=== PATIENT | male | born 1955 | race Caucasian/White ===

== ENCOUNTER 2017-04-23 15:22 | Emergency (ER) | payer MEDICARE, MEDICAID ==
[~2017-04-23] VITALS: Ht 175.3 cm; Wt 84.0 kg
[~2017-04-23 15:22] MED LIST: ASPI-1265 PO; ATOR40TA PO; DAPA10TA PO; DIVA500T7 PO; FLO0.4C PO; GLU850T PO; LANTUS SQ; LIRA0.6P SQ; LISI10TA4 PO; OMEG1CAP13 PO; POTA8CAP9 PO; RISP4TAB2 PO
[2017-04-23 16:03] LABS: BASOPHILS # (AUTO) 0.1 X10'3 (0-0.2); BASOPHILS % (AUTO) 0.5 % (0-1); EOSINOPHILS # (AUTO) 0.2 X10'3 (0-0.9); EOSINOPHILS % (AUTO) 2.4 % (0-6); HEMATOCRIT 53.2 % (42.0-52.0); HEMOGLOBIN 17.4 g/dl (14.0-17.9); LYMPHOCYTES # (AUTO) 2.4 X10'3 (1.1-4.8); LYMPHOCYTES % (AUTO) 24.3 % (21-51); MEAN CORPUSCULAR HEMOGLOBIN 32.2 PG (27.0-31.0); MEAN CORPUSCULAR HGB CONC 32.7 % (33.0-36.5); MEAN CORPUSCULAR VOLUME 98.5 FL (78-98); MONOCYTES # (AUTO) 0.8 X10'3 (0-0.9); MONOCYTES % (AUTO) 8.3 % (2-12); NEUTROPHILS # (AUTO) 6.4 X10'3 (1.8-7.7); NEUTROPHILS % (AUTO) 64.5 % (42-75); PLATELET COUNT 262 X10'3 (140-440); RED CELL DISTRIBUTION WIDTH 13.5 % (11.5-14.5)
[2017-04-23 16:28] LABS: ALANINE AMINOTRANSFERASE 44 U/L (12-78); ALBUMIN 4.2 G/DL (3.4-5.0); ALKALINE PHOSPHATASE 84 IU/L (46-116); ANION GAP 12 (8-16); ASPARTATE AMINO TRANSFERASE 36 U/L (10-37); BLOOD UREA NITROGEN 10 MG/DL (7-18); BUN/CREATININE RATIO 11.1 (5.4-32.0); CALCIUM 9.5 MG/DL (8.5-10.1); CHLORIDE 98 MMOL/L (99-107); ETHANOL < 0.010 GM/DL (0.0-0.010); GLUCOSE 95 MG/DL (70-104); POTASSIUM 3.7 MMOL/L (3.5-5.1); SODIUM 135 MMOL/L (135-145); TOTAL CARBON DIOXIDE 25.5 MMOL/L (24-32); TOTAL PROTEIN 8.5 G/DL (6.4-8.2); eGFR 85 ML/MIN
[2017-04-23 16:56] LABS: CLARITY,URINE CLEAR (Clear); GLUCOSE, URINE >=1000 mg/dl (Neg); KETONES,URINE 15 mg/dl (Neg); LEUKOCYTE ESTERASE ,URINE NEGATIVE (Neg); NITRITES, URINE NEGATIVE (Neg); OCCULT BLOOD,URINE NEGATIVE (Neg); PH,URINE 5.5 (4.8-8.0); PROTEIN,URINE NEGATIVE (Neg)
[2017-04-23 17:05] LABS: COLOR,URINE DARK YELLOW (Yellow); UA COLLECTION TYPE VOIDED
[2017-04-23 17:06] LABS: URINE AMPHETAMINE SCREEN NEGATIVE (Neg); URINE BARBITUATE SCREEN NEGATIVE (Neg); URINE BENZODIAZEPINES SCREEN NEGATIVE (Neg); URINE CANNABINOID SCREEN POSITIVE (Neg); URINE COCAINE SCREEN NEGATIVE (Neg); URINE METHADONE SCREEN NEGATIVE (Neg); URINE OPIATE SCREEN NEGATIVE (Neg); URINE PHENCYCLIDINE SCREEN NEGATIVE (Neg)
[2017-04-23 17:15] LABS: BACTERIA,URINE NONE SEEN /HPF (Neg); MUCUS STRANDS MODERATE /LPF (Neg); RBC,URINE 0-2 /HPF (0-2); SQUAMOUS EPITHELIAL CELL,UR FEW /LPF (FEW)
[2017-04-23 17:16] LABS: WBC,URINE 0-4 /HPF (0-4)
[2017-04-23] MEDS ORDERED: ATOR40TA72 (17:37)
[2017-04-23] MEDS ORDERED: INSU100V9 (17:37)
[2017-04-23] MEDS ORDERED: METF850T2 (17:37)
[2017-04-23] MEDS ORDERED: TAMS0.4C32 (17:37)
[2017-04-23] MEDS ORDERED: LIRA0.6P2 (17:37)
[2017-04-23] MEDS: risperiDONE 2mg tablet PO SCH (20:51)
[2017-04-23] MEDS: divalproex sodium 500mg tablet.DR PO SCH (20:52)
[2017-04-23] MEDS: tamsulosin 0.4mg capsule PO SCH (20:52)
[2017-04-23] MEDS: metFORMIN 850mg tablet PO SCH (20:55)
[2017-04-23] MEDS ORDERED: Insulin Detemir pen SQ SCH (21:00)
[2017-04-24] MEDS ORDERED: LORazepam 1 MG tablet PO PRN (05:50)
[2017-04-24] MEDS: metFORMIN 850mg tablet PO SCH ×2 (07:56→20:56)
[2017-04-24] MEDS: atorvastatin 20mg tablet PO SCH (07:56)
[2017-04-24] MEDS: aspirin 81mg tab.chew PO SCH (07:56)
[2017-04-24] MEDS: lisinopril 10 MG tablet PO SCH (07:56)
[2017-04-24] MEDS: potassium chloride 8mEq ER tablet PO SCH (07:57)
[2017-04-24] MEDS: VICTOZA SQ SCH (10:12)
[2017-04-24] MEDS: FARXIGA 10 MG PO SCH (10:12)
[2017-04-24] MEDS: divalproex sodium 500mg tablet.DR PO SCH (20:58)
[2017-04-24] MEDS: tamsulosin 0.4mg capsule PO SCH (20:58)
[2017-04-24] MEDS: risperiDONE 2mg tablet PO SCH (20:58)
[2017-04-25 05:30] VITALS: BP 119/70
[2017-04-25] MEDS: aspirin 81mg tab.chew PO SCH (08:09)
[2017-04-25] MEDS: metFORMIN 850mg tablet PO SCH (08:09)
[2017-04-25] MEDS: VICTOZA SQ SCH (08:09)
[2017-04-25] MEDS: atorvastatin 20mg tablet PO SCH (08:10)
[2017-04-25] MEDS: potassium chloride 8mEq ER tablet PO SCH (08:10)
[2017-04-25] MEDS: lisinopril 10 MG tablet PO SCH (08:10)
[2017-04-25] MEDS: FARXIGA 10 MG PO SCH (09:36)
== END 2017-04-25 15:49 ==
LOC: ER 15:23
DX: F29 Unspecified psychosis not due to a substance or known physiological condition (principal); I25.10 Atherosclerotic heart disease of native coronary artery without angina pectoris; I11.0 Hypertensive heart disease with heart failure; I50.9 Heart failure, unspecified; E11.9 Type 2 diabetes mellitus without complications; I25.2 Old myocardial infarction; Z85.9 Personal history of malignant neoplasm, unspecified; Z86.73 Personal history of transient ischemic attack (TIA), and cerebral infarction without residual deficits; Z79.82 Long term (current) use of aspirin; Z79.84 Long term (current) use of oral hypoglycemic drugs; Z79.4 Long term (current) use of insulin; Z79.899 Other long term (current) drug therapy
CPT/HCPCS: 36415; 80053; 80164; 80305; 80320; 81001; 82948; 84443; 85025; 96372; 99285

== ENCOUNTER 2017-04-25 12:20 | Inpatient (IN) | payer MEDICARE, MEDICAID ==
[~2017-04-25] VITALS: Ht 175.3 cm; Wt 84.0 kg
[~2017-04-25 12:20] MED LIST changes: +ATOR40TA72; +INSU100V9; +LIRA0.6P2; +METF850T2; +TAMS0.4C32
[2017-04-25] MEDS ORDERED: magnesium hydroxide 30ml (MOM) UD suspension PO PRN (15:15)
[2017-04-25] MEDS ORDERED: mag hydrox/Alum hydrox/simeth 30ml oral suspension PO PRN (15:15)
[2017-04-25] MEDS ORDERED: acetaminophen 325mg tablet PO PRN ×2 (15:15)
[2017-04-25] MEDS ORDERED: LORazepam 1 MG tablet PO PRN (17:25)
[2017-04-25 17:29] VITALS: BP 114/70
[2017-04-25 19:00] VITALS: BP 124/69
[2017-04-25] MEDS: metFORMIN 850mg tablet PO SCH (20:00)
[2017-04-25] MEDS: risperiDONE 2mg tablet PO SCH (20:56)
[2017-04-25] MEDS: divalproex sodium 500mg tablet.DR PO SCH (20:56)
[2017-04-25] MEDS: omega-3 acid ethyl esters 1GM capsule PO SCH (20:56)
[2017-04-25] MEDS ORDERED: Insulin Detemir pen SQ SCH (21:00)
[2017-04-25] MEDS ORDERED: divalproex sodium 500mg tablet.DR PO SCH (21:00)
[2017-04-25] MEDS ORDERED: Insulin Detemir pen SQ ONE (21:50)
[2017-04-26 08:00] VITALS: BP 113/67
[2017-04-26] MEDS: potassium chloride 8mEq ER tablet PO SCH (08:00)
[2017-04-26] MEDS: metFORMIN 850mg tablet PO SCH ×2 (08:00→10:44)
[2017-04-26] MEDS: atorvastatin 20mg tablet PO SCH (08:00)
[2017-04-26] MEDS: Liraglutide (Victoza) 1.8 MG SQ SCH (08:00)
[2017-04-26] MEDS: DAPAGLIFLOZIN PROPANEDIOL 10 MG PO SCH (08:00)
[2017-04-26] MEDS: tamsulosin 0.4mg capsule PO SCH (09:10)
[2017-04-26] MEDS: aspirin 81mg tab.chew PO SCH (09:10)
[2017-04-26] MEDS: omega-3 acid ethyl esters 1GM capsule PO SCH ×2 (09:12→21:05)
[2017-04-26] MEDS: lisinopril 10 MG tablet PO SCH (09:13)
[2017-04-26 20:56] VITALS: BP 107/63
[2017-04-26] MEDS: divalproex sodium 500mg tablet.DR PO SCH (21:04)
[2017-04-26] MEDS: risperiDONE 2mg tablet PO SCH (21:05)
[2017-04-26] MEDS: Insulin Detemir pen SQ SCH (21:11)
[2017-04-27 08:00] VITALS: BP 97/65
[2017-04-27] MEDS: lisinopril 10 MG tablet PO SCH (08:00)
[2017-04-27 08:30] VITALS: BP 106/66
[2017-04-27] MEDS: DAPAGLIFLOZIN PROPANEDIOL 10 MG PO SCH (08:34)
[2017-04-27] MEDS: atorvastatin 20mg tablet PO SCH (08:34)
[2017-04-27] MEDS: potassium chloride 8mEq ER tablet PO SCH (08:34)
[2017-04-27] MEDS: aspirin 81mg tab.chew PO SCH (08:34)
[2017-04-27] MEDS: omega-3 acid ethyl esters 1GM capsule PO SCH ×2 (08:34→20:21)
[2017-04-27] MEDS: tamsulosin 0.4mg capsule PO SCH (08:34)
[2017-04-27] MEDS: metFORMIN 850mg tablet PO SCH ×2 (08:34→20:00)
[2017-04-27] MEDS: Liraglutide (Victoza) 1.8 MG SQ SCH (09:28)
[2017-04-27 19:26] VITALS: BP 121/72
[2017-04-27] MEDS: divalproex sodium 500mg tablet.DR PO SCH (20:21)
[2017-04-27] MEDS: risperiDONE 2mg tablet PO SCH (20:22)
[2017-04-27] MEDS: Insulin Detemir pen SQ SCH (20:24)
[2017-04-28 07:53] VITALS: BP 118/60
[2017-04-28] MEDS: Liraglutide (Victoza) 1.8 MG SQ SCH (09:13)
[2017-04-28 09:14] LABS: CHOLESTEROL 111 MG/DL (0-200); HDL CHOLESTEROL 56 MG/DL (35-60); LDL CHOLESTEROL 50 MG/DL (50-100); TRIGLYCERIDES 39 MG/DL (20-135)
[2017-04-28] MEDS: omega-3 acid ethyl esters 1GM capsule PO SCH ×2 (09:15→21:06)
[2017-04-28] MEDS: metFORMIN 850mg tablet PO SCH ×2 (09:15→21:07)
[2017-04-28] MEDS: atorvastatin 20mg tablet PO SCH (09:15)
[2017-04-28] MEDS: DAPAGLIFLOZIN PROPANEDIOL 10 MG PO SCH (09:15)
[2017-04-28] MEDS: potassium chloride 8mEq ER tablet PO SCH (09:15)
[2017-04-28] MEDS: lisinopril 10 MG tablet PO SCH (09:16)
[2017-04-28] MEDS: tamsulosin 0.4mg capsule PO SCH (09:16)
[2017-04-28] MEDS: aspirin 81mg tab.chew PO SCH (09:16)
[2017-04-28] MEDS ORDERED: RISP2TAB3 PO (10:51)
[2017-04-28] MEDS ORDERED: DIVA500T2 PO (10:51)
[2017-04-28] MEDS ORDERED: tuberculin, purif. prot. deriv. 5 units/0.1ml ID ONE ×2 (14:15)
[2017-04-28 19:42] VITALS: BP 128/68
[2017-04-28] MEDS: Insulin Detemir pen SQ SCH (21:04)
[2017-04-28] MEDS: divalproex sodium 500mg tablet.DR PO SCH (21:06)
[2017-04-28] MEDS: risperiDONE 2mg tablet PO SCH (21:07)
[2017-04-29 07:37] VITALS: BP 117/65
[2017-04-29] MEDS: Liraglutide (Victoza) 1.8 MG SQ SCH (08:00)
[2017-04-29] MEDS: tamsulosin 0.4mg capsule PO SCH (08:46)
[2017-04-29] MEDS: atorvastatin 20mg tablet PO SCH (08:46)
[2017-04-29] MEDS: aspirin 81mg tab.chew PO SCH (08:47)
[2017-04-29] MEDS: omega-3 acid ethyl esters 1GM capsule PO SCH ×2 (08:47→21:24)
[2017-04-29] MEDS: lisinopril 10 MG tablet PO SCH (08:47)
[2017-04-29] MEDS: potassium chloride 8mEq ER tablet PO SCH (08:53)
[2017-04-29] MEDS: DAPAGLIFLOZIN PROPANEDIOL 10 MG PO SCH (08:53)
[2017-04-29] MEDS: metFORMIN 850mg tablet PO SCH ×2 (08:53→21:26)
[2017-04-29 20:00] VITALS: BP 110/58
[2017-04-29] MEDS: divalproex sodium 500mg tablet.DR PO SCH (21:25)
[2017-04-29] MEDS: risperiDONE 2mg tablet PO SCH (21:26)
[2017-04-29] MEDS: Insulin Detemir pen SQ SCH (21:45)
[2017-04-30 07:43] VITALS: BP 100/58
[2017-04-30] MEDS: omega-3 acid ethyl esters 1GM capsule PO SCH (08:41)
[2017-04-30] MEDS: tamsulosin 0.4mg capsule PO SCH (08:41)
[2017-04-30] MEDS: aspirin 81mg tab.chew PO SCH (08:41)
[2017-04-30] MEDS: atorvastatin 20mg tablet PO SCH (08:41)
[2017-04-30] MEDS: metFORMIN 850mg tablet PO SCH (08:41)
[2017-04-30] MEDS: potassium chloride 8mEq ER tablet PO SCH (08:41)
[2017-04-30] MEDS: lisinopril 10 MG tablet PO SCH (08:42)
[2017-04-30] MEDS: DAPAGLIFLOZIN PROPANEDIOL 10 MG PO SCH (08:42)
[2017-04-30] MEDS: Liraglutide (Victoza) 1.8 MG SQ SCH (08:43)
[2017-04-30] MEDS ORDERED: DIVA500T2 PO (09:54)
[2017-04-30] MEDS ORDERED: RISP2TAB3 PO (09:54)
== END 2017-04-30 12:30 | disposition home or self-care (01) | DRG 885 ==
LOC: ADULT MH 12:20
PROVIDERS: ADMIT Psychiatry & Neurology Psychiatry; ATTEND Psychiatry & Neurology Psychiatry
DX: F20.0 Paranoid schizophrenia (principal); E11.9 Type 2 diabetes mellitus without complications; R03.0 Elevated blood-pressure reading, without diagnosis of hypertension; E78.00 Pure hypercholesterolemia, unspecified; E78.5 Hyperlipidemia, unspecified; F17.210 Nicotine dependence, cigarettes, uncomplicated; Z91.14 Patient's other noncompliance with medication regimen; Z79.899 Other long term (current) drug therapy; Z79.82 Long term (current) use of aspirin; Z79.84 Long term (current) use of oral hypoglycemic drugs
CPT/HCPCS: 36415; 80061; 80164; 82948; 83036; 87070; 99406; J1815

== ENCOUNTER 2017-08-24 06:04 | Emergency (ER) | payer MEDICARE, MEDICAID ==
[~2017-08-24] VITALS: Ht 175.3 cm; Wt 90.9 kg
[~2017-08-24 06:04] MED LIST changes: -ATOR40TA72; +BACI1PAC7 TP; +CEPH500C5 PO; -DAPA10TA PO; +DIVA500T2 PO; -DIVA500T7 PO; -INSU100V9; -LANTUS SQ; -LIRA0.6P2; -METF850T2; +RISP2TAB3 PO; -RISP4TAB2 PO; -TAMS0.4C32; +TRIA15CR61 TOP
[2017-08-24 06:12] VITALS: BP 135/76
[2017-08-24] MEDS ORDERED: Permethrin 1% 59ml topical rinse TP ONE (07:20)
[2017-08-24] MEDS ORDERED: Permethrin Cream 60gm TP ONE (07:20)
[2017-08-24] MEDS ORDERED: CEPH500C5 PO (08:21)
== END 2017-08-24 08:35 | disposition home or self-care (01) ==
LOC: ER 06:05
DX: S91.002A Unspecified open wound, left ankle, initial encounter (principal); B85.2 Pediculosis, unspecified; I25.10 Atherosclerotic heart disease of native coronary artery without angina pectoris; I25.2 Old myocardial infarction; E11.9 Type 2 diabetes mellitus without complications; Z85.828 Personal history of other malignant neoplasm of skin; Z86.73 Personal history of transient ischemic attack (TIA), and cerebral infarction without residual deficits; Z59.0 Homelessness; Z56.0 Unemployment, unspecified; Z79.82 Long term (current) use of aspirin; Z79.84 Long term (current) use of oral hypoglycemic drugs; Z79.899 Other long term (current) drug therapy; Z95.0 Presence of cardiac pacemaker; X58.XXXA Exposure to other specified factors, initial encounter; Y93.89 Activity, other specified; Y92.89 Other specified places as the place of occurrence of the external cause; Y99.8 Other external cause status
CPT/HCPCS: 99283

== ENCOUNTER 2017-09-25 21:09 | Emergency (ER) | payer MEDICARE, MEDICAID ==
[~2017-09-25] VITALS: Ht 177.8 cm; Wt 64.8 kg
[~2017-09-25 21:09] MED LIST changes: -BACI1PAC7 TP; -TRIA15CR61 TOP
[2017-09-25] MEDS ORDERED: bacitracin 15gm ointment TP ONE (21:35)
[2017-09-25] MEDS ORDERED: BACI1PAC7 TP (21:35)
[2017-09-25 21:58] VITALS: BP 120/66
== END 2017-09-25 22:00 | disposition home or self-care (01) ==
LOC: ER 21:11
DX: S09.90XD Unspecified injury of head, subsequent encounter (principal); S40.212D Abrasion of left shoulder, subsequent encounter; I25.10 Atherosclerotic heart disease of native coronary artery without angina pectoris; E11.9 Type 2 diabetes mellitus without complications; I25.2 Old myocardial infarction; Z86.73 Personal history of transient ischemic attack (TIA), and cerebral infarction without residual deficits; Z95.0 Presence of cardiac pacemaker; Z79.82 Long term (current) use of aspirin; Z79.84 Long term (current) use of oral hypoglycemic drugs; Z79.899 Other long term (current) drug therapy; Z59.0 Homelessness; Z56.0 Unemployment, unspecified; W22.8XXD Striking against or struck by other objects, subsequent encounter
CPT/HCPCS: 99283; J7030

== ENCOUNTER 2017-10-03 20:45 | Emergency (ER) | payer MEDICARE, MEDICAID ==
[~2017-10-03] VITALS: Ht 175.3 cm; Wt 77.7 kg
[~2017-10-03 20:45] MED LIST changes: +BACI1PAC7 TP
[2017-10-03 21:01] VITALS: BP 120/72
== END 2017-10-03 22:45 | disposition home or self-care (01) ==
LOC: ER 20:46
DX: E11.9 Type 2 diabetes mellitus without complications (principal); I25.10 Atherosclerotic heart disease of native coronary artery without angina pectoris; I25.2 Old myocardial infarction; Z86.73 Personal history of transient ischemic attack (TIA), and cerebral infarction without residual deficits; Z85.9 Personal history of malignant neoplasm, unspecified; Z98.61 Coronary angioplasty status; Z59.0 Homelessness; Z56.0 Unemployment, unspecified; Z79.82 Long term (current) use of aspirin; Z79.84 Long term (current) use of oral hypoglycemic drugs; Z79.4 Long term (current) use of insulin; Z79.899 Other long term (current) drug therapy
CPT/HCPCS: 82948; 99282; 99283

== ENCOUNTER 2017-10-26 20:10 | Emergency (ER) | payer MEDICARE, MEDICAID ==
[~2017-10-26] VITALS: Ht 175.3 cm; Wt 83.8 kg
[~2017-10-26 20:10] MED LIST changes: -BACI1PAC7 TP
[2017-10-26 20:32] VITALS: BP 129/66
== END 2017-10-26 21:09 | disposition home or self-care (01) ==
LOC: ER 20:11
DX: Z00.00 Encounter for general adult medical examination without abnormal findings (principal); E11.9 Type 2 diabetes mellitus without complications; I25.2 Old myocardial infarction; I25.10 Atherosclerotic heart disease of native coronary artery without angina pectoris; Z79.82 Long term (current) use of aspirin; Z79.2 Long term (current) use of antibiotics; Z79.84 Long term (current) use of oral hypoglycemic drugs; Z79.899 Other long term (current) drug therapy; Z59.0 Homelessness; Z56.0 Unemployment, unspecified; Z95.0 Presence of cardiac pacemaker
CPT/HCPCS: 82948; 99282

== ENCOUNTER 2017-10-29 12:31 | Emergency (ER) | payer MEDICARE, MEDICAID ==
[~2017-10-29] VITALS: Ht 180.3 cm; Wt 76.0 kg
[2017-10-29 12:42] VITALS: BP 118/74
== END 2017-10-29 13:09 | disposition home or self-care (01) ==
LOC: ER 12:32
DX: Z00.00 Encounter for general adult medical examination without abnormal findings (principal); E11.9 Type 2 diabetes mellitus without complications; I25.10 Atherosclerotic heart disease of native coronary artery without angina pectoris; I25.2 Old myocardial infarction; Z59.0 Homelessness; Z56.0 Unemployment, unspecified; Z79.84 Long term (current) use of oral hypoglycemic drugs; Z79.899 Other long term (current) drug therapy; Z79.82 Long term (current) use of aspirin; Z95.0 Presence of cardiac pacemaker
CPT/HCPCS: 82948; 99284

== ENCOUNTER 2017-11-03 16:50 | Emergency (ER) | payer MEDICARE, MEDICAID ==
[~2017-11-03] VITALS: Ht 175.3 cm; Wt 84.0 kg
[2017-11-03 19:07] VITALS: BP 129/75
== END 2017-11-03 20:17 | disposition left against medical advice (07) ==
LOC: ER 16:50
DX: M79.671 Pain in right foot (principal); M79.672 Pain in left foot; Z53.21 Procedure and treatment not carried out due to patient leaving prior to being seen by health care provider

== ENCOUNTER 2017-11-08 14:17 | Emergency (ER) | payer MEDICARE, MEDICAID ==
[~2017-11-08] VITALS: Ht 175.3 cm; Wt 84.0 kg
[2017-11-08 14:41] VITALS: BP 131/77
== END 2017-11-08 15:17 | disposition home or self-care (01) ==
LOC: ER 14:18
DX: M79.675 Pain in left toe(s) (principal); I25.10 Atherosclerotic heart disease of native coronary artery without angina pectoris; I25.2 Old myocardial infarction; E11.9 Type 2 diabetes mellitus without complications; Z86.73 Personal history of transient ischemic attack (TIA), and cerebral infarction without residual deficits; Z85.9 Personal history of malignant neoplasm, unspecified; Z95.0 Presence of cardiac pacemaker; Z56.0 Unemployment, unspecified; Z59.0 Homelessness; Z79.82 Long term (current) use of aspirin; Z79.84 Long term (current) use of oral hypoglycemic drugs; Z79.899 Other long term (current) drug therapy
CPT/HCPCS: 99284

== ENCOUNTER 2018-06-19 03:59 | Emergency (ER) | payer MEDICARE, MEDICAID ==
[~2018-06-19] VITALS: Ht 175.3 cm; Wt 86.3 kg
[2018-06-19] MEDS ORDERED: METF500T PO (04:47)
[2018-06-19 05:14] VITALS: BP 137/67
== END 2018-06-19 05:17 | disposition home or self-care (01) ==
LOC: ER 04:00
DX: E11.65 Type 2 diabetes mellitus with hyperglycemia (principal); I25.2 Old myocardial infarction; F20.9 Schizophrenia, unspecified; I25.10 Atherosclerotic heart disease of native coronary artery without angina pectoris; Z86.73 Personal history of transient ischemic attack (TIA), and cerebral infarction without residual deficits; Z96.89 Presence of other specified functional implants; Z59.0 Homelessness; Z56.0 Unemployment, unspecified; Z79.84 Long term (current) use of oral hypoglycemic drugs; Z79.82 Long term (current) use of aspirin; Z79.899 Other long term (current) drug therapy
CPT/HCPCS: 82948; 99283

== ENCOUNTER 2018-07-18 11:20 | Inpatient (IN) | payer MEDICARE, MEDICAID ==
[~2018-07-18] VITALS: Ht 175.3 cm; Wt 102.8 kg
[~2018-07-18 11:20] MED LIST changes: +METF500T PO
--- NOTE | 2018-07-18 12:55 | NUR ---
Admission note: Pt accepted to [facility] for psychosis. Pt made it on the floor at 1255. Pt accepted from [facility]. Pt has 5150 reading "Pt is not caring for his basic needs. Client made delusional statements re-killing us. Pt is not eating, plans to strip naked. Cant report the last time he ate food or slept. Pt is homeless." Pt oriented to the unit. Pts belongings inventoried. Pt admitted to room 326B. Medication reconciliation completed and faxed.
[2018-07-18] MEDS ORDERED: loperamide 2mg capsule PO PRN (13:30)
[2018-07-18] MEDS ORDERED: magnesium hydroxide 30ml (MOM) UD suspension PO PRN (13:30)
[2018-07-18] MEDS ORDERED: hydrOXYzine 25 MG tablet PO PRN (13:30)
[2018-07-18] MEDS ORDERED: mag hydrox/Alum hydrox/simeth 30ml oral suspension PO PRN (13:30)
[2018-07-18] MEDS ORDERED: acetaminophen 325mg tablet PO PRN ×2 (13:30)
[2018-07-18] MEDS ORDERED: tuberculin, purif. prot. deriv. 5 units/0.1ml ID ONE (13:30)
[2018-07-18 14:42] VITALS: BP 131/81
[2018-07-18] MEDS: nicotine 21mg patch - 24 hr TD SCH (16:27)
--- NOTE | 2018-07-18 16:53 | NUR ---
Nursing Progress Note Legal hold: 5150 Client on involuntary status for GD. Report received from Mehnaz Zuniga RN. Why are they here: [facility] was called due to patient being at probation and yelling and being a nuisance. Star team attempted to make contact with patient when he threatened her. There was a referral for LPS in 2018. Client was at [facility] and on 06/07/18 pt. became verbally aggressive to staff and was asked to leave. Client refused services with Star team and has been living homeless. Pt spent 19 years in [facility] after being arrested for four counts of arson. Pt. has history of [place] x 2, DM II, AICD left chest, hypertension, noncompliance with medications. Assessment What has happened this shift: Pt transported from [facility] to [facility]. Patient has a shuffling gait. 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 States that he can do any certified job. When discussing family history he states that he does not have a father or a mother, that they were incarcerated and were criminals. Pt. took shower after arrival, pt in shower talking loudly to self and door was opened to check on pt. Appears to be RIS. S/I, H/I: Denies. A/VH: Denies. I have my own thoughts and I hear what I want to hear. Sleep: States that he only sleeps when he needs it, he really doesn't sleep. ADL's: Independent, redirection. Group attendance: Just admitted. Were meds taken: Nicotine patch, flu shot, PPD. Any med S/E: None. Mental Status Exam Appearance: disheveled elderly gentleman that looks older than stated age. Has long espinoza, and is disheveled in appearance. Eye contact: Direct. Behavior: Talking to self, RIS. Speech: Slurred, hard to understand. Mood: Dysthymic. Affect: Blunted. Thought process: Illogical, fragmented, tangential, grandiose Thought Content: Being a bionic man (he operated on himself). He healed skin cancer. Cognition: Impaired. Insight: Impaired. Judgment: Impaired. Interventions PRN's used: None. Therapeutic interventions: 1:1 to assess patients severity of symptoms, monitored pt behavior, active listening and redirection, build rapport with patient, q15" safety checks. Restraints/seclusion/emergency medication: No. Justification of Continued Inpatient Treatment: Pt. presents as delusional, illogical and unable to provide for food, clothing, retirement, and noncompliance with treatment. Pt. would be rehospitalized if released at this time. Pt. needs medication stabilization, safe and secure environment, or patient would be rehospitalized if released today.
[2018-07-18 19:52] VITALS: BP 133/98
[2018-07-18] MEDS: risperiDONE 2mg tablet PO SCH (20:23)
[2018-07-18] MEDS: divalproex sodium 250mg tablet PO SCH (20:23)
[2018-07-18] MEDS: metFORMIN 850mg tablet PO SCH (20:24)
[2018-07-18] MEDS: tamsulosin 0.4mg capsule PO SCH (20:28)
[2018-07-18] MEDS ORDERED: divalproex sodium 250mg tablet PO SCH (21:00)
--- NOTE | 2018-07-19 03:18 | NUR ---
Nursing Progress Note Legal hold: 5150 Client on involuntary status for GD. Report received from GABRIEL Phelps. Why are they here: [facility] was called due to patient being at probation and yelling and being a nuisance. Star team attempted to make contact with patient when he threatened her. There was a referral for LPS in 2018. Client was at [facility] and on 06/07/18 pt. became verbally aggressive to staff and was asked to leave. Client refused services with [facility] team and has been living homeless. Pt spent 19 years in [facility] after being arrested for four counts of arson. Pt. has history of [place] x 2, DM II, AICD left chest, hypertension, noncompliance with medications. Assessment What has happened this shift: Pt in group room at start of shift. Educated on HS meds. Pt Knowledgeable about his medications. At one point pt said "that's enough" got up, got himself some coffee and went somewhere else to sit. Later in shift pt approached and offered advise on charting. 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 Although pt denies hallucinations, observed several time during the shift stopped in jeffrey appearing to have conversations with someone who is not there. S/I, H/I: Denies. A/VH: Denies. I have my own thoughts and I hear what I want to hear. Sleep: sleeping at this time. ADL's: Independent, redirection. Group attendance: Up to group room for snack. Were meds taken: Yes Any med S/E: None. Mental Status Exam Appearance: disheveled elderly gentleman that looks older than stated age. Has long espinoza, and is disheveled in appearance. Pt stated he took shower on day shift. Eye contact: Direct. Behavior: Talking to self, RIS. Speech: Clear Mood: Dysthymic. Affect: Blunted. 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 Cognition: Impaired. Insight: Impaired. Judgment: Impaired. Interventions PRN's used: None. Therapeutic interventions: 1:1 to assess patients severity of symptoms, monitored pt behavior, active listening and redirection, build rapport with patient, q15" safety checks. Restraints/seclusion/emergency medication: No. Justification of Continued Inpatient Treatment: Pt. presents as delusional, illogical and unable to provide for food, clothing, group home, and noncompliance with treatment. Pt. would be rehospitalized if released at this time. Pt. needs medication stabilization, safe and secure environment, or patient would be rehospitalized if released today.
[2018-07-19 07:35] VITALS: BP 107/65
[2018-07-19] MEDS: metFORMIN 850mg tablet PO SCH ×2 (07:51→20:23)
[2018-07-19] MEDS: nicotine 21mg patch - 24 hr TD SCH (08:00)
[2018-07-19] MEDS ORDERED: LORazepam 1 MG tablet PO STA (10:40)
[2018-07-19] MEDS: folic acid 1mg tablet PO SCH (15:32)
[2018-07-19] MEDS: risperiDONE 2mg tablet PO SCH (20:23)
[2018-07-19] MEDS: tamsulosin 0.4mg capsule PO SCH (20:24)
[2018-07-19] MEDS: thiamine 100mg tablet PO SCH (20:24)
[2018-07-19] MEDS: divalproex sodium 250mg tablet PO SCH (20:24)
[2018-07-19 20:25] VITALS: BP 119/58
--- NOTE | 2018-07-19 22:40 | NUR ---
Nursing Progress Note Legal hold: 5150 Client on involuntary status for GD. Report received from GABRIEL Lantigua. Why are they here: [facility] was called due to patient being at probation and yelling and being a nuisance. Star team attempted to make contact with patient when he threatened her. There was a referral for LPS in 2018. Client was at [facility] and on 06/07/18 pt. became verbally aggressive to staff and was asked to leave. Client refused services with Star team and has been living homeless. Pt spent 19 years in [facility] after being arrested for four counts of arson. Pt. has history of [place] x 2, DM II, AICD left chest, hypertension, noncompliance with medications. Assessment What has happened this shift: Patient walking in hallway at start of shift. Shuffling gate. Patient speaks very quietly and is difficult to understand at times. His grins alot when talking. Tells me he was at a [employer] and walked away because he was not getting enough coffee. 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 Cooperative with assessment and care. Med compliant. S/I, H/I: Denies. A/VH: Denies. Sleep: Sleeping at this time. ADL's: Independent, redirection. Group attendance: Came to group room for snack. Were meds taken: Yes. Any med S/E: None. Mental Status Exam Appearance: disheveled elderly gentleman that looks older than stated age. Has long espinoza, and is disheveled in appearance. Eye contact: Direct. Behavior: Talking to self. Speech: Quiet. Slurred, hard to understand. Mood: Dysthymic. Affect: Blunted. Thought process: Illogical, fragmented, tangential, grandiose Thought Content: Being a bionic man (he operated on himself). He healed skin cancer. Cognition: Impaired. Insight: Impaired. Judgment: Impaired. Interventions PRN's used: None. Therapeutic interventions: 1:1 to assess patients severity of symptoms, monitored pt behavior, active listening and redirection, build rapport with patient, q15" safety checks. Restraints/seclusion/emergency medication: No. Justification of Continued Inpatient Treatment: Pt. presents as delusional, illogical and unable to provide for food, clothing, assisted, and noncompliance with treatment. Pt. would be rehospitalized if released at this time. Pt. needs medication stabilization, safe and secure environment, or patient would be rehospitalized if released today.
[2018-07-20] MEDS: folic acid 1mg tablet PO SCH (07:55)
[2018-07-20] MEDS: metFORMIN 850mg tablet PO SCH ×2 (07:55→20:22)
[2018-07-20] MEDS: thiamine 100mg tablet PO SCH ×2 (07:55→20:27)
[2018-07-20] MEDS ORDERED: nicotine 21mg patch - 24 hr TD SCH (08:00)
[2018-07-20 08:21] LABS: CHOL/HDL RATIO 3.2 (0.00-4.99); CHOLESTEROL 196 MG/DL (0-200); HDL CHOLESTEROL 61 MG/DL (35-60); LDL CHOLESTEROL 115 MG/DL (50-100); TRIGLYCERIDES 104 MG/DL (20-135)
[2018-07-20 08:23] VITALS: BP 138/71
[2018-07-20] MEDS ORDERED: haloperidol 5mg tablet PO PRN (10:20)
--- NOTE | 2018-07-20 17:17 | NUR ---
Nursing Progress Note Legal hold: 5150 Client on involuntary status for GD. Report received from GABRIEL Donahue with use of SBAR Why are they here: [facility] was called due to patient being at probation and yelling and being a nuisance. Star team attempted to make contact with patient when he threatened her. There was a referral for LPS in 2018. Client was at [facility] and on 06/07/18 pt. became verbally aggressive to staff and was asked to leave. Client refused services with [facility] team and has been living homeless. Pt spent 19 years in [facility] after being arrested for four counts of arson. Pt. has history of [place] x 2, DM II, AICD left chest, hypertension, noncompliance with medications. Assessment What has happened this shift: Patient sleeping at shift change. Awake for meds and BGM. Patient laughs to himself and talks to himself. After breakfast, patient became verbally aggressive with peer. Limit setting placed on language and behavior. Patient at first was talking so much that he was not listening to what RN was stating. Patient was asked to listen and to stop talking, after several attempts, patient did listen to RN, and stated understanding of language limits on this unit. Blood glucose monitoring DC'd r/t blood glucose WNL. S/I, H/I: Denies. A/VH: Patient does not admit to hallucinations, but appears to be RIS Sleep: 8 hours. ADL's: Independent, redirection. Group attendance: Cannot focus to stay in group. Were meds taken: Compliant. pt. refused nicotine patch x 2 days and it has been DC'd. Any med S/E: None. Mental Status Exam Appearance: disheveled elderly gentleman that looks older than stated age. Has long espinoza. Eye contact: Direct. Behavior: Talking to self, laughing. Pt. escalates quickly, prn Ativan and Haldol order obtained. Patient responds well to redirection/limit setting. Speech: Slurred, quiet, difficult to understand. Mood: Dysthymic. Affect: Blunted. Thought process: Illogical, fragmented, tangential, grandiose Thought Content: Being a bionic man (he operated on himself). He healed skin cancer. 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 Cognition: Impaired. Insight: Impaired. Judgment: Impaired. Interventions PRN's used: None. Therapeutic interventions: 1:1 to assess patients severity of symptoms, monitored pt behavior, active listening and redirection, limit setting, build rapport with patient, q15" safety checks. Restraints/seclusion/emergency medication: No. Justification of Continued Inpatient Treatment: Pt. presents as delusional, illogical and unable to provide for food, clothing, retirement, pt. needs medication stabilization, safe and secure environment, or patient would be rehospitalized if released today.
[2018-07-20 20:00] VITALS: BP 154/75
[2018-07-20] MEDS: risperiDONE 2mg tablet PO SCH (20:22)
[2018-07-20] MEDS: divalproex sod 250mg ER (24-hour) tablet PO SCH (20:23)
[2018-07-20] MEDS: tamsulosin 0.4mg capsule PO SCH (20:27)
[2018-07-20 21:04] VITALS: BP 154/75
--- NOTE | 2018-07-21 03:21 | NUR ---
Nursing Progress Note Legal hold: 5150 Client on involuntary status for GD. Report received from GABRIEL Donahue with use of SBAR Why are they here: [facility] was called due to patient being at probation and yelling and being a nuisance. Star team attempted to make contact with patient when he threatened her. There was a referral for LPS in 2018. Client was at [facility] and on 06/07/18 pt. became verbally aggressive to staff and was asked to leave. Client refused services with [facility] team and has been living homeless. Pt spent 19 years in [facility] after being arrested for four counts of arson. Pt. has history of [place] x 2, DM II, AICD left chest, hypertension, noncompliance with medications. Assessment What has happened this shift: Pt walking on Unit at start of shift. Pt is oriented x3 not always to situation. He is pleasant and cooperative. Talks constantly flight of ideas. Mumbles under his breath which he explained as dictating his book. Pt took all meds cooperative with care. Pt is unkempt and malodorous. Stated he had a shower this am. Pt cooperated with having feet soaked slightly improved odor. S/I, H/I: Denies. A/VH: Patient does not admit to hallucinations, but appears to be RIS Sleep: sleeping at this time. ADL's: Independent, redirection. Group attendance: Comes to group room for snack. Were meds taken: Compliant. Mental Status Exam Appearance: disheveled elderly gentleman that looks older than stated age. Has long espinoza. Eye contact: Direct. Behavior: Talking to self, laughing. Patient responds well to redirection/limit setting. Speech: Slurred, quiet, difficult to understand. Mood: Dysthymic. Affect: Blunted. Thought process: Illogical, fragmented, tangential, grandiose Thought Content: Being a bionic man (he operated on himself). He healed skin cancer. 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 Cognition: Impaired. Insight: Impaired. Judgment: Impaired. Interventions PRN's used: None. Therapeutic interventions: 1:1 to assess patients severity of symptoms, monitored pt behavior, active listening and redirection, limit setting, build rapport with patient, q15" safety checks. Restraints/seclusion/emergency medication: No. Justification of Continued Inpatient Treatment: Pt. presents as delusional, illogical and unable to provide for food, clothing, [facility], pt. needs medication stabilization, safe and secure environment, or patient would be rehospitalized if released today.
[2018-07-21 08:00] VITALS: BP 127/73
[2018-07-21] MEDS: thiamine 100mg tablet PO SCH ×2 (08:06→20:35)
[2018-07-21] MEDS: folic acid 1mg tablet PO SCH (08:06)
[2018-07-21] MEDS: metFORMIN 850mg tablet PO SCH ×2 (08:06→20:35)
--- NOTE | 2018-07-21 16:49 | NUR ---
Nursing Progress Note Legal hold: 5150 Client on involuntary status for GD. Report received from GABRIEL Donahue with use of SBAR Why are they here: [facility] was called due to patient being at probation and yelling and being a nuisance. Star team attempted to make contact with patient when he threatened her. There was a referral for LPS in 2018. Client was at [facility] and on 06/07/18 pt. became verbally aggressive to staff and was asked to leave. Client refused services with [facility] team and has been living homeless. Pt spent 19 years in [facility] after being arrested for four counts of arson. Pt. has history of [place] x 2, DM II, AICD left chest, hypertension, noncompliance with medications. Assessment What has happened this shift: Patient sleeping in bed w/o distress at shift change. Awake for meds and breakfast. Patient continues to laugh and talk to himself at times. Responds well to limit setting when language and behavior become inapropriate. Pleasant mood for most of day. Attended meals and groups and interacted well with other pts. S/I, H/I: Denies. A/VH: Patient denies AH, but appears to be internally pre occupied Sleep: Not on this shift. ADL's: Independent, with encouragement and redirection. Group attendance: Cannot focus to stay in group. Were meds taken: Yes,Compliant. Any med S/E: None. Mental Status Exam Appearance: disheveled elderly gentleman that looks older than stated age. Eye contact: Direct. Behavior: Talking to self, laughing. Patient responds well to redirection/limit setting. Speech: Slurred, quiet, clear at times Mood: Dysthymic. Affect: Blunted. Thought process: Illogical, fragmented, tangential, grandiose Thought Content: Focused on proving he didnt do anything wrong Cognition: Impaired. Insight: Impaired. Judgment: Impaired. Interventions PRN's used: None. Therapeutic interventions: 1:1 to assess patients severity of symptoms, monitored pt behavior, active listening and redirection, limit setting, build rapport with patient, q15" safety checks. Restraints/seclusion/emergency medication: No. Justification of Continued Inpatient Treatment: Pt. presents as delusional, illogical and unable to provide for food, clothing, alf, pt. needs medication stabilization, safe and secure environment, or patient would be rehospitalized if released today.
[2018-07-21 20:00] VITALS: BP 131/70
[2018-07-21] MEDS: tamsulosin 0.4mg capsule PO SCH (20:34)
[2018-07-21] MEDS: risperiDONE 2mg tablet PO SCH (20:35)
[2018-07-21] MEDS: divalproex sod 250mg ER (24-hour) tablet PO SCH (20:36)
--- NOTE | 2018-07-22 01:12 | NUR ---
Nursing Progress Note Legal hold: 5250 Client on voluntary/involuntary status for being gravely disabled Report received from nurse with use of SBAR: Talha RN Why are they here:[]. Assessment What has happened this shift: The patient was up and about the unit. He was friendly during the evening assessment. 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 When asked if he was hearing voices he replied, "nothing that's not real" The longer he engaged in the assessment the more delusional content he began to share. 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 Pleasant when approaced Speech: spontaneous and coherent. Speech rapid and pressured at times Mood: elevated Affect: bright Thought process: disorganized Thought Content: Delusional Cognition: alert Insight: Poor Judgment: Poor Interventions PRN's used: no Therapeutic interventions: One to one with the patient to assess for severity of disordered thoughts. Restraints/seclusion/emergency medication: na Justification of Continued Inpatient Treatment: The patient remains very delusional and is unable to formulate a realistic plan for food, snf or clothing.
[2018-07-22 08:01] VITALS: BP 117/68
[2018-07-22] MEDS: thiamine 100mg tablet PO SCH ×2 (08:26→20:21)
[2018-07-22] MEDS: folic acid 1mg tablet PO SCH (08:26)
[2018-07-22] MEDS: metFORMIN 850mg tablet PO SCH ×2 (08:26→20:21)
--- NOTE | 2018-07-22 15:31 | NUR ---
NURSING PROGRESS NOTES Legal hold: 5150 Client on involuntary status for GD. Report received from GABRIEL Donahue with use of SBAR Why are they here: [facility] was called due to patient being at probation and yelling and being a nuisance. Star team attempted to make contact with patient when he threatened her. There was a referral for LPS in 2018. Client was at [facility] and on 06/07/18 pt. became verbally aggressive to staff and was asked to leave. Client refused services with [facility] team and has been living homeless. Pt spent 19 years in [facility] after being arrested for four counts of arson. Pt. has history of [place] x 2, DM II, AICD left chest, hypertension, noncompliance with medications. Assessment What has happened this shift: 1:1 assessment at bedside. During morning medication administration patient began repeating the word, nigger over and over with an patient sitting a few chairs away from him. Pt had to be asked numerous times to stop saying that word before stopping. Patient did not repeat this behavior after this incident. Patient seen throughout the day laughing and quietly mumbling while in his room alone. S/I, H/I: Denies. A/VH: Patient denies AH, but appears to be internally pre occupied Sleep: Not on this shift. ADL's: Independent, with encouragement and redirection. Group attendance: Cannot focus to stay in group. Were meds taken: Yes,Compliant. Any med S/E: None. Mental Status Exam Appearance: elderly gentleman looks older than stated age. Eye contact: Direct. Behavior: Patient responds well to redirection/limit setting. Speech: Slurred, quiet, clear at times Mood: Dysthymic. Affect: Blunted. Thought process: Illogical, fragmented, tangential, grandiose Thought Content: Focused on proving he didn't do anything wrong Cognition: Impaired. Insight: Impaired. Judgment: Impaired. Interventions PRN's used: None. Therapeutic interventions: 1:1 at bedside to assess for severity of symptoms, provided active listening with positive feedback, provided medication education w/administration and monitored for side effects. Encouraged group attendance and participation, q 15min safety checks Restraints/seclusion/emergency medication: No. Justification of Continued Inpatient Treatment: Pt. presents as delusional, illogical and unable to provide for food, clothing, fpc, pt. needs medication stabilization, safe and secure environment, or patient would be rehospitalized if released today.
[2018-07-22 20:00] VITALS: BP 128/77
[2018-07-22] MEDS: divalproex sod 250mg ER (24-hour) tablet PO SCH (20:22)
[2018-07-22] MEDS: tamsulosin 0.4mg capsule PO SCH (20:22)
[2018-07-22] MEDS: risperiDONE 2mg tablet PO SCH (20:22)
[2018-07-23] MEDS: LORazepam 1 MG tablet PO PRN ×2 (00:25→20:59)
--- NOTE | 2018-07-23 02:42 | NUR ---
Nursing Progress Note: Legal hold: 5250 Client on involuntary status for GD Report received from nurse with use of SBAR: GABRIEL Mandel Why are they here: Pt. was brought to [facility] by [employer] and Mobile Crisis Unit r/t psychosis and GD. He was transferred from [facility] to [facility] on a 5150. Pt. is currently homeless and has a history of chronic alcoholism. Pt. has paranoid and grandiose delusions and is unable to provide for his own food, clothing, or long-term. 5150 was converted to 5250 today 07/22/18. Assessment What has happened this shift: Pt. up in Recreation Room at beginning of the shift, watching TV and interacting appropriately with others. 1:1 completed later, pt. presents as pleasant, cooperative, and slightly paranoid/guarded. Pt. reports that he doesn't like groups because he feels like others are trying to, "Put blame on him or try to change him. I'm an old man, they need to leave me and my family alone!" When this ghost writer attempted to question pt. r/t what "blame," he was referring to, pt. began speaking in a paranoid and tangental manner that was nonsensical. However, pt. was able to be successfully redirected to another topic of conversation, and when questioned in regard to depression, pt. stated, "I'm a little depressed, but it's personal. I don't like to be made to have things on my conscious, but it seems to be the consequence." Pt. attended HS snack in the Group Room and then retreated to bed, however at approximately midnight he was sitting up in the chair by his bed talking to himself restlessly, PRN Ativan administered along with a snack, and pt. able to return to bed. S/I, H/I: Denies A/VH: Pt. observed to be talking to himself several times throughout the shift Sleep: Pt. retreated to bed early in the evening, however at approximately midnight he was sitting up in the chair by his bed talking to himself restlessly, PRN Ativan administered along with a snack. ADL's: Requires encouragement and re-direction by staff to successfully complete ADLs Group attendance: Reports he has been going to groups, but does not like them Were meds taken: Yes Any med S/E: None Mental Status Exam Appearance: Pt. presents as disheveled, however appropriately dressed in hospital attire. Eye contact: Fair Behavior: Cooperative, and slightly paranoid/guarded Speech: Soft, slow, monotonous, with latency in response. Mood: Pleasant Affect: Flat Thought process: Tangental, but able to be successfully redirected. Some thought blocking, and poverty of thought related to mental illness. Thought Content: Paranoid and grandiose delusions, and possible A/V/JOSEPH, pt. observed to be talking to himself several times throughout the shift Cognition: A&O X4 Insight: Poor Judgment: Poor Interventions PRN's used: Ativan X1 Therapeutic interventions: Introduced self to pt. and established rapport, provided active listening, maintained a safe and therapeutic environment, provided medication education and carbohydrate controlled diet r/t DM, assessed orientation and provided clear/simple instructions, and maintained Q 15 min safety checks. Restraints/seclusion/emergency medication: N/A Justification of Continued Inpatient Treatment: Pt. continues to exhibit s/s of psychosis and is homeless. The [facility] is looking into possible LPS Conservatorship, however if not, will consider re-linking with [facility] or outpatient support, per Dr. Marin.
[2018-07-23] MEDS: folic acid 1mg tablet PO SCH (08:05)
[2018-07-23] MEDS: thiamine 100mg tablet PO SCH ×2 (08:05→20:46)
[2018-07-23] MEDS: metFORMIN 850mg tablet PO SCH ×2 (08:05→20:46)
[2018-07-23 08:23] VITALS: BP 128/69
--- NOTE | 2018-07-23 12:28 | NUR ---
Nursing Progress Note: Legal hold: 5250 Client on involuntary status for GD Report received from charge nurse with use of SBAR: Mehnaz Zuniga RN Why are they here: Pt. was brought to [facility] by [employer] and Mobile Crisis Unit r/t psychosis and GD. He was transferred from [facility] to [facility] on a 5150. Pt. is currently homeless and has a history of chronic alcoholism. Pt. has paranoid and grandiose delusions and is unable to provide for his own food, clothing, or snf. 5150 was converted to 5250 today 07/22/18. Assessment What has happened this shift: Pt up for breakfast, requested aspirin from a PCT for bilateral foot pain, when assessed pt, he stated his pain was a 2/10 and Tylenol would be okay. Gave Tylenol 650 mg at 0806 with good effect. Pt denied depression, anxiety, SI/HI/AH/VH, when asked if he ever saw anything unusual, he replied, "I see reality." No delusional or grandiose statements observed so far this shift, pt is constricted, does not socialize with staff or peers, does not appear to be responding to internal stimuli, no unsafe behaviors noted. S/I, H/I: Pt denies A/VH: Pt denies Sleep: Pt slept 8.25 hours per noc shift report ADL's: Independent Group attendance: Attended morning group Were meds taken: Yes Any med S/E: None noted or reported Mental Status Exam Appearance: Disheveled, vinnie complexion, has a long espinoza, wears a red baseball cap Eye contact: Fair Behavior: Cooperative, isolative to self, constricted Speech: Soft, slow, poverty of speech Mood: Quiet Affect: Blunted Thought process: linear, poverty of thought Thought Content: Pt is not expressing his thoughts today Cognition: A&O X4 Insight: Poor Judgment: Poor Interventions PRN's used: None Therapeutic interventions: 1:1 assessment, medication administration/monitoring/education, encouragement to attend groups, Q 15 min safety checks. Restraints/seclusion/emergency medication: N/A Justification of Continued Inpatient Treatment: Pt has a long psych history, he is homeless, he needs further stabilization. The [facility] is looking into possible [facility] Conservatorship, however if not, will consider re-linking with [place] [facility] or outpatient support, per Dr. Marin.
--- NOTE | 2018-07-23 17:51 | NUR ---
Good appetite, 100% PO intake and meeting nutrition needs. Recommend: 1. continue carb controlled diet 2. Wt per rx Addendum: 07/23/18 at [address] Amended: Links added.
[2018-07-23 19:53] VITALS: BP 131/67
[2018-07-23] MEDS: tamsulosin 0.4mg capsule PO SCH (20:47)
[2018-07-23] MEDS: divalproex sod 250mg ER (24-hour) tablet PO SCH (20:47)
[2018-07-23] MEDS: risperiDONE 2mg tablet PO SCH (20:52)
--- NOTE | 2018-07-24 00:45 | NUR ---
Nursing Progress Note: Legal hold: 5250 Client on involuntary status for GD Report received from nurse with use of SBAR: GABRIEL Velasquez Why are they here: Pt. was brought to [facility] by [employer] and Mobile Crisis Unit r/t psychosis and GD. He was transferred from [facility] to [facility] on a 5150. Pt. is currently homeless and has a history of chronic alcoholism. Pt. has paranoid and grandiose delusions and is unable to provide for his own food, clothing, or half-way. 5150 was converted to 5250 today 07/22/18. Assessment What has happened this shift: Pt. sitting in his room at beginning of the shift, this principal technical writer greeted pt., and he reported concern about needing new shoes because the ones he had on were very worn. This principal technical writer allowed pt. to pick out a pair of donated shoes (removed laces and placed in pt's locker) for pt. to wear, he smiled and voiced content. Pt. up later watching TV in the Group Room, and interacting appropriately, although minimally with others. 1:1 completed, pt. continues to present as pleasant and cooperative. He denies depression, S/I, H/I, or any H/A, states, "I had a good day, I went to groups." This principal technical writer questioned pt. regarding coping skills learned in groups, and he reported "anger management and keeping my mood 5/10." This principal technical writer went on to question pt. regarding who he was talking to when he was sitting up in his room last night at approximately midnight seemingly talking to himself. He stated, "I don't know, the voices must have been from a voice simulator or a satellite." This principal technical writer asked pt. directly if he was hearing A/H? Pt. stated, "No, they were real voices!" However, pt. did report that he was able to sleep after being administered PRN Ativan last night, and he requested Ativan again at , administered with effectiveness. Will continue to monitor. S/I, H/I: Denies A/VH: Pt. reported A/H last night, which he believes were real, states, "the voices must have been from a voice simulator or a satellite." Sleep: Pt. retreated to bed after requesting PRN Ativan with HS medications ADL's: Requires encouragement and re-direction by staff to successfully complete ADLs Group attendance: Reports he has been going to groups and enjoyed them today Were meds taken: Yes Any med S/E: None Mental Status Exam Appearance: Pt. presents as disheveled with flakes of dandruff on clothing, however reports he showered today, and refuses new clothing when offered by staff. Pt. appropriately dressed in hospital attire. Eye contact: Fair to good Behavior: Cooperative Speech: Soft, slow, with some latency in response. However, more animated this shift Mood: Pleasant Affect: Animated Thought process: Tangental at times, but able to be successfully redirected. Some thought blocking, and poverty of thought related to mental illness. Thought Content: A/H and some paranoid/grandiose delusions at times Cognition: A&O X4 Insight: Poor Judgment: Poor to fair Interventions PRN's used: Ativan X1 Therapeutic interventions: Provided active listening, maintained a safe and therapeutic environment, provided medication education and carbohydrate controlled diet r/t DM, helped pt. to obtain new shoes, assessed orientation and provided clear/simple instructions, attempted to re-orient to reality, and maintained Q 15 min safety checks. Restraints/seclusion/emergency medication: N/A Justification of Continued Inpatient Treatment: Pt. continues to exhibit s/s of psychosis and is homeless. The [facility] is looking into possible LPS Conservatorship, however if not, will consider re-linking with [place] [facility] or outpatient support, per Dr. Marin.
[2018-07-24] MEDS: thiamine 100mg tablet PO SCH ×2 (07:24→20:20)
[2018-07-24] MEDS: folic acid 1mg tablet PO SCH (07:24)
[2018-07-24] MEDS: metFORMIN 850mg tablet PO SCH ×2 (07:24→20:20)
[2018-07-24 07:43] VITALS: BP 115/74
--- NOTE | 2018-07-24 17:00 | NUR ---
Nursing Progress Note: Legal hold: 5250 Client on involuntary status for GD Report received from nurse with use of SBAR: GABRIEL Garcia Why are they here: Pt. was brought to [facility] by [employer] and Mobile Crisis Unit r/t psychosis and GD. He was transferred from [facility] to [facility] on a 5150. Pt. is currently homeless and has a history of chronic alcoholism. Pt. 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 5150 was converted to 5250 today 07/22/18. Assessment What has happened this shift: Pt. has type 2 diabetes controlled with oral medication, finger sticks not being done at this time. Pt. awake at beginning of shift. Pt. has delusional, grandiose thoughts. Pt. states, "I spend all my money, than I make twice as much back, then I spend all that, and I make three times as much back, it's nothing to me". RN asked pt. about his support systems, pt. reports that he has not talked with his kids in a long time. Pt. recieved CXR that was negative for TB. S/I, H/I: Denies A/VH: Pt. reported A/H last night, which he believes were real, states, "the voices must have been from a voice simulator or a satellite." Sleep: Pt. napped x1 on this shift. ADL's: Requires encouragement and re-direction by staff to successfully complete ADLs Group attendance: Reports he has been going to groups and enjoyed them today Were meds taken: Yes Any med S/E: None Mental Status Exam Appearance: Pt. presents as disheveled with flakes of dandruff on clothing, however reports he showered today, and refuses new clothing when offered by staff. Pt. appropriately dressed in hospital attire. Eye contact: Fair to good Behavior: Cooperative Speech: Soft, slow, with some latency in response, but pt. will engage in conversation Mood: Pleasant, grandiose at times. Affect: Animated Thought process: Tangental at times, but able to be successfully redirected. Some thought blocking, and poverty of thought. Thought Content: A/H and some paranoid/grandiose delusions at times Cognition: A&O X4 Insight: Poor Judgment: Poor to fair Interventions PRN's used: Therapeutic interventions: Provided active listening, maintained a safe and therapeutic environment, provided medication education and carbohydrate controlled diet r/t DM, helped pt. to obtain new shoes, assessed orientation and provided clear/simple instructions, attempted to re-orient to reality, and maintained Q 15 min safety checks. Restraints/seclusion/emergency medication: N/A Justification of Continued Inpatient Treatment: Pt. continues to exhibit s/s of psychosis and is homeless. The [facility] is looking into possible [facility] Conservatorship, however if not, will consider re-linking with [facility] or outpatient support, per Dr. Marin.
[2018-07-24 20:00] VITALS: BP 141/79
[2018-07-24] MEDS: tamsulosin 0.4mg capsule PO SCH (20:20)
[2018-07-24] MEDS: divalproex sod 250mg ER (24-hour) tablet PO SCH (20:20)
[2018-07-24] MEDS: risperiDONE 2mg tablet PO SCH (20:21)
[2018-07-24] MEDS: LORazepam 1 MG tablet PO PRN (22:42)
--- NOTE | 2018-07-25 01:57 | NUR ---
Nursing Progress Note: Legal hold: 5250 Client on involuntary status for GD Report received from nurse with use of SBAR: Edwin RN Why are they here: Pt. was brought to [facility] by [employer] and Mobile Crisis Unit r/t psychosis and GD. He was transferred from [facility] to [facility] on a 5150. Pt. is currently homeless and has a history of chronic alcoholism. Pt. 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 5150 was converted to 5250 today 07/22/18. Assessment What has happened this shift: The patient was seen in his room for 1:1 at bedside. He is calm and cooperative with this keno writer / runner. The patient is hard to understand as he slurs his words. The patient reports that he's retired and on SSI. 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 He says it's, "The higher power working, people destroyed my God. God destroyed me, He don't like me." Then he says: "I hate the police, I have an APB out on the police." The patient was compliant with medications. Asked for Ativan to help him sleep, then went to bed. S/I, H/I: Denies A/VH: Audio Sleep: Pt. retreated to bed after requesting PRN Ativan with HS medications ADL's: Needs prompting. Group attendance: States he enjoys groups. Were meds taken: Yes Any med S/E: None Mental Status Exam Appearance: Pt. presents as disheveled, recently showered, wearing street clothes Eye contact: Good Behavior: Cooperative, pleasant Speech: Soft, slow, with some latency in response. However, more animated this shift Mood: Pleasant Affect: Animated Thought process: Linear then tangential. fragmented thoughts at times. Thought Content: Delusions of grandeur. Cognition: A&O X4 Insight: Poor Judgment: Poor to fair Interventions PRN's used: Ativan X1 Therapeutic interventions: Provided active listening, maintained a safe and therapeutic environment, provided medication education and carbohydrate controlled diet r/t DM, helped pt. to obtain new shoes, assessed orientation and provided clear/simple instructions, attempted to re-orient to reality, and maintained Q 15 min safety checks. Restraints/seclusion/emergency medication: N/A Justification of Continued Inpatient Treatment: Pt. continues to exhibit s/s of psychosis and is homeless. The [facility] is looking into possible [facility] Conservatorship, however if not, will consider re-linking with [facility] or outpatient support, per Dr. Marin.
[2018-07-25 08:01] VITALS: BP 130/79
[2018-07-25] MEDS: folic acid 1mg tablet PO SCH (08:05)
[2018-07-25] MEDS: metFORMIN 850mg tablet PO SCH ×2 (08:05→20:26)
[2018-07-25] MEDS: thiamine 100mg tablet PO SCH ×2 (08:05→20:27)
[2018-07-25 08:08] LABS: BASOPHILS # (AUTO) 0.1 X10'3 (0-0.2); BASOPHILS % (AUTO) 1.2 % (0-1); EOSINOPHILS # (AUTO) 0.1 X10'3 (0-0.9); EOSINOPHILS % (AUTO) 2.6 % (0-6); HEMATOCRIT 46.6 % (42.0-52.0); HEMOGLOBIN 15.8 g/dl (14.0-17.9); LYMPHOCYTES # (AUTO) 2.3 X10'3 (1.1-4.8); LYMPHOCYTES % (AUTO) 43.6 % (21-51); MEAN CORPUSCULAR HEMOGLOBIN 31.3 PG (27.0-31.0); MEAN CORPUSCULAR HGB CONC 33.8 g/dL (33.0-36.5); MEAN CORPUSCULAR VOLUME 92.6 FL (78-98); MEAN PLATELET VOLUME 8.4 FL (7.4-10.4); MONOCYTES # (AUTO) 0.4 X10'3 (0-0.9); MONOCYTES % (AUTO) 7.3 % (2-12); NEUTROPHILS # (AUTO) 2.4 X10'3 (1.8-7.7); NEUTROPHILS % (AUTO) 45.3 % (42-75); PLATELET COUNT 195 X10'3 (140-440); RED BLOOD COUNT 5.03 X10'6 (4.70-6.10); RED CELL DISTRIBUTION WIDTH 12.5 % (11.5-14.5); WHITE BLOOD COUNT 5.2 X10'3 (4.5-11.0)
[2018-07-25 08:27] LABS: ALANINE AMINOTRANSFERASE 19 U/L (12-78); ALBUMIN 3.3 G/DL (3.4-5.0); ALBUMIN/GLOBULIN RATIO 0.9 (1.1-1.5); ALKALINE PHOSPHATASE 76 IU/L (46-116); ANION GAP 8 (8-16); ASPARTATE AMINO TRANSFERASE 12 U/L (10-37); BILIRUBIN,TOTAL 0.3 MG/DL (0.1-1.0); BLOOD UREA NITROGEN 11 MG/DL (7-18); BUN/CREATININE RATIO 16.4 (5.4-32.0); CALCIUM 9.5 MG/DL (8.5-10.1); CHLORIDE 102 MMOL/L (99-107); CREATININE 0.67 MG/DL (0.60-1.10); GLUCOSE 123 MG/DL (70-104); POTASSIUM 4.7 MMOL/L (3.5-5.1); SODIUM 137 MMOL/L (135-145); eGFR > 90 ML/MIN
[2018-07-25 08:29] LABS: VALPROATE 111 UG/ML (50-100)
--- NOTE | 2018-07-25 16:32 | NUR ---
Nursing Progress Note: Legal hold: 5250 Client on involuntary status for GD Report received from nurse with use of SBAR: GABRIEL Almaguer Why are they here: Pt. was brought to [facility] by [employer] and Mobile Crisis Unit r/t psychosis and GD. He was transferred from [facility] to [facility] on a 5150. Pt. is currently homeless and has a history of chronic alcoholism. Pt. 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 5150 was converted to 5250 today 07/22/18. Assessment What has happened this shift: Patient asleep upon arrival to unit. Pt. awake for breakfast and meds. Pt. compliant with requests. States he is having a good day. No verbal escalations. States that he has [id number] saved up for his own apartment, but then starts talking about how he cannot afford anything. S/I, H/I: Denies A/VH: Denies. Sleep: 6.5 hrs NOC ADL's: Independent, needs prompting. Group attendance: Goes in and out of group room to get coffee. Were meds taken: Yes Any med S/E: None Mental Status Exam Appearance: Pt with bowen hair and long espinoza wearing hospital scrubs, disheveled. Eye contact: Good Behavior: Cooperative, pleasant Speech: Soft, slow, with some latency in response. Mood: Pleasant Affect: Euthymic. Thought process: Delusions of grandeur, illogical, fragmented. Thought Content: Wanting to get his own apartment. Discharge. Cognition: A&O X4 Insight: Poor Judgment: Poor to fair Interventions PRN's used: Ativan X1 Therapeutic interventions: Provided active listening, maintained a safe and therapeutic environment, provided medication education and carbohydrate controlled diet r/t DM, assessed orientation and provided clear/simple instructions, attempted to re-orient to reality, and maintained Q 15 min safety checks. Restraints/seclusion/emergency medication: N/A Justification of Continued Inpatient Treatment: Pt. continues to exhibit s/s of psychosis and is homeless. The [facility] is looking into possible [facility] Conservatorship, however if not, will consider re-linking with [place] [facility] or outpatient support, per Dr. Marin.
--- NOTE | 2018-07-25 17:19 | NUR ---
VPA level is high at 111.
[2018-07-25 19:36] VITALS: BP 134/70
[2018-07-25] MEDS: divalproex sod 250mg ER (24-hour) tablet PO SCH (20:26)
[2018-07-25] MEDS: risperiDONE 2mg tablet PO SCH (20:27)
[2018-07-25] MEDS: tamsulosin 0.4mg capsule PO SCH (20:27)
[2018-07-25] MEDS: LORazepam 1 MG tablet PO PRN (23:48)
--- NOTE | 2018-07-26 00:03 | NUR ---
Nursing Progress Note: Legal hold: 5250 Client on involuntary status for GD Report received from nurse with use of SBAR: Edwin RN Why are they here: Pt. was brought to [facility] by [facility] and Mobile Crisis Unit r/t psychosis and GD. He was transferred from [facility] to [facility] on a 5150. Pt. is currently homeless and has a history of chronic alcoholism. Pt. has paranoid and grandiose delusions and is unable to provide for his own food, clothing, or jail. 5150 was converted to 5250 today 07/22/18. Assessment What has happened this shift: The patient was seen in his room for 1:1 at bedside. He continues to slur his words and is almost unintelligible. He remains disorganized with his thoughts. "I been put here by the higher power, they can do whatever they want. I got kids and children, I signed myself over long time ago. 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 He calls the hallucinations, "the higher power." He sat up in the rec room until 2330, when he asked for Ativan for anxiety, and to help sleep. S/I, H/I: Denies A/VH: Audio Sleep: Pt. retreated to bed after requesting PRN Ativan with HS medications ADL's: Needs prompting. Group attendance: States he enjoys groups. Were meds taken: Yes Any med S/E: None Mental Status Exam Appearance: Pt. presents as disheveled, stinks like sweat and urine, wearing street clothes Eye contact: Good Behavior: Cooperative, pleasant Speech: Soft, slow, with some latency in response. Mood: Pleasant Affect: Animated Thought process: Linear then tangential. fragmented thoughts at times. Thought Content: Delusions of grandeur. Cognition: A&O X4 Insight: Poor Judgment: Poor to fair Interventions PRN's used: Ativan X1 Therapeutic interventions: Provided active listening, maintained a safe and therapeutic environment, provided medication education and carbohydrate controlled diet r/t DM, helped pt. to obtain new shoes, assessed orientation and provided clear/simple instructions, attempted to re-orient to reality, and maintained Q 15 min safety checks. Restraints/seclusion/emergency medication: N/A Justification of Continued Inpatient Treatment: Pt. continues to exhibit s/s of psychosis and is homeless. The [facility] is looking into possible [facility] Conservatorship, however if not, will consider re-linking with [facility] or outpatient support, per Dr. Marin.
[2018-07-26 07:53] VITALS: BP 110/60
[2018-07-26] MEDS: thiamine 100mg tablet PO SCH ×2 (08:07→20:17)
[2018-07-26] MEDS: metFORMIN 850mg tablet PO SCH ×2 (08:07→20:17)
[2018-07-26] MEDS: folic acid 1mg tablet PO SCH (08:07)
--- NOTE | 2018-07-26 17:07 | NUR ---
Nursing Progress Note: Legal hold: 5250 Client on involuntary status for GD Report received from nurse with use of SBAR: GABRIEL Almaguer Why are they here: Pt. was brought to [facility] by [employer] and Mobile Crisis Unit r/t psychosis and GD. He was transferred from [facility] to [facility] on a 5150. Pt. is currently homeless and has a history of chronic alcoholism. Pt. 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 5150 was converted to 5250 today 07/22/18. Assessment What has happened this shift: Patient awoke shortly after shift change. Pt. did shower and change clothing. Has been ambulating around unit drinking coffee all day. Roommate has been yelling at client this afternoon, then was served with temporary LPS papers. Pt. immediately started yelling and became hostile. Pt. sitting in group room alone. Pt. states that he is not from this system ([employer] system), he is from where there are no women or children, there are only men. Pt. became threatening with RN stating that "this is an act of war - anyone that does anything to me or my children will get their lives snuffed out and they will be no more." Offered patient prns, which he refused. Pt. stated that he was calm by the end of the conversation. S/I, H/I: Denies A/VH: Denies. Sleep: 6.75 hrs NOC ADL's: Independent, needs prompting. Group attendance: Goes in and out of group room to get coffee. Were meds taken: Yes Any med S/E: None Mental Status Exam Appearance: Pt with bowen hair and long espinoza wearing hospital scrubs with a red and blue [employer] hat., disheveled. Eye contact: Good Behavior: Mostly calm and cooperative except for one incident of intense anger. Speech: Soft, slow, with some latency in response. Mood: Full range, WNL to angry Affect: Labile. Thought process: Delusions of grandeur, illogical, fragmented. Thought Content: Being "locked up". Cognition: A&O X4 Insight: Poor Judgment: Poor to fair Interventions PRN's used: Refused. Therapeutic interventions: Provided active listening, maintained a safe and therapeutic environment, provided medication education and carbohydrate controlled diet r/t DM, assessed orientation and provided clear/simple instructions, attempted to re-orient to reality, de-escalation, and maintained Q 15 min safety checks. Restraints/seclusion/emergency medication: N/A Justification of Continued Inpatient Treatment: Pt. continues to exhibit s/s of psychosis and is homeless. Pt. is now on temporary LPS Conservatorship. Public guardian will be finding placement.
[2018-07-26] MEDS ORDERED: diphenhydrAMINE 25mg capsule PO PRN (18:35)
[2018-07-26 20:00] VITALS: BP 120/65
[2018-07-26] MEDS: risperiDONE 2mg tablet PO SCH (20:16)
[2018-07-26] MEDS: divalproex sod 250mg ER (24-hour) tablet PO SCH (20:16)
[2018-07-26] MEDS: tamsulosin 0.4mg capsule PO SCH (20:17)
--- NOTE | 2018-07-27 03:27 | NUR ---
Nursing Progress Note: Legal hold: T-con Client on involuntary status for GD Report received from nurse with use of SBAR: GABRIEL Smiley Why are they here: Pt. was brought to [facility] by [employer] and Mobile Crisis Unit r/t psychosis and GD. He was transferred from [facility] to [facility] on a 5150. Pt. is currently homeless and has a history of chronic alcoholism. Pt. has paranoid and grandiose delusions and is unable to provide for his own food, clothing, or correction. 5150 was converted to 5250 today 07/22/18. Assessment What has happened this shift: This patient was in the group room at shift change. he was sitting in a corner by himself. He was asked if he would go to his room for 1:1. He stated that he wouldn't. He had been served LPS papers earlier in the day, and was clearly still upset. He said something like, "you're the enemy." He would not repeat it, so not sure it was heard right. He did take his HS medicine with no problem. No PRN's tonight. S/I, H/I: Denies A/VH: Audio Sleep: Has been asleep since HS med pass. ADL's: Needs prompting. Group attendance: No groups tonight. Were meds taken: Yes Any med S/E: None Mental Status Exam Appearance: Pt. presents as disheveled, stinks like sweat and urine, wearing green scrubs. Eye contact: Good Behavior: Angry, uncooperative. Speech: Soft, slow, with some latency in response. Mood: Angry Affect: Constructed Thought process: Tangential. fragmented thoughts at times. Thought Content: Delusions of grandeur. Cognition: A&O X4 Insight: Poor Judgment: Poor to fair Interventions PRN's used: Therapeutic interventions: Provided active listening, maintained a safe and therapeutic environment, provided medication education and carbohydrate controlled diet r/t DM, helped pt. to obtain new shoes, assessed orientation and provided clear/simple instructions, attempted to re-orient to reality, and maintained Q 15 min safety checks. Restraints/seclusion/emergency medication: N/A Justification of Continued Inpatient Treatment: Pt. continues to exhibit s/s of psychosis and is homeless. The county is looking into possible LPS Conservatorship, however if not, will consider re-linking with [place] [facility] or outpatient support, per Dr. Marin.
[2018-07-27] MEDS: thiamine 100mg tablet PO SCH ×2 (07:55→20:11)
[2018-07-27] MEDS: folic acid 1mg tablet PO SCH (07:55)
[2018-07-27] MEDS: metFORMIN 850mg tablet PO SCH ×2 (07:55→20:11)
[2018-07-27 08:00] VITALS: BP 127/70
--- NOTE | 2018-07-27 13:26 | NUR ---
Nursing Progress Note: Legal hold: 5250, TCON pending Client on involuntary status for GD Report received from nurse with use of SBAR: GABRIEL Almaguer Why are they here: Pt. was brought to [facility] by [employer] and Mobile Crisis Unit r/t psychosis and GD. He was transferred from [facility] to [facility] on [facility]. Pt. is currently homeless and has a history of chronic alcoholism. Pt. 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 5150 was converted to 5250 on 07/22/18. Assessment What has happened this shift: This patient was in the group room at shift change. he was sitting in a corner by himself. He was asked if he would go to his room for 1:1. He stated that he wouldn't. He had been served LPS papers earlier in the day, and was clearly still upset. He said something like, "you're the enemy." He would not repeat it, so not sure it was heard right. He did take his HS medicine with no problem. No PRN's tonight. S/I, H/I: Denies A/VH: Audio Sleep: Has been asleep since HS med pass. ADL's: Needs prompting. Group attendance: No groups tonight. Were meds taken: Yes Any med S/E: None Mental Status Exam Appearance: Pt. presents as disheveled, stinks like sweat and urine, wearing green scrubs. Eye contact: Good Behavior: Angry, uncooperative. Speech: Soft, slow, with some latency in response. Mood: Angry Affect: Constructed Thought process: Tangential. fragmented thoughts at times. Thought Content: Delusions of grandeur. Cognition: A&O X4 Insight: Poor Judgment: Poor to fair Interventions PRN's used: Therapeutic interventions: Provided active listening, maintained a safe and therapeutic environment, provided medication education and carbohydrate controlled diet r/t DM, helped pt. to obtain new shoes, assessed orientation and provided clear/simple instructions, attempted to re-orient to reality, and maintained Q 15 min safety checks. Restraints/seclusion/emergency medication: N/A Justification of Continued Inpatient Treatment: Pt. continues to exhibit s/s of psychosis and is homeless. The [facility] is looking into possible LPS Conservatorship, however if not, will consider re-linking with [facility] or outpatient support, per Dr. Marin. Addendum: 07/27/18 at 1327 by Rhina Staples RN (Lee) ERROR, NOTE ACCIDENTLY SAVED BEFORE COMPLETED PLEASE SEE FOLLOWING NOTE
--- NOTE | 2018-07-27 13:28 | NUR ---
Nursing Progress Note: Legal hold: 5250, TCON pending Client on involuntary status for GD Report received from nurse with use of SBAR: GABRIEL Almaguer Why are they here: Pt. was brought to [facility] by [employer] and Mobile Crisis Unit r/t psychosis and GD. He was transferred from [facility] to [facility] on a 5150. Pt. is currently homeless and has a history of chronic alcoholism. Pt. has paranoid and grandiose delusions and is unable to provide for his own food, clothing, or mcc. 5150 was converted to 5250 on 07/22/18. Assessment What has happened this shift: Pt denied depression, anxiety, SI/HI/AH/VH, when asked about how he slept, replied, "so so" then when asked why he only slept "so so" stated "I slept okay." Asked pt where he was from and he replied "I'm from [place]." No delusional statements so far this shift. No unsafe behaviors noted. Dr Marin is aware of 07/25/18 valproic acid level of 111. S/I, H/I: Pt denies A/VH: Pt denies Sleep: Slept 7 hours per noc shift report ADL's: Independent, needs encouragement to perform personal hygiene Group attendance: Yes Were meds taken: Yes Any med S/E: None noted or reported Mental Status Exam Appearance: appropriate Eye contact: Good Behavior: constricted, guarded, cooperative Speech: Somewhat rapid and slurred Mood: appropriate Affect: Constricted Thought process: linear Thought Content: Pt has been quiet today, is not expressing his thoughts. Cognition: A&O X4 Insight: Poor Judgment: Poor to fair Interventions PRN's used: None Therapeutic interventions: 1:1 assessment, encouragement to express thoughts and feelings, encouragement to perform personal hygiene, medication administration/education/monitoring, Q 15 min safety checks. Restraints/seclusion/emergency medication: N/A Justification of Continued Inpatient Treatment: Pt continues with delusions, AH at times, pt is homeless, and gravely disabled, TCON is pending. Addendum: 07/27/18 at 1740 by Rhina Staples RN (Lee) PT IS ON A TCON, PAPERWORK IS IN THE CHART.
[2018-07-27] MEDS: tamsulosin 0.4mg capsule PO SCH (20:11)
[2018-07-27] MEDS: risperiDONE 2mg tablet PO SCH (20:11)
[2018-07-27] MEDS: divalproex sod 250mg ER (24-hour) tablet PO SCH (20:11)
[2018-07-27 20:48] VITALS: BP 134/73
--- NOTE | 2018-07-28 01:14 | NUR ---
Nursing Progress Note: Legal hold: T-con Client on involuntary status for GD Report received from nurse with use of SBAR: Ron RN Why are they here: Pt. was brought to [facility] by [employer] and Mobile Crisis Unit r/t psychosis and GD. He was transferred from [facility] to [facility] on a 5150. Pt. is currently homeless and has a history of chronic alcoholism. Pt. has paranoid and grandiose delusions and is unable to provide for his own food, clothing, or group home. Pt. has been placed on a T-con per the [place] guardians office and they are considering LPS conservatorship. Assessment What has happened this shift: Pt. up in Group Room at the beginning of the shift, laughing and interacting appropriately with another male patient, although conversation somewhat disorganized. He later attended snack and retreated to bed at approximately 2130. 1:1 completed at bedside, pt. continues to present as pleasant and cooperative. He denies depression, S/I, H/I, or any H/A, and no delusional statements made this shift. However, pt. observed by staff to be occasionally talking to himself. Pt. sleeping throughout the shift, up at approximately 0130 requesting a snack, and then returned to bed. S/I, H/I: Denies A/VH: Denies, however pt. observed by staff to be occasionally talking to himself Sleep: Pt. reports fatigue and appears to be sleeping well ADL's: Requires encouragement and re-direction by staff to successfully complete ADLs Group attendance: Reports he has been going to groups Were meds taken: Yes Any med S/E: None Mental Status Exam Appearance: Pt. continues to present as disheveled, however appropriately dressed in hospital attire. Eye contact: Fair to good Behavior: Cooperative Speech: Soft, slow, with some latency in response. Mood: Pleasant Affect: Animated Thought process: Disorganized at times, but able to be successfully redirected. Some thought blocking, and poverty of thought related to mental illness. Thought Content: Possibly A/H and some paranoid/grandiose delusions at times Cognition: A&O X4 Insight: Poor Judgment: Poor to fair Interventions PRN's used: None Therapeutic interventions: Provided active listening, maintained a safe and therapeutic environment, provided medication education and carbohydrate controlled diet r/t DM, assessed orientation and provided clear/simple instructions, attempted to re-orient to reality, and maintained Q 15 min safety checks. Restraints/seclusion/emergency medication: N/A Justification of Continued Inpatient Treatment: Pt. has a history of non-compliance, potential for agitation, and arson. The [place] public guardian has placed on a T-con and is considering LPS Conservatorship.
[2018-07-28] MEDS: metFORMIN 850mg tablet PO SCH ×2 (07:44→20:26)
[2018-07-28] MEDS: thiamine 100mg tablet PO SCH ×2 (07:44→20:26)
[2018-07-28] MEDS: folic acid 1mg tablet PO SCH (07:45)
[2018-07-28 07:48] VITALS: BP 114/71
--- NOTE | 2018-07-28 17:15 | NUR ---
Nursing Progress Note: Legal hold: T-con Client on involuntary status for GD Report received from nurse with use of SBAR: GABRIEL Rico Why are they here: Pt. was brought to [facility] by [employer] and Mobile Crisis Unit r/t psychosis and GD. He was transferred from [facility] to [facility] on a 5150. Pt. is currently homeless and has a history of chronic alcoholism. Pt. has paranoid and grandiose delusions and is unable to provide for his own food, clothing, or jail. Pt. has been placed on a T-con per the [place] guardians office and they are considering LPS conservatorship. Assessment What has happened this shift: Pt. up at shift, calm, and cooperative. Eats his meals and takes medication. Pt. has pleasent demenor and is hopeful not to go to board and care. Pt. states, he has $6000 in savings and hopes to stay in [place] on discharge plan is for possible LPS conservatorship. 1:1 completed in community room. Pt. made no delusional statements and denies SI/HI. Pt. up in Group Room at the beginning of the shift, laughing and interacting appropriately with another male patient, although conversation somewhat disorganized. He later attended [facility] and retreated to bed at approximately 2130. 1:1 completed at bedside, pt. continues to present as pleasant and cooperative. He denies depression and S/I. H/I, or any H/A, and no delusional statements made this shift. However, pt. observed by staff to be occasionally talking to himself. S/I, H/I: Denies A/VH: Denies but appears internaly preocuppied at times. Sleep: Pt. reports fatigue and appears to be sleeping well ADL's: Requires encouragement and re-direction by staff to successfully complete ADLs Group attendance: Reports he has been going to groups Were meds taken: Yes Any med S/E: None Mental Status Exam Appearance: Pt. continues to present as disheveled, however appropriately dressed in hospital attire. Eye contact: Fair to good Behavior: Cooperative Speech: Soft, slow, with some latency in response. Mood: Pleasant Affect: Animated Thought process: Disorganized at times, but redirectable. Some thought blocking, and poverty of thought related to mental illness. Thought Content: Possibly A/H and some paranoid/grandiose delusions at times Cognition: A&O X4 Insight: Poor Judgment: Poor to fair Interventions PRN's used: None Therapeutic interventions: Provided active listening, maintained a safe and therapeutic environment, provided medication education and carbohydrate controlled diet r/t DM, assessed orientation and provided clear/simple instructions, attempted to re-orient to reality, and maintained Q 15 min safety checks. Restraints/seclusion/emergency medication: N/A Justification of Continued Inpatient Treatment: Pt. has a history of non-compliance, potential for agitation, and arson. The [place] public guardian has placed on a T-con and is considering LPS Conservatorship.
[2018-07-28 20:00] VITALS: BP 117/78
[2018-07-28] MEDS: divalproex sod 250mg ER (24-hour) tablet PO SCH (20:26)
[2018-07-28] MEDS: tamsulosin 0.4mg capsule PO SCH (20:26)
[2018-07-28] MEDS: risperiDONE 2mg tablet PO SCH (20:26)
--- NOTE | 2018-07-29 00:19 | NUR ---
Nursing Progress Note: Legal hold: T-con Client on involuntary status for GD Report received from nurse with use of SBAR: Edwin RN Why are they here: Pt. was brought to [facility] by [employer] and Mobile Crisis Unit r/t psychosis and GD. He was transferred from [facility] to [facility] on a 5150. Pt. is currently homeless and has a history of chronic alcoholism. Pt. has paranoid and grandiose delusions and is unable to provide for his own food, clothing, or skilled nursing. Pt. has been placed on a T-con per the [place] guardians office and they are considering [facility] conservatorship. Assessment What has happened this shift: Pt. laying in be at the beginning of the shift, smiling and pleasantly states, "I had a good day! I'm trying to stay out of trouble and help around the town as much as I can. I'm not a convict." This development writer provided pt. with positive reinforcement, and he voiced content. Pt. later attended snack and sat watching TV in the Recreation Room. 1:1 completed, pt. continues to present as pleasant and cooperative. He denies depression, S/I, H/I, or any H/A, and no delusional statements made this shift. Pt. reports that he feels ready to leave, and has $6000 saved up with which he will use to pay for a Room and Board, and then eventually get his own apartment. This development writer questioned pt. as to whether he feels that he will be able to successfully care for himself, and he agrees that he feels he can, however pt. is unable to identify any coping skills when directly asked. S/I, H/I: Denies A/VH: Denies, however pt. observed by staff to be occasionally talking to himself Sleep: Pt. reports fatigue and appears to be sleeping well ADL's: Requires encouragement and re-direction by staff to successfully complete ADLs Group attendance: Reports he has been going to groups, however states, "I went, but I wasn't that into them." Were meds taken: Yes Any med S/E: None Mental Status Exam Appearance: Pt. continues to present as slightly disheveled, however appropriately dressed in hospital attire. Psychomotor activity WNL Eye contact: Good Behavior: Cooperative Speech: Soft, slow, with some latency in response. Mood: Pleasant Affect: Animated Thought process: Disorganized at times, but able to be successfully redirected. Some thought blocking, and poverty of thought related to mental illness. Thought Content: Possibly A/H and some paranoid/grandiose delusions at times Cognition: A&O X4 Insight: Poor Judgment: Fair Interventions PRN's used: None Therapeutic interventions: Provided active listening, maintained a safe and therapeutic environment, provided encouragement and positive reinforcement r/t ADL performance and future goal setting, provided medication education and carbohydrate controlled diet r/t DM, assessed orientation and provided clear/simple instructions, attempted to re-orient to reality, and maintained Q 15 min safety checks. Restraints/seclusion/emergency medication: N/A Justification of Continued Inpatient Treatment: Pt. has a history of non-compliance, potential for agitation, and arson. The [place] public guardian has placed on a T-con and is considering LPS Conservatorship. Pt. wishes to discharge to a Board and Care.
[2018-07-29 07:49] VITALS: BP 120/73
[2018-07-29] MEDS: metFORMIN 850mg tablet PO SCH ×2 (07:57→20:29)
[2018-07-29] MEDS: thiamine 100mg tablet PO SCH ×2 (07:57→20:28)
[2018-07-29] MEDS: folic acid 1mg tablet PO SCH (07:57)
--- NOTE | 2018-07-29 12:03 | NUR ---
Reassessment: Noted that patient's weight changed + 64.35 kg in a week likely false documentation. Documented PO intake 100% on CHO controlled diet meeting nutrient needs. [facility] 07/28. No nutrition diagnosis at this time. Will continue to follow. Recommend: 1. continue carb controlled diet 2. Wt per rx Addendum: 07/29/18 at [address] Amended: Links added.
--- NOTE | 2018-07-29 14:52 | NUR ---
1:1 DISCHARGE PLANNING SW provided H&P, Nursing Notes, Chest Xray results, MAR, psychosocial and activity assessment to T[facility] Office and Public Guardian for placement needs. JAYMIE left message for Nicolas requesting Board and Care placement for pt, rather than IMD. ANGEL Ray
--- NOTE | 2018-07-29 17:45 | NUR ---
Nursing Progress Note: Legal hold: T-con Client on involuntary status for GD Report received from nurse with use of SBAR: Trisha RN Why are they here: Pt. was brought to [facility] by [employer] and Mobile Crisis Unit r/t psychosis and GD. He was transferred from [facility] to [facility] on a 5150. Pt. is currently homeless and has a history of chronic alcoholism. Pt. has paranoid and grandiose delusions and is unable to provide for his own food, clothing, or group home. Pt. has been placed on a T-con per the [place] guardians office and they are considering LPS conservatorship. Assessment What has happened this shift: Pt. reports he is well, denies SI/HI, and perseverates about his $6000 dollars in savings that he will use to pay for room and board and eventually get his own apartment. Pt. is med compliant, goes to groups, and eats his meals. Pt. encouraged to slef care. Pt. showered today but did not trim his espinoza because he said it keeps him warm. 1:1 completed and pt. watching TV in rec room. Pt. became agitated and yelled after talking with his doctor and therapist. pt. was reminded that he needs to go before a faith healer regarding being conserved. Pt. stated, "I don't want to talk to you, you can leave me alone". S/I, H/I: Denies A/VH: Denies, however pt. observed by staff to be occasionally talking to himself Sleep: Pt. reports sleeping well. ADL's: Requires encouragement and re-direction by staff to successfully complete ADLs Group attendance: Pt. goes to groups. Were meds taken: Yes Any med S/E: None Mental Status Exam Appearance: Pt. continues to present as slightly disheveled, however appropriately dressed in hospital attire. Psychomotor activity slowed Eye contact: Good Behavior: Cooperative Speech: Soft, slow, with some latency in response. Mood: Pleasant Affect: Animated Thought process: Disorganized at times, but able to be successfully redirected. Some thought blocking, and poverty of thought related to mental illness. Thought Content: Possibly A/H and some paranoid/grandiose delusions at times Cognition: A&O X4 Insight: Poor Judgment: Fair Interventions PRN's used: None Therapeutic interventions: Provided active listening, maintained a safe and therapeutic environment, provided encouragement and positive reinforcement r/t ADL performance and future goal setting, provided medication education and carbohydrate controlled diet r/t DM, assessed orientation and provided clear/simple instructions, attempted to re-orient to reality, and maintained Q 15 min safety checks. Restraints/seclusion/emergency medication: N/A Justification of Continued Inpatient Treatment: Pt. has a history of non-compliance, potential for agitation, and arson. The [place] public guardian has placed on a T-con and is considering LPS Conservatorship. Pt. wishes to discharge to a Board and Care.
[2018-07-29 19:00] VITALS: BP 129/72
[2018-07-29] MEDS: tamsulosin 0.4mg capsule PO SCH (20:29)
[2018-07-29] MEDS: divalproex sod 250mg ER (24-hour) tablet PO SCH (20:29)
[2018-07-29] MEDS: risperiDONE 2mg tablet PO SCH (20:32)
--- NOTE | 2018-07-30 00:24 | NUR ---
Nursing Progress Note: Legal hold: T-con Client on involuntary status for GD Report received from nurse with use of SBAR: Tequila ROMERO Why are they here: Pt. was brought to [facility] by [employer] and Mobile Crisis Unit r/t psychosis and GD. He was transferred from [facility] to [facility] on a 5150. Pt. is currently homeless and has a history of chronic alcoholism. Pt. has paranoid and grandiose delusions and is unable to provide for his own food, clothing, or jail. Pt. has been placed on a T-con per the [facility] Guardian office and they are considering LPS conservatorship. Assessment What has happened this shift: Patient was sitting in his room in the dark at beginning of shift. Pt appeared to be agitated, sitting with his brows furrowed. When asked how he was pt stated I am no criminal, I dont want to be locked up and told what I can and cant do. Pt does not want to be conserved. Pt is not much of a conversationalist, but was pleasant and answered questions when spoken too. Pts speech is mumbled and hard to understand. Pt is A&O x3, but when asked where he lived pt stated out there. Pt denied SI, A/VH. Pt was medication compliant. Pt isolated to room most of shift, but did come out for snack and again at 0000 stating he was hungry. Pt received a burrito and a carton of milk, then went back to bed. S/I, H/I: None reported or observed A/VH: None reported or observed Sleep: See sleep assessment notation ADL's: Requires encouragement and re-direction by staff to successfully complete ADLs Group attendance: hourly shift, no group Were meds taken: Pt medication compliant Any med S/E: None reported or observed Mental Status Exam Appearance: Pt. continues to present as slightly disheveled, however appropriately dressed in green scrubs and his [employer] baseball cap Eye contact: Good Behavior: Cooperative, pleasant Speech: Soft, slow, with some latency in response. Mood: Pleasant Affect: Flat Thought process: Disorganized at times, but able to be successfully redirected. Some thought blocking, and poverty of thought related to mental illness. Thought Content: "I don't want to be locked up and told what I cant and can't do." Cognition: A&O X3 Insight: Poor Judgment: Fair Interventions PRN's used: None Therapeutic interventions: Provided active listening, maintained a safe and therapeutic environment, provided encouragement and positive reinforcement r/t ADL performance and future goal setting, provided medication education, assessed orientation and provided clear/simple instructions, attempted to reorient to reality when needed, maintained Q 15 min safety checks. Restraints/seclusion/emergency medication: N/A Justification of Continued Inpatient Treatment: Pt. has a history of non-compliance, potential for agitation, and arson. The [facility] Public Guardian has placed on a T-con and is considering LPS Conservatorship. Pt. wishes to discharge to a Board and Care.
[2018-07-30 08:00] VITALS: BP 132/71
[2018-07-30] MEDS: folic acid 1mg tablet PO SCH (08:04)
[2018-07-30] MEDS: thiamine 100mg tablet PO SCH ×2 (08:04→20:08)
[2018-07-30] MEDS: metFORMIN 850mg tablet PO SCH ×2 (08:04→20:08)
--- NOTE | 2018-07-30 17:16 | NUR ---
Nursing Progress Note: Legal hold: T-con Client on involuntary status for GD Report received from nurse with use of SBAR: Dorothy RIOS Why are they here: Pt. was brought to [facility] by [employer] and Mobile Crisis Unit r/t psychosis and GD. He was transferred from [facility] to [facility] on a 5150. Pt. is currently homeless and has a history of chronic alcoholism. Pt. has paranoid and grandiose delusions and is unable to provide for his own food, clothing, or chcf. Pt. has been placed on a T-con per the [place] guardians office and they are considering LPS conservatorship. Assessment What has happened this shift: Received patient up in the room waiting on breakfast. Patient continues to have disheveled appearance, but currently denies depression and suicidal ideation. Patient did complain about conservatorship pending stating I dont want to feel like Deb got strings attached later in the day patient had a brighter affect and displayed some disorganized and delusional thought processes: he said to the nurse I dont know how many kids I have but I dont want them out there by themselves. Patient attended all meals and groups. S/I, H/I: Denies A/VH: Denies, however pt. observed by staff to be occasionally talking to himself Sleep: Pt. reports sleeping well. ADL's: Requires encouragement and re-direction by staff to successfully complete ADLs Group attendance: Pt. goes to groups. Were meds taken: Yes Any med S/E: None Mental Status Exam Appearance: Pt. continues to present as slightly disheveled, however appropriately dressed in hospital attire. Psychomotor activity slowed Eye contact: Good Behavior: Cooperative Speech: Soft, slow, with some latency in response. Mood: Pleasant Affect: Animated Thought process: Disorganized at times, but able to be successfully redirected. Some thought blocking, and poverty of thought related to mental illness. Thought Content: Possibly A/H and some paranoid/grandiose delusions at times Cognition: A&O X4 Insight: Poor Judgment: Fair Interventions PRN's used: None Therapeutic interventions: Provided active listening, maintained a safe and therapeutic environment, provided encouragement and positive reinforcement r/t ADL performance and future goal setting, provided medication education and carbohydrate controlled diet r/t DM, assessed orientation and provided clear/simple instructions, attempted to re-orient to reality, and maintained Q 15 min safety checks. Restraints/seclusion/emergency medication: N/A Justification of Continued Inpatient Treatment: Pt. has a history of non-compliance, potential for agitation, and arson. The [place] public guardian has placed on a T-con and is considering LPS Conservatorship. Pt. wishes to discharge to a Board and Care.
[2018-07-30 20:00] VITALS: BP 122/71
[2018-07-30] MEDS: tamsulosin 0.4mg capsule PO SCH (20:08)
[2018-07-30] MEDS: risperiDONE 2mg tablet PO SCH (20:09)
[2018-07-30] MEDS: divalproex sod 250mg ER (24-hour) tablet PO SCH (20:09)
[2018-07-31] MEDS: LORazepam 1 MG tablet PO PRN ×2 (01:03→22:05)
--- NOTE | 2018-07-31 02:24 | NUR ---
Nursing Progress Note: Legal hold: T-con Client on involuntary status for GD Report received from nurse with use of SBAR: Tequila ROMERO Why are they here: Pt. was brought to [facility] by [employer] and Mobile Crisis Unit r/t psychosis and GD. He was transferred from [facility] to [facility] on a 5150. Pt. is currently homeless and has a history of chronic alcoholism. Pt. has paranoid and grandiose delusions and is unable to provide for his own food, clothing, or half-way. Pt. has been placed on a T-con per the [facility] Guardian office and they are considering LPS conservatorship. Assessment What has happened this shift: Pt was in group room watching T.V at shift change. Pt was pleasant and cooperative. Pt initiated conversation and was very talkative. Speech is hard to understand at times. Pt stated he wasn't upset about being conserved and that he had $6,000 saved up and wants to get a place. Pt states he is on Social Security and gets $1,100 / month. 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 Pt wants to take care of his many children. When asked how many children he had he wasn't sure, but stated their ages ranged from 15-40 years of age. 1:1 assessment was complete and pt was medication compliant. Pt was up for snack then retired to bed. Pt requested an Ativan around 0145. Pt has a Valproic acid level of 111 (4-14-19) doctor was notified. Pt on Metformin - GFR is WNL. Pt denies SI, HI A/VH. S/I, H/I: None reported or observed A/VH: None reported or observed Sleep: See sleep assessment notation ADL's: Requires encouragement and re-direction by staff to successfully complete ADLs Group attendance: vp transportation, no group Were meds taken: Pt medication compliant Any med S/E: None reported or observed Mental Status Exam Appearance: Appears older then stated age, disheveled, wearing dirty green scrubs and a [employer] hat, refused a shower this shift Eye contact: Good Behavior: Cooperative, pleasant, some grandiose statements Speech: Soft, slow, with some latency in response. Mood: Pleasant Affect: Animated Thought process: Disorganized at times, but able to be successfully redirected. Some thought blocking, and poverty of thought related to mental illness. Thought Content: "Using his 6K and getting his own place Cognition: A&O X3 Insight: Poor Judgment: Fair Interventions PRN's used: Ativan Therapeutic interventions: Provided active listening, maintained a safe and therapeutic environment, provided encouragement and positive reinforcement r/t ADL performance and future goal setting, provided medication education, assessed orientation and provided clear/simple instructions, attempted to reorient to reality when needed, maintained Q 15 min safety checks. Restraints/seclusion/emergency medication: N/A Justification of Continued Inpatient Treatment: Pt. has a history of non-compliance, potential for agitation, and arson. The [facility] Public Guardian has placed on a T-con and is considering LPS Conservatorship. Pt. wishes to discharge to a Board and Care.
[2018-07-31 08:00] VITALS: BP 125/76
[2018-07-31] MEDS: thiamine 100mg tablet PO SCH ×2 (08:07→20:32)
[2018-07-31] MEDS: metFORMIN 850mg tablet PO SCH ×2 (08:07→20:32)
[2018-07-31] MEDS: folic acid 1mg tablet PO SCH (08:07)
--- NOTE | 2018-07-31 17:16 | NUR ---
Nursing Progress Note: Legal hold: T-con Client on involuntary status for GD Report received from nurse with use of SBAR: Mehnaz Fritz RN Why are they here: Pt. was brought to [facility] by [employer] and Mobile Crisis Unit r/t psychosis and GD. He was transferred from [facility] to [facility] on a 5150. Pt. is currently homeless and has a history of chronic alcoholism. Pt. has paranoid and grandiose delusions and is unable to provide for his own food, clothing, or long-term. Pt. has been placed on a T-con per the [place] guardians office and they are considering [facility] conservatorship. Assessment What has happened this shift: Received patient awake in the dining room drinking coffee. Patient up for all meals and briefly attended one of the groups. Patient remained mostly to himself, not initiating interaction with others. Patient affect somewhat blunted, but did brighten as the shift went on. Patient stated he was in a fine mood and did not have any requests today. Patient denied internal stimuli, but appeared to be responding to unseen things at points throughout the shift. Patient also denied suicidal thoughts today. Patient hygiene remains poor and needs encouragement to take care of his personal hygiene needs. S/I, H/I: Denies A/VH: Denies, however pt. observed by staff to be occasionally talking to himself Sleep: did not nap today ADL's: Requires encouragement and re-direction by staff to successfully complete ADLs Group attendance: Pt. goes to groups. Were meds taken: Yes Any med S/E: None Mental Status Exam Appearance: Pt. continues to present as slightly disheveled, however appropriately dressed in hospital attire. Psychomotor activity slowed Eye contact: Good Behavior: Cooperative Speech: Soft, slow, with some latency in response. Mood: Pleasant Affect: Animated Thought process: Disorganized at times, but able to be successfully redirected. Some thought blocking, and poverty of thought related to mental illness. Thought Content: Possibly A/H and some paranoid/grandiose delusions at times Cognition: A&O X4 Insight: Poor Judgment: Fair Interventions PRN's used: None Therapeutic interventions: Provided active listening, maintained a safe and therapeutic environment, provided encouragement and positive reinforcement r/t ADL performance and future goal setting, provided medication education and carbohydrate controlled diet r/t DM, assessed orientation and provided clear/simple instructions, attempted to re-orient to reality, and maintained Q 15 min safety checks. Restraints/seclusion/emergency medication: N/A Justification of Continued Inpatient Treatment: Pt. has a history of non-compliance, potential for agitation, and arson. The [place] public guardian has placed on a T-con and is considering LPS Conservatorship. Pt. wishes to discharge to a Board and Care.
[2018-07-31 19:00] VITALS: BP 127/79
[2018-07-31] MEDS: tamsulosin 0.4mg capsule PO SCH (20:32)
[2018-07-31] MEDS: risperiDONE 2mg tablet PO SCH (20:32)
[2018-07-31] MEDS: divalproex sod 250mg ER (24-hour) tablet PO SCH (20:33)
--- NOTE | 2018-08-01 01:11 | NUR ---
Nursing Progress Note: Legal hold: T-con Client on involuntary status for GD Report received from nurse with use of SBAR: Tequila ROMERO Why are they here: Pt. was brought to [facility] by [employer] and Mobile Crisis Unit r/t psychosis and GD. He was transferred from [facility] to [facility] on a 5150. Pt. is currently homeless and has a history of chronic alcoholism. Pt. has paranoid and grandiose delusions and is unable to provide for his own food, clothing, or alf. [facility] and [facility] are considering LPS conservatorship. Assessment What has happened this shift: S/I, H/I: None reported or observed A/VH: None reported, however pt appeared to respond to internal stimuli. Pt observed laughing and talking to self. Sleep: See sleep assessment notation ADL's: Requires encouragement and re-direction by staff to successfully complete ADLs. Pt showered this shift. Group attendance: sanitation director, no group Were meds taken: Pt medication compliant Any med S/E: None reported or observed Mental Status Exam Appearance: Appears older then stated age, disheveled, appropriately dressed in green scrubs, pt showered this shift Eye contact: Good Behavior: Cooperative, pleasant Speech: Soft, slow, with some latency in response. Mood: Pleasant Affect: Animated Thought process: Disorganized at times, but able to be successfully redirected. Some thought blocking, and poverty of thought related to mental illness. Thought Content: Possible A/H and some paranoid/grandiose delusions at times Cognition: A&O X4 Insight: Poor Judgment: Fair Interventions PRN's used: Ativan Therapeutic interventions: Provided active listening, maintained a safe and therapeutic environment, provided encouragement and positive reinforcement r/t ADL performance and future goal setting, provided medication education, assessed orientation and provided clear/simple instructions, attempted to reorient to reality when needed, maintained Q 15 min safety checks. Restraints/seclusion/emergency medication: N/A Justification of Continued Inpatient Treatment: Pt. has a history of non-compliance, potential for agitation, and arson. The [facility] Public Guardian has placed on a T-con and is considering LPS Conservatorship. Pt. wishes to discharge to a Board and Care. Addendum: 08/01/18 at 0442 by Radha Cavazos RN [facility] -- Pt observed laughing when asked what pt was laughing at pt responded "yo-yo god", what is yo-yo god", "that is how long you are going to be there"
[2018-08-01] MEDS: metFORMIN 850mg tablet PO SCH ×2 (07:49→20:17)
[2018-08-01] MEDS: thiamine 100mg tablet PO SCH ×2 (07:49→20:17)
[2018-08-01] MEDS: folic acid 1mg tablet PO SCH (07:50)
[2018-08-01 08:00] VITALS: BP 113/62
--- NOTE | 2018-08-01 14:29 | NUR ---
Nursing Progress Note: Legal hold: LPS T-Con Client on involuntary status for GD Report received from nurse with use of SBAR: Mehnaz Fritz RN Why are they here: Pt. was brought to [facility] by [employer] and Mobile Crisis Unit r/t psychosis and GD. He was transferred from [facility] to [facility] on a 5150. Pt. is currently homeless and has a history of chronic alcoholism. Pt. 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 Pt. has been placed on a T-con per the [facility] Guardian office and they are considering LPS conservatorship. Assessment What has happened this shift: Patient has been in a good mood today. Pt. remembered RN's name from last week and greeted me. Pt. drinks coffee most of the day, and ambulates from room to room. Pt will talk for a few minutes, then will not answer any more questions, and is done with 1:1. Patient laughs to himself throughout the day. pt. has accommodated to unit milieu. S/I, H/I: Denies. A/VH: pt appeared to respond to internal stimuli. Pt observed laughing and talking to self. Sleep: 6.75 ADL's: Requires encouragement and re-direction by staff to successfully complete ADLs. Group attendance: Cannot remain focused enough to join group. Wanders in and out for coffee. Were meds taken: Pt medication compliant Any med S/E: None reported or observed Mental Status Exam Appearance: Appears older then stated age, disheveled, appropriately dressed in green scrubs. Eye contact: Good Behavior: Cooperative, pleasant Speech: Soft, slow, with some latency in response. Mood: Pleasant Affect: Animated Thought process: Disorganized at times, but able to be successfully redirected. Some thought blocking, and poverty of thought related to mental illness. Thought Content: Getting daily needs met. Does not respond well to serious conversations. Cognition: A&O X4 Insight: Poor Judgment: Fair Interventions PRN's used: None. Therapeutic interventions: Provided active listening, maintained a safe and therapeutic environment, provided encouragement and positive reinforcement r/t ADL performance, provided medication education, assessed orientation and provided clear/simple instructions, attempted to reorient to reality when needed, maintained Q 15 min safety checks. Restraints/seclusion/emergency medication: N/A Justification of Continued Inpatient Treatment: Pt. is on LPS T-Con for grave disability. nutritional services cook is coordinating efforts with Public Guardian for placement.
[2018-08-01] MEDS: tamsulosin 0.4mg capsule PO SCH (20:17)
[2018-08-01] MEDS: risperiDONE 2mg tablet PO SCH (20:18)
[2018-08-01] MEDS: divalproex sod 250mg ER (24-hour) tablet PO SCH (20:18)
--- NOTE | 2018-08-01 22:03 | NUR ---
Nursing Progress Note: Legal hold: LPS T-Con Client on involuntary status for GD Report received from nurse with use of SBAR: GABRIEL Ramos Why are they here: Pt. was brought to [facility] by [employer] and Mobile Crisis Unit r/t psychosis and GD. He was transferred from [facility] to [facility] on a 5150. Pt. is currently homeless and has a history of chronic alcoholism. Pt. has paranoid and grandiose delusions and is unable to provide for his own food, clothing, or custodial. Pt. has been placed on a T-con per the [facility] Guardian office and they are considering LPS conservatorship. Assessment What has happened this shift: pt was in his room sleeping at change of shift. 1:1 assessment completed at bedside. Pt has several bags of decaf tea at his bedside and I asked how long he has been saving these and offered some fresh tea. Pt declined and states he would like to keep the tea bags stating they are all from today. Pt seems to be in a pleasant mood, stated he did 'nothing today Deb just been hanging around." Pt is confused about the date stating it's "Thursday the ." Explained to pt that its Easter Thursday today. Pt smiled and said "Oh yeah? ok we had food at dinner." Pt then states "I have about $6000 for an apartment, I don't want to get locked up." Pt talks about being homeless in [facility] and asks about his worker "Norah." Pt denies s/i. S/I, H/I: Denies. A/VH: pt appeared to respond to internal stimuli, smiling and talking to himself Sleep: pt states he sleeps good ADL's: Requires encouragement and re-direction by staff to successfully complete ADLs. Group attendance: No evening groups Were meds taken: Pt medication compliant Any med S/E: None reported or observed Mental Status Exam Appearance: pt states he had a shower last night, he is unkempt, wearing a ball cap and scrubs Eye contact: Good Behavior: Cooperative, pleasant Speech: normal rate and rythm Mood: Pleasant Affect: Animated Thought process: Disorganized, tangential Thought Content: pt is talking about gettin an apartment states he thinks he should live alone and doesnt want a roommate and doesnt want to be conserved. Pt states "i'll go to a board and care, because I have money but don't lock me up." Cognition: A&O X3 Insight: Poor Judgment: poor Interventions PRN's used: None. Therapeutic interventions: Provided active listening, maintained a safe and therapeutic environment, provided encouragement and positive reinforcement r/t ADL performance, provided medication education, assessed orientation and provided clear/simple instructions, attempted to reorient to reality when needed, maintained Q 15 min safety checks. Restraints/seclusion/emergency medication: N/A Justification of Continued Inpatient Treatment: Pt. is on LPS T-Con for grave disability. enterprise services manager is coordinating efforts with Public Guardian for placement.
[2018-08-01] MEDS: LORazepam 1 MG tablet PO PRN (23:06)
[2018-08-02] MEDS: metFORMIN 850mg tablet PO SCH ×2 (07:39→20:54)
[2018-08-02] MEDS: folic acid 1mg tablet PO SCH (07:39)
[2018-08-02] MEDS: thiamine 100mg tablet PO SCH ×2 (07:39→20:56)
[2018-08-02 08:00] VITALS: BP 102/61
--- NOTE | 2018-08-02 14:16 | NUR ---
Nursing Progress Note: Legal hold: LPS T-Con Client on involuntary status for GD Report received from nurse with use of SBAR: GABRIEL Hampton Why are they here: Pt. was brought to [facility] by [employer] and Mobile Crisis Unit r/t psychosis and GD. He was transferred from [facility] to [facility] on a 5150. Pt. is currently homeless and has a history of chronic alcoholism. Pt. has paranoid and grandiose delusions and is unable to provide for his own food, clothing, or penitentiary. Pt. has been placed on a T-con per the [facility] Guardian office and they are considering LPS conservatorship. Assessment What has happened this shift: Pt up at change of shift sitting in rec room leading what looks like a drumming [place], where a student and his peers were making music by softly slapping the tops of their thighs and laughing. Patient in group room later waving his finger in the air like a gun, saying "you'll never get my gun unless you pry it from my cold, fingers, unless I fall asleep." We laughed about this for several minutes. Pt. appears to enjoy making people laugh. S/I, H/I: Denies. A/VH: pt appeared to respond to internal stimuli. Pt observed laughing and talking to self. Sleep: 8.25 hrs, napped after lunch. ADL's: Requires encouragement and re-direction by staff to successfully complete ADLs. Group attendance: Cannot remain focused enough to join group. Wanders in and out for coffee. Were meds taken: compliant. Any med S/E: None reported or observed Mental Status Exam Appearance: Appears older then stated age, disheveled, appropriately dressed in green scrubs. Eye contact: Good Behavior: Cooperative, pleasant, jokester. Speech: Soft, slow, with some latency in response. Mood: Pleasant. Affect: Animated Thought process: Disorganized at times, but able to be successfully redirected. Some thought blocking, and poverty of thought related to mental illness. Thought Content: Getting daily needs met. Does not respond well to serious conversations. Cognition: A&O X4 Insight: Poor Judgment: Fair Interventions PRN's used: None. Therapeutic interventions: Provided active listening, maintained a safe and therapeutic environment, provided encouragement and positive reinforcement r/t ADL performance, provided medication education, assessed orientation and provided clear/simple instructions, attempted to reorient to reality when needed, maintained Q 15 min safety checks. Restraints/seclusion/emergency medication: N/A Justification of Continued Inpatient Treatment: Pt. is on LPS T-Con for grave disability. office services manager is coordinating efforts with Public Guardian for placement.
[2018-08-02 19:00] VITALS: BP 115/76
[2018-08-02] MEDS: divalproex sod 250mg ER (24-hour) tablet PO SCH (20:54)
[2018-08-02] MEDS: tamsulosin 0.4mg capsule PO SCH (20:54)
[2018-08-02] MEDS: risperiDONE 2mg tablet PO SCH (20:55)
--- NOTE | 2018-08-03 02:35 | NUR ---
Nursing Progress Note: Legal hold: LPS T-Con Client on involuntary status for GD Report received from nurse with use of SBAR: GABRIEL Hampton Why are they here: Pt. was brought to [facility] by [employer] and Mobile Crisis Unit r/t psychosis and GD. He was transferred from [facility] to [facility] on a 5150. Pt. is currently homeless and has a history of chronic alcoholism. Pt. has paranoid and grandiose delusions and is unable to provide for his own food, clothing, or residential. Pt. has been placed on a LPS per the [facility] Guardian office and they are considering LPS conservatorship. Assessment What has happened this shift: Pt up to group room interacts pleasantly with staff and other pts. Often his comments are inappropriate. Pt often talks and laughs by himself responding to internal stimuli. Pt is pleasant and cooperative with care.Took all HS meds. S/I, H/I: Denies. A/VH: pt appeared to respond to internal stimuli. Pt observed laughing and talking to self. Sleep: Sleeping at this time. ADL's: Requires encouragement and re-direction by staff to successfully complete ADLs. Group attendance: Cannot remain focused enough to join group. Wanders in and out for coffee. Were meds taken: compliant. Any med S/E: None reported or observed Mental Status Exam Appearance: Appears older then stated age, disheveled, appropriately dressed in green scrubs. Eye contact: Good Behavior: Cooperative, pleasant, jokester. Speech: Soft, slow, with some latency in response. Mood: Pleasant. Affect: Animated Thought process: Disorganized at times, but able to be successfully redirected. Some thought blocking, and poverty of thought related to mental illness. Thought Content: Getting daily needs met. Does not respond well to serious conversations. Cognition: A&O X4 Insight: Poor Judgment: Fair Interventions PRN's used: None. Therapeutic interventions: Provided active listening, maintained a safe and therapeutic environment, provided encouragement and positive reinforcement r/t ADL performance, provided medication education, assessed orientation and provided clear/simple instructions, attempted to reorient to reality when needed, maintained Q 15 min safety checks. Restraints/seclusion/emergency medication: N/A Justification of Continued Inpatient Treatment: Pt. is on LPS T-Con for grave disability. academic services coordinator is coordinating efforts with Public Guardian for placement.
[2018-08-03] MEDS: metFORMIN 850mg tablet PO SCH ×2 (07:52→20:14)
[2018-08-03] MEDS: thiamine 100mg tablet PO SCH ×2 (07:52→20:13)
[2018-08-03] MEDS: folic acid 1mg tablet PO SCH (07:52)
[2018-08-03 08:00] VITALS: BP 122/65
--- NOTE | 2018-08-03 08:47 | NUR ---
1:1 DISCHARGE PLANNING SW faxed and emailed updated progress notes to [facility] and [facility] offices for pt LPS placement purposes. ANEGL Ray
--- NOTE | 2018-08-03 15:35 | NUR ---
Nursing Progress Note: Legal hold: LPS T-Con Client on involuntary status for GD Report received from nurse with use of SBAR: Mehnaz Fritz RN Why are they here: Pt. was brought to [facility] by [employer] and Mobile Crisis Unit r/t psychosis and GD. He was transferred from [facility] to [facility] on a 5150. Pt. is currently homeless and has a history of chronic alcoholism. Pt. 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 Pt. has been placed on a T-con per the [facility] Guardian office and they are considering LPS conservatorship. Assessment What has happened this shift: Patient up early drinking coffee. Pt. states that he needs to talk to his editor publications because he wants to live in an apartment and doesn't want to get involved in politics of being locked up. Reports that he has been sending his children all of his money, and wants to get a place for them for when he leaves this system. Pt. states "I inhabited this life form." S/I, H/I: Denies. A/VH: Pt. appears to respond to internal stimuli AEB laughing and talking to self. Sleep: 6.0 hrs, napped after breakfast. ADL's: Requires encouragement and re-direction by staff to successfully complete ADLs. Showered today. Group attendance: Cannot remain focused enough to join group. Wanders in and out for coffee. Were meds taken: compliant. Any med S/E: None reported or observed Mental Status Exam Appearance: Appears older then stated age, disheveled, appropriately dressed in green scrubs. Eye contact: Good Behavior: Cooperative, pleasant, jokester. Speech: Soft, slow, with some latency in response. Mood: Pleasant. Affect: Animated Thought process: Disorganized at times, but able to be successfully redirected. Some thought blocking, and poverty of thought related to mental illness. Thought Content: Getting daily needs met. Does not respond well to serious conversations. Cognition: A&O X4 Insight: Poor Judgment: Fair Interventions PRN's used: None. Therapeutic interventions: Provided active listening, maintained a safe and therapeutic environment, provided encouragement and positive reinforcement r/t ADL performance, provided medication education, assessed orientation and provided clear/simple instructions, attempted to reorient to reality when needed, maintained Q 15 min safety checks. Restraints/seclusion/emergency medication: N/A Justification of Continued Inpatient Treatment: Pt. is on LPS T-Con for grave disability. social services assistant is coordinating efforts with Public Guardian for placement.
[2018-08-03 19:55] VITALS: BP 115/66
[2018-08-03] MEDS: divalproex sod 250mg ER (24-hour) tablet PO SCH (20:14)
[2018-08-03] MEDS: risperiDONE 2mg tablet PO SCH (20:14)
[2018-08-03] MEDS: tamsulosin 0.4mg capsule PO SCH (20:14)
[2018-08-04] MEDS: LORazepam 1 MG tablet PO PRN ×2 (00:41→21:01)
--- NOTE | 2018-08-04 04:06 | NUR ---
Nursing Progress Note: Legal hold: LPS Conserved Client on involuntary status for GD Report received from nurse with use of SBAR: GABRIEL Mandel Why are they here: Pt. was brought to [facility] by [employer] and Mobile Crisis Unit r/t psychosis and GD. He was transferred from [facility] to [facility] on a 5150. Pt. is currently homeless and has a history of chronic alcoholism. Pt. has paranoid and grandiose delusions and is unable to provide for his own food, clothing, or fci. Pt. has been placed on a LPS per the [facility] Guardian office and they are considering LPS conservatorship. Assessment What has happened this shift: Pt talked this shift about his hopes to be discharged to a skilled nursing. He continues to be pleasant and cooperative. Often his comments are inappropriate. Pt often talks and laughs by himself responding to internal stimuli. Took all HS meds. S/I, H/I: Denies. A/VH: pt appeared to respond to internal stimuli. Pt observed laughing and talking to self. Sleep: Sleeping at this time. ADL's: Requires encouragement and re-direction by staff to successfully complete ADLs. Group attendance: Cannot remain focused enough to join group. Wanders in and out for coffee. Were meds taken: compliant. Any med S/E: None reported or observed Mental Status Exam Appearance: Appears older then stated age, disheveled, appropriately dressed in green scrubs. Eye contact: Good Behavior: Cooperative, pleasant, jokester. Speech: Soft, slow, with some latency in response. Mood: Pleasant. Affect: Animated Thought process: Disorganized at times, but able to be successfully redirected. Some thought blocking, and poverty of thought related to mental illness. Thought Content: Getting daily needs met. Does not respond well to serious conversations. Cognition: A&O X4 Insight: Poor Judgment: Fair Interventions PRN's used: None. Therapeutic interventions: Provided active listening, maintained a safe and therapeutic environment, provided encouragement and positive reinforcement r/t ADL performance, provided medication education, assessed orientation and provided clear/simple instructions, attempted to reorient to reality when needed, maintained Q 15 min safety checks. Restraints/seclusion/emergency medication: N/A Justification of Continued Inpatient Treatment: Pt. is LPS conserved for grave disability. career services officer is coordinating efforts with Public Guardian for placement.
[2018-08-04 07:34] VITALS: BP 115/75
[2018-08-04] MEDS: metFORMIN 850mg tablet PO SCH ×2 (08:38→21:00)
[2018-08-04] MEDS: thiamine 100mg tablet PO SCH ×2 (08:38→21:00)
[2018-08-04] MEDS: folic acid 1mg tablet PO SCH (08:38)
--- NOTE | 2018-08-04 16:24 | NUR ---
Nursing Progress Note: Legal hold: LPS T-Con Client on involuntary status for GD Report received from nurse with use of SBAR: GABRIEL Hampton Why are they here: Pt. was brought to [facility] by [employer] and Mobile Crisis Unit r/t psychosis and GD. He was transferred from [facility] to [facility] on a 5150. Pt. is currently homeless and has a history of chronic alcoholism. Pt. has paranoid and grandiose delusions and is unable to provide for his own food, clothing, or residential. Pt. has been placed on a T-con per the [facility] Guardian office and they are considering LPS conservatorship. Assessment Received Pt in bed awake w/o distress at change of shift. Awoke and sat in group room before breakfast and ate when it arrived. Took morning meds w/o issue. Less interactive today and guarded. Conversations were a mix of reality and bizzare statements. Does not want to be LPS conserved and appears to be irritatede and sad about the prospect. Discheveled and encouraged to shower and attend to his adl's more. Attended group and watched some TV during free time. Overall quieter today and isolated a bit. S/I, H/I: Denies. A/VH: Pt. appears to respond to internal stimuli AEB laughing and talking to self. Sleep: 4.75 hrs last night ADL's: Requires encouragement and re-direction by staff to successfully complete ADLs. Showered today. Group attendance: Difficulty staying focused in group. Wanders in and out for coffee. Were meds taken: Yes Any med S/E: None reported or observed Mental Status Exam Appearance: Appears older then stated age, disheveled, appropriately dressed in green scrubs. Eye contact: Good Behavior: Cooperative, pleasant,less talkative. Speech: Soft, slow, with some latency in response. Mood: Pleasant. Affect: isolative Thought process: Disorganized at times, but able to be successfully redirected. Some thought blocking, and poverty of thought related to mental illness. Thought Content: Getting daily needs met. Does not respond well to serious conversations. Cognition: A&O X4 Insight: Poor Judgment: Fair Interventions PRN's used: None. Therapeutic interventions: Provided active listening, maintained a safe and therapeutic environment, provided encouragement and positive reinforcement r/t ADL performance, provided medication education, assessed orientation and provided clear/simple instructions, attempted to reorient to reality when needed, maintained Q 15 min safety checks. Restraints/seclusion/emergency medication: N/A Justification of Continued Inpatient Treatment: Pt. is on LPS T-Con for grave disability. customer services coordinator is coordinating efforts with Public Guardian for placement.
[2018-08-04 20:00] VITALS: BP 127/78
[2018-08-04] MEDS: tamsulosin 0.4mg capsule PO SCH (21:01)
[2018-08-04] MEDS: divalproex sod 250mg ER (24-hour) tablet PO SCH (21:01)
[2018-08-04] MEDS: risperiDONE 2mg tablet PO SCH (21:01)
--- NOTE | 2018-08-04 23:57 | NUR ---
Nursing Progress Note: Legal hold: T-con Client on involuntary status for GD Report received from nurse with use of SBAR: Tequila RN Why are they here: Pt. was brought to [facility] by [employer] and Mobile Crisis Unit r/t psychosis and GD. He was transferred from [facility] to [facility] on a 5150. Pt. is currently homeless and has a history of chronic alcoholism. Pt. has paranoid and grandiose delusions and is unable to provide for his own food, clothing, or alf. Pt. has been placed on a T-con per the [place] guardians office and they are considering LPS conservatorship. Assessment What has happened this shift: Pt. up in Group Room at the beginning of the shift sitting alone in corner of the room, he continues to be withdrawn throughout the shift. 1:1 completed, pt. cooperative, fatigued, guarded, and slightly irritable, states, "I got served court papers today, but it's alright, I'm a fighter and I can take on anyone as long as they don't mess with my family." This jingle writer questioned pt. regarding his family, and he reported that he has a large family and they all live in [place], but he does not see them because he is "too busy." Pt. continues to deny depression, anxiety, S/I, H/I, or any H/A, and no delusional statements made this shift. He remains slightly irritable and paranoid throughout the shift, states, "I've spent 19 years fighting. If people are trying to do me wrong and take all my money, then I'm going to yvon them for mental stress!" This jingle writer provided education to pt. that the social workers and public guardians are working to help him, pt. remained skeptical and kept stating, "I just don't know." Pt. accepted HS snack and requested PRN Ativan at HS. S/I, H/I: Denies A/VH: Denies Sleep: Pt. reports fatigue and appears to be sleeping well ADL's: Requires encouragement and re-direction by staff to successfully complete ADLs Group attendance: Reports he has been going to groups Were meds taken: Yes Any med S/E: None Mental Status Exam Appearance: Pt. continues to present as slightly disheveled, however appropriately dressed in hospital attire, wearing a baseball cap. Psychomotor activity WNL Eye contact: Good Behavior: Cooperative, fatigued, slightly irritable Speech: Soft, slow, with some latency in response. Continues to be mildly dysarthric Mood: Withdrawn, slightly irritable Affect: Constricted Thought process: Disorganized at times, but able to be successfully redirected. Some irritability and paranoid thinking with poverty of thought related to mental illness. Thought Content: Preoccupation and paranoid thoughts in regards to discharge plans Cognition: A&O X3 (not to time or day) Insight: Poor Judgment: Fair Interventions PRN's used: Ativan X1 Therapeutic interventions: Provided active listening, maintained a safe and therapeutic environment, provided encouragement and positive reinforcement r/t ADL performance and future goal setting, provided medication education and carbohydrate controlled diet r/t DM, assessed orientation and provided clear/simple instructions, attempted to re-orient to reality, and maintained Q 15 min safety checks. Restraints/seclusion/emergency medication: N/A Justification of Continued Inpatient Treatment: Pt. has a history of non-compliance, potential for agitation, and arson. The [place] public guardian has placed on a T-con and is considering LPS Conservatorship. Pt. wishes to discharge to a Board and Care.
[2018-08-05 08:00] VITALS: BP 137/77
[2018-08-05] MEDS: thiamine 100mg tablet PO SCH ×2 (08:02→21:14)
[2018-08-05] MEDS: metFORMIN 850mg tablet PO SCH ×2 (08:02→21:13)
[2018-08-05] MEDS: folic acid 1mg tablet PO SCH (08:02)
--- NOTE | 2018-08-05 12:11 | NUR ---
Reassessment: Documented PO intake 100% on CHO controlled diet meeting nutrient needs. LBM 08/04. No weight change. No nutrition diagnosis at this time. Will continue to follow. Recommend: 1. continue carb controlled diet 2. Weekly weights Addendum: 08/05/18 at [address] Amended: Links added.
--- NOTE | 2018-08-05 16:08 | NUR ---
NURSING PROGRESS NOTE Legal hold: LPS T-Con Client on involuntary status for GD Report received from nurse Trisha RN with use of SBAR Why are they here: Pt. was brought to [facility] by [employer] and Mobile Crisis Unit r/t psychosis and GD. He was transferred from [facility] to [facility] on a 5150. Pt. is currently homeless and has a history of chronic alcoholism. Pt. 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 Pt. has been placed on a T-con per the [facility] Guardian office and they are considering LPS conservatorship. Assessment What happened this shift: Provided 1:1 assessment at patients bedside. Pt reports he is waiting for a lot of phone calls. Pt is compliant with all medications. He keeps to himself. Naps throughout the day. Does not engage in conversation regarding anything personal. S/I, H/I: Denies. A/VH: Pt. appears to respond to internal stimuli AEB mumbling and smiling when alone in the corner of a room. Sleep: Naps on and off throughout the shift ADL's: Requires prompting to perform Group attendance: Sits alone in a corner Were meds taken: Yes Any med S/E: None reported or observed Mental Status Exam Appearance: Appears older then stated age, disheveled, appropriately dressed Eye contact: Good Behavior: Cooperative Speech: Clear Mood: Pleasant. Affect: Flat Thought process: Some thought blocking, and poverty of thought related to mental illness. Thought Content: Focused on talking to a business lawyer regarding my estate. Cognition: A&O X4 Insight: Poor Judgment: Fair Interventions PRN's used: None Therapeutic interventions: Provided active listening, maintained a safe and therapeutic environment, provided encouragement and positive reinforcement r/t ADL performance, provided medication education, assessed orientation and provided clear/simple instructions, attempted to reorient to reality when needed, maintained Q 15 min safety checks. Restraints/seclusion/emergency medication: N/A Justification of Continued Inpatient Treatment: Pt. is on LPS T-Con for grave disability. director professional services is coordinating efforts with Public Guardian for placement.
[2018-08-05 20:59] VITALS: BP 124/56
[2018-08-05] MEDS: tamsulosin 0.4mg capsule PO SCH (21:13)
[2018-08-05] MEDS: divalproex sod 250mg ER (24-hour) tablet PO SCH (21:13)
[2018-08-05] MEDS: risperiDONE 2mg tablet PO SCH (21:14)
[2018-08-06] MEDS: LORazepam 1 MG tablet PO PRN (00:41)
--- NOTE | 2018-08-06 01:48 | NUR ---
Nursing Progress Note: Legal hold: T-con Client on involuntary status for GD Report received from nurse with use of SBAR: GABRIEL Phelps Why are they here: Pt. was brought to [facility] by [employer] and Mobile Crisis Unit r/t psychosis and GD. He was transferred from [facility] to [facility] on a 5150. Pt. is currently homeless and has a history of chronic alcoholism. Pt. has paranoid and grandiose delusions and is unable to provide for his own food, clothing, or half-way. Pt. has been placed on a T-con per the [place] guardians office and they are considering LPS conservatorship. Assessment What has happened this shift: Pt was sleeping, snoring in bed at shift change. No distress noted. Pt was later up in his chair where 1:1 assessment was performed. Pt is cooperative. 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 Pt also stated that he operated on himself and he no longer has diabetes. Pt denies SI, A/VH, but this business writer observed pt in group room smiling and laughing to self. At time when pt speaks he hesitates and pauses. Pt stated he went to group today and it was okay. Pt excepted HS snack and requested a PRN Ativan around 0030. S/I, H/I: None reported or observed A/VH: Pt denies, but pt is seen smiling and laughing to self. Appears he is responding to internal stimuli Sleep: See sleep assessment notation ADL's: Requires encouragement and re-direction by staff to successfully complete ADL's Group attendance: assistant shift supervisor, no group Were meds taken: Pt medication compliant Any med S/E: None reported or observed Mental Status Exam Appearance: Disheveled, however appropriately dressed in hospital attire, wearing a baseball cap. Eye contact: Good Behavior: Cooperative, fatigued Speech: Soft, slow, with some latency in response. Continues to be mildly dysarthric Mood: Pleasant Affect: Constricted Thought process: Disorganized at times, but able to be successfully redirected. Some irritability and paranoid thinking with poverty of thought related to mental illness. Thought Content: A missed call from an document review attorney I missed my call, but they will call back tomorrow Cognition: A&O X4 Insight: Poor Judgment: Fair Interventions PRN's used: Ativan x1 Therapeutic interventions: Provided active listening, maintained a safe and therapeutic environment, provided encouragement and positive reinforcement r/t ADL performance and future goal setting, provided medication education and carbohydrate controlled diet r/t DM, assessed orientation and provided clear/simple instructions, attempted to re-orient to reality, and maintained Q 15 min safety checks. Restraints/seclusion/emergency medication: N/A Justification of Continued Inpatient Treatment: Pt. has a history of non-compliance, potential for agitation, and arson. The [facility] Public Guardian has placed pt on a T-con and is considering LPS Conservatorship. Pt. wishes to discharge to a Board and Care.
[2018-08-06 08:00] VITALS: BP 123/66
[2018-08-06] MEDS: thiamine 100mg tablet PO SCH ×2 (08:13→20:41)
[2018-08-06] MEDS: folic acid 1mg tablet PO SCH (08:13)
[2018-08-06] MEDS: metFORMIN 850mg tablet PO SCH ×2 (08:13→20:41)
--- NOTE | 2018-08-06 16:18 | NUR ---
NURSING PROGRESS NOTE Legal hold: LPS T-Con Client on involuntary status for GD Report received from nurse Rowan RN with use of SBAR Why are they here: Pt. was brought to [facility] by [employer] and Mobile Crisis Unit r/t psychosis and GD. He was transferred from [facility] to [facility] on a 5150. Pt. is currently homeless and has a history of chronic alcoholism. Pt. 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 Pt. has been placed on a T-con per the [facility] Guardian office and they are considering LPS conservatorship. Assessment What happened this shift: Received patient awake in room. Patient in a good mood, smiling, laughing and cracking jokes with and about staff. Patient continues to have some delusional thoughts, but he chooses not to focus on them because they make him unhappy. Patient states that he chooses to smile instead. Patient agreeable to taking a shower today which he did and got back into clean clothes. Patient states depression is much better and denies suicidal thoughts today. Patient up for all meals in both groups. S/I, H/I: Denies. A/VH: Pt. appears to respond to internal stimuli AEB mumbling and smiling when alone in the corner of a room. Sleep: Naps on and off throughout the shift ADL's: Requires prompting to perform Group attendance: Sits alone in a corner Were meds taken: Yes Any med S/E: None reported or observed Mental Status Exam Appearance: Appears older then stated age, disheveled, appropriately dressed Eye contact: Good Behavior: Cooperative Speech: Clear Mood: Pleasant. Affect: Flat Thought process: Some thought blocking, and poverty of thought related to mental illness. Thought Content: Focused on talking to a marketing developer regarding my estate. Cognition: A&O X4 Insight: Poor Judgment: Fair Interventions PRN's used: None Therapeutic interventions: Provided active listening, maintained a safe and therapeutic environment, provided encouragement and positive reinforcement r/t ADL performance, provided medication education, assessed orientation and provided clear/simple instructions, attempted to reorient to reality when needed, maintained Q 15 min safety checks. Restraints/seclusion/emergency medication: N/A Justification of Continued Inpatient Treatment: Pt. is on LPS T-Con for grave disability. director of maternity services is coordinating efforts with Public Guardian for placement.
[2018-08-06 20:00] VITALS: BP 117/61
[2018-08-06] MEDS: divalproex sod 250mg ER (24-hour) tablet PO SCH (20:41)
[2018-08-06] MEDS: risperiDONE 2mg tablet PO SCH (20:41)
[2018-08-06] MEDS: tamsulosin 0.4mg capsule PO SCH (20:42)
[2018-08-07] MEDS: LORazepam 1 MG tablet PO PRN (01:08)
--- NOTE | 2018-08-07 03:02 | NUR ---
Nursing Progress Note: Legal hold: T-con Client on involuntary status for GD Report received from nurse with use of SBAR: GABRIEL Phelps Why are they here: Pt. was brought to [facility] by [employer] and Mobile Crisis Unit r/t psychosis and GD. He was transferred from [facility] to [facility] on a 5150. Pt. is currently homeless and has a history of chronic alcoholism. Pt. has paranoid and grandiose delusions and is unable to provide for his own food, clothing, or correction. Pt. has been placed on a T-con per the [place] guardians office and they are considering LPS conservatorship. Assessment What has happened this shift: Pt was laying on bed staring out window at shift change. When asked how he was dong pt stated pt started in on his conservatorship. He stated he had money to get a place. He also mentioned he had an estate and this month he will have 8K in the bank to help pay for his associate attorney fees and a place to live. Pt reports he doesnt mind being conserved, he just doesnt want to be told what to do. Pt didnt appear to be as distracted with internal stimuli this evening. He was observed x1 sitting and talking to himself while watching TV. Pt was not as talkative as he usually is. Pt excepted HS snack and requested a PRN Ativan around 0200. Pts has a h/o of facial psoriasis, which appears to be be acting up. S/I, H/I: None reported or observed A/VH: Pt denies, but observed sitting in group room talking to himself. Sleep: Pt slept most of the night, up x1 for Ativan ADL's: Requires encouragement and re-direction by staff to successfully complete ADL's Group attendance: production supervisor off shift, no group Were meds taken: Pt medication compliant Any med S/E: None reported or observed Mental Status Exam Appearance: Disheveled, however appropriately dressed in hospital attire, wearing a baseball cap. Eye contact: Good Behavior: Cooperative Speech: Moderate, dysarthric Mood: Pleasant Affect: Constricted, with some brightness Thought process: Disorganized at times, but able to be successfully redirected. Some irritability and paranoid thinking with poverty of thought related to mental illness. Thought Content: Pre occupied with his upcoming conservator court date. Pt states "he doesn't mind being conserved, he doesn't want to be told what to do." Cognition: A&O X4 Insight: Poor Judgment: Fair Interventions PRN's used: Ativan x1 Therapeutic interventions: Provided active listening, maintained a safe and therapeutic environment, provided encouragement and positive reinforcement r/t ADL performance and future goal setting, provided medication education and carbohydrate controlled diet r/t DM, assessed orientation and provided clear/simple instructions, attempted to re-orient to reality, and maintained Q 15 min safety checks. Restraints/seclusion/emergency medication: N/A Justification of Continued Inpatient Treatment: Pt. has a history of non-compliance, potential for agitation, and arson. The [facility] Public Guardian has placed pt on a T-con and is considering LPS Conservatorship. Pt. wishes to discharge to a Board and Care.
[2018-08-07 08:00] VITALS: BP 108/72
[2018-08-07] MEDS: thiamine 100mg tablet PO SCH ×2 (08:20→20:50)
[2018-08-07] MEDS: folic acid 1mg tablet PO SCH (08:20)
[2018-08-07] MEDS: metFORMIN 850mg tablet PO SCH ×2 (08:20→20:49)
--- NOTE | 2018-08-07 18:47 | NUR ---
NURSING PROGRESS NOTE Legal hold: LPS T-Con Client on involuntary status for GD Report received from nurse Rowan RN with use of SBAR Why are they here: Pt. was brought to [facility] by [employer] and Mobile Crisis Unit r/t psychosis and GD. He was transferred from [facility] to [facility] on a 5150. Pt. is currently homeless and has a history of chronic alcoholism. Pt. has paranoid and grandiose delusions and is unable to provide for his own food, clothing, or mcfp. Pt. has been placed on a T-con per the [facility] Guardian office and they are considering LPS conservatorship. Assessment What happened this shift: Received patient awake in the rec room. Patient has bright affect and denies depression and denies suicidal thoughts and denies auditory hallucinations. When pressed a bit, patients delusional thought processes become more visible. 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 Patient somewhat paranoid related to his conservatorship and talked about getting a telecommunications administrator to ensure that there is no criminal activity going on. Even with all this delusional thought processes, patient remains friendly and agreeable. S/I, H/I: Denies. A/VH: Pt. appears to respond to internal stimuli AEB mumbling and smiling when alone in the corner of a room. Sleep: Naps on and off throughout the shift ADL's: Requires prompting to perform Group attendance: Sits alone in a corner Were meds taken: Yes Any med S/E: None reported or observed Mental Status Exam Appearance: Appears older then stated age, disheveled, appropriately dressed Eye contact: Good Behavior: Cooperative Speech: Clear Mood: Pleasant. Affect: Flat Thought process: Some thought blocking, and poverty of thought related to mental illness. Thought Content: Focused on talking to a telecommunications administrator regarding my estate. Cognition: A&O X4 Insight: Poor Judgment: Fair Interventions PRN's used: None Therapeutic interventions: Provided active listening, maintained a safe and therapeutic environment, provided encouragement and positive reinforcement r/t ADL performance, provided medication education, assessed orientation and provided clear/simple instructions, attempted to reorient to reality when needed, maintained Q 15 min safety checks. Restraints/seclusion/emergency medication: N/A Justification of Continued Inpatient Treatment: Pt. is on LPS T-Con for grave disability. patient services coordinator is coordinating efforts with Public Guardian for placement.
[2018-08-07 20:00] VITALS: BP 113/72
[2018-08-07] MEDS: divalproex sod 250mg ER (24-hour) tablet PO SCH (20:49)
[2018-08-07] MEDS: risperiDONE 2mg tablet PO SCH (20:50)
[2018-08-07] MEDS: tamsulosin 0.4mg capsule PO SCH (20:50)
[2018-08-08] MEDS: LORazepam 1 MG tablet PO PRN ×2 (01:46→23:47)
--- NOTE | 2018-08-08 04:23 | NUR ---
NURSING PROGRESS NOTE Legal hold: LPS T-Con Client on involuntary status for GD Report received from nurse Rowan RN with use of SBAR Why are they here: Pt. was brought to [facility] by [employer] and Mobile Crisis Unit r/t psychosis and GD. He was transferred from [facility] to [facility] on a 5150. Pt. is currently homeless and has a history of chronic alcoholism. Pt. has paranoid and grandiose delusions and is unable to provide for his own food, clothing, or usp. Pt. has been placed on a T-con per the [facility] Guardian office and they are considering LPS conservatorship. Assessment What happened this shift: Received pt sitting in the dayroom by himself. Upon approach, pt has a bright affect and is pleasant. Pt denies depression and suicidal thoughts and denies auditory hallucinations. Though present on the unit, pt does not initiate interaction with staff or peers. Pt asleep in bed by 2100 and slept peacefully until 0145 when he awoke and came out to request ativan which he received and after 45 minutes, he returned to sleep. S/I, H/I: Denies. A/VH: Pt. appears to respond to internal stimuli AEB mumbling and smiling when alone in the corner of a room. Sleep: Asleep by 2100 ADL's: Requires prompting to perform Group attendance: Sits alone in a corner Were meds taken: Yes Any med S/E: None reported or observed Mental Status Exam Appearance: Appears older then stated age, disheveled, appropriately dressed Eye contact: Good Behavior: Cooperative Speech: Clear Mood: Pleasant. Affect: Flat Thought process: Some thought blocking, and poverty of thought related to mental illness. Thought Content: Focused on talking to a correction officer head regarding my estate. Cognition: A&O X4 Insight: Poor Judgment: Fair Interventions PRN's used: None Therapeutic interventions: Provided active listening, maintained a safe and therapeutic environment, provided encouragement and positive reinforcement r/t ADL performance, provided medication education, assessed orientation and provided clear/simple instructions, attempted to reorient to reality when needed, maintained Q 15 min safety checks. Restraints/seclusion/emergency medication: N/A Justification of Continued Inpatient Treatment: Pt. is on LPS T-Con for grave disability. environmental services project manager is coordinating efforts with Public Guardian for placement.
[2018-08-08 08:00] VITALS: BP 125/76
[2018-08-08] MEDS: thiamine 100mg tablet PO SCH ×2 (08:10→20:54)
[2018-08-08] MEDS: metFORMIN 850mg tablet PO SCH ×2 (08:10→20:54)
[2018-08-08] MEDS: folic acid 1mg tablet PO SCH (08:10)
--- NOTE | 2018-08-08 14:16 | NUR ---
NURSING PROGRESS NOTE Legal hold: LPS T-Con Client on involuntary status for GD Report received from nurse Rowan RN with use of SBAR Why are they here: Pt. was brought to [facility] by [employer] and Mobile Crisis Unit r/t psychosis and GD. He was transferred from [facility] to [facility] on a 5150. Pt. is currently homeless and has a history of chronic alcoholism. Pt. has paranoid and grandiose delusions and is unable to provide for his own food, clothing, or jail. Pt. has been placed on a T-con per the [facility] Guardian office and they are considering LPS conservatorship. Assessment What happened this shift: Pt in bed asleep at start of shift. Pt woke a few times before getting up for breakfast. After breakfast pt sat in the corner of the community room drinking coffee while laughing inappropriately and talking to self. Pt is calm and cooperative w/staff and following directions well throughout the shift. S/I, H/I: Denies. A/VH: Pt. appears to respond to internal stimuli AEB laughing aloud and talking to self when alone in the corner of a room. Sleep: Naps on and off throughout the shift ADL's: Requires prompting to perform Group attendance: Sits alone in a corner Were meds taken: Yes Any med S/E: None reported or observed Mental Status Exam Appearance: Appears older then stated age, disheveled, appropriately dressed Eye contact: Good Behavior: Cooperative Speech: Clear Mood: Pleasant. Affect: Flat Thought process: Some thought blocking, and poverty of thought related to mental illness. Thought Content: Focused on talking to a manager testing regarding my estate. Cognition: A&O X4 Insight: Poor Judgment: Fair Interventions PRN's used: None Therapeutic interventions: Provided active listening, maintained a safe and therapeutic environment, provided encouragement and positive reinforcement r/t ADL performance, provided medication education, assessed orientation and provided clear/simple instructions, attempted to reorient to reality when needed, maintained Q 15 min safety checks. Restraints/seclusion/emergency medication: N/A Justification of Continued Inpatient Treatment: Pt. is on LPS T-Con for grave disability. student services counselor is coordinating efforts with Public Guardian for placement.
[2018-08-08 19:55] VITALS: BP 120/72
[2018-08-08] MEDS: tamsulosin 0.4mg capsule PO SCH (20:54)
[2018-08-08] MEDS: risperiDONE 2mg tablet PO SCH (20:55)
[2018-08-08] MEDS: divalproex sod 250mg ER (24-hour) tablet PO SCH (20:55)
--- NOTE | 2018-08-08 23:26 | NUR ---
NURSING PROGRESS NOTE Legal hold: LPS T-Con Client on involuntary status for GD Report received from nurse Lenin RN with use of SBAR Why are they here: Pt. was brought to [facility] by [employer] and Mobile Crisis Unit r/t psychosis and GD. He was transferred from [facility] to [facility] on a 5150. Pt. is currently homeless and has a history of chronic alcoholism. Pt. 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 Pt. has been placed on a T-con per the [facility] Guardian office and they are considering LPS conservatorship. Assessment What happened this shift: Pt up walking around with a blanket between the TV room and the group room to sit. Pt was noticed to be muttering to himself with the occasional laugh. However, during the 1:1, pt claimed "I'm fine. I never hear voices." Pt was guarded and did not elaborate during conversation. Pt attended snack group and reminded the RN he wanted his medications at 2100 after which he would take a shower. Pt did not end up taking a shower. Pt turned in to sleep about 2300. S/I, H/I: Denies A/VH: Denies; Pt appears to be responding to internal stimuli Sleep: See Sleep Hour Charting ADL's: Independent, but requires prompting Group attendance: Y - HS Snack Were meds taken: Y Any med S/E: None reported or observed Mental Status Exam Appearance: Appears older then stated age, disheveled, appropriately dressed in green unit scrubs and personal cap Eye contact: Direct Behavior: Cooperative, sitting in the TV or group room Speech: Clear, Normal rate and rhythm Mood: Pleasant "I'm doing fine" Affect: Blunted Thought process: Some thought blocking, and poverty of thought related to mental illness Thought Content: Want to gather items to take a shower after med pass Cognition: A&O X3 (not to time) Insight: Poor Judgment: Impaired Interventions PRN's used: None Therapeutic interventions: Provided active listening, maintained a safe and therapeutic environment, provided encouragement and positive reinforcement r/t ADL performance, provided medication education, assessed orientation and provided clear/simple instructions, attempted to reorient to reality when needed, maintained Q 15 min safety checks. Restraints/seclusion/emergency medication: N/A Justification of Continued Inpatient Treatment: Pt. is on LPS T-Con for grave disability. application services manager is coordinating efforts with Public Guardian for placement.
[2018-08-09 08:00] VITALS: BP 104/65
[2018-08-09] MEDS: folic acid 1mg tablet PO SCH (08:23)
[2018-08-09] MEDS: thiamine 100mg tablet PO SCH ×2 (08:23→20:40)
[2018-08-09] MEDS: metFORMIN 850mg tablet PO SCH ×2 (08:23→20:40)
--- NOTE | 2018-08-09 16:44 | NUR ---
NURSING PROGRESS NOTE Legal hold: LPS T-Con Client on involuntary status for GD Report received from nurse Rowan RN with use of SBAR Why are they here: Pt. was brought to [facility] by [employer] and Mobile Crisis Unit r/t psychosis and GD. He was transferred from [facility] to [facility] on a 5150. Pt. is currently homeless and has a history of chronic alcoholism. Pt. 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 Pt. has been placed on a T-con per the [facility] Guardian office and they are considering LPS conservatorship. Assessment What happened this shift: Met pt at his bedside. 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 He spent most of the morning sitting in his room leaning over in his chair peering out his bedroom door and smiling at the staff. S/I, H/I: Denies. A/VH: Denies: yet appears to be RIS AEB mumbling, laughing when alone in a room. Sleep: Naps on and off throughout the shift ADL's: Requires prompting to perform Group attendance: No Were meds taken: Yes Any med S/E: None reported or observed Mental Status Exam Appearance: Appears older then stated age, disheveled, appropriately dressed Eye contact: Good Behavior: Cooperative Speech: Clear Mood: Pleasant. Affect: Flat Thought process: Some thought blocking, and poverty of thought related to mental illness. Thought Content: Focused on talking to a service station helper regarding my estate. Cognition: A&O X4 Insight: Poor Judgment: Fair Interventions PRN's used: None Therapeutic interventions: provided therapeutic communication and listening, encouraged ADL's and group attendance, maintained Q 15 min safety checks Restraints/seclusion/emergency medication: N/A Justification of Continued Inpatient Treatment: Pt. is on LPS T-Con for grave disability. director of environmental services is coordinating efforts with Public Guardian for placement.
[2018-08-09 20:00] VITALS: BP 109/58
[2018-08-09] MEDS: divalproex sod 250mg ER (24-hour) tablet PO SCH (20:40)
[2018-08-09] MEDS: risperiDONE 2mg tablet PO SCH (20:40)
[2018-08-09] MEDS: tamsulosin 0.4mg capsule PO SCH (20:40)
--- NOTE | 2018-08-10 00:44 | NUR ---
NURSING PROGRESS NOTE Legal hold: LPS T-Con Client on involuntary status for GD Report received from nurse Lenin RN with use of SBAR Why are they here: Pt. was brought to [facility] by [employer] and Mobile Crisis Unit r/t psychosis and GD. He was transferred from [facility] to [facility] on a 5150. Pt. is currently homeless and has a history of chronic alcoholism. Pt. has paranoid and grandiose delusions and is unable to provide for his own food, clothing, or chcf. Pt. has been placed on a T-con per the [facility] Guardian office and they are considering LPS conservatorship. Assessment What happened this shift: Pt in room at change of shift then moved to group room to enjoy coffee and wait for snack. Pt was noticed to be muttering to himself, seemingly responding to internal stimuli. However, during the 1:1, pt claimed "I'm good. No voices, but I can't remember if I went to groups." Pt was guarded and did not elaborate during conversation. Pt attended snack group and compliant with medications. Pt turned in to sleep around 2245. S/I, H/I: Denies A/VH: Denies; Pt is talking to himself - appears to be responding to internal stimuli Sleep: See Sleep Hour Charting ADL's: Independent, but requires prompting Group attendance: Y - HS Snack Were meds taken: Y Any med S/E: None reported or observed Mental Status Exam Appearance: Appears older then stated age, disheveled, appropriately dressed in green unit scrubs and personal cap Eye contact: Direct Behavior: Cooperative, sitting in the group room or resting in his bed Speech: Clear, Normal rate and rhythm Mood: Pleasant "I'm good" Affect: Blunted Thought process: Some thought blocking, and poverty of thought related to mental illness Thought Content: Pt just repeated he is fine and had a good day Cognition: A&O X3 (not to time) Insight: Poor Judgment: Impaired Interventions PRN's used: None Therapeutic interventions: Provided active listening, maintained a safe and therapeutic environment, provided encouragement and positive reinforcement r/t ADL performance, provided medication education, assessed orientation and provided clear/simple instructions, attempted to reorient to reality when needed, maintained Q 15 min safety checks. Restraints/seclusion/emergency medication: N/A Justification of Continued Inpatient Treatment: Pt. is on LPS T-Con for grave disability. vp celebrity services is coordinating efforts with Public Guardian for placement.
[2018-08-10 07:00] VITALS: BP 100/65
[2018-08-10] MEDS: thiamine 100mg tablet PO SCH ×2 (07:52→20:38)
[2018-08-10] MEDS: metFORMIN 850mg tablet PO SCH ×2 (07:52→20:41)
[2018-08-10] MEDS: folic acid 1mg tablet PO SCH (07:52)
--- NOTE | 2018-08-10 11:54 | NUR ---
1:1 DISCHARGE PLANNING SW sent updated progress and provider notes to [facility] TAD and Public Guardian offices. JAYMIE informed [facility] teams that pt is at baseline and ready for placement per provider. ANGEL Ray
--- NOTE | 2018-08-10 16:04 | NUR ---
NURSING PROGRESS NOTE Legal hold: LPS T-Con Client on involuntary status for GD Report received from nurse Rowan RN with use of SBAR Why are they here: Pt. was brought to [facility] by [employer] and Mobile Crisis Unit r/t psychosis and GD. He was transferred from [facility] to [facility] on a 5150. Pt. is currently homeless and has a history of chronic alcoholism. Pt. 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 Pt. has been placed on a T-con per the [facility] Guardian office and they are considering LPS conservatorship. Assessment What happened this shift: Patient awake at shift change sitting in rec room drinking coffee, goes from room to room drinking coffee. Pt. states that he has 8,000.00 saved up as of tomorrow for an apartment or board and care. Patient is observed talking to himself, laughing at inappropriate times. S/I, H/I: Denies. A/VH: Denies: yet appears to be RIS AEB mumbling, laughing when alone in a room. Sleep: Naps on and off throughout the shift ADL's: Patient took shower today. Independent with prompting. Group attendance: No Were meds taken: Yes Any med S/E: None reported or observed Mental Status Exam Appearance: Appears older then stated age, disheveled, wearing fresh green scrubs Eye contact: Good Behavior: Cooperative Speech: Clear Mood: Pleasant. Affect: Wide range from blunted to euphoric. Thought process: Some thought blocking, and poverty of thought related to mental illness. Thought Content: Focused on talking to a continuous pillowcase cutter regarding my estate. Cognition: A&O X4 Insight: Poor Judgment: Fair PRN's used: None Therapeutic interventions: provided therapeutic communication and listening, encouraged ADL's and group attendance, maintained Q 15 min safety checks Restraints/seclusion/emergency medication: N/A Justification of Continued Inpatient Treatment: Pt. is on LPS T-Con for grave disability. director emergency services is coordinating efforts with TAD office and Public Guardian for placement.
[2018-08-10 19:55] VITALS: BP 111/63
[2018-08-10] MEDS: divalproex sod 250mg ER (24-hour) tablet PO SCH (20:40)
[2018-08-10] MEDS: risperiDONE 2mg tablet PO SCH (20:40)
[2018-08-10] MEDS: tamsulosin 0.4mg capsule PO SCH (20:41)
[2018-08-10] MEDS: LORazepam 1 MG tablet PO PRN (23:18)
--- NOTE | 2018-08-11 00:52 | NUR ---
NURSING PROGRESS NOTE Legal hold: LPS T-Con Client on involuntary status for GD Report received from nurse Lenin RN with use of SBAR Why are they here: Pt. was brought to [facility] by [employer] and Mobile Crisis Unit r/t psychosis and GD. He was transferred from [facility] to [facility] on a 5150. Pt. is currently homeless and has a history of chronic alcoholism. Pt. has paranoid and grandiose delusions and is unable to provide for his own food, clothing, or fpc. [facility] and they are considering LPS conservatorship. Assessment What happened this shift: Pt in room at start of shift. Came to group room for snack. Asked pt about his plans for discharge said he does not have any. Denied depression "everything is going good" Denies auditory of visual hallucinations. Patient is observed talking to himself, laughing at inappropriate times. S/I, H/I: Denies. A/VH: Denies: yet appears to be RIS AEB mumbling, laughing when alone in a room. Sleep: sleeping at this time ADL's: Patient took shower today. Independent with prompting. Group attendance: Group room for snack. Were meds taken: Yes Any med S/E: None reported or observed Mental Status Exam Appearance: Appears older then stated age, disheveled, wearing fresh green scrubs Eye contact: Good Behavior: Cooperative Speech: Clear Mood: Pleasant. Affect: Wide range from blunted to euphoric. Thought process: Some thought blocking, and poverty of thought related to mental illness. Thought Content: varies Cognition: A&O X4 Insight: Poor Judgment: Fair PRN's used: Ativan x1 per request Therapeutic interventions: provided therapeutic communication and listening, encouraged ADL's and group attendance, maintained Q 15 min safety checks Restraints/seclusion/emergency medication: N/A Justification of Continued Inpatient Treatment: Pt. is on LPS T-Con for grave disability. financial services director is coordinating efforts with [facility] office and Public Guardian for placement.
[2018-08-11 07:52] VITALS: BP 117/76
[2018-08-11] MEDS: thiamine 100mg tablet PO SCH ×2 (08:07→21:05)
[2018-08-11] MEDS: folic acid 1mg tablet PO SCH (08:07)
[2018-08-11] MEDS: metFORMIN 850mg tablet PO SCH ×2 (08:07→21:04)
--- NOTE | 2018-08-11 16:15 | NUR ---
NURSING PROGRESS NOTE Legal hold: T-Con Client on involuntary status for GD Report received from nurse Rowan RN with use of SBAR Why are they here: Pt. was brought to [facility] by [employer] and Mobile Crisis Unit r/t psychosis and GD. He was transferred from [facility] to [facility] on a 5150. Pt. is currently homeless and has a history of chronic alcoholism. Pt. 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 Pt. has been placed on a T-con per the [facility] Guardian office and they are considering LPS conservatorship. Assessment What happened this shift: Patient was awake and up in group room with blanket around shoulders at start of shift. Ate meals with others, was medication compliant, calm and cooperative. Went to morning group and then napped in afternoon. Denies SI, AH/VH. Appears to at times mumble and laugh to self at inappropriate times. S/I, H/I: Denies. A/VH: Denies: Sleep: Napped ADL's: self with prompting Group attendance: x1 Were meds taken: Yes Any med S/E: None reported or observed Mental Status Exam Appearance: Appears older then stated age, disheveled, wearing fresh green scrubs Eye contact: Good Behavior: Cooperative Speech: Clear Mood: Pleasant. Affect: Blunted Thought process: Some thought blocking, and poverty of thought related to mental illness. Thought Content: varies Cognition: Alert Insight: Poor Judgment: Fair PRN's used: None Therapeutic interventions: provided therapeutic communication and listening, encouraged ADL's and group attendance, maintained Q 15 min safety checks Restraints/seclusion/emergency medication: N/A Justification of Continued Inpatient Treatment: Pt. is on LPS T-Con for grave disability. office services clerk is coordinating efforts with TAD office and Public Guardian for placement.
[2018-08-11 20:43] VITALS: BP 91/52
[2018-08-11] MEDS: risperiDONE 2mg tablet PO SCH (21:05)
[2018-08-11] MEDS: divalproex sod 250mg ER (24-hour) tablet PO SCH (21:05)
[2018-08-11] MEDS: tamsulosin 0.4mg capsule PO SCH (21:05)
--- NOTE | 2018-08-11 23:18 | NUR ---
Nursing Progress Note: Legal hold: T-con Client on involuntary status for GD Report received from nurse with use of SBAR: GABRIEL Larose Why are they here: Pt. was brought to [facility] by [employer] and Mobile Crisis Unit r/t psychosis and GD. He was transferred from [facility] to [facility] on a 5150. Pt. is currently homeless and has a history of chronic alcoholism. Pt. 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 Pt. has been placed on a T-con per the [place] guardians office and they are considering [facility] conservatorship. Assessment What has happened this shift: Pt. fatigued and in bed at the beginning of the shift, remained here throughout most of the shift, however did get up briefly for a snack and to watch TV in the Recreation Room. 1:1 completed, pt. cooperative, fatigued, and guarded but animates with conversation. Pt. continues to deny depression, anxiety, or any H/A. 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 in regard to this delusion and attempted to help re-orient him to reality; however the more he was questioned, the more detailed the delusion became and pt. very adamant that this was reality. Will endorse to AM shift, and continue to monitor. S/I, H/I: Denies A/VH: Denies Sleep: Pt. reports fatigue and appears to be sleeping well ADL's: Requires encouragement and re-direction by staff to successfully complete ADLs Group attendance: Reports he has been going to groups Were meds taken: Yes Any med S/E: None Mental Status Exam Appearance: Pt. continues to present as slightly disheveled, however appropriately dressed in hospital attire, wearing a baseball cap. Psychomotor activity WNL Eye contact: Good Behavior: Cooperative, fatigued, and guarded Speech: Soft, slow, with some latency in response. Mood: Pleasant Affect: Constricted Thought process: Disorganized at times, but able to be successfully redirected. Thought Content: presents with fixed delusions Cognition: A&O X3 (not to time or day) Insight: Poor Judgment: Fair Interventions PRN's used: None Therapeutic interventions: Provided active listening, maintained a safe and therapeutic environment, provided encouragement and positive reinforcement r/t ADL performance and future goal setting, provided medication education and carbohydrate controlled diet r/t DM, assessed orientation and provided clear/simple instructions, attempted to re-orient to reality, and maintained Q 15 min safety checks. Restraints/seclusion/emergency medication: N/A Justification of Continued Inpatient Treatment: Pt. has a history of non-compliance, potential for agitation, and arson. The [place] public guardian has placed on a T-con and is considering LPS Conservatorship. Pt. wishes to discharge to a Board and Care. Per Dr. Marin, he is near or at baseline and ready for discharge.
[2018-08-12] MEDS: metFORMIN 850mg tablet PO SCH ×2 (07:26→21:56)
[2018-08-12] MEDS: folic acid 1mg tablet PO SCH (07:27)
[2018-08-12] MEDS: thiamine 100mg tablet PO SCH ×2 (07:27→21:57)
[2018-08-12 08:00] VITALS: BP 105/64
--- NOTE | 2018-08-12 14:21 | NUR ---
Reassessment: Documented PO intake 100% on CHO controlled diet meeting nutrient needs. LBM 08/04. No significant weight change. No nutrition diagnosis at this time. Will continue to follow. Recommend: 1. continue carb controlled diet 2. Weekly weights Addendum: 08/12/18 at [address] Amended: Links added.
--- NOTE | 2018-08-12 15:00 | NUR ---
NURSING PROGRESS NOTE Legal hold: T-Con Client on involuntary status for GD Report received from nurse Rowan RN with use of SBAR Why are they here: Pt. was brought to [facility] by [employer] and Mobile Crisis Unit r/t psychosis and GD. He was transferred from [facility] to [facility] on a 5150. Pt. is currently homeless and has a history of chronic alcoholism. Pt. 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 Pt. has been placed on a T-con per the [facility] Guardian office and they are considering LPS conservatorship. Assessment What happened this shift: Patient was awake and up in group room with blanket around shoulders at start of shift. Ate meals with others, was medication compliant, calm and cooperative. Went to morning group and then napped in afternoon. Denies SI, AH/VH. Appears to at times mumble and laugh to self at inappropriate times. S/I, H/I: Denies. A/VH: Denies: Sleep: Napped ADL's: self with prompting Group attendance: x1 Were meds taken: Yes Any med S/E: None reported or observed Mental Status Exam Appearance: Appears older then stated age, disheveled, wearing fresh green scrubs Eye contact: Good Behavior: Cooperative Speech: Clear Mood: Pleasant. Affect: Blunted Thought process: Some thought blocking, and poverty of thought related to mental illness. Thought Content: varies Cognition: Alert Insight: Poor Judgment: Fair PRN's used: None Therapeutic interventions: provided therapeutic communication and listening, encouraged ADL's and group attendance, maintained Q 15 min safety checks Restraints/seclusion/emergency medication: N/A Justification of Continued Inpatient Treatment: Pt. is on LPS T-Con for grave disability. emergency medical services coordinator is coordinating efforts with TAD office and Public Guardian for placement.
[2018-08-12 19:00] VITALS: BP 104/53
[2018-08-12] MEDS: divalproex sod 250mg ER (24-hour) tablet PO SCH (21:57)
[2018-08-12] MEDS: tamsulosin 0.4mg capsule PO SCH (21:58)
[2018-08-12] MEDS: risperiDONE 2mg tablet PO SCH (21:58)
--- NOTE | 2018-08-13 00:59 | NUR ---
Nursing Progress Note: Legal hold: T-con Client on involuntary status for GD Report received from nurse with use of SBAR: Tequila RN Why are they here: Pt. was brought to [facility] by [employer] and Mobile Crisis Unit r/t psychosis and GD. He was transferred from [facility] to [facility] on a 5150. Pt. is currently homeless and has a history of chronic alcoholism. Pt. has paranoid and grandiose delusions and is unable to provide for his own food, clothing, or chcf. Pt. has been placed on a T-con per the [place] guardians office and they are considering LPS conservatorship. Court date scheduled for 08/17/18. Assessment What has happened this shift: Pt. napping in bed at the beginning of the shift, remained here throughout most of the shift, however did get up briefly for HS snack. 1:1 completed, pt. pleasant and cooperative. He continues to deny depression, anxiety, or any H/A; however continues to make grandiose delusional statements throughout the conversation. Pt. states, "I am a God, I made the universe, buildings, even hospitals like this one. 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 looked surprised and stated, "Well you see buildings being built don't you?" Pt. went on to talk about how there are other Gods, besides himself, that do other things; and how he is even able to work while he is here, just by pushing a button. This typewriter assembler attempted to reorient pt. to reality, however pt. fixed in delusional thinking, states, "I know it's impossible, but I do it." Pt. laughs inappropriately at times throughout the conversation, and thinking is disorganized. S/I, H/I: Denies A/VH: Denies, however laughs inappropriately at times throughout the conversation Sleep: Pt. reports fatigue and appears to be sleeping well ADL's: Requires encouragement and re-direction by staff to successfully complete ADLs Group attendance: Reports he has been going to groups, however unable to identify any coping mechanisms Were meds taken: Yes Any med S/E: None Mental Status Exam Appearance: Pt. continues to present as slightly disheveled, however appropriately dressed in hospital attire, wearing a baseball cap. Psychomotor activity WNL Eye contact: Good Behavior: Cooperative, fatigued, and guarded Speech: Soft, slow, with some latency in response at times. Becomes animated when talking about fixed delusions. Mood: Pleasant Affect: Constricted Thought process: Disorganized at times, but able to be successfully redirected. Thought Content: presents with grandiose fixed delusions Cognition: A&O X3 (not to time or day) Insight: Poor Judgment: Fair Interventions PRN's used: None Therapeutic interventions: Provided active listening, maintained a safe and therapeutic environment, provided encouragement and positive reinforcement r/t ADL performance and future goal setting, provided medication education and carbohydrate controlled diet r/t DM, assessed orientation and provided clear/simple instructions, attempted to re-orient to reality, and maintained Q 15 min safety checks. Restraints/seclusion/emergency medication: N/A Justification of Continued Inpatient Treatment: Pt. has a history of non-compliance, potential for agitation, and arson. The [place] public guardian has placed on a T-con and is considering LPS Conservatorship. Pt. wishes to discharge to a Board and Care. Per Dr. Marin, he is near or at baseline and ready for discharge.
[2018-08-13] MEDS: metFORMIN 850mg tablet PO SCH ×2 (07:40→21:19)
[2018-08-13] MEDS: folic acid 1mg tablet PO SCH (07:40)
[2018-08-13] MEDS: thiamine 100mg tablet PO SCH ×2 (07:40→21:19)
[2018-08-13 08:00] VITALS: BP 104/71
--- NOTE | 2018-08-13 11:08 | NUR ---
NURSING PROGRESS NOTE Legal hold: T-Con Client on involuntary status for GD Report received from nurse GABRIEL Sharif with use of SBAR Why are they here: Pt. was brought to [facility] by [employer] and Mobile Crisis Unit r/t psychosis and GD. He was transferred from [facility] to [facility] on a 5150. Pt. is currently homeless and has a history of chronic alcoholism. Pt. has paranoid and grandiose delusions and is unable to provide for his own food, clothing, or [place] [facility]. Pt. has been placed on a T-con per the [facility] Guardian office and they are considering LPS conservatorship. Assessment What happened this shift: Patient was asleep at change of shift. He awakened before breakfast and took all medications and then returned to room and napped. Ate meals with others, calm and cooperative. Denies SI, AH/VH. Appears to at times mumble and laugh to self at inappropriate times and makes grandiose statements, "I can make things happen just by pushing a button." Reports some increased anxiety regarding upcoming court hearing about conservatorship. S/I, H/I: Denies. A/VH: Denies: Sleep: Napped ADL's: self with prompting Group attendance: x1 Were meds taken: Yes Any med S/E: None reported or observed Mental Status Exam Appearance: Slightly disheveled Eye contact: Good Behavior: Cooperative Speech: Clear Mood: Pleasant. Affect: Blunted Thought process: Some thought blocking, and poverty of thought related to mental illness. Thought Content: varies Cognition: Alert Insight: Poor Judgment: Fair PRN's used: None Therapeutic interventions: provided therapeutic communication and listening, encouraged ADL's and group attendance, maintained Q 15 min safety checks Restraints/seclusion/emergency medication: N/A Justification of Continued Inpatient Treatment: Pt. is on LPS T-Con for grave disability. well services operator is coordinating efforts with [place] office and Public Guardian for placement.
[2018-08-13 19:00] VITALS: BP 113/63
[2018-08-13] MEDS: tamsulosin 0.4mg capsule PO SCH (21:19)
[2018-08-13] MEDS: divalproex sod 250mg ER (24-hour) tablet PO SCH (21:19)
[2018-08-13] MEDS: risperiDONE 2mg tablet PO SCH (21:20)
--- NOTE | 2018-08-14 01:27 | NUR ---
Nursing Progress Note: Legal hold: T-con Client on involuntary status for GD Report received from nurse with use of SBAR: GABRIEL Mandel Why are they here: Pt. was brought to [facility] by [employer] and Mobile Crisis Unit r/t psychosis and GD. He was transferred from [facility] to [facility] on a 5150. Pt. is currently homeless and has a history of chronic alcoholism. Pt. has paranoid and grandiose delusions and is unable to provide for his own food, clothing, or fci. Pt. has been placed on a T-con per the [place] guardians office and they are considering LPS conservatorship. Court date scheduled for 08/17/18. Assessment What has happened this shift: Pt. napping in bed at the beginning of the shift, remained here throughout the shift, and refuses HS snack. Attempted to complete 1:1 at bedside, pt. is pleasant and cooperative, however fatigued. He is compliant with medications and physical assessment, however presents as too fatigued to participate in mental assessment. No delusional statements or inappropriate laughter exhibited this shift, will continue to monitor. S/I, H/I: Denies A/VH: Denies Sleep: Pt. reports fatigue and appears to be sleeping well ADL's: Requires encouragement and re-direction by staff to successfully complete ADLs Group attendance: Reports he goes to groups Were meds taken: Yes Any med S/E: Increased fatigue, V/S WNL, will continue to monitor. Mental Status Exam Appearance: Pt. continues to present as slightly disheveled, however appropriately dressed in hospital attire Eye contact: Good Behavior: Cooperative, fatigued, and withdrawn. Psychomotor activity WNL Speech: Soft, slow, with some latency in response at times. Mood: Fatigued Affect: Constricted Thought process: Disorganized at times, but able to be successfully redirected. Thought Content: Continues to present with grandiose fixed delusions at times Cognition: A&O X3 (not to time or day) Insight: Poor Judgment: Fair Interventions PRN's used: None Therapeutic interventions: Provided active listening, maintained a safe and therapeutic environment, provided encouragement and positive reinforcement r/t ADL performance and future goal setting, provided medication education and carbohydrate controlled diet r/t DM, assessed orientation and provided clear/simple instructions, attempted to re-orient to reality, and maintained Q 15 min safety checks. Restraints/seclusion/emergency medication: N/A Justification of Continued Inpatient Treatment: Pt. has a history of non-compliance, potential for agitation, and arson. The [place] public guardian has placed on a T-con and is considering LPS Conservatorship. Per Dr. Marin, he is near or at baseline and ready for discharge.
[2018-08-14] MEDS: folic acid 1mg tablet PO SCH (07:48)
[2018-08-14] MEDS: thiamine 100mg tablet PO SCH ×2 (07:48→21:48)
[2018-08-14] MEDS: metFORMIN 850mg tablet PO SCH ×2 (07:48→21:47)
[2018-08-14 08:00] VITALS: BP 105/68
--- NOTE | 2018-08-14 17:16 | NUR ---
NURSING PROGRESS NOTE Legal hold: T-Con Client on involuntary status for GD Report received from nurse GABRIEL Sharif with use of SBAR Why are they here: Pt. was brought to [facility] by [employer] and Mobile Crisis Unit r/t psychosis and GD. He was transferred from [facility] to [facility] on a 5150. Pt. is currently homeless and has a history of chronic alcoholism. Pt. has paranoid and grandiose delusions and is unable to provide for his own food, clothing, or skilled nursing. Pt. has been placed on a T-con per the [facility] Guardian office and they are considering LPS conservatorship. Assessment What happened this shift: Received patient up in the room waiting for breakfast. Patient seemed pleasant enough upon approach and denied depression and suicidal thoughts. Patient also denied auditory hallucinations. Evidence of grandiose delusions remain as patient spoke again about converting cars to spaceships. Patient also remains paranoid when talking about his court hearing coming up for his conservatorship. He was talking about how he may bring criminal charges against the people pushing for conservatorship. Later in the day, patient became highly agitated when he asked for a certain snack that was denied due to his diagnosis of diabetes. He was offered half of a peanut butter jelly sandwich instead of the whole sandwich and he started cursing at staff stating get the fuck away from me motherfucker. He was red-faced and very angry. Patient was left alone in his room for the next two hours and when he emerged he was still upset about the situation but remain calm and not cuss at staff anymore. S/I, H/I: Denies. A/VH: Denies: Sleep: Napped ADL's: self with prompting Group attendance: x1 Were meds taken: Yes Any med S/E: None reported or observed Mental Status Exam Appearance: Slightly disheveled Eye contact: Good Behavior: Cooperative Speech: Clear Mood: Pleasant. Affect: Blunted Thought process: Some thought blocking, and poverty of thought related to mental illness. Thought Content: varies Cognition: Alert Insight: Poor Judgment: Fair PRN's used: None Therapeutic interventions: provided therapeutic communication and listening, encouraged ADL's and group attendance, maintained Q 15 min safety checks Restraints/seclusion/emergency medication: N/A Justification of Continued Inpatient Treatment: Pt. is on LPS T-Con for grave disability. business services officer is coordinating efforts with [place] office and Public Guardian for placement.
[2018-08-14 19:00] VITALS: BP 123/68
[2018-08-14] MEDS: risperiDONE 2mg tablet PO SCH (21:47)
[2018-08-14] MEDS: tamsulosin 0.4mg capsule PO SCH (21:47)
[2018-08-14] MEDS: divalproex sod 250mg ER (24-hour) tablet PO SCH (21:47)
--- NOTE | 2018-08-15 00:23 | NUR ---
NURSING PROGRESS NOTE Legal hold: T-Con Client on involuntary status for GD Report received from nurse GABRIEL Sharif with use of SBAR Why are they here: Pt. was brought to [facility] by [employer] and Mobile Crisis Unit r/t psychosis and GD. He was transferred from [facility] to [facility] on a 5150. Pt. is currently homeless and has a history of chronic alcoholism. Pt. has paranoid and grandiose delusions and is unable to provide for his own food, clothing, or custodial. Pt. has been placed on a T-con per the [facility] Guardian office and they are considering LPS conservatorship. Assessment What happened this shift: Pt sleeping at start of shift. Awakened at 2100 for meds and snack. Pleasant and cooperative. Went back to sleep sleeping at this time. S/I, H/I: Denies. A/VH: Denies: Sleep: Sleeping at this time ADL's: self with prompting Group attendance: x1 Were meds taken: Yes Any med S/E: None reported or observed Mental Status Exam Appearance: Slightly disheveled Eye contact: Good Behavior: Cooperative Speech: Clear Mood: Pleasant. Affect: Blunted Thought process: Some thought blocking, and poverty of thought related to mental illness. Thought Content: varies Cognition: Alert Insight: Poor Judgment: Fair PRN's used: None Therapeutic interventions: Medication administration, education and monitoring. provided therapeutic communication and listening, encouraged ADL's and group attendance, maintained Q 15 min safety checks Restraints/seclusion/emergency medication: N/A Justification of Continued Inpatient Treatment: Pt. is on LPS T-Con for grave disability. assistant guest services manager is coordinating efforts with [place] office and Public Guardian for placement.
[2018-08-15 08:00] VITALS: BP 102/62
[2018-08-15] MEDS: thiamine 100mg tablet PO SCH ×2 (08:18→20:20)
[2018-08-15] MEDS: folic acid 1mg tablet PO SCH (08:18)
[2018-08-15] MEDS: metFORMIN 850mg tablet PO SCH ×2 (08:18→20:20)
--- NOTE | 2018-08-15 16:16 | NUR ---
NURSING PROGRESS NOTE Legal hold: T-Con Client on involuntary status for GD Report received from nurse GABRIEL aHmpton with use of SBAR Why are they here: Pt. was brought to [facility] by [employer] and Mobile Crisis Unit r/t psychosis and GD. He was transferred from [facility] to [facility] on a 5150. Pt. is currently homeless and has a history of chronic alcoholism. Pt. has paranoid and grandiose delusions and is unable to provide for his own food, clothing, or jail. Pt. has been placed on a T-con per the [facility] Guardian office and they are considering LPS conservatorship. Assessment What happened this shift: Pt. awake at shift change lying in bed staring out the window. Pt. came to all meals without prompting. Patient appears fatigued, which patient responds that he is. Physically, states he has no complaints. Pt. states his mood is o.k., responded with how come your not happy. He stated "when everyone is and in hell I will be happy." Does not appear to angered in any way. More time spent in his room than usual. S/I, H/I: Denies. A/VH: Denies: Sleep: 8 hrs. NOC ADL's: Needs encouragement and prompting. Group attendance: none Were meds taken: Yes Any med S/E: None reported or observed Mental Status Exam Appearance: Pt. with long bowen hair and facial hair, dirty and unkempt. Eye contact: Good Behavior: Cooperative and calm. Resting throughout the day. Speech: Clear Mood: Depressed. Affect: Blunted Thought process: Some thought blocking, and poverty of thought related to mental illness. Thought Content: People dying and going to hell. Cognition: Alert Insight: Poor Judgment: Fair PRN's used: None Therapeutic interventions: provided therapeutic communication and listening, encouraged ADL's and group attendance, maintained Q 15 min safety checks Restraints/seclusion/emergency medication: N/A Justification of Continued Inpatient Treatment: Pt. is on LPS T-Con for grave disability. rehab services aide is coordinating efforts with [facility] office and Public Guardian for placement.
[2018-08-15 19:46] VITALS: BP 87/49
[2018-08-15] MEDS: tamsulosin 0.4mg capsule PO SCH (20:20)
[2018-08-15] MEDS: divalproex sod 250mg ER (24-hour) tablet PO SCH (20:20)
[2018-08-15] MEDS: risperiDONE 2mg tablet PO SCH (20:20)
--- NOTE | 2018-08-16 01:30 | NUR ---
NURSING PROGRESS NOTE Legal hold: T-Con Client on involuntary status for GD Report received from nurse GABRIEL Hampton with use of SBAR Why are they here: Pt. was brought to [facility] by [employer] and Mobile Crisis Unit r/t psychosis and GD. He was transferred from [facility] to [facility] on a 5150. Pt. is currently homeless and has a history of chronic alcoholism. Pt. has paranoid and grandiose delusions and is unable to provide for his own food, clothing, or residential. Pt. has been placed on a T-con per the [facility] Guardian office and they are considering LPS conservatorship. Assessment What happened this shift: Pt asleep at start of shift. Came to group room for snack when awakened by staff. Took all meds did not interact with other pts or staff. Imediatly after eating went back to bed and went to sleep. S/I, H/I: Denies. A/VH: Denies: Sleep: sleeping at this time. ADL's: Needs encouragement and prompting. Group attendance: none Were meds taken: Yes Any med S/E: None reported or observed Mental Status Exam Appearance: Pt. with long bowen hair and facial hair, dirty and unkempt. Eye contact: Good Behavior: Cooperative and calm. Resting throughout the day. Speech: Clear Mood: Depressed. Affect: Blunted Thought process: Some thought blocking, and poverty of thought related to mental illness. Thought Content: unable to assess Cognition: Alert Insight: Poor Judgment: Fair PRN's used: None Therapeutic interventions: provided therapeutic communication and listening, encouraged ADL's and group attendance, maintained Q 15 min safety checks Restraints/seclusion/emergency medication: N/A Justification of Continued Inpatient Treatment: Pt. is on LPS T-Con for grave disability. services manager is coordinating efforts with [place] office and Public Guardian for placement.
[2018-08-16 07:00] VITALS: BP 108/67
[2018-08-16] MEDS: folic acid 1mg tablet PO SCH (07:40)
[2018-08-16] MEDS: thiamine 100mg tablet PO SCH ×2 (07:41→21:09)
[2018-08-16] MEDS: metFORMIN 850mg tablet PO SCH ×2 (07:41→21:10)
[2018-08-16 08:00] VITALS: BP 108/67
--- NOTE | 2018-08-16 16:27 | NUR ---
NURSING PROGRESS NOTE Legal hold: T-Con Client on involuntary status for GD Report received from nurse Zayda RN with use of SBAR Why are they here: Pt. was brought to [facility] by [employer] and Mobile Crisis Unit r/t psychosis and GD. He was transferred from [facility] to [facility] on a 5150. Pt. is currently homeless and has a history of chronic alcoholism. Pt. has paranoid and grandiose delusions and is unable to provide for his own food, clothing, or half-way. Pt. [facility] and they are considering LPS conservatorship. Assessment What happened this shift: Patient awake at the change of shift sitting in rec room. Patient not in a talkative mood in the morning. In the afternoon he can tell me that he is ready for court tomorrow. He still says that he was confined to [facility] for 19 years, and he wouldn't mind a year or two, but no longer than that. States that all charges against him were dropped. Reports that he wants to get an apartment and a small car. S/I, H/I: Denies. A/VH: Denies: Sleep: 8.25 hrs. NOC ADL's: Freshly showered, but needs encouragement and prompting. Group attendance: none Were meds taken: Yes Any med S/E: None reported or observed Mental Status Exam Appearance: Pt. with long bowen hair and facial hair in green scrubs. Eye contact: Good Behavior: Cooperative and calm. Resting throughout the day. Speech: Clear Mood: Depressed. Affect: Blunted Thought process: Some thought blocking, and poverty of thought related to mental illness. Thought Content: Getting his story straight for court tomorrow to beat conservatorsDAXKO. Cognition: Alert Insight: Poor Judgment: Fair PRN's used: None Therapeutic interventions: provided therapeutic communication and listening, encouraged ADL's and group attendance, maintained Q 15 min safety checks Restraints/seclusion/emergency medication: N/A Justification of Continued Inpatient Treatment: Pt. is on LPS T-Con for grave disability. assurance services manager health care is coordinating efforts with [facility] office and Public Guardian for placement.
[2018-08-16 20:00] VITALS: BP 104/59
[2018-08-16] MEDS: divalproex sod 250mg ER (24-hour) tablet PO SCH (21:09)
[2018-08-16] MEDS: tamsulosin 0.4mg capsule PO SCH (21:09)
[2018-08-16] MEDS: risperiDONE 2mg tablet PO SCH (21:10)
--- NOTE | 2018-08-17 01:06 | NUR ---
NURSING PROGRESS NOTE Legal hold: T-Con Client on involuntary status for GD Report received from nurse Tequila RN with use of SBAR Why are they here: Pt. was brought to [facility] by [employer] and Mobile Crisis Unit r/t psychosis and GD. He was transferred from [facility] to [facility] on a 5150. Pt. is currently homeless and has a history of chronic alcoholism. Pt. has paranoid and grandiose delusions and is unable to provide for his own food, clothing, or fci. Pt. has been placed on a T-con per the [facility] Guardian office and they are considering LPS conservatorship. Assessment What happened this shift: Pt sitting in rec room at start of shift. Pt talked about hearing tomorrow "They might lock me up" Explained to pt that the hearing tomorrow is about conservatorship not about locking him up. Pt said he would like to be discharged to the [facility] then save money and get his own apartment. Pt cooperative with care took all medications. S/I, H/I: Denies. A/VH: Denies: Sleep: 8.25 hrs. NOC ADL's: Freshly showered, but needs encouragement and prompting. Group attendance: none Were meds taken: Yes Any med S/E: None reported or observed Mental Status Exam Appearance: Pt. with long bowen hair and facial hair in green scrubs. Eye contact: Good Behavior: Cooperative and calm. Resting throughout the day. Speech: Clear Mood: Depressed. Affect: Blunted Thought process: Some thought blocking, and poverty of thought related to mental illness. Thought Content: Getting his story straight for court tomorrow to beat [facility]. Cognition: Alert Insight: Poor Judgment: Fair PRN's used: None Therapeutic interventions: provided therapeutic communication and listening, encouraged ADL's and group attendance, medication education, administration and monitoring. maintained Q 15 min safety checks Restraints/seclusion/emergency medication: N/A Justification of Continued Inpatient Treatment: Pt. is on LPS T-Con for grave disability. instructional services librarian is coordinating efforts with [facility] office and Public Guardian for placement.
[2018-08-17 07:41] VITALS: BP 108/75
[2018-08-17] MEDS: thiamine 100mg tablet PO SCH ×2 (08:41→20:38)
[2018-08-17] MEDS: folic acid 1mg tablet PO SCH (08:41)
[2018-08-17] MEDS: metFORMIN 850mg tablet PO SCH ×2 (08:41→20:39)
--- NOTE | 2018-08-17 12:58 | NUR ---
Pt off the unit at 1245. Transferred to court by Public Guardian.
--- NOTE | 2018-08-17 15:22 | NUR ---
Pt back on the unit at 2102
--- NOTE | 2018-08-17 16:31 | NUR ---
NURSING PROGRESS NOTE Legal hold: LPS Conserved. Client on involuntary status for GD Report received from nurse Rowan RN with use of SBAR Why are they here: Pt. was brought to [facility] by [employer] and Mobile Crisis Unit r/t psychosis and GD. He was transferred from [facility] to [facility] on a 5150. Pt. is currently homeless and has a history of chronic alcoholism. Pt. has paranoid and grandiose delusions and is unable to provide for his own food, clothing, or fci. Pt. has been placed on a T-con per the [facility] Guardian office and they are considering LPS conservatorship. Assessment What happened this shift: Received pt. laying in bed awake looking out the window. Pt. went to court at approximately 12:45 and returned at 15:30. Pt states that he couldn't hear and understand what happened at the end and is requesting clarification. JAYMIE Page states she will come see the patient in collaboration with Dr. Marin. Pt. has been accepted at [facility]. He has been laying on his bed looking out the window since he returned. S/I, H/I: Denies. A/VH: Denies: Sleep: Good. ADL's: Independent with prompting. Group attendance: a.m. group. Were meds taken: Yes Any med S/E: None reported or observed Mental Status Exam Appearance: Pt. with long bowen hair and facial hair in green scrubs. Went to court in street clothes. Eye contact: Good Behavior: Cooperative and calm. Speech: Clear Mood: Depressed. Affect: Blunted Thought process: Some thought blocking, and poverty of thought related to mental illness. Thought Content: Court Cognition: Alert Insight: Poor Judgment: Fair PRN's used: None Therapeutic interventions: provided therapeutic communication and listening, encouraged ADL's and group attendance, maintained Q 15 min safety checks Restraints/seclusion/emergency medication: N/A Justification of Continued Inpatient Treatment: Pt. is on LPS conservatorship for grave disability. guest services officer. Patient has been accepted at [facility].
[2018-08-17 20:00] VITALS: BP 101/60
[2018-08-17] MEDS: risperiDONE 2mg tablet PO SCH (20:38)
[2018-08-17] MEDS: tamsulosin 0.4mg capsule PO SCH (20:38)
[2018-08-17] MEDS: divalproex sod 250mg ER (24-hour) tablet PO SCH (20:38)
--- NOTE | 2018-08-18 01:06 | NUR ---
NURSING PROGRESS NOTE Legal hold: LPS Conserved. Client on involuntary status for GD Report received from nurse Rowan RN with use of SBAR Why are they here: Pt. was brought to [facility] by [employer] and Mobile Crisis Unit r/t psychosis and GD. He was transferred from [facility] to [facility] on a 5150. Pt. is currently homeless and has a history of chronic alcoholism. Pt. has paranoid and grandiose delusions and is unable to provide for his own food, clothing, or residential. Pt. has been placed on a T-con per the [facility] Guardian office and they are considering LPS conservatorship. Assessment Pt in group room at start of shift. Asked how his day went he said bad "I went to court and they are going to lock me up" Explained to pt he went to court and he is now conserved so that they can find him a good place to live where he will be safe and well fed. 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 S/I, H/I: Denies. A/VH: Denies: Sleep: Good. ADL's: Independent with prompting. Group attendance: a.m. group. Were meds taken: Yes Any med S/E: None reported or observed Mental Status Exam Appearance: Pt. with long bowen hair and facial hair in green scrubs. Went to court in street clothes. Eye contact: Good Behavior: Cooperative and calm. Speech: Clear Mood: Depressed. Affect: Blunted Thought process: Delusions Some thought blocking, and poverty of thought related to mental illness. Thought Content: Court Cognition: Alert Insight: Poor Judgment: Fair PRN's used: None Therapeutic interventions: provided therapeutic communication and listening, encouraged ADL's and group attendance, maintained Q 15 min safety checks Restraints/seclusion/emergency medication: N/A Justification of Continued Inpatient Treatment: Pt. is on LPS conservatorship for grave disability. 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 Patient has been accepted at [facility].
--- NOTE | 2018-08-18 06:17 | NUR ---
1:1 DISCHARGE PLANNING LATE NOTE ENTRY FOR 08/16/2018 CONTACT SW received TC from Nicolas at [facility], reporting pt has been accepted for placement at [facility] in [place]. Pt attended LPS Conservatorship hearing this day and was deemed gravely disabled w/ reasonable cause to conserve. Pt reports he did not understand what happened in court. SW will meet w/ provider and discuss how to help pt understand what occurred during LPS hearing and where pt will be placed for continued tx. ANGEL Ray
[2018-08-18 07:30] VITALS: BP 109/66
[2018-08-18] MEDS: folic acid 1mg tablet PO SCH (07:46)
[2018-08-18] MEDS: metFORMIN 850mg tablet PO SCH ×2 (07:46→20:30)
[2018-08-18] MEDS: thiamine 100mg tablet PO SCH ×2 (07:46→20:30)
--- NOTE | 2018-08-18 15:04 | NUR ---
Reassessment: Documented PO intake continues on 75-100% on CHO controlled diet meeting nutrient needs. [facility] 08/18. No nutrition diagnosis at this time. Will continue to follow. Recommend: 1. continue carb controlled diet 2. Weekly weights Addendum: 08/18/18 at [address] Amended: Links added.
--- NOTE | 2018-08-18 17:30 | NUR ---
NURSING PROGRESS NOTE Legal hold: LPS Conserved. Client on involuntary status for GD Report received from nurse Rowan RN with use of SBAR Why are they here: Pt. was brought to [facility] by [employer] and Mobile Crisis Unit r/t psychosis and GD. He was transferred from [facility] to [facility] on a 5150. Pt. is currently homeless and has a history of chronic alcoholism. Pt. 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 Pt. has been placed on a T-con per the [facility] Guardian office and they are considering LPS conservatorship. Assessment Pt. reports he is well this AM and informed this RN that he is conserved, Pt. appears to be handeling it well. Pt. denies SI/HI, A/V H. Pt. eating breakfast and taking medications. Pt. seen in community room with other pt.'s. Pt. is social, Pt. napping at times. S/I, H/I: Denies. A/VH: Denies: Sleep: Good. ADL's: Independent with prompting. Group attendance: a.m. group. Were meds taken: Yes Any med S/E: None reported or observed Mental Status Exam Appearance: Pt. with long bowen hair and facial hair in green scrubs. Eye contact: Good Behavior: Cooperative and calm. Speech: Clear Mood: bright Affect: Blunted Thought process: Delusions Some thought blocking, and poverty of thought related to mental illness. Thought Content: discharge Cognition: Alert Insight: Poor Judgment: Fair PRN's used: None Therapeutic interventions: provided therapeutic communication and listening, encouraged ADL's and group attendance, maintained Q 15 min safety checks Restraints/seclusion/emergency medication: N/A Justification of Continued Inpatient Treatment: Pt. 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 Patient has been accepted at [facility].
[2018-08-18] MEDS: tamsulosin 0.4mg capsule PO SCH (20:28)
[2018-08-18] MEDS: risperiDONE 2mg tablet PO SCH (20:29)
[2018-08-18] MEDS: divalproex sod 250mg ER (24-hour) tablet PO SCH (20:30)
[2018-08-18 20:59] VITALS: BP 116/69
--- NOTE | 2018-08-19 01:23 | NUR ---
NURSING PROGRESS NOTE Legal hold: LPS Conserved Client on involuntary status for: GD Report received with SBAR from: GABRIEL Mandel Why are they here: Pt. was brought to [facility] by [employer] and Mobile Crisis Unit r/t psychosis and GD. He was transferred from [facility] to [facility] on a 5150. Pt. is currently homeless and has a history of chronic alcoholism. Pt. has paranoid and grandiose delusions and is unable to provide for his own food, clothing, or snf. Pt. has been placed on a T-con per the [facility] Guardian office and they are considering LPS conservatorship. Assessment Pt in room at beginning of shift. During 1:1, pt did not offer much even with probing. Stated "I feel happy, 2/10 happy." When RN inquired as to why so low on the scale, pt laughed and exclaimed, "Hey, it's better than 0/10!". Pt continues to deny AH but RN witnessed pt mumbling to himself in group room. Pt was curious as to whether the coffee machine was up and running again and informed the RN that she should get some scissors to help with opening up the pills later. Pt remains cooperative with staff and peers, but was more withdrawn than previous nights; he attended snack but was otherwise resting in his bed or sitting in a chair in his room. S/I, H/I: Denies A/VH: Denies Sleep: See Sleep Hour Charting ADL's: Independent with prompting Group attendance: Y- HS Snack Were meds taken: Y Any med S/E: None reported or observed Mental Status Exam Appearance: Pt. with long bowen hair and facial hair in personal tshirt, pants, and tennis shoes. Eye contact: Direct Behavior: Cooperative, attended snack, keeping to self in room Speech: Clear Mood: "Happy, 2/10" Affect: Blunted Thought process: Poverty of thought related to mental illness. Thought Content: Coffee machine Cognition: Alert&Ox3 (off for time) Insight: Poor Judgment: Fair PRN's used: None Therapeutic interventions: provided therapeutic communication and listening, encouraged ADL's and group attendance, maintained Q 15 min safety checks Restraints/seclusion/emergency medication: N/A Justification of Continued Inpatient Treatment: Pt. is on LPS conservatorship for grave disability. Patient has been accepted at [facility].
[2018-08-19] MEDS: metFORMIN 850mg tablet PO SCH ×2 (07:53→20:38)
[2018-08-19] MEDS: thiamine 100mg tablet PO SCH ×2 (07:53→20:37)
[2018-08-19] MEDS: folic acid 1mg tablet PO SCH (07:53)
[2018-08-19 08:27] VITALS: BP 109/54
--- NOTE | 2018-08-19 16:41 | NUR ---
NURSING PROGRESS NOTE Legal hold: LPS Conserved Client on involuntary status for: GD Report received with SBAR from: GABRIEL Donahue Why are they here: Pt. was brought to [facility] by [employer] and Mobile Crisis Unit r/t psychosis and GD. He was transferred from [facility] to [facility] on a 5150. Pt. is currently homeless and has a history of chronic alcoholism. Pt. 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 Pt. has been placed on a T-con per the [facility] Guardian office and they are considering LPS conservatorship. Assessment What happened this shift? Pt. in bed at beginning of shift. Pt. appears more tired today, napped x2. 1:1 done at bedside. Pt. reports he is not upset about being conserved. Pt. reports he is looking forward to getting a "break" and "getting away from society for a while". Pt. ate meals and took medications. Pt. reports feeling "happy". S/I, H/I: Denies A/VH: Denies Sleep: Pt. napped times two this shift. ADL's: Independent with encouragement Group attendance: Y Were meds taken: Y Any med S/E: None reported or observed Mental Status Exam Appearance: Pt. presents with long bowen hair and facial hair in personal tshirt, pants, and tennis shoes. Eye contact: Direct Behavior: Cooperative, seen in room napping often, sometimes in community room watching TV. Speech: Clear Mood: "Happy, 2/10" Affect: Blunted Thought process: Proverty of thought, thought blocking. Thought Content: discharge. Cognition: Alert&Oriented x3 (pt. did not know the day) Insight: Poor Judgment: Fair PRN's used: None Therapeutic interventions: provided therapeutic communication and listening, encouraged ADL's and group attendance, maintained Q 15 min safety checks Restraints/seclusion/emergency medication: N/A Justification of Continued Inpatient Treatment: Pt. is on LPS conservatorship for grave disability. Patient has been accepted at [facility].
[2018-08-19 19:00] VITALS: BP 99/50
[2018-08-19] MEDS: risperiDONE 2mg tablet PO SCH (20:37)
[2018-08-19] MEDS: divalproex sod 250mg ER (24-hour) tablet PO SCH (20:38)
[2018-08-19] MEDS: tamsulosin 0.4mg capsule PO SCH (20:38)
--- NOTE | 2018-08-20 03:38 | NUR ---
NURSING PROGRESS NOTE Legal hold: LPS Conserved Client on involuntary status for: GD Report received with SBAR from: GABRIEL Phelps Why are they here: Pt. was brought to [facility] by [employer] and Mobile Crisis Unit r/t psychosis and GD. He was transferred from [facility] to [facility] on a 5150. Pt. is currently homeless and has a history of chronic alcoholism. Pt. has paranoid and grandiose delusions and is unable to provide for his own food, clothing, or fci. Pt. has been placed on a T-con per the [facility] Guardian office and they are considering LPS conservatorship. Assessment Pt in room at beginning of shift. During 1:1, pt did not offer much even with probing. Stated "I'm fine." He also stated he feel good about his upcoming discharge. Pt remains cooperative with staff and peers, but was more withdrawn than previous nights; he attended snack but was otherwise resting in his bed or sitting in a chair in his room for the entirety of shift. S/I, H/I: Denies A/VH: Denies Sleep: See Sleep Hour Charting ADL's: Independent with prompting Group attendance: Y- HS Snack Were meds taken: Y Any med S/E: None reported or observed Mental Status Exam Appearance: Pt. with long bowen hair and facial hair in personal tshirt, pants, and tennis shoes. Eye contact: Direct Behavior: Cooperative, attended snack, keeping to self in room Speech: Clear Mood: "I'm okay" Affect: Blunted Thought process: Poverty of thought related to mental illness. Thought Content: Unable to determine Cognition: Alert&Ox3 (off for time) Insight: Poor Judgment: Fair PRN's used: None Therapeutic interventions: provided therapeutic communication and listening, encouraged ADL's and group attendance, maintained Q 15 min safety checks Restraints/seclusion/emergency medication: N/A Justification of Continued Inpatient Treatment: Pt. is on LPS conservatorship for grave disability. Patient has been accepted at [facility].
[2018-08-20] MEDS: metFORMIN 850mg tablet PO SCH ×2 (08:32→19:56)
[2018-08-20] MEDS: folic acid 1mg tablet PO SCH (08:32)
[2018-08-20] MEDS: thiamine 100mg tablet PO SCH ×2 (08:32→19:56)
[2018-08-20 08:45] VITALS: BP 100/52
--- NOTE | 2018-08-20 17:48 | NUR ---
NURSING PROGRESS NOTE Legal hold: LPS Conserved Client on involuntary status for: GD Report received with SBAR from: Mehnaz Fritz RN Why are they here: Pt. was brought to [facility] by [employer] and Mobile Crisis Unit r/t psychosis and GD. He was transferred from [facility] to [facility] on a 5150. Pt. is currently homeless and has a history of chronic alcoholism. Pt. 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 Pt. has been placed on a T-con per the [facility] Guardian office and they are considering LPS conservatorship. Assessment Patient observed sleeping at shift change. He awakens prior to breakfast and sits in the group room. He does not appear particularly cheerful but states that he is doing ok. He takes his medication without issue. After breakfast he returns to his room and rests. When he wakes his affect is brighter. He is conversational and discusses his plans. He would like to be able to obtain funds while he is away and would like to ensure his trust fund is held for him. He is encouraged to discuss this with his SW. He attends morning group and is observed sleeping during afternoon group. Later in the afternoon he is observed smiling and laughing when talking to others. He sits in the group room and watches a movie with others. S/I, H/I: None reported A/VH: None reported Sleep: 3.5hrs NOC ADL's: Independent with prompting Group attendance: Attended morning group, did not attend afternoon Were meds taken: yes Any med S/E: None reported or observed Mental Status Exam Appearance: Patient dressed appropriately in own clothing Eye contact: Direct Behavior: Cooperative, guarded at first but friendlier later Speech: soft tone,normal rate/rhythm Mood: good Affect: restricted with brightening Thought process: linear Thought Content: making plans for discharge to hospital Cognition: A/O 4 Insight: fair Judgment: Fair PRN's used: None Therapeutic interventions: 1:1 therapeutic assessment, maintained therapeutic milieu, provided active listening with positive feedback, provided medication education as needed, monitored for change in behavior and needed interventions. Q15 minute safety checks. Restraints/seclusion/emergency medication: N/A Justification of Continued Inpatient Treatment: Pt. is on LPS conservatorship for grave disability. Patient has been accepted at [facility].
[2018-08-20 19:00] VITALS: BP 106/71
[2018-08-20] MEDS: risperiDONE 2mg tablet PO SCH (21:16)
[2018-08-20] MEDS: tamsulosin 0.4mg capsule PO SCH (21:16)
[2018-08-20] MEDS: divalproex sod 250mg ER (24-hour) tablet PO SCH (21:16)
--- NOTE | 2018-08-21 01:12 | NUR ---
NURSING PROGRESS NOTE Legal hold: LPS Conserved Client on involuntary status for: GD Report received with SBAR from: GABRIEL Phelps Why are they here: Pt. was brought to [facility] by [employer] and Mobile Crisis Unit r/t psychosis and GD. He was transferred from [facility] to [facility] on a 5150. Pt. is currently homeless and has a history of chronic alcoholism. Pt. has paranoid and grandiose delusions and is unable to provide for his own food, clothing, or jail. Pt. has been placed on a T-con per the [facility] Guardian office and they are considering LPS conservatorship. Assessment pt sleepiing at start of shift--easily arousable--a/o x's 4--ambualed in hallway once, then back to bed--took meds at bedtime without problem--sleeping on rounds S/I, H/I: None reported A/VH: None reported Sleep: 3.5hrs NOC ADL's: Independent with prompting Group attendance: n/a Were meds taken: yes Any med S/E: None reported or observed Mental Status Exam Appearance: Patient dressed appropriately in own clothing Eye contact: Direct Behavior: Cooperative, guarded at first but friendlier later Speech: soft tone,normal rate/rhythm Mood: good Affect: restricted with brightening Thought process: linear Thought Content: making plans for discharge to hospital Cognition: A/O 4 Insight: fair Judgment: Fair PRN's used: None Therapeutic interventions: 1:1 therapeutic assessment, maintained therapeutic milieu, provided active listening with positive feedback, provided medication education as needed, monitored for change in behavior and needed interventions. Q15 minute safety checks. Restraints/seclusion/emergency medication: N/A Justification of Continued Inpatient Treatment: Pt. is on LPS conservatorship for grave disability. Patient has been accepted at [facility].
[2018-08-21] MEDS: folic acid 1mg tablet PO SCH (07:46)
[2018-08-21] MEDS: metFORMIN 850mg tablet PO SCH ×2 (07:46→21:20)
[2018-08-21] MEDS: thiamine 100mg tablet PO SCH ×2 (07:47→21:20)
[2018-08-21 08:00] VITALS: BP 104/56
--- NOTE | 2018-08-21 16:03 | NUR ---
NURSING PROGRESS NOTE Legal hold: LPS Conserved Client on involuntary status for: GD Report received with SBAR from: Mehnaz Fritz RN Why are they here: Pt. was brought to [facility] by [employer] and Mobile Crisis Unit r/t psychosis and GD. He was transferred from [facility] to [facility] on a 5150. Pt. is currently homeless and has a history of chronic alcoholism. Pt. 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 Pt. has been placed on a T-con per the [facility] Guardian office and they are considering LPS conservatorship. Assessment Patient observed sleeping at shift change. He wakes and goes into the group room for coffee. He reports that he slept well, no issues reported. He takes his morning medications and then eats his breakfast. After breakfast he returns to his room and rests. He does not attend group, says that he doesnt like to go to groups on Saturdays and likes to give himself a break. His demeanor is calm and friendly throughout the day. S/I, H/I: None reported A/VH: None reported Sleep: 7.5hrs NOC ADL's: Independent with prompting Group attendance: no Were meds taken: yes Any med S/E: None reported or observed Mental Status Exam Appearance: Patient dressed appropriately Eye contact: Direct Behavior: Cooperative, calm Speech: soft tone,normal rate/rhythm Mood: good Affect: restricted with brightening Thought process: linear Thought Content: making plans for discharge to hospital Cognition: A/O 4 Insight: fair Judgment: Fair PRN's used: None Therapeutic interventions: 1:1 therapeutic assessment, maintained therapeutic milieu, provided active listening with positive feedback, provided medication education as needed, monitored for change in behavior and needed interventions. Q15 minute safety checks. Restraints/seclusion/emergency medication: N/A Justification of Continued Inpatient Treatment: Pt. is on LPS conservatorship for grave disability. Patient has been accepted at [facility].
[2018-08-21 19:00] VITALS: BP 113/58
[2018-08-21] MEDS: divalproex sod 250mg ER (24-hour) tablet PO SCH (21:20)
[2018-08-21] MEDS: risperiDONE 2mg tablet PO SCH (21:20)
[2018-08-21] MEDS: tamsulosin 0.4mg capsule PO SCH (21:20)
--- NOTE | 2018-08-22 01:56 | NUR ---
Nursing Progress Note: Legal hold: LPS Conserved Client on involuntary status for: GD Report received with SBAR from: GABRIEL Phelps Why are they here: Pt. was brought to [facility] by [employer] and Mobile Crisis Unit r/t psychosis and GD. He was transferred from [facility] to [facility] on a 5150. Pt. is currently homeless and has a history of chronic alcoholism. Pt. 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 Pt. has been placed on a T-con per the [facility] Guardian office and they are considering LPS conservatorship. Assessment: What has happened this shift: The patient was seen in the group room at shift change, he was playing Checkers with another client. He reported that it was his Birthday, and he was given a hamburger with onion rings, and a piece of apple pie. The patient states, and appears to be happy. The patient spent much of the evening watching tv from a chair in the back corner of the group room. He does not engage with other clients unless they come to him. The patient states agreement of discharge plan, even though he probably doesn't understand it. He went to bed after HS med pass. S/I, H/I: Denies A/VH: Denies Sleep: Asleep since med pass. ADL's: Independent with prompting. Group attendance: refuses. Were meds taken: yes Any med S/E: None reported or observed Mental Status Exam Appearance: Patient with long whelan hair and espinoza, dressed in green hospital scrubs. Eye contact: Direct. Behavior: Cooperative. Speech: Soft tone,normal rate/rhythm Mood: "It's my birthday." Affect: Blunted. Thought process: Disorganized. Thought Content: focused on his discharge. Cognition: A/O 4 Insight: fair Judgment: Fair PRN's used: None Therapeutic interventions: 1:1 therapeutic assessment, maintained therapeutic milieu, provided active listening with positive feedback, provided medication education as needed, monitored for change in behavior and needed interventions. Q15 minute safety checks. Restraints/seclusion/emergency medication: N/A Justification of Continued Inpatient Treatment: Pt. is on LPS conservatorship for grave disability. Patient has been accepted at [facility].
[2018-08-22 07:00] VITALS: BP 95/61
[2018-08-22] MEDS: metFORMIN 850mg tablet PO SCH ×2 (08:23→20:29)
[2018-08-22] MEDS: folic acid 1mg tablet PO SCH (08:23)
[2018-08-22] MEDS: thiamine 100mg tablet PO SCH ×2 (08:23→20:29)
--- NOTE | 2018-08-22 16:10 | NUR ---
Nursing Progress Note: Legal hold: LPS Conserved Client on involuntary status for: GD Report received with SBAR from: Mehnaz Fritz RN Why are they here: Pt. was brought to [facility] by [employer] and Mobile Crisis Unit r/t psychosis and GD. He was transferred from [facility] to [facility] on a 5150. Pt. is currently homeless and has a history of chronic alcoholism. Pt. 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 Pt. has been placed on a T-con per the [facility] Guardian office and they are considering LPS conservatorship. Assessment: What has happened this shift: Received patient asleep in bed. Awakened a short time later and was staring out his window. Later patient was walking up and down halls, laughing to himself with full grin. Pt. has no complaints at this time. S/I, H/I: Denies A/VH: Denies. but is seen laughing to himself as if responding to internal stimuli. Sleep: 6 hrs NOC ADL's: Independent with prompting. Group attendance: Movie group. Were meds taken: yes Any med S/E: None reported or observed Mental Status Exam Appearance: Patient with long whelan hair and espinoza, dressed in green hospital scrubs. Eye contact: Direct. Behavior: Cooperative and calm Speech: Soft tone,normal rate/rhythm Mood: "I'm o.k." Affect: Blunted. Thought process: Disorganized. Thought Content: focused on his discharge. Cognition: A/O 4 Insight: fair Judgment: Fair PRN's used: None Therapeutic interventions: 1:1 therapeutic assessment, maintained therapeutic milieu, provided active listening with positive feedback, provided medication education as needed, monitored for change in behavior and needed interventions. Q15 minute safety checks. Restraints/seclusion/emergency medication: N/A Justification of Continued Inpatient Treatment: Pt. is on LPS conservatorship for grave disability. Patient has been accepted at [facility].
[2018-08-22 19:44] VITALS: BP 120/66
[2018-08-22] MEDS: divalproex sod 250mg ER (24-hour) tablet PO SCH (20:28)
[2018-08-22] MEDS: tamsulosin 0.4mg capsule PO SCH (20:29)
[2018-08-22] MEDS: risperiDONE 2mg tablet PO SCH (20:29)
--- NOTE | 2018-08-23 02:55 | NUR ---
Nursing Progress Note: Legal hold: LPS Conserved Client on involuntary status for: GD Report received with SBAR from: GABRIEL Phelps Why are they here: Pt. was brought to [facility] by [employer] and Mobile Crisis Unit r/t psychosis and GD. He was transferred from [facility] to [facility] on a 5150. Pt. is currently homeless and has a history of chronic alcoholism. Pt. 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 Pt. has been placed on a T-con per the [facility] Guardian office and they are considering LPS conservatorship. Assessment: What has happened this shift: The patient was seen in his room for 1:1. He spent the entire evening in his room laying on his bed or staring out the window. An attempt was made to engage the patient in conversation, but nothing meaningful or coherent was said. He took his HS meds then went to sleep. S/I, H/I: Denies A/VH: Denies Sleep: Asleep since med pass. ADL's: Independent with prompting. Group attendance: refuses. Were meds taken: yes Any med S/E: None reported or observed Mental Status Exam Appearance: Disheveled patient with long whelan hair and espinoza, dressed in green hospital scrubs, wearing shoes with the tongue sticking out. Eye contact: Direct. Behavior: Cooperative. Speech: Soft tone,normal rate/rhythm Mood: "OK, I guess." Affect: Blunted. Thought process: Disorganized. Thought Content: focused on his discharge. Cognition: A/O 4 Insight: fair Judgment: Fair PRN's used: None Therapeutic interventions: 1:1 therapeutic assessment, maintained therapeutic milieu, provided active listening with positive feedback, provided medication education as needed, monitored for change in behavior and needed interventions. Q15 minute safety checks. Restraints/seclusion/emergency medication: N/A Justification of Continued Inpatient Treatment: Pt. is on LPS conservatorship for grave disability. Patient has been accepted at [facility].
[2018-08-23 08:06] VITALS: BP 105/64
[2018-08-23] MEDS: metFORMIN 850mg tablet PO SCH ×2 (08:08→20:00)
[2018-08-23] MEDS: thiamine 100mg tablet PO SCH ×2 (08:08→20:00)
[2018-08-23] MEDS: folic acid 1mg tablet PO SCH (08:08)
--- NOTE | 2018-08-23 16:08 | NUR ---
Nursing Progress Note: Legal hold: LPS Conserved Client on involuntary status for: GD Report received with SBAR from: GABRIEL Santiago Why are they here: Pt. was brought to [facility] by [employer] and Mobile Crisis Unit r/t psychosis and GD. He was transferred from [facility] to [facility] on a 5150. Pt. is currently homeless and has a history of chronic alcoholism. Pt. has paranoid and grandiose delusions and is unable to provide for his own food, clothing, or fdc. Pt. has been placed on a T-con per the [facility] Guardian office and they are considering LPS conservatorship. Assessment: What has happened this shift: Received patient sleeping in the morning. Patient awakens and drinks coffee in group room sitting off to the corner of room by himself. Patient is medication compliant. Eats and sleeps good. Pt.s blood pressure is low at 105/64, full cup of water was poured with morning medications and educated on need to increase p.o. intake of water. pt. states understanding. S/I, H/I: Denies A/VH: Denies. Pt. does talk to himself, and laughs to himself. Sleep: 7.25 hrs NOC ADL's: Independent with prompting. Group attendance: No. Were meds taken: yes Any med S/E: None reported or observed Mental Status Exam Appearance: Patient with long whelan hair and espinoza, dressed in green hospital scrubs. Eye contact: Direct. Behavior: Calm and Cooperative Speech: Soft tone,normal rate/rhythm Mood: "I'm o.k." Affect: Blunted. Thought process: Disorganized at times. A&O x 3. Thought Content: focused on his discharge. Cognition: A/O 3 Insight: fair Judgment: Fair PRN's used: None Therapeutic interventions: 1:1 therapeutic assessment, maintained therapeutic milieu, provided active listening with positive feedback, provided medication education as needed, monitored for change in behavior and needed interventions. Q15 minute safety checks. Restraints/seclusion/emergency medication: N/A Justification of Continued Inpatient Treatment: Pt. is on LPS conservatorship for grave disability. Patient has been accepted at [facility].
[2018-08-23 20:26] VITALS: BP 132/70
[2018-08-23] MEDS: divalproex sod 250mg ER (24-hour) tablet PO SCH (21:00)
[2018-08-23] MEDS: risperiDONE 2mg tablet PO SCH (21:00)
[2018-08-23] MEDS: tamsulosin 0.4mg capsule PO SCH (21:00)
--- NOTE | 2018-08-23 23:57 | NUR ---
Nursing Progress Note: Legal hold: LPS Conserved Client on involuntary status for: GD Report received with SBAR from: GABRIEL Phelps Why are they here: Pt. was brought to [facility] by [employer] and Mobile Crisis Unit r/t psychosis and GD. He was transferred from [facility] to [facility] on a 5150. Pt. is currently homeless and has a history of chronic alcoholism. Pt. has paranoid and grandiose delusions and is unable to provide for his own food, clothing, or custodial. Pt. has been placed on a T-con per the [facility] Guardian office and is now on LPS conservatorship. Assessment: What has happened this shift: Pt in group room at start of shift. Pt is pleasant and cooperative smiles and laughs easily. Delusional at times. Watched TV with other pts until he went to bed and went to sleep. S/I, H/I: Denies A/VH: Denies. Pt. does talk to himself, and laughs to himself. Sleep: Sleeping at this time ADL's: Independent with prompting. Group attendance: In group room for snack and TV Were meds taken: yes Any med S/E: None reported or observed Mental Status Exam Appearance: Patient with long whelan hair and espinoza, dressed in green hospital scrubs. Eye contact: Direct. Behavior: Calm and Cooperative Speech: Soft tone,normal rate/rhythm Mood: "I'm o.k." Affect: Blunted. Thought process: Disorganized at times. A&O x 3. Thought Content: focused on his discharge. Cognition: A/O 3 Insight: fair Judgment: Fair PRN's used: None Therapeutic interventions: 1:1 therapeutic assessment, maintained therapeutic milieu, provided active listening with positive feedback, provided medication education as needed, monitored for change in behavior and needed interventions. Q15 minute safety checks. Restraints/seclusion/emergency medication: N/A Justification of Continued Inpatient Treatment: Pt. is on LPS conservatorship for grave disability. Patient has been accepted at [facility].
[2018-08-24] MEDS: folic acid 1mg tablet PO SCH (07:48)
[2018-08-24] MEDS: metFORMIN 850mg tablet PO SCH ×2 (07:48→21:30)
[2018-08-24] MEDS: thiamine 100mg tablet PO SCH ×2 (07:48→21:30)
--- NOTE | 2018-08-24 12:25 | NUR ---
Nursing Progress Note: Legal hold: LPS Conserved Client on involuntary status for: GD Report received with SBAR from: GABRIEL Donahue Why are they here: Pt. was brought to [facility] by [employer] and Mobile Crisis Unit r/t psychosis and GD. He was transferred from [facility] to [facility] on a 5150. Pt. is currently homeless and has a history of chronic alcoholism. Pt. 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 Pt. has been placed on a T-con per the [facility] Guardian office and they are considering LPS conservatorship. Assessment: What has happened this shift: Received patient sleeping in bed. For the last few days patient has been sleeping upon arrival, but normally is awake at shift change. Valproate level to be drawn in a.m. Essentially no changes in patient's condition. Diet was changed to regular by Dr. Silva. Eating and sleeping good at night. No complaints. S/I, H/I: Denies A/VH: Denies. Pt. does talk to himself, and laughs to himself. Sleep: 7.5 hrs NOC ADL's: Independent with prompting. Group attendance: Yes. Were meds taken: yes. Always compliant. Any med S/E: None reported or observed Mental Status Exam Appearance: Patient with long whelan hair and espinoza, dressed in green hospital scrubs. Eye contact: Direct. Behavior: Calm and Cooperative Speech: Soft tone,normal rate/rhythm Mood: "I'm o.k." Affect: Blunted. Thought process: Disorganized at times. A&O x 3. Thought Content: focused on his discharge. Cognition: A/O x 3 Insight: fair Judgment: Fair PRN's used: None Therapeutic interventions: 1:1 therapeutic assessment, maintained therapeutic milieu, provided active listening with positive feedback, provided medication education as needed, monitored for change in behavior and needed interventions. Q15 minute safety checks. Restraints/seclusion/emergency medication: N/A Justification of Continued Inpatient Treatment: Pt. is on LPS conservatorship for grave disability. Patient has been accepted at [facility], awaiting bed.
[2018-08-24 20:47] VITALS: BP 126/75
[2018-08-24] MEDS: divalproex sod 250mg ER (24-hour) tablet PO SCH (21:29)
[2018-08-24] MEDS: risperiDONE 2mg tablet PO SCH (21:30)
[2018-08-24] MEDS: tamsulosin 0.4mg capsule PO SCH (21:30)
--- NOTE | 2018-08-25 03:17 | NUR ---
Nursing Progress Note: Legal hold: LPS Conserved Client on involuntary status for: GD Report received with SBAR from: GABRIEL Donahue Why are they here: Pt. was brought to [facility] by [employer] and Mobile Crisis Unit r/t psychosis and GD. He was transferred from [facility] to [facility] on a 5150. Pt. is currently homeless and has a history of chronic alcoholism. Pt. has paranoid and grandiose delusions and is unable to provide for his own food, clothing, or mcfp. Pt. has been placed on a T-con per the [facility] Guardian office and they are considering LPS conservatorship. Assessment: What has happened this shift: Pt awake came to group room watched TV. Pt seems quieter than usual. But responded when spoken too. Day shift Report said pt seemed sedated. Valproate level to be drawn in a.m. Eating and sleeping good at night. No complaints. S/I, H/I: Denies A/VH: Denies. Pt. does talk to himself, and laughs to himself. Sleep: sleeping at this time ADL's: Independent with prompting. Group attendance: Yes. Were meds taken: yes. Always compliant. Any med S/E: None reported or observed Mental Status Exam Appearance: Patient with long whelan hair and espinoza, dressed in green hospital scrubs. Eye contact: Direct. Behavior: Calm and Cooperative Speech: Soft tone,normal rate/rhythm Mood: "I'm o.k." Affect: Blunted. Thought process: Disorganized at times. A&O x 3. Thought Content: focused on his discharge. Cognition: A/O x 3 Insight: fair Judgment: Fair PRN's used: None Therapeutic interventions: 1:1 therapeutic assessment, maintained therapeutic milieu, provided active listening with positive feedback, provided medication education as needed, monitored for change in behavior and needed interventions. Q15 minute safety checks. Restraints/seclusion/emergency medication: N/A Justification of Continued Inpatient Treatment: Pt. is on LPS conservatorship for grave disability. Patient has been accepted at [facility], awaiting bed.
[2018-08-25 07:49] VITALS: BP 98/68
[2018-08-25] MEDS: metFORMIN 850mg tablet PO SCH ×2 (07:56→20:16)
[2018-08-25] MEDS: thiamine 100mg tablet PO SCH ×2 (07:56→20:16)
[2018-08-25] MEDS: folic acid 1mg tablet PO SCH (07:56)
--- NOTE | 2018-08-25 10:44 | NUR ---
1:1 DISCHARGE PLANNING SW was contacted by Nicolas at [facility] at [phone], regarding pt placement. SW informed pt continues to be first on wait list and a bed should be available within the next few days. Notes for the past week provided to Nicolas for continued communication of placement at [facility]. Kaylee Howe, [facility]
--- NOTE | 2018-08-25 16:47 | NUR ---
Nursing Progress Note: Legal hold: LPS Conserved Client on involuntary status for: GD Report received with SBAR from: GABRIEL Donahue Why are they here: Pt. was brought to [facility] by [employer] and Mobile Crisis Unit r/t psychosis and GD. He was transferred from [facility] to [facility] on a 5150. Pt. is currently homeless and has a history of chronic alcoholism. Pt. has paranoid and grandiose delusions and is unable to provide for his own food, clothing, or correction. Pt. has been placed on a T-con per the [facility] Guardian office and they are considering LPS conservatorship. Assessment: What has happened this shift: Patient is observed resting comfortable at change of shift. He awakens just before breakfast and goes into the group room. He takes his medications without any issue. Labs are drawn, 08/25/18 VPA 106. Patient does not attend morning group and is observed sleeping. He does attend afternoon group but leaves early. He is friendly and smiles occasionally. His demeanor is pleasant throughout the day. S/I, H/I: Denies A/VH: Denies. Sleep: 7.75hrs NOC and rested during the day ADL's: Independent with prompting. Group attendance: Yes as above Were meds taken: yes Any med S/E: None reported or observed Mental Status Exam Appearance: dressed in green scrubs, wearing red hat, Hygiene WNLs. Eye contact: Direct. Behavior: Calm and Cooperative Speech: Soft tone,normal rate/rhythm Mood: good Affect: Blunted with brightening Thought process: linear Thought Content: focused on his discharge. Cognition: A/O x 3 Insight: fair Judgment: Fair PRN's used: None Therapeutic interventions: 1:1 therapeutic assessment, maintained therapeutic milieu, provided active listening with positive feedback, provided medication education as needed, monitored for change in behavior and needed interventions. Q15 minute safety checks. Restraints/seclusion/emergency medication: N/A Justification of Continued Inpatient Treatment: Pt. is on LPS conservatorship for grave disability. Patient has been accepted at [facility], awaiting bed.
[2018-08-25] MEDS: divalproex sod 250mg ER (24-hour) tablet PO SCH (20:16)
[2018-08-25] MEDS: risperiDONE 2mg tablet PO SCH (20:16)
[2018-08-25] MEDS: tamsulosin 0.4mg capsule PO SCH (20:16)
[2018-08-25 20:59] VITALS: BP 146/88
--- NOTE | 2018-08-25 23:35 | NUR ---
Nursing Progress Note: Legal hold: LPS Conserved Client on involuntary status for: GD Report received with SBAR from: NICK Palencia Why are they here: Pt. was brought to [facility] by [employer] and Mobile Crisis Unit r/t psychosis and GD. He was transferred from [facility] to [place] on a 5150. Pt. is currently homeless and has a history of chronic alcoholism. Pt. has paranoid and grandiose delusions and is unable to provide for his own food, clothing, or half-way. Pt. has been placed on a T-con per the [facility] Guardian office and they are considering LPS conservatorship. Assessment: What has happened this shift: Pt in room laying on bed at shift change, no apparent distress observed. Pt smiled and said he was doing okay. Pt was medication compliant. Pt denies A/V H, but is observed at times lying in bed talking to himself. Pt states he had a "good" day and attended group. Valproate level was drawn, indicates 106. Pt ws up for HS snack, was hungry when he woke up from a brief nap. After snack pt retired to room for the night. S/I, H/I: Pt denies A/VH: Pt denies. 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 Eye contact: Good Behavior: Calm, cooperative, pleasantly delusional Speech: Soft tone, normal rate/rhythm Mood: "Good" Affect: Flat Thought process: Disorganized at times. A&O x 3. Thought Content: "I am hungry" Cognition: A/O x 3 Insight: Poor Judgment: Poor PRN's used: None Therapeutic interventions: 1:1 therapeutic assessment, maintained therapeutic milieu, provided active listening with positive feedback, provided medication education as needed, monitored for change in behavior and needed interventions. Q15 minute safety checks. Restraints/seclusion/emergency medication: N/A Justification of Continued Inpatient Treatment: Pt. is on LPS conservatorship for grave disability. Patient has been accepted at [facility], awaiting bed.
[2018-08-26 08:00] VITALS: BP 100/56
[2018-08-26] MEDS: thiamine 100mg tablet PO SCH ×2 (08:35→20:25)
[2018-08-26] MEDS: folic acid 1mg tablet PO SCH (08:35)
[2018-08-26] MEDS: metFORMIN 850mg tablet PO SCH ×2 (08:35→20:24)
--- NOTE | 2018-08-26 12:30 | NUR ---
Reassessment: Documented PO intake continues on 75-100% on regular diet meeting nutrient needs. [facility] 08/25. No nutrition diagnosis at this time. Awaiting bed for placement. Will continue to follow. Recommend: 1. continue regular diet 2. Weekly weights Addendum: 08/26/18 at [address] Amended: Links added.
--- NOTE | 2018-08-26 17:10 | NUR ---
Nursing Progress Note: Legal hold: LPS Conserved Client on involuntary status for: GD Report received with SBAR from: GABRIEL Donahue Why are they here: Pt. was brought to [facility] by [employer] and Mobile Crisis Unit r/t psychosis and GD. He was transferred from [facility] to [facility] on a 5150. Pt. is currently homeless and has a history of chronic alcoholism. Pt. has paranoid and grandiose delusions and is unable to provide for his own food, clothing, or group home. Pt. has been placed on a T-con per the [facility] Guardian office and they are considering LPS conservatorship. Assessment: What has happened this shift: Patient states he has a complaint about breakfast ans says I want another one that is just as good. Patient takes his medications without issue. He says that he is feeling pretty good today and his affect is bright. Reports his BM was last night and he also had one in the morning. He denies any needs and then lays back down in his bed for an after breakfast nap. He does not attend morning group but does join others for lunch. He is observed smiling and pacing the halls during the day. He reports regular BMs and denies any needs. S/I, H/I: Denies A/VH: Denies. Sleep: 8hrs NOC and rested during the day ADL's: Independent with prompting. Group attendance: no Were meds taken: yes Any med S/E: None reported or observed Mental Status Exam Appearance: dressed in green scrubs, wearing red hat, Hygiene WNLs. Eye contact: Direct. Behavior: Calm and Cooperative Speech: Soft tone,normal rate/rhythm Mood: good Affect: Blunted with brightening Thought process: linear Thought Content: focused on his discharge. Cognition: A/O x 3 Insight: fair Judgment: Fair PRN's used: None Therapeutic interventions: 1:1 therapeutic assessment, maintained therapeutic milieu, provided active listening with positive feedback, provided medication education as needed, monitored for change in behavior and needed interventions. Q15 minute safety checks. Restraints/seclusion/emergency medication: N/A Justification of Continued Inpatient Treatment: Pt. is on LPS conservatorship for grave disability. Patient has been accepted at [facility], awaiting bed.
[2018-08-26 19:00] VITALS: BP 111/66
[2018-08-26] MEDS: risperiDONE 2mg tablet PO SCH (20:24)
[2018-08-26] MEDS: divalproex sod 250mg ER (24-hour) tablet PO SCH (20:24)
[2018-08-26] MEDS: tamsulosin 0.4mg capsule PO SCH (20:25)
--- NOTE | 2018-08-27 02:41 | NUR ---
Nursing Progress Note: Legal hold: LPS Conserved Client on involuntary status for: GD Report received with SBAR from: NICK Mandel Why are they here: Pt. was brought to [facility] by [employer] and Mobile Crisis Unit r/t psychosis and GD. He was transferred from [facility] to [facility] on a 5150. Pt. is currently homeless and has a history of chronic alcoholism. Pt. has paranoid and grandiose delusions and is unable to provide for his own food, clothing, or alf. Pt. has been placed on a T-con per the [facility] Guardian office and they are considering LPS conservatorship. Assessment: What has happened this shift: Pt sleeping comfortably, with no apparent distress observed. When asked if he was feeling okay, pt reports "I am just tired." Pt did not want to get up for HS snack. 1:1 assessment performed at bedside. Pt was sleepy, but cooperative. Pt was medication compliant. Pt denies SI, A/VH. 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 Eye contact: Good Behavior: Sleepy, cooperative Speech: Soft tone, normal rate/rhythm Mood: "Tired" Affect: Flat Thought process: Disorganized at times. A&O x 3. Thought Content: "I am just tired" Cognition: A/O x 3 Insight: Fair Judgment: Fair PRN's used: None Therapeutic interventions: 1:1 therapeutic assessment, maintained therapeutic milieu, provided active listening with positive feedback, provided medication education as needed, monitored for change in behavior and needed interventions. Q15 minute safety checks. Restraints/seclusion/emergency medication: N/A Justification of Continued Inpatient Treatment: Pt. is on LPS conservatorship for grave disability. Patient has been accepted at [facility], awaiting bed.
[2018-08-27 08:00] VITALS: BP 77/46
[2018-08-27] MEDS: folic acid 1mg tablet PO SCH (08:15)
[2018-08-27] MEDS: metFORMIN 850mg tablet PO SCH ×2 (08:15→20:42)
[2018-08-27] MEDS: thiamine 100mg tablet PO SCH ×2 (08:15→20:42)
--- NOTE | 2018-08-27 15:30 | NUR ---
Nursing Progress Note: Legal hold: LPS Conserved Client on involuntary status for: GD Report received with SBAR from: GABRIEL Donahue Why are they here: Pt. was brought to [facility] by [employer] and Mobile Crisis Unit r/t psychosis and GD. He was transferred from [facility] to [facility] on a 5150. Pt. is currently homeless and has a history of chronic alcoholism. Pt. has paranoid and grandiose delusions and is unable to provide for his own food, clothing, or fdc. Pt. has been placed on a T-con per the [facility] Guardian office and they are considering LPS conservatorship. Assessment: What has happened this shift: Patient is observed sleeping at shift change. He is easily awoken when breakfast arrives. His demeanor is calm and friendly. He takes his medications without issue and then joins others in group room for breakfast. He denies any issues and does not report any needs. Patient is observed smiling when walking halls. He takes naps and rests periodically during the day, he does not attend groups. S/I, H/I: Denies A/VH: Denies. Sleep: 8hrs NOC and rested during the day ADL's: Independent with prompting. Group attendance: no Were meds taken: yes Any med S/E: None reported or observed Mental Status Exam Appearance: dressed in green scrubs, wearing red hat, Hygiene WNLs. Eye contact: Direct. Behavior: Calm and Cooperative Speech: Soft tone,normal rate/rhythm Mood: good Affect: Blunted with brightening Thought process: linear Thought Content: focused on his discharge. Cognition: A/O x 3 Insight: fair Judgment: Fair PRN's used: None Therapeutic interventions: 1:1 therapeutic assessment, maintained therapeutic milieu, provided active listening with positive feedback, provided medication education as needed, monitored for change in behavior and needed interventions. Q15 minute safety checks. Restraints/seclusion/emergency medication: N/A Justification of Continued Inpatient Treatment: Pt. is on LPS conservatorship for grave disability. Patient has been accepted at [facility], awaiting bed. Addendum: 08/27/18 at 1820 by Kaylee Miles RN Report received from Mehnaz ROMERO
[2018-08-27 19:00] VITALS: BP 115/51
[2018-08-27] MEDS: divalproex sod 250mg ER (24-hour) tablet PO SCH (20:41)
[2018-08-27] MEDS: risperiDONE 2mg tablet PO SCH (20:42)
[2018-08-27] MEDS: tamsulosin 0.4mg capsule PO SCH (20:42)
[2018-08-28 07:42] VITALS: BP 95/56
[2018-08-28] MEDS: folic acid 1mg tablet PO SCH (08:12)
[2018-08-28] MEDS: metFORMIN 850mg tablet PO SCH ×2 (08:12→20:38)
[2018-08-28] MEDS: thiamine 100mg tablet PO SCH ×2 (08:12→20:39)
--- NOTE | 2018-08-28 17:03 | NUR ---
Nursing Progress Note: Legal hold: LPS Conserved Client on involuntary status for: GD Report received with SBAR from: GABRIEL De La Cruz Why are they here: Pt. was brought to [facility] by [employer] and Mobile Crisis Unit r/t psychosis and GD. He was transferred from [facility] to [facility] on a 5150. Pt. is currently homeless and has a history of chronic alcoholism. Pt. 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 Pt. has been placed on a T-con per the [facility] Guardian office and they are considering LPS conservatorship. Assessment: What has happened this shift: Patient awoke to come to breakfast. Patient continues to have poor hygiene and needs a lot of encouragement to take care of hygiene needs. Patient denies auditory hallucinations and denies suicidal thoughts. Patient refuses groups. Patient does not initiate interaction with others. When pressed, patients grandiose thoughts become evident. Patient continues to believe that he has converted thousands of cars into spaceships and believes he is a doctor and a lawyer criminal. Patient has had no agitation the shift and was up for all meals. Patient compliant with medications. S/I, H/I: Denies A/VH: Denies. Sleep: 10hrs NOC and rested during the day ADL's: Independent with prompting. Group attendance: no Were meds taken: yes Any med S/E: None reported or observed Mental Status Exam Appearance: dressed in green scrubs, wearing red hat, Hygiene WNLs. Eye contact: Direct. Behavior: Calm and Cooperative Speech: Soft tone,normal rate/rhythm Mood: good Affect: Blunted with brightening Thought process: linear Thought Content: focused on his discharge. Cognition: A/O x 3 Insight: fair Judgment: Fair PRN's used: None Therapeutic interventions: 1:1 therapeutic assessment, maintained therapeutic milieu, provided active listening with positive feedback, provided medication education as needed, monitored for change in behavior and needed interventions. Q15 minute safety checks. Restraints/seclusion/emergency medication: N/A Justification of Continued Inpatient Treatment: Pt. is on LPS conservatorship for grave disability. Patient has been accepted at [facility], awaiting bed.
[2018-08-28 19:00] VITALS: BP 104/57
[2018-08-28] MEDS: divalproex sod 250mg ER (24-hour) tablet PO SCH (20:38)
[2018-08-28] MEDS: risperiDONE 2mg tablet PO SCH (20:39)
[2018-08-28] MEDS: tamsulosin 0.4mg capsule PO SCH (20:39)
--- NOTE | 2018-08-29 01:13 | NUR ---
NURSING PROGRESS NOTE Legal hold: LPS Conserved Client on involuntary status for: GD Report received with SBAR from: GABRIEL Mandel Why are they here: Pt. was brought to [facility] by [employer] and Mobile Crisis Unit r/t psychosis and GD. He was transferred from [facility] to [facility] on a 5150. Pt. is currently homeless and has a history of chronic alcoholism. Pt. has paranoid and grandiose delusions and is unable to provide for his own food, clothing, or senior living. Pt. has been placed on a T-con per the [facility] Guardian office and they are considering LPS conservatorship. Assessment Pt in room at beginning of shift. During 1:1, pt did not offer much even with probing. Stated "I'm fine" and that he "had a good day. I went to groups. I would like a burrito." Pt remains cooperative with staff and peers, but is withdrawn; he attended snack but was otherwise resting in his bed. S/I, H/I: Denies A/VH: Denies Sleep: See Sleep Hour Charting ADL's: Independent with prompting Group attendance: Y- HS Snack Were meds taken: Y Any med S/E: None reported or observed Mental Status Exam Appearance: Pt. with long bowen hair and facial hair in unit green scrubs and personal tennis shoes. Showered 08/28 day Eye contact: Direct Behavior: Cooperative, attended snack, keeping to self in room Speech: Clear Mood: "I'm okay" Affect: Blunted with some brightening Thought process: Poverty of thought related to mental illness Thought Content: Unable to determine Cognition: A&Ox4 Insight: Poor Judgment: Fair PRN's used: None Therapeutic interventions: provided therapeutic communication and listening, encouraged ADL's and group attendance, maintained Q 15 min safety checks Restraints/seclusion/emergency medication: N/A Justification of Continued Inpatient Treatment: Pt. is on LPS conservatorship for grave disability. Patient has been accepted at [facility].
[2018-08-29 08:00] VITALS: BP 118/64
[2018-08-29] MEDS: metFORMIN 850mg tablet PO SCH ×2 (08:26→20:32)
[2018-08-29] MEDS: folic acid 1mg tablet PO SCH (08:26)
[2018-08-29] MEDS: thiamine 100mg tablet PO SCH ×2 (08:26→20:32)
--- NOTE | 2018-08-29 17:58 | NUR ---
Nursing Progress Note: Legal hold: LPS Conserved Client on involuntary status for: GD Report received with SBAR from: Mehnaz Fritz RN Why are they here: Pt. was brought to [facility] by [employer] and Mobile Crisis Unit r/t psychosis and GD. He was transferred from [facility] to [facility] on a 5150. Pt. is currently homeless and has a history of chronic alcoholism. Pt. has paranoid and grandiose delusions and is unable to provide for his own food, clothing, or long-term. Pt. has been placed on a T-con per the [facility] Guardian office and they are considering LPS conservatorship. Assessment: What has happened this shift: Patient is observed slepeing at change of shift. He awakens at breakfast time and then quickly returns to his room to rest. RN awakens patient to take his morning medications, he takes them without any issue but then promptly falls back to sleep. He does not attend group and only gets up for meals or to use the bathroom. S/I, H/I: Denies A/VH: Denies. Sleep: 8hrs NOC and rested throughout the day ADL's: Independent with prompting. Group attendance: no Were meds taken: yes Any med S/E: None reported or observed Mental Status Exam Appearance: dressed in green scrubs, disheveled Eye contact: Direct. Behavior: Cooperative, tired Speech: Soft tone,normal rate/rhythm Mood: patient sleeping most of day Affect: Blunted Thought process: unable to formally assess Thought Content: unable to formally assess Cognition: A/O x 3 Insight: fair Judgment: Fair PRN's used: None Therapeutic interventions: 1:1 therapeutic assessment, maintained therapeutic milieu, provided active listening with positive feedback, provided medication education as needed, monitored for change in behavior and needed interventions. Q15 minute safety checks. Restraints/seclusion/emergency medication: N/A Justification of Continued Inpatient Treatment: Pt. is on LPS conservatorship for grave disability. Patient has been accepted at [facility], awaiting bed.
[2018-08-29 19:24] VITALS: BP 123/64
[2018-08-29] MEDS: divalproex sod 250mg ER (24-hour) tablet PO SCH (20:32)
[2018-08-29] MEDS: tamsulosin 0.4mg capsule PO SCH (20:32)
[2018-08-29] MEDS: risperiDONE 2mg tablet PO SCH (20:32)
--- NOTE | 2018-08-30 00:45 | NUR ---
Nursing Progress Note: Legal hold: LPS Conserved Client on involuntary status for: GD Report received with SBAR from: GABRIEL Mandel Why are they here: Pt. was brought to [facility] by [employer] and Mobile Crisis Unit r/t psychosis and GD. He was transferred from [facility] to [facility] on a 5150. Pt. is currently homeless and has a history of chronic alcoholism. Pt. 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 Pt. has been placed on a T-con per the [facility] Guardian office and they are considering LPS conservatorship. Assessment: What has happened this shift: Pt resting in room at change of shift, where RN completed 1:1. During assessments, pt made delusional statements, "I was a MD who studied incurable diseases. I would make the medications up on the fly to give to people on the front lines." Pt was more conversational than previous nights; he stated "I feel good and I went [poop] today." Pt requested a burrito for snack time and inquired as to when he will be discharged: "Did you know I'm going to [place]? What day exactly?" RN updated pt on status of discharge. "Thank you". Pt went to group room for snack then returned to bedroom for the evening. S/I, H/I: Denies A/VH: Denies Sleep: See Sleep Chart Hours ADL's: Independent with prompting Group attendance: Y - HS Snack Were meds taken: Y Any med S/E: None reported or observed Mental Status Exam Appearance: Wearing unit green scrubs, personal cap and tennis shoes Eye contact: Direct Behavior: Cooperative Speech: Soft tone, Normal rate Mood:"I feel good" Affect: Blunted Thought process: Delusional Thought Content: D/C plans, Delusions Cognition: A/Ox3 Insight: Fair Judgment: Fair PRN's used: None Therapeutic interventions: 1:1 therapeutic assessment, maintained therapeutic milieu, provided active listening with positive feedback, provided medication education as needed, monitored for change in behavior and needed interventions. Q15 minute safety checks. Restraints/seclusion/emergency medication: N/A Justification of Continued Inpatient Treatment: Pt. is on LPS conservatorship for grave disability. Patient has been accepted at [facility], awaiting bed.
[2018-08-30 08:00] VITALS: BP 111/67
[2018-08-30] MEDS: thiamine 100mg tablet PO SCH ×2 (08:20→20:30)
[2018-08-30] MEDS: folic acid 1mg tablet PO SCH (08:20)
[2018-08-30] MEDS: metFORMIN 850mg tablet PO SCH ×2 (08:20→20:30)
[2018-08-30] MEDS ORDERED: FLO0.4C PO (12:09)
[2018-08-30] MEDS ORDERED: RISP4TAB2 PO (12:09)
[2018-08-30] MEDS ORDERED: DIVA500T9 PO (12:09)
[2018-08-30] MEDS ORDERED: GLU850T PO (12:09)
--- NOTE | 2018-08-30 17:13 | NUR ---
Nursing Progress Note: Legal hold: LPS Conserved Client on involuntary status for: GD Report received with SBAR from: GABRIEL Toledo Why are they here: Pt. was brought to [facility] by [employer] and Mobile Crisis Unit r/t psychosis and GD. He was transferred from [facility] to [facility] on a 5150. Pt. is currently homeless and has a history of chronic alcoholism. Pt. 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 Pt. has been placed on a T-con per the [facility] Guardian office and they are considering LPS conservatorship. Assessment: What has happened this shift: Patient is observed slepeing at change of shift. Rn wakes him for breakfast and he takes his morning medications without issue. Patient denies any issues or needs. He does not attend groups and spends most of the day sleeping. In the afternoon he is up walking the halls with a smile on his face. He is friendly and polite. S/I, H/I: Denies A/VH: Denies. Sleep: 8hrs NOC and rested throughout the day ADL's: Independent with prompting. Group attendance: no Were meds taken: yes Any med S/E: None reported or observed Mental Status Exam Appearance: dressed in green scrubs, disheveled Eye contact: Direct. Behavior: Cooperative, friendly, tired Speech: Soft tone,normal rate/rhythm Mood: content Affect: Blunted with brightening Thought process: linear Thought Content: no delusional thought content expressed Cognition: A/O x 3 Insight: fair Judgment: Fair PRN's used: None Therapeutic interventions: 1:1 therapeutic assessment, maintained therapeutic milieu, provided active listening with positive feedback, provided medication education as needed, monitored for change in behavior and needed interventions. Q15 minute safety checks. Restraints/seclusion/emergency medication: N/A Justification of Continued Inpatient Treatment: Pt. is on LPS conservatorship for grave disability. Patient has been accepted at [facility], awaiting bed.
[2018-08-30 20:00] VITALS: BP 106/60
--- NOTE | 2018-08-30 20:06 | NUR ---
Input error: Pt weighs 102.8 kg (226.2 lbs) Addendum: 08/30/18 at 2007 by Paris Monteiro RN Amended: Links added.
[2018-08-30] MEDS: tamsulosin 0.4mg capsule PO SCH (20:30)
[2018-08-30] MEDS: risperiDONE 2mg tablet PO SCH (20:31)
[2018-08-30] MEDS: divalproex sod 250mg ER (24-hour) tablet PO SCH (20:32)
--- NOTE | 2018-08-31 02:13 | NUR ---
Nursing Progress Note: Legal hold: LPS Conserved Client on involuntary status for: GD Report received with SBAR from: GABRIEL Mandel Why are they here: Pt. was brought to [facility] by [employer] and Mobile Crisis Unit r/t psychosis and GD. He was transferred from [facility] to [facility] on a 5150. Pt. is currently homeless and has a history of chronic alcoholism. Pt. has paranoid and grandiose delusions and is unable to provide for his own food, clothing, or long-term. Pt. has been placed on a T-con per the [facility] Guardian office and they are considering LPS conservatorship. Assessment: What has happened this shift: Pt in group room at change of shift. RN obtained weight (Pt: "I know I gained a few pounds here!" with nadia), accucheck, and then completed 1:1 at bedside. Pt stated "I feel fine. What's your name again?" RN answered pt's question then inquired as to pt's feelings regarding discharging Thursday. "I feel ready. I need a change. I hope they let me smoke there." Pt smiled and requested a burrito for snack time. Pt went to group room for snack then returned to bedroom for the evening. S/I, H/I: Denies A/VH: Denies Sleep: See Sleep Chart Hours ADL's: Independent with prompting Group attendance: Y - HS Snack Were meds taken: Y Any med S/E: None reported or observed Mental Status Exam Appearance: Wearing unit green scrubs, personal cap and tennis shoes Eye contact: Direct Behavior: Cooperative Speech: Soft tone, Normal rate Mood:"I feel fine" Affect: Blunted with brightening Thought process: Linear Thought Content: What [facility] is like, ready to d/c Cognition: A/Ox4 Insight: Fair Judgment: Fair PRN's used: None Therapeutic interventions: 1:1 therapeutic assessment, maintained therapeutic milieu, provided active listening with positive feedback, provided medication education as needed, monitored for change in behavior and needed interventions. Q15 minute safety checks. Restraints/seclusion/emergency medication: N/A Justification of Continued Inpatient Treatment: Pt. is on LPS conservatorship for grave disability. Patient has been accepted at [facility], plan is to discharge on Thursday morning.
[2018-08-31 07:34] VITALS: BP 106/54
[2018-08-31] MEDS: metFORMIN 850mg tablet PO SCH ×2 (08:25→21:13)
[2018-08-31] MEDS: thiamine 100mg tablet PO SCH ×2 (08:25→21:13)
[2018-08-31] MEDS: folic acid 1mg tablet PO SCH (08:25)
--- NOTE | 2018-08-31 16:59 | NUR ---
Nursing Progress Note: Legal hold: LPS Conserved Client on involuntary status for: GD Report received with SBAR from: GABRIEL Donahue Why are they here: Pt. was brought to [facility] by [employer] and Mobile Crisis Unit r/t psychosis and GD. He was transferred from [facility] to [facility] on a 5150. Pt. is currently homeless and has a history of chronic alcoholism. Pt. has paranoid and grandiose delusions and is unable to provide for his own food, clothing, or custodial. Pt. has been placed on a T-con per the [facility] Guardian office and they are considering LPS conservatorship. Assessment: What has happened this shift: Patient is observed sleeping at change of shift. Rn wakes him for breakfast, patient states "I fell back asleep" and "I need to take my medications." Medications administered without any issue. Patient is aware that he will be leaving the unit tomorrow. He states that he is ready to go. He does not attend morning group bu tis observed walking the hallways during the day. He attends afternoon group and after returns to his room. He tells this RN that he will miss his friends here and is thankful for the kindness of staff. He hopes to make new friends and is a little nervous about not knowing anybody. S/I, H/I: Denies A/VH: Denies. Sleep: 7.75hrs NOC and rested throughout the day ADL's: Independent with prompting. Group attendance: yes Were meds taken: yes Any med S/E: None reported or observed Mental Status Exam Appearance: dressed in orange shirt and wearing a baseball cap. Eye contact: Direct. Behavior: Cooperative, friendly Speech: Soft tone,normal rate/rhythm Mood: content Affect: Blunted with brightening Thought process: linear Thought Content: no delusional thought content expressed Cognition: A/O x 3 Insight: fair Judgment: Fair PRN's used: None Therapeutic interventions: 1:1 therapeutic assessment, maintained therapeutic milieu, provided active listening with positive feedback, provided medication education as needed, monitored for change in behavior and needed interventions. Q15 minute safety checks. Restraints/seclusion/emergency medication: N/A Justification of Continued Inpatient Treatment: Pt. is on LPS conservatorship for grave disability. Patient has been accepted at [facility] and will transfer tomorrow 08/31/18.
[2018-08-31 20:34] VITALS: BP 109/91
[2018-08-31] MEDS: divalproex sod 250mg ER (24-hour) tablet PO SCH (21:13)
[2018-08-31] MEDS: tamsulosin 0.4mg capsule PO SCH (21:13)
[2018-08-31] MEDS: risperiDONE 2mg tablet PO SCH (21:13)
--- NOTE | 2018-09-01 01:47 | NUR ---
Nursing Progress Note: Legal hold: LPS Conserved Client on involuntary status for: GD Report received with SBAR from: GABRIEL Mandel Why are they here: Pt. was brought to [facility] by [employer] and Mobile Crisis Unit r/t psychosis and GD. He was transferred from [facility] to [facility] on a 5150. Pt. is currently homeless and has a history of chronic alcoholism. Pt. has paranoid and grandiose delusions and is unable to provide for his own food, clothing, or long term. Pt. has been placed on a T-con per the [facility] Guardian office and they are considering [facility] conservatorship. Assessment: What has happened this shift: Pt in group room at change of shift. During 1:1 assessment at bedside, pt stated "I'm leaving tomorrow" with a smile. He continued, "I feel good." RN reviewed discharge paperwork and had the pt sign. RN explained the discharge process that was to take place at 0530 in the morning. "Okay, sounds good." Pt went to sleep after medication pass but awoke at 0000 to check the time. He awoke once more at 0130, heading to the TV and endorsing delusions. "I have spaceships. I'm going to a mostly male community, so long as I can drink and smoke I'll be fine." Pt went on to express his annoyance with the state and the law. "I don't bother nobody." Pt is talkative and his spirits seem high, when RN asks if he is waking up this evening because he is excited to leave, Pt laughs and says "I know, I know. I'll go to sleep here soon." Pt returned to bedroom at 0150 to attempt to sleep. Pt to be discharged at 0600 with belongings, two sack lunches, discharge paperwork and medications. RN to give AM medications at 0530. S/I, H/I: Denies A/VH: Denies Sleep: See Sleep Chart Hours; Pt generally sleeps through the night but has woken a few times this evening (pt seems excited to be discharging) ADL's: Independent with prompting Group attendance: Y - HS Snack Were meds taken: Y Any med S/E: None reported or observed Mental Status Exam Appearance: Wearing personal cap, tennis shoes, and clothes Eye contact: Direct Behavior: Cooperative Speech: Soft tone, Normal rate, Talkative Mood:"Good" Affect: Congruent to mood; lots of smiling and laughing this shift Thought process: Linear Thought Content: Discharging, Delusions Cognition: A/Ox4 Insight: Fair Judgment: Fair PRN's used: None Therapeutic interventions: 1:1 therapeutic assessment, maintained therapeutic milieu, provided active listening with positive feedback, provided medication education as needed, monitored for change in behavior and needed interventions. Q15 minute safety checks. Restraints/seclusion/emergency medication: N/A Justification of Continued Inpatient Treatment: Pt. is on LPS conservatorship for grave disability. Patient has been accepted at [facility], has reached his baseline, and is discharging Thursday.
[2018-09-01] MEDS: folic acid 1mg tablet PO SCH (05:51)
[2018-09-01] MEDS: metFORMIN 850mg tablet PO SCH (05:51)
[2018-09-01] MEDS: thiamine 100mg tablet PO SCH (05:51)
--- NOTE | 2018-09-01 05:59 | NUR ---
GABRIEL d/c'd pt with all belongings, food, medications, and paperwork, and gave AM medications. Pt requested jordyn for the road and stated "Thank you for taking care of me!" Addendum: 09/01/18 at 06 by Paris Monteiro RN RN ready to D/C at 0605 with above statement. Awaiting transport.
== END 2018-09-01 06:25 | disposition home or self-care (01) | DRG 885 ==
LOC: ADULT MH 11:20
PROVIDERS: ADMIT Psychiatry & Neurology Psychiatry; ATTEND Psychiatry & Neurology Psychiatry
DX: F20.9 Schizophrenia, unspecified (principal); Z59.0 Homelessness; N40.0 Benign prostatic hyperplasia without lower urinary tract symptoms; E11.9 Type 2 diabetes mellitus without complications; F10.10 Alcohol abuse, uncomplicated; Y90.9 Presence of alcohol in blood, level not specified; F17.200 Nicotine dependence, unspecified, uncomplicated; F41.9 Anxiety disorder, unspecified; Z79.84 Long term (current) use of oral hypoglycemic drugs
CPT/HCPCS: 36415; 71045; 80053; 80061; 80164; 82948; 83036; 85025; 87070; Q0163; Q2037

== ENCOUNTER 2020-12-25 22:15 | Inpatient (IN) | payer MEDICARE, MEDICAID ==
[~2020-12-25] VITALS: Ht 175.3 cm; Wt 89.0 kg
[~2020-12-25 22:15] MED LIST changes: -ASPI-1265 PO; -ATOR40TA PO; +BENZ1TAB7 PO; +BUSP10TA11 PO; -CEPH500C5 PO; -DIVA500T2 PO; +FOLI0.4T6 PO; -GLU850T PO; +KETOCONAZOLE 2% TOP; -LIRA0.6P SQ; -LISI10TA4 PO; +LORA-269 PO; +MULT-1085 PO; -OMEG1CAP13 PO; -POTA8CAP9 PO; -RISP2TAB3 PO; +THIA100T70 PO; +hydrocortisone TOP; +vitamin D3 PO
[2020-12-27] MEDS ORDERED: RISP3TAB63 PO (17:03)
[2020-12-27] MEDS ORDERED: DIVA250T15 PO (17:03)
[2021-01-01] MEDS ORDERED: mag hydrox/Alum hydrox/simeth 30ml oral suspension PO PRN (13:20)
[2021-01-01] MEDS ORDERED: acetaminophen 325mg tablet PO PRN ×2 (13:20)
[2021-01-01] MEDS ORDERED: NICOTINE POLACRILEX 2 MG LOZENGE BC PRN (13:20)
[2021-01-01] MEDS ORDERED: magnesium hydroxide 30ml (MOM) UD suspension PO PRN (13:20)
[2021-01-01] MEDS ORDERED: loperamide 2mg capsule PO PRN (13:20)
[2021-01-01 14:10] VITALS: BP 120/63
--- NOTE | 2021-01-01 15:35 | NUR ---
Admission note: Pt admitted to [place] [facility] today at 1325 from [facility] on LPS conservatorship. Pt is here for replacement. Pt had some sort of agitation at [facility]. He knocked a can of soda off a table. Pt not attending group therapy sessions. He threw a tray in the dining room. Pt has history of Schizoaffective, benign lipomatous, DM II, Pacemaker, benign prostatic hyperplasia. Pt cooperative with admission process.
[2021-01-01] MEDS: metFORMIN 500mg tablet PO SCH (17:26)
[2021-01-01] MEDS: benztropine 1mg tablet PO SCH ×2 (17:27→20:11)
[2021-01-01 20:00] VITALS: BP 139/79
[2021-01-01] MEDS: risperiDONE 0.5mg tablet PO SCH (20:10)
[2021-01-01] MEDS: busPIRone 5mg tablet PO SCH (20:10)
[2021-01-01] MEDS: divalproex 250mg tablet, delayed-release PO SCH (20:11)
[2021-01-01] MEDS: tamsulosin 0.4mg capsule PO SCH (20:11)
[2021-01-01] MEDS: ketoconazole 2% cream 15gm TP SCH (20:11)
[2021-01-01] MEDS: hydrocortisone 1% cream 28gm TP SCH (20:11)
--- NOTE | 2021-01-01 23:18 | NUR ---
Nursing Progress Note: Client on voluntary/involuntary status for GD. Report received from nurse, Lenin, with use of SBAR. Why they are here: [facility] on LPS conservatorship. Pt is here for replacement. Pt had some sort of agitation at [facility]. He knocked a can of soda off a table. Pt not attending group therapy sessions. He threw a tray in the dining room. Pt has history of Schizoaffective, benign lipomatous, DM II, Pacemaker, benign prostatic hyperplasia. Pt cooperative with admission process. Diagnosis/presenting symptoms: Gravely Disabled Assessment What has happened this shift: Pt was sitting on the side of his bed at shift change. Pt is friendly for the 1:1 assessment and denies having any complaints. Pt reports that he had a rash on his head but it is cleared up now. Pt spent time in the chair in his room looking out the window and a little time in the group room but did not interact with other patients. All hs meds taken without issue. S/I, H/I: denies A/VH: denies Sleep: see sleep assessment ADL's: will need prompting Group attendance: n/a Were meds taken: yes Any med S/E: none observed Mental Status Exam Appearance: disheveled Eye contact: good Behavior: calm, cooperative, polite Speech: slow to respond Mood: content Affect: flat Thought process: fuentes Thought Content: getting needs met Cognition: poor concentration Insight: poor Judgment: fair Interventions PRN's used: none Therapeutic interventions: Attempted 1:1 assessment, maintained a safe and supportive environment, therapeutic communication, active listening, medication administration/education/monitoring, behavior monitoring and intervention as needed; distraction, redirection, limit setting, reality orientation, provided encouragement and positive reinforcement, maintained Q15 minute safety checks. Restraints/seclusion/emergency medication: N/A Justification of Continued Inpatient Treatment: Pt. requires interruption of current crisis, medication adjustments, and a safe and supportive environment. Patient is conserved with [facility] awaiting placement.
[2021-01-02] MEDS: metFORMIN 500mg tablet PO SCH ×2 (07:30→16:09)
[2021-01-02] MEDS: cholecalciferol (vitamin D3) 1,000 unit (25mcg) tablet PO SCH (07:30)
[2021-01-02] MEDS: risperiDONE 0.5mg tablet PO SCH (07:31)
[2021-01-02] MEDS: thiamine 100mg tablet PO SCH (07:31)
[2021-01-02] MEDS: folic acid 0.4mg tablet PO SCH (07:31)
[2021-01-02] MEDS: multivitamins, therapeutics tablet PO SCH (07:32)
[2021-01-02] MEDS: benztropine 1mg tablet PO SCH ×4 (07:32→20:28)
[2021-01-02] MEDS: busPIRone 5mg tablet PO SCH ×2 (07:32→20:29)
[2021-01-02] MEDS: divalproex 250mg tablet, delayed-release PO SCH ×3 (07:32→20:29)
[2021-01-02 08:00] VITALS: BP 120/60
[2021-01-02 09:15] LABS: BASOPHILS # (AUTO) 0.1 X10'3 (0-0.2); BASOPHILS % (AUTO) 1.2 % (0-1); EOSINOPHILS # (AUTO) 0.2 X10'3 (0-0.9); EOSINOPHILS % (AUTO) 2.9 % (0-6); HEMATOCRIT 41.4 % (42.0-52.0); HEMOGLOBIN 13.9 g/dl (14.0-17.9); LYMPHOCYTES # (AUTO) 1.6 X10'3 (1.1-4.8); LYMPHOCYTES % (AUTO) 26.6 % (21-51); MEAN CORPUSCULAR HEMOGLOBIN 32.2 PG (27.0-31.0); MEAN CORPUSCULAR HGB CONC 33.5 g/dL (33.0-36.5); MEAN CORPUSCULAR VOLUME 96.1 FL (78-98); MEAN PLATELET VOLUME 8.4 FL (7.4-10.4); MONOCYTES # (AUTO) 0.6 X10'3 (0-0.9); MONOCYTES % (AUTO) 9.2 % (2-12); NEUTROPHILS # (AUTO) 3.6 X10'3 (1.8-7.7); NEUTROPHILS % (AUTO) 60.1 % (42-75); PLATELET COUNT 222 X10'3 (140-440); RED BLOOD COUNT 4.31 X10'6 (4.70-6.10); RED CELL DISTRIBUTION WIDTH 12.7 % (11.5-14.5)
[2021-01-02 09:36] LABS: HEMOGLOBIN A1C 5.7 % (4.5-6.2)
[2021-01-02 10:25] LABS: ALANINE AMINOTRANSFERASE 24 U/L (12-78); ALBUMIN 3.1 G/DL (3.4-5.0); ALBUMIN/GLOBULIN RATIO 0.9 (1.1-1.5); ALKALINE PHOSPHATASE 48 IU/L (46-116); ANION GAP 10 (8-16); ASPARTATE AMINO TRANSFERASE 15 U/L (10-37); BILIRUBIN,TOTAL 0.4 MG/DL (0.1-1.0); BLOOD UREA NITROGEN 8 MG/DL (7-18); CALCIUM 8.5 MG/DL (8.5-10.1); CHLORIDE 103 MMOL/L (99-107); CREATININE 0.89 MG/DL (0.60-1.10); GLUCOSE 199 MG/DL (70-104); SODIUM 138 MMOL/L (135-145); TOTAL PROTEIN 6.4 G/DL (6.4-8.2); eGFR 85 ML/MIN
[2021-01-02 10:27] LABS: CHOLESTEROL 252 MG/DL (0-200); HDL CHOLESTEROL 50 MG/DL (35-60); LDL CHOLESTEROL 175 MG/DL (50-100); TRIGLYCERIDES 64 MG/DL (20-135); VALPROATE 53 UG/ML (50-100)
--- NOTE | 2021-01-02 16:39 | NUR ---
Nursing Progress Note: Tarik Carmen Client on voluntary/involuntary status for GD. Report received from nurse, Lenin, with use of SBAR. Why they are here: Pt admitted to [place] for [facility] health from [facility] on LPS conservatorship. Pt is here for replacement. Pt had some sort of agitation at [facility]. He knocked a can of soda off a table. Pt not attending group therapy sessions. He threw a tray in the dining room. Pt has history of Schizoaffective, benign lipomatous, DM II, Pacemaker, benign prostatic hyperplasia. Pt cooperative with admission process. Diagnosis/presenting symptoms: Gravely Disabled Assessment What has happened this shift: Pt received sitting in TV room quietly. Pt. took his morning meds. Pt. ate breakfast with peers with minimal interaction. 1:1 assessment completed and denies SI, HI, A/VH. He was receptive to being prompted to get cleaned up after breakfast. Pt. ambulates with a shuffled gait ad renny. Pt. stayed in the TV room most of the afternoon until lunch arrived he then ate in the dining room. Pt. observed napping in late afternoon. Pt. has been cooperative with no aggression/agitation found this shift. Currently lying in his bed reading a book. S/I, H/I: denies A/VH: denies Sleep: 9 Hrs per NOC shift, intermittent naps this shift ADL's: Needs prompting Group attendance: Not attended Were meds taken: yes Any med S/E: none observed Mental Status Exam Appearance: disheveled Eye contact: good Behavior: Cooperative Speech: Soft spoken and slow Mood: Content Affect: Flat Thought process: Linear Thought Content: Future placement Cognition: poor concentration Insight: Fair Judgment: fair Interventions PRN's used: none Therapeutic interventions: Attempted 1:1 assessment, maintained a safe and supportive environment, therapeutic communication, active listening, medication administration/education/monitoring, behavior monitoring and intervention as needed; distraction, redirection, limit setting, reality orientation, provided encouragement and positive reinforcement, maintained Q15 minute safety checks. Restraints/seclusion/emergency medication: N/A Justification of Continued Inpatient Treatment: Pt. requires interruption of current crisis, medication adjustments, and a safe and supportive environment. Patient is conserved with [facility] awaiting placement.
[2021-01-02 19:49] VITALS: BP 101/53
[2021-01-02] MEDS: hydrocortisone 1% cream 28gm TP SCH (20:29)
[2021-01-02] MEDS: risperiDONE 2mg tablet PO SCH (20:29)
[2021-01-02] MEDS: ketoconazole 2% cream 15gm TP SCH (20:29)
[2021-01-02] MEDS: tamsulosin 0.4mg capsule PO SCH (21:05)
--- NOTE | 2021-01-02 21:48 | NUR ---
Nursing Progress Note: KermitTarik gil Client on voluntary/involuntary status for GD. Report received from nurse, Lenin, with use of SBAR. Why they are here: [facility] on LPS conservatorship. Pt is here for replacement. Pt had some sort of agitation at [facility]. He knocked a can of soda off a table. Pt not attending group therapy sessions. He threw a tray in the dining room. Pt has history of Schizoaffective, benign lipomatous, DM II, Pacemaker, benign prostatic hyperplasia. Pt cooperative with admission process. Diagnosis/presenting symptoms: Gravely Disabled Assessment What has happened this shift: Pt was in bed reading a book at change of shift and napping. He didnt come out for evening snacks. Pt reports he had a good day but is concerned about getting diabetes from his medication. "I just want to be sure the doctor isnt giving me diabetes again." Explained to patient that he still takes medication for diabetes and he states "I know but I dont want any more." Pt took HS meds and went to bed. S/I, H/I: denies A/VH: denies Sleep: see sleep hours ADL's: Needs prompting Group attendance: Not attended Were meds taken: yes Any med S/E: none observed Mental Status Exam Appearance: disheveled Eye contact: good Behavior: Cooperative Speech: Soft spoken and slow Mood: Content Affect: Flat Thought process: linear, delusions Thought Content: doesnt want medication that gives him diabetes Cognition: impaired Insight: Fair Judgment: fair Interventions PRN's used: none Therapeutic interventions: Attempted 1:1 assessment, maintained a safe and supportive environment, therapeutic communication, active listening, medication administration/education/monitoring, behavior monitoring and intervention as needed; distraction, redirection, limit setting, reality orientation, provided encouragement and positive reinforcement, maintained Q15 minute safety checks. Restraints/seclusion/emergency medication: N/A Justification of Continued Inpatient Treatment: Pt. requires interruption of current crisis, medication adjustments, and a safe and supportive environment. Patient is conserved with [facility] awaiting placement.
[2021-01-03] MEDS: thiamine 100mg tablet PO SCH (07:28)
[2021-01-03] MEDS: multivitamins, therapeutics tablet PO SCH (07:28)
[2021-01-03] MEDS: folic acid 0.4mg tablet PO SCH (07:28)
[2021-01-03] MEDS: divalproex 250mg tablet, delayed-release PO SCH ×2 (07:28→20:43)
[2021-01-03] MEDS: cholecalciferol (vitamin D3) 1,000 unit (25mcg) tablet PO SCH (07:28)
[2021-01-03] MEDS: risperiDONE 2mg tablet PO SCH ×2 (07:29→20:43)
[2021-01-03] MEDS: busPIRone 5mg tablet PO SCH ×2 (07:29→20:43)
[2021-01-03] MEDS: metFORMIN 500mg tablet PO SCH ×2 (07:29→16:18)
[2021-01-03] MEDS: benztropine 1mg tablet PO SCH ×4 (07:29→20:43)
[2021-01-03 07:50] VITALS: BP 107/70
--- NOTE | 2021-01-03 17:27 | NUR ---
Nursing Progress Note: KermitTarik lockett Client on voluntary/involuntary status for GD. Report received from nurse, Lenin, with use of SBAR. Why they are here: Pt admitted to [place] for [facility]al health from [facility] on LPS conservatorship. Pt is here for replacement. Pt had some sort of agitation at [facility]. He knocked a can of soda off a table. Pt not attending group therapy sessions. He threw a tray in the dining room. Pt has history of Schizoaffective, benign lipomatous, DM II, Pacemaker, benign prostatic hyperplasia. Pt cooperative with admission process. Diagnosis/presenting symptoms: Gravely Disabled Assessment What has happened this shift: Pt received sleeping in his bed, he awoke to receive his medication. 1:1 assessment completed at the bedside. Pt denies S/I, H/I, denies all A/VH as well. Pt continues with a shuffled gait and ambulates ad renny. Pt. observed interacting minimally with peers during breakfast sitting alone in a chair. Pt presents with flat affect throughout our conversation. He has been observed shuffling down the jeffrey doesnt appear to be responding to IS. Pt. ate lunch in the dining room and later sat in the TV room. Pt. currently napping in his room before dinner. S/I, H/I: denies A/VH: denies Sleep: 9.25 Hrs per NOC shift, intermittent naps this shift ADL's: Needs prompting Group attendance: Not attended Were meds taken: yes Any med S/E: none observed Mental Status Exam Appearance: Older man with long disheveled hair wearing green scrubs Eye contact: good Behavior: Cooperative Speech: Soft spoken and slow Mood: Content Affect: Flat Thought process: Linear Thought Content: Future placement Cognition: poor concentration Insight: Fair Judgment: fair Interventions PRN's used: none Therapeutic interventions: Attempted 1:1 assessment, maintained a safe and supportive environment, therapeutic communication, active listening, medication administration/education/monitoring, behavior monitoring and intervention as needed; distraction, redirection, limit setting, reality orientation, provided encouragement and positive reinforcement, maintained Q15 minute safety checks. Restraints/seclusion/emergency medication: N/A Justification of Continued Inpatient Treatment: Pt. requires interruption of current crisis, medication adjustments, and a safe and supportive environment. Patient is conserved with [facility] awaiting placement.
[2021-01-03 20:00] VITALS: BP 120/68
[2021-01-03] MEDS: tamsulosin 0.4mg capsule PO SCH (20:43)
[2021-01-03] MEDS: ketoconazole 2% cream 15gm TP SCH (21:00)
[2021-01-03] MEDS: hydrocortisone 1% cream 28gm TP SCH (21:00)
--- NOTE | 2021-01-04 00:44 | NUR ---
Nursing Progress Note: Tarik Carmen Client on a [facility] Conservatorship Report received from nurse, Lenin, with use of SBAR. Why they are here: Pt admitted to [facility] health from [facility] on LPS conservatorship. Pt is here for replacement. Pt had some sort of agitation at [facility]. He knocked a can of soda off a table. Pt not attending group therapy sessions. He threw a tray in the dining room. Pt has history of Schizoaffective, benign lipomatous, DM II, Pacemaker, benign prostatic hyperplasia. Pt cooperative with admission process. Diagnosis/presenting symptoms: Gravely Disabled Assessment What has happened this shift: Tarik was waling the jeffrey ways at beginning of shift, patient asked charge nurse if he could use a wheel chair,"just in case I need to", charge nurse advised that he would need to talk with the doctor in the am to see if that could be an order. Patient allowed 1:1 assessment no new complaints, patient took hs meds and went to bed. S/I, H/I: denies A/VH: denies Sleep: see sleep hours ADL's: Needs prompting Group attendance: Not attended Were meds taken: yes Any med S/E: none observed Mental Status Exam Appearance: disheveled Eye contact: good Behavior: Cooperative Speech: Soft spoken and slow Mood: Content Affect: Flat Thought process: linear, delusions Thought Content: doesnt want medication that gives him diabetes Cognition: impaired Insight: Fair Judgment: fair Interventions PRN's used: none Therapeutic interventions: Attempted 1:1 assessment, maintained a safe and supportive environment, therapeutic communication, active listening, medication administration/education/monitoring, behavior monitoring and intervention as needed; distraction, redirection, limit setting, reality orientation, provided encouragement and positive reinforcement, maintained Q15 minute safety checks. Restraints/seclusion/emergency medication: N/A Justification of Continued Inpatient Treatment: Pt. requires interruption of current crisis, medication adjustments, and a safe and supportive environment. Patient is conserved with [facility] awaiting placement.
[2021-01-04] MEDS: risperiDONE 2mg tablet PO SCH ×2 (07:21→21:19)
[2021-01-04] MEDS: cholecalciferol (vitamin D3) 1,000 unit (25mcg) tablet PO SCH (07:21)
[2021-01-04] MEDS: divalproex 250mg tablet, delayed-release PO SCH ×2 (07:22→21:20)
[2021-01-04] MEDS: multivitamins, therapeutics tablet PO SCH (07:22)
[2021-01-04] MEDS: busPIRone 5mg tablet PO SCH ×2 (07:22→21:20)
[2021-01-04] MEDS: metFORMIN 500mg tablet PO SCH ×2 (07:22→17:24)
[2021-01-04] MEDS: folic acid 0.4mg tablet PO SCH (07:22)
[2021-01-04] MEDS: benztropine 1mg tablet PO SCH ×2 (07:22→12:45)
[2021-01-04] MEDS: thiamine 100mg tablet PO SCH (07:22)
[2021-01-04 07:40] VITALS: BP 110/60
[2021-01-04] MEDS ORDERED: trihexyphenidyl 2mg tablet PO ONE (17:00)
--- NOTE | 2021-01-04 17:44 | NUR ---
Nursing Progress Note: KermitTarik gil Client on voluntary/involuntary status for GD. Report received from nurse, Lenin, with use of SBAR. Why they are here: Pt admitted to [place] [facility] from [facility] on LPS conservatorship. Pt is here for replacement. Pt had some sort of agitation at [facility]. He knocked a can of soda off a table. Pt not attending group therapy sessions. He threw a tray in the dining room. Pt has history of Schizoaffective, benign lipomatous, DM II, Pacemaker, benign prostatic hyperplasia. Pt cooperative with admission process. Assessment What has happened this shift: Pt received sleeping in his bed, he awoke to go for breakfast in the dining room. Later received his medication and 1:1 assessment completed at the bedside. Pt denies S/I, H/I, denies all A/VH as well. Pt. articulates a plan to go to a board and care with help of his conservator. He presents with flat affect during any interaction. Pt observed with a shortened shuffle in gait today; his provider was updated. Education re safety reviewed with pt. and encouraged use of hand rails in jeffrey. He spent most of his morning isolating in his room. Pt. ate lunch in the dining room and later sat in the TV room. Pt. currently napping in his room before dinner. S/I, H/I: denies A/VH: denies Sleep: 9.25 Hrs per NOC shift, intermittent naps this shift ADL's: Needs prompting Group attendance: Not attended Were meds taken: yes Any med S/E: none observed Mental Status Exam Appearance: Older man with long disheveled hair wearing green scrubs Eye contact: good Behavior: Cooperative Speech: Soft spoken and slow Mood: Content Affect: Flat Thought process: Linear Thought Content: Future placement Cognition: poor concentration Insight: Fair Judgment: fair Interventions PRN's used: none Therapeutic interventions: Attempted 1:1 assessment, maintained a safe and supportive environment, therapeutic communication, active listening, medication administration/education/monitoring, behavior monitoring and intervention as needed; distraction, redirection, limit setting, reality orientation, provided encouragement and positive reinforcement, maintained Q15 minute safety checks. Restraints/seclusion/emergency medication: N/A Justification of Continued Inpatient Treatment: Pt. requires interruption of current crisis, medication adjustments, and a safe and supportive environment. Patient is conserved with [facility] awaiting placement.
[2021-01-04 19:00] VITALS: BP 122/67
[2021-01-04] MEDS: trihexyphenidyl HCL 5 MG tablet PO SCH (21:19)
[2021-01-04] MEDS: hydrocortisone 1% cream 28gm TP SCH (21:20)
[2021-01-04] MEDS: tamsulosin 0.4mg capsule PO SCH (21:20)
[2021-01-04] MEDS: ketoconazole 2% cream 15gm TP SCH (21:20)
--- NOTE | 2021-01-05 00:13 | NUR ---
Nursing Progress Note: Client on a [facility] Conservatorship Report received from nurse, Tequila RIOS, with use of SBAR. Why they are here: Pt admitted to [facility] for [facility]al health from [facility] on [facility] conservatorship. Pt is here for replacement. Pt had some sort of agitation at [facility]. He knocked a can of soda off a table. Pt not attending group therapy sessions. He threw a tray in the dining room. Pt has history of Schizoaffective, benign lipomatous, DM II, Pacemaker, benign prostatic hyperplasia. Pt cooperative with admission process. Diagnosis/presenting symptoms: Gravely Disabled Assessment What has happened this shift: Patient spent first half of shift in his room. Patient eventually cam out of room and started coloring with other patients in the activates room. Patient became very social with other patients. Patient took all medications, Patient stayed up until 2014 before going to bed. S/I, H/I: denies A/VH: denies Sleep: see sleep hours ADL's: Needs prompting Group attendance: Not attended Were meds taken: yes Any med S/E: none observed Mental Status Exam Appearance: clean with scruffy espinoza in hospital green scrubs Eye contact: good Behavior: Cooperative Speech: Soft spoken and slow Mood: Content Affect: Flat Thought process: linear, delusions Thought Content: clearing up his skin Cognition: impaired Insight: Fair Judgment: fair Interventions PRN's used: none Therapeutic interventions: Attempted 1:1 assessment, maintained a safe and supportive environment, therapeutic communication, active listening, medication administration/education/monitoring, behavior monitoring and intervention as needed; distraction, redirection, limit setting, reality orientation, provided encouragement and positive reinforcement, maintained Q15 minute safety checks. Restraints/seclusion/emergency medication: N/A Justification of Continued Inpatient Treatment: Pt. requires interruption of current crisis, medication adjustments, and a safe and supportive environment. Patient is conserved with [facility] awaiting placement.
[2021-01-05 07:41] VITALS: BP 133/74
--- NOTE | 2021-01-05 07:47 | NUR ---
Initial: Pt admit DX schizoaffective d/o, bipolar type w/ hx T2DM A1C 5.7 on metformin at home per EMR. Pt on regular diet PO 100% meals meeting needs w/ Glu last check 01/02 199mg/dl, Chol 252, and LDL 175 per EMR. Pt receiving metformin currently; JAYNA d/w RN regarding carb controlled/heart healthy diet if MD agreeable. LBM 01/04. No further nutrition intervention at this time. Will continue to monitor. Rec: 1. carb controlled/heart healthy diet this admit given elevated Glu, DM hx, and elevated lipid panel on admit 2. routine bowel care 3. daily accuchecks; Glu 199mg/dl 01/02 w/ hx T2DM on metformin 4. weekly wts Addendum: 01/05/21 at [address] Amended: Links added.
[2021-01-05] MEDS: busPIRone 5mg tablet PO SCH ×2 (07:51→20:39)
[2021-01-05] MEDS: risperiDONE 2mg tablet PO SCH ×2 (07:51→20:38)
[2021-01-05] MEDS: metFORMIN 500mg tablet PO SCH ×2 (07:51→17:53)
[2021-01-05] MEDS: cholecalciferol (vitamin D3) 1,000 unit (25mcg) tablet PO SCH (07:51)
[2021-01-05] MEDS: hydrocortisone 1% cream 28gm TP SCH ×2 (07:52→20:46)
[2021-01-05] MEDS: thiamine 100mg tablet PO SCH (07:52)
[2021-01-05] MEDS: folic acid 0.4mg tablet PO SCH (07:52)
[2021-01-05] MEDS: multivitamins, therapeutics tablet PO SCH (07:52)
[2021-01-05] MEDS: ketoconazole 2% cream 15gm TP SCH ×2 (07:52→20:46)
[2021-01-05] MEDS: divalproex 250mg tablet, delayed-release PO SCH ×2 (07:52→20:37)
[2021-01-05] MEDS: trihexyphenidyl HCL 5 MG tablet PO SCH ×3 (08:09→17:52)
--- NOTE | 2021-01-05 17:27 | NUR ---
Nursing Progress Note Client on involuntary status for GD. Report received from nurseLenin RN with use of SBAR. Why they are here: Pt admitted to [place] for Behavioral health from [facility] on LPS conservatorship. Pt is here for replacement. Pt had some sort of agitation at [facility]. He knocked a can of soda off a table. Pt not attending group therapy sessions. He threw a tray in the dining room. Pt has history of Schizoaffective, benign lipomatous, DM II, Pacemaker, benign prostatic hyperplasia. Pt cooperative with admission process. Assessment What has happened this shift: Pt spent time sleeping in the morning. He was observed watching TV with others in the afternoon in the main dayroom. He is compliant with treatment. S/I, H/I: denies A/VH: denies Sleep: slept in the morning ADL's: Needs prompting Group attendance: No Were meds taken: yes Any med S/E: none observed Mental Status Exam Appearance: Older man with long hair wearing green scrubs Eye contact: good Behavior: Cooperative Speech: Soft spoken and slow Mood: "I'm tired." Affect: Flat Thought process: Linear Thought Content: Future placement Cognition: poor concentration Insight: Fair Judgment: fair Interventions PRN's used: none Therapeutic interventions: Provided 1:1 assessment, therapeutic communication, active listening, medication administration/education/monitoring, behavior monitoring and intervention as needed; provided encouragement and positive reinforcement, maintained Q15 minute safety checks. Restraints/seclusion/emergency medication: N/A Justification of Continued Inpatient Treatment: Pt. requires interruption of current crisis, medication adjustments, and a safe and supportive environment. Patient is conserved with [facility] awaiting placement.
[2021-01-05 19:08] VITALS: BP 118/66
[2021-01-05 19:56] VITALS: BP 118/66
[2021-01-05] MEDS: tamsulosin 0.4mg capsule PO SCH (20:38)
[2021-01-05] MEDS: atorvastatin 20mg tablet PO SCH (20:38)
--- NOTE | 2021-01-06 01:43 | NUR ---
Nursing Progress Note: Client on a LPS Conservatorship Report received from nurse, Talha RIOS, with use of SBAR. Why they are here: Pt admitted to [place] for Behavioral health from [facility] on [facility] conservatorship. Pt is here for replacement. Pt had some sort of agitation at [facility]. He knocked a can of soda off a table. Pt not attending group therapy sessions. He threw a tray in the dining room. Pt has history of Schizoaffective, benign lipomatous, DM II, Pacemaker, benign prostatic hyperplasia. Pt cooperative with admission process. Diagnosis/presenting symptoms: Gravely Disabled Assessment What has happened this shift: Patient spent the shift going back and forth between his room and the activities room. Patient was walking better at beginning of shift but by end nurse had to provide support for patient to make it back to his room. Patient took all medications without issue. Patient slept all night without difficulty. S/I, H/I: denies A/VH: denies Sleep: see sleep assessment ADL's: Needs prompting Group attendance: Not attended Were meds taken: yes Any med S/E: none observed Mental Status Exam Appearance: clean with scruffy espinoza in hospital green scrubs Eye contact: good Behavior: Cooperative Speech: Soft spoken and slow Mood: Content Affect: Flat Thought process: linear, delusions Thought Content: clearing up his skin Cognition: impaired Insight: Fair Judgment: fair Interventions PRN's used: none Therapeutic interventions: Attempted 1:1 assessment, maintained a safe and supportive environment, therapeutic communication, active listening, medication administration/education/monitoring, behavior monitoring and intervention as needed; distraction, redirection, limit setting, reality orientation, provided encouragement and positive reinforcement, maintained Q15 minute safety checks. Restraints/seclusion/emergency medication: N/A Justification of Continued Inpatient Treatment: Pt. requires interruption of current crisis, medication adjustments, and a safe and supportive environment. Patient is conserved with [facility] awaiting placement.
[2021-01-06] MEDS: divalproex 250mg tablet, delayed-release PO SCH ×2 (07:31→20:15)
[2021-01-06] MEDS: metFORMIN 500mg tablet PO SCH ×2 (07:31→17:17)
[2021-01-06] MEDS: aspirin 81mg, enteric-coated 1 TAB TABLET.DR PO SCH (07:31)
[2021-01-06] MEDS: busPIRone 5mg tablet PO SCH ×2 (07:32→20:15)
[2021-01-06] MEDS: folic acid 0.4mg tablet PO SCH (07:33)
[2021-01-06] MEDS: multivitamins, therapeutics tablet PO SCH ×2 (07:33→07:37)
[2021-01-06] MEDS: cholecalciferol (vitamin D3) 1,000 unit (25mcg) tablet PO SCH (07:34)
[2021-01-06] MEDS: risperiDONE 2mg tablet PO SCH ×2 (07:34→20:15)
[2021-01-06] MEDS: ketoconazole 2% cream 15gm TP SCH (07:34)
[2021-01-06] MEDS: trihexyphenidyl HCL 5 MG tablet PO SCH (07:34)
[2021-01-06] MEDS: hydrocortisone 1% cream 28gm TP SCH (07:35)
[2021-01-06 07:41] VITALS: BP 108/60
[2021-01-06] MEDS: thiamine 100mg tablet PO SCH (08:00)
--- NOTE | 2021-01-06 16:31 | NUR ---
Nursing Progress Note Client on involuntary status for GD. Report received from nurse, Talha RN with use of SBAR. Why they are here: Pt admitted to [place] for Behavioral health from [facility] on LPS conservatorship. Pt is here for replacement. Pt had some sort of agitation at [facility]. He knocked a can of soda off a table. Pt not attending group therapy sessions. He threw a tray in the dining room. Pt has history of Schizoaffective, benign lipomatous, DM II, Pacemaker, benign prostatic hyperplasia. Pt cooperative with admission process. Assessment What has happened this shift: Received pt sleeping. Pt up for meals, snacks and medications. Pt requested assistance with getting his toe nails clipped. Pt's gait remains the same. He stayed up awhile to watch the football game. S/I, H/I: denies A/VH: denies Sleep: Napped on and off ADL's: Needs prompting Group attendance: No Were meds taken: yes Any med S/E: None noted or reported. Mental Status Exam Appearance: Older man with long hair wearing green scrubs Eye contact: good Behavior: Cooperative Speech: Soft spoken and slow Mood: "I'm fine." Affect: Flat Thought process: Linear Thought Content: Future placement Cognition: poor concentration Insight: Fair Judgment: fair Interventions PRN's used: none Therapeutic interventions: Provided 1:1 assessment, therapeutic communication, active listening, medication administration/education/monitoring, encouraged shower and clean clothing, behavior monitoring and intervention as needed; provided encouragement and positive reinforcement, maintained Q15 minute safety checks. Restraints/seclusion/emergency medication: N/A Justification of Continued Inpatient Treatment: Pt. requires interruption of current crisis, medication adjustments, and a safe and supportive environment. Patient is conserved with [facility] awaiting placement.
[2021-01-06 19:39] VITALS: BP 110/62
[2021-01-06] MEDS: tamsulosin 0.4mg capsule PO SCH (20:15)
[2021-01-06] MEDS: atorvastatin 20mg tablet PO SCH (20:15)
--- NOTE | 2021-01-06 22:11 | NUR ---
Nursing Progress Note Legal hold: [facility] Client on involuntary status for GD. Report received from nurse, GABRIEL Mandel with use of SBAR. Why they are here: Pt admitted to [place] for Behavioral health from [facility] on [facility] conservatorship. Pt is here for replacement. Pt had some sort of agitation at [facility]. He knocked a can of soda off a table. Pt not attending group therapy sessions. He threw a tray in the dining room. Pt has history of Schizoaffective, benign lipomatous, DM II, Pacemaker, benign prostatic hyperplasia. Pt cooperative with admission process. Assessment What has happened this shift: Patient observed walking in the [place]rey at the beginning of shift. Pleasant and cooperative with care; compliant with medication. Patient denies SI, HI, A/VH; does not appear to be responding to IS and no delusional thought content expressed. Patient ate HS snack and observed watching out of his bedroom prior to bed; observed sleeping and does not appear to be having difficulty. S/I, H/I: Denies A/VH: Denies Sleep: Refer to sleep assessment ADL's: Requires prompting Group attendance: NA Were meds taken: Yes Any med S/E: None observed or reported Mental Status Exam Appearance: Neat and appropriately dressed in green unit attire Eye contact: Good Behavior: Pleasant and cooperative Speech: Soft spoken and slow Mood: "Fine" Affect: Flat Thought process: Linear Thought Content: Meeting needs Cognition: poor concentration Insight: Fair Judgment: Fair Interventions PRN's used: None Therapeutic interventions: Provided 1:1 assessment, therapeutic communication, active listening, medication administration/education/monitoring, encouraged shower and clean clothing, behavior monitoring and intervention as needed; provided encouragement and positive reinforcement, maintained Q15 minute safety checks. Restraints/seclusion/emergency medication: N/A Justification of Continued Inpatient Treatment: Pt. requires interruption of current crisis, medication adjustments, and a safe and supportive environment. Patient is conserved with [facility] awaiting placement.
[2021-01-07 07:51] VITALS: BP 117/70
[2021-01-07] MEDS: thiamine 100mg tablet PO SCH (08:13)
[2021-01-07] MEDS: trihexyphenidyl HCL 5 MG tablet PO SCH ×2 (08:13→21:08)
[2021-01-07] MEDS: aspirin 81mg, enteric-coated 1 TAB TABLET.DR PO SCH (08:13)
[2021-01-07] MEDS: divalproex 250mg tablet, delayed-release PO SCH ×2 (08:13→21:10)
[2021-01-07] MEDS: folic acid 0.4mg tablet PO SCH (08:13)
[2021-01-07] MEDS: busPIRone 5mg tablet PO SCH ×2 (08:13→21:08)
[2021-01-07] MEDS: risperiDONE 2mg tablet PO SCH ×2 (08:14→21:09)
[2021-01-07] MEDS: cholecalciferol (vitamin D3) 1,000 unit (25mcg) tablet PO SCH (08:14)
[2021-01-07] MEDS: multivitamins, therapeutics tablet PO SCH (08:14)
[2021-01-07] MEDS: metFORMIN 500mg tablet PO SCH ×2 (08:14→17:32)
--- NOTE | 2021-01-07 18:09 | NUR ---
Nursing Progress Note Client on involuntary status for GD. Report received from nurse, GABRIEL Hernadez with use of SBAR. Why they are here: Pt admitted to [place] for Behavioral health from [facility] on LPS conservatorship. Pt is here for replacement. Pt had some sort of agitation at [facility]. He knocked a can of soda off a table. Pt not attending group therapy sessions. He threw a tray in the dining room. Pt has history of Schizoaffective, benign lipomatous, DM II, Pacemaker, benign prostatic hyperplasia. Pt cooperative with admission process. Assessment What has happened this shift: RN received pt. asleep in bed. Pt. awoke for breakfast and took all medications. Pt. went back to sleep after breakfast. 1:1 done at bedside, pt. is agitated and displays disorganized speech and rapidly talking about paranoid delusions of the government coming and taking our lives and freedom. S/I, H/I: denies A/VH: denies Sleep: Pt. slept 9 hrs on NOC shift and napped intermittently throughout the day. ADL's: Needs prompting Group attendance: No Were meds taken: yes Any med S/E: Denies Mental Status Exam Appearance: Disheveled but clean, with long hair and unshaven face. Pt. wearing casual attire. Eye contact: WNL Behavior: Cooperative Speech: Hyper verbal pressured speech. Mood: Anxious Affect: Flat Thought process: Disorganized, paranoid delusions. Thought Content: Government conspiracies. Cognition: A&Ox4 Insight: Fair Judgment: fair Interventions PRN's used: none Therapeutic interventions: Provided 1:1 assessment, therapeutic communication, active listening, medication administration/education/monitoring, encouraged shower and clean clothing, behavior monitoring and intervention as needed; provided encouragement and positive reinforcement, maintained Q15 minute safety checks. Restraints/seclusion/emergency medication: N/A Justification of Continued Inpatient Treatment: Pt. requires interruption of current crisis, medication adjustments, and a safe and supportive environment. Patient is conserved with [facility] awaiting placement.
[2021-01-07 19:55] VITALS: BP 110/70
[2021-01-07] MEDS: tamsulosin 0.4mg capsule PO SCH (21:09)
[2021-01-07] MEDS: atorvastatin 20mg tablet PO SCH (21:10)
[2021-01-07] MEDS: hydrocortisone 1% cream 28gm TP SCH (21:11)
[2021-01-07] MEDS: ketoconazole 2% cream 15gm TP SCH (21:11)
--- NOTE | 2021-01-07 22:38 | NUR ---
Nursing Progress Note Legal hold: [facility] Client on involuntary status for GD. Report received from nurse, GABRIEL Mandel with use of SBAR. Why they are here: Pt admitted to [place] for Behavioral health from [facility] on [facility] conservatorship. Pt is here for replacement. Pt had some sort of agitation at [facility]. He knocked a can of soda off a table. Pt not attending group therapy sessions. He threw a tray in the dining room. Pt has history of Schizoaffective, benign lipomatous, DM II, Pacemaker, benign prostatic hyperplasia. Pt cooperative with admission process. Assessment What has happened this shift: Patient observed ambulating the jeffrey at the beginning of shift. Pleasant and cooperative with care; compliant with medication. Patient denies SI, HI, A/VH; does not appear to be responding to IS and no delusional thought content expressed. Patient observed watching out his window prior to bed; observed sleeping and does not appear to be having difficulty. S/I, H/I: Denies A/VH: Denies Sleep: Refer to sleep assessment ADL's: Requires prompting Group attendance: NA Were meds taken: Yes Any med S/E: None observed or reported Mental Status Exam Appearance: Neat and appropriately dressed in green unit attire Eye contact: Good Behavior: Pleasant and cooperative Speech: Soft spoken and slow Mood: "OK" Affect: Flat Thought process: Linear Thought Content: Meeting needs Cognition: poor concentration Insight: Fair Judgment: Fair Interventions PRN's used: None Therapeutic interventions: Provided 1:1 assessment, therapeutic communication, active listening, medication administration/education/monitoring, encouraged shower and clean clothing, behavior monitoring and intervention as needed; provided encouragement and positive reinforcement, maintained Q15 minute safety checks. Restraints/seclusion/emergency medication: N/A Justification of Continued Inpatient Treatment: Pt. requires interruption of current crisis, medication adjustments, and a safe and supportive environment. Patient is conserved with [facility] awaiting placement.
[2021-01-08] MEDS: multivitamins, therapeutics tablet PO SCH (07:47)
[2021-01-08] MEDS: metFORMIN 500mg tablet PO SCH ×2 (07:47→17:59)
[2021-01-08] MEDS: cholecalciferol (vitamin D3) 1,000 unit (25mcg) tablet PO SCH (07:48)
[2021-01-08] MEDS: busPIRone 5mg tablet PO SCH ×2 (07:48→19:47)
[2021-01-08] MEDS: divalproex 250mg tablet, delayed-release PO SCH ×2 (07:48→19:48)
[2021-01-08] MEDS: trihexyphenidyl HCL 5 MG tablet PO SCH ×2 (07:49→19:47)
[2021-01-08] MEDS: aspirin 81mg, enteric-coated 1 TAB TABLET.DR PO SCH (07:49)
[2021-01-08] MEDS: folic acid 0.4mg tablet PO SCH (07:49)
[2021-01-08] MEDS: risperiDONE 2mg tablet PO SCH ×2 (07:49→19:48)
[2021-01-08] MEDS: thiamine 100mg tablet PO SCH (07:49)
[2021-01-08 07:59] VITALS: BP 162/90
--- NOTE | 2021-01-08 13:56 | NUR ---
Nursing Progress Note Client on involuntary status for GD. Report received from nurse, GABRIEL Donahue with use of SBAR. Why they are here: Pt admitted to [place] for Behavioral health from [facility] on LPS conservatorship. Pt is here for replacement. Pt had some sort of agitation at [facility]. He knocked a can of soda off a table. Pt not attending group therapy sessions. He threw a tray in the dining room. Pt has history of Schizoaffective, benign lipomatous, DM II, Pacemaker, benign prostatic hyperplasia. Pt cooperative with admission process. Assessment What has happened this shift: Pt was in bed this morning, lying awake, in no apparent distress. Pt denies having any issues or concerns and is cooperative for 1:1. Pt was seen ambulating in the halls with a slow shuffling gait. Pt accepted meds without issue. S/I, H/I: denies A/VH: denies Sleep: napped intermittently throughout the day. ADL's: Needs prompting Group attendance: No Were meds taken: yes Any med S/E: Denies Mental Status Exam Appearance: Disheveled but clean, with long hair and unshaven face. Pt. wearing casual attire. Eye contact: WNL Behavior: Cooperative Speech: Hyper verbal pressured speech. Mood: Anxious Affect: Flat Thought process: Disorganized, paranoid delusions. Thought Content: Government conspiracies. Cognition: A&Ox4 Insight: Fair Judgment: fair Interventions PRN's used: none Therapeutic interventions: Provided 1:1 assessment, therapeutic communication, active listening, medication administration/education/monitoring, encouraged shower and clean clothing, behavior monitoring and intervention as needed; provided encouragement and positive reinforcement, maintained Q15 minute safety checks. Restraints/seclusion/emergency medication: N/A Justification of Continued Inpatient Treatment: Pt. requires interruption of current crisis, medication adjustments, and a safe and supportive environment. Patient is conserved with [facility] awaiting placement.
--- NOTE | 2021-01-08 15:10 | NUR ---
Pt. attended group today. We talked about hearing voices again continues to read an article about coping strategies. We discussed what coping strategies they had success with in the past and what was one new coping strategy they would like to try. Pt. attended group but sat in the back and didn't say much. His demeanor was calm and compliant but he decline to verbally engage in the group but he listened to this Vice President [employer] and his peers and stayed for the entirety of the group. Kori Mandujano, EMERGENCY DEPARTMENT CLINICIAN
[2021-01-08 20:52] VITALS: BP 126/71
[2021-01-08] MEDS: hydrocortisone 1% cream 28gm TP SCH (21:00)
[2021-01-08] MEDS: atorvastatin 20mg tablet PO SCH (21:00)
[2021-01-08] MEDS: ketoconazole 2% cream 15gm TP SCH (21:00)
[2021-01-08] MEDS: tamsulosin 0.4mg capsule PO SCH (21:00)
--- NOTE | 2021-01-09 00:07 | NUR ---
Nursing Progress Note Client on involuntary status for GD. Report received from nurse, GABRIEL Donahue with use of SBAR. Why they are here: Pt admitted to [place] for Behavioral health from [facility] on LPS conservatorship. Pt is here for replacement. Pt had some sort of agitation at [facility]. He knocked a can of soda off a table. Pt not attending group therapy sessions. He threw a tray in the dining room. Pt has history of Schizoaffective, benign lipomatous, DM II, Pacemaker, benign prostatic hyperplasia. Pt cooperative with admission process. Assessment What has happened this shift: Pt spent time in the group room and in his room this evening. Pt has no behavior issues and does not have any complaints. Pt denies si/hi and is not observed responding to IS. Pt went to bed early and accepted all hs meds without issue. S/I, H/I: denies A/VH: denies Sleep: see sleep assessment ADL's: Needs prompting Group attendance: No Were meds taken: yes Any med S/E: Denies Mental Status Exam Appearance: Disheveled but clean, with long hair and unshaven face. Pt. wearing casual attire. Eye contact: WNL Behavior: Cooperative Speech: Hyper verbal pressured speech. Mood: Anxious Affect: Flat Thought process: Disorganized, paranoid delusions. Thought Content: Government conspiracies. Cognition: A&Ox4 Insight: Fair Judgment: fair Interventions PRN's used: none Therapeutic interventions: Provided 1:1 assessment, therapeutic communication, active listening, medication administration/education/monitoring, encouraged shower and clean clothing, behavior monitoring and intervention as needed; provided encouragement and positive reinforcement, maintained Q15 minute safety checks. Restraints/seclusion/emergency medication: N/A Justification of Continued Inpatient Treatment: Pt. requires interruption of current crisis, medication adjustments, and a safe and supportive environment. Patient is conserved with [facility] awaiting placement.
[2021-01-09] MEDS: multivitamins, therapeutics tablet PO SCH (08:26)
[2021-01-09] MEDS: trihexyphenidyl HCL 5 MG tablet PO SCH ×2 (08:26→20:12)
[2021-01-09] MEDS: cholecalciferol (vitamin D3) 1,000 unit (25mcg) tablet PO SCH (08:26)
[2021-01-09] MEDS: aspirin 81mg, enteric-coated 1 TAB TABLET.DR PO SCH (08:26)
[2021-01-09] MEDS: folic acid 0.4mg tablet PO SCH (08:26)
[2021-01-09] MEDS: thiamine 100mg tablet PO SCH (08:26)
[2021-01-09] MEDS: divalproex 250mg tablet, delayed-release PO SCH ×2 (08:27→20:13)
[2021-01-09] MEDS: metFORMIN 500mg tablet PO SCH ×2 (08:27→17:19)
[2021-01-09] MEDS: busPIRone 5mg tablet PO SCH ×2 (08:27→20:12)
[2021-01-09] MEDS: risperiDONE 2mg tablet PO SCH ×2 (08:27→20:13)
[2021-01-09 08:34] VITALS: BP 104/60
--- NOTE | 2021-01-09 14:08 | NUR ---
CM Presenting Issues: Per MDT consultation, pt's at baseline, MDT recommends placement services for pt. Interventions: Clinician informed [facility] office of pt's status and sent initial placement packet to them to facilitate pt's access to placement services. Plan: Clinician to monitor placement services. Nancie Gamez LCSW Addendum: 01/09/21 at 1431 by Nancie Gamez SS Amended: Links added.
--- NOTE | 2021-01-09 16:30 | NUR ---
Nursing Progress Note Client on involuntary status for GD. Report received from nurse, GABRIEL Donahue with use of SBAR. Why they are here: Pt admitted to [place] for Behavioral health from [facility] on LPS conservatorship. Pt is here for replacement. Pt had some sort of agitation at [facility]. He knocked a can of soda off a table. Pt not attending group therapy sessions. He threw a tray in the dining room. Pt has history of Schizoaffective, benign lipomatous, DM II, Pacemaker, benign prostatic hyperplasia. Pt cooperative with admission process. Assessment What has happened this shift: Patient resting quietly in bed at start of shift. Eats meals in community room. Interacts very little with staff and peers. [place] appears somewhat weak AEB patient shuffling and taking very small steps. Cooperative with medications and 1:1 assessment. Does not like to engage in conversation. Refuses help with ambulation even when he appears stuck. Appears somewhat paranoid, guarded. S/I, H/I: Denies A/VH: Denies Sleep: 8.5 hours per NOC. Naps frequently throughout the day. ADL's: Needs prompting Group attendance: Attends part of group but only stays for a few minutes Were meds taken: yes Any med S/E: None noted or reported. Mental Status Exam Appearance: Disheveled but clean, with long hair and unshaven face. Pt. wearing green unit scrubs. Eye contact: Good Behavior: Cooperative, guarded, isolative Speech: quiet, scant Mood: Good. Appears anxious Affect: appears anxious. 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 Cognition: A&Ox4 Insight: poor Judgment: poor Interventions PRN's used: none Therapeutic interventions: Provided 1:1 assessment, therapeutic communication, active listening, medication administration/education/monitoring, encouraged shower and clean clothing, behavior monitoring and intervention as needed; provided encouragement and positive reinforcement, maintained Q15 minute safety checks. Restraints/seclusion/emergency medication: N/A Justification of Continued Inpatient Treatment: Pt. requires interruption of current crisis, medication adjustments, and a safe and supportive environment. Patient is conserved with [facility] awaiting placement.
[2021-01-09 19:34] VITALS: BP 101/50
[2021-01-09] MEDS: atorvastatin 20mg tablet PO SCH (20:12)
[2021-01-09] MEDS: tamsulosin 0.4mg capsule PO SCH (20:12)
[2021-01-09] MEDS: hydrocortisone 1% cream 28gm TP SCH (20:15)
[2021-01-09] MEDS: ketoconazole 2% cream 15gm TP SCH (20:15)
--- NOTE | 2021-01-10 02:49 | NUR ---
Nursing Progress Note: [place] Client on involuntary status for GD. Report received from nurse, Lenin RIOS with use of SBAR. Why they are here: Pt admitted to [place] for Behavioral health from [facility] on LPS conservatorship. Pt is here for replacement. Pt had some sort of agitation at [facility]. He knocked a can of soda off a table. Pt not attending group therapy sessions. He threw a tray in the dining room. Pt has history of Schizoaffective, benign lipomatous, DM II, Pacemaker, benign prostatic hyperplasia. Pt cooperative with admission process. Assessment What has happened this shift: Patient was up in rec room watching TV with peers. Pt calm and cooperative with care. Denies MH symptoms and states he had a so-so day. [place] appears somewhat weak AEB patient shuffling and taking very small steps. Cooperative with medications and 1:1 assessment. Does not like to engage in conversation. Appears somewhat paranoid, guarded. S/I, H/I: Denies A/VH: Denies Sleep: ADL's: Needs prompting Group attendance: Were meds taken: yes Any med S/E: None noted or reported. Mental Status Exam Appearance: Disheveled but clean, with long hair and unshaven face. Pt. wearing green unit scrubs. Eye contact: Good Behavior: Cooperative, guarded, isolative Speech: quiet, scant Mood: Good. Appears anxious Affect: appears anxious. Thought process: Linear Thought Content: Seems somewhat paranoid Cognition: A&Ox4 Insight: poor Judgment: poor Interventions PRN's used: none Therapeutic interventions: Provided 1:1 assessment, therapeutic communication, active listening, medication administration/education/monitoring, encouraged shower and clean clothing, behavior monitoring and intervention as needed; provided encouragement and positive reinforcement, maintained Q15 minute safety checks. Restraints/seclusion/emergency medication: N/A Justification of Continued Inpatient Treatment: Pt. requires interruption of current crisis, medication adjustments, and a safe and supportive environment. Patient is conserved with [facility] awaiting placement.
[2021-01-10] MEDS: cholecalciferol (vitamin D3) 1,000 unit (25mcg) tablet PO SCH (07:22)
[2021-01-10] MEDS: multivitamins, therapeutics tablet PO SCH (07:22)
[2021-01-10] MEDS: thiamine 100mg tablet PO SCH (07:22)
[2021-01-10] MEDS: folic acid 0.4mg tablet PO SCH (07:22)
[2021-01-10] MEDS: risperiDONE 2mg tablet PO SCH ×2 (07:22→20:17)
[2021-01-10] MEDS: busPIRone 5mg tablet PO SCH ×2 (07:23→20:17)
[2021-01-10] MEDS: aspirin 81mg, enteric-coated 1 TAB TABLET.DR PO SCH (07:23)
[2021-01-10] MEDS: divalproex 250mg tablet, delayed-release PO SCH ×2 (07:23→20:17)
[2021-01-10] MEDS: trihexyphenidyl HCL 5 MG tablet PO SCH ×2 (07:23→20:17)
[2021-01-10] MEDS: metFORMIN 500mg tablet PO SCH ×2 (07:23→17:15)
[2021-01-10 08:00] VITALS: BP 99/63
--- NOTE | 2021-01-10 18:16 | NUR ---
Nursing Progress Note Client on involuntary status for GD. Report received from nurse, GABRIEL Donhaue with use of SBAR. Why they are here: Pt admitted to [place] for Behavioral health from [facility] on LPS conservatorship. Pt is here for replacement. Pt had some sort of agitation at [facility]. He knocked a can of soda off a table. Pt not attending group therapy sessions. He threw a tray in the dining room. Pt has history of Schizoaffective, benign lipomatous, DM II, Pacemaker, benign prostatic hyperplasia. Pt cooperative with admission process. Assessment What has happened this shift: Patient resting quietly in bed at start of shift. Eats meals in community room. Interacts very little with staff and peers. [place] is weak and shuffled. Cooperative with medications and 1:1. Appears somewhat paranoid and anxious. Speech is disorganized. S/I, H/I: Denies A/VH: Denies Sleep: see sleep assessment, naps on and off throughout the day ADL's: Needs prompting Group attendance: yes Were meds taken: yes Any med S/E: None noted or reported. Mental Status Exam Appearance: Disheveled long messy hair and unshaven face. Pt. wearing green unit scrubs. Eye contact: Good Behavior: Cooperative, guarded, isolative Speech: quiet, scant Mood: Good. Appears anxious Affect: appears anxious. Thought process: Disorganized Thought Content: Seems somewhat paranoid. Difficult to assess due to disorganized speech Cognition: A&Ox4 Insight: poor Judgment: poor Interventions PRN's used: none Therapeutic interventions: Provided 1:1 assessment, therapeutic communication, active listening, medication administration/education/monitoring, encouraged shower and clean clothing, behavior monitoring and intervention as needed; provided encouragement and positive reinforcement, maintained Q15 minute safety checks. Restraints/seclusion/emergency medication: N/A Justification of Continued Inpatient Treatment: Pt. requires interruption of current crisis, medication adjustments, and a safe and supportive environment. Patient is conserved with [facility] awaiting placement.
[2021-01-10 20:00] VITALS: BP 95/51
[2021-01-10] MEDS: atorvastatin 20mg tablet PO SCH (20:17)
[2021-01-10] MEDS: tamsulosin 0.4mg capsule PO SCH (20:17)
[2021-01-10] MEDS: hydrocortisone 1% cream 28gm TP SCH (20:18)
[2021-01-10] MEDS: ketoconazole 2% cream 15gm TP SCH (20:18)
--- NOTE | 2021-01-11 01:33 | NUR ---
Nursing Progress Note Tarik Client on involuntary status for GD. Report received from nurse, GABRIEL Phelps with use of SBAR. Why they are here: Pt admitted to [place] for Behavioral health from [facility] on LPS conservatorship. Pt is here for replacement. Pt had some sort of agitation at [facility]. He knocked a can of soda off a table. Pt not attending group therapy sessions. He threw a tray in the dining room. Pt has history of Schizoaffective, benign lipomatous, DM II, Pacemaker, benign prostatic hyperplasia. Pt cooperative with admission process. Assessment What has happened this shift: Patient in rec room watching TV with peers at change of shift. Pt calm and cooperative with assessment. Denies MH symptoms and states he had a so-so day. Pt up for snacks and took all HS medications. Pt stated this was the longest day of his life and was ready for bed. S/I, H/I: Denies A/VH: Denies Sleep: ADL's: Needs prompting Group attendance: yes Were meds taken: yes Any med S/E: None noted or reported. Mental Status Exam Appearance: Disheveled long messy hair and unshaven face. Pt. wearing green unit scrubs. Eye contact: Good Behavior: Cooperative, guarded, isolative Speech: quiet, scant Mood: Good. Appears anxious Affect: appears anxious. Thought process: Disorganized Thought Content: Seems somewhat paranoid. Difficult to assess due to disorganized speech Cognition: A&Ox4 Insight: poor Judgment: poor Interventions PRN's used: none Therapeutic interventions: Provided 1:1 assessment, therapeutic communication, active listening, medication administration/education/monitoring, encouraged shower and clean clothing, behavior monitoring and intervention as needed; provided encouragement and positive reinforcement, maintained Q15 minute safety checks. Restraints/seclusion/emergency medication: N/A Justification of Continued Inpatient Treatment: Pt. requires interruption of current crisis, medication adjustments, and a safe and supportive environment. Patient is conserved with [facility] awaiting placement.
[2021-01-11] MEDS: aspirin 81mg, enteric-coated 1 TAB TABLET.DR PO SCH (07:44)
[2021-01-11] MEDS: thiamine 100mg tablet PO SCH (07:44)
[2021-01-11] MEDS: multivitamins, therapeutics tablet PO SCH (07:44)
[2021-01-11] MEDS: divalproex 250mg tablet, delayed-release PO SCH ×2 (07:44→20:11)
[2021-01-11] MEDS: metFORMIN 500mg tablet PO SCH ×2 (07:45→17:40)
[2021-01-11] MEDS: risperiDONE 2mg tablet PO SCH ×2 (07:45→20:11)
[2021-01-11] MEDS: folic acid 0.4mg tablet PO SCH (07:45)
[2021-01-11] MEDS: busPIRone 5mg tablet PO SCH ×2 (07:45→20:11)
[2021-01-11] MEDS: cholecalciferol (vitamin D3) 1,000 unit (25mcg) tablet PO SCH (07:45)
[2021-01-11 08:00] VITALS: BP 102/62
[2021-01-11] MEDS: trihexyphenidyl HCL 5 MG tablet PO SCH ×2 (08:44→20:11)
--- NOTE | 2021-01-11 14:53 | NUR ---
Nursing Progress Note Client on involuntary status for GD. Report received from nurse, Mehnaz Fritz RN with use of SBAR. Why they are here: Pt admitted to [place] for Behavioral health from [facility] on LPS conservatorship. Pt is here for replacement. Pt had some sort of agitation at [facility]. He knocked a can of soda off a table. Pt not attending group therapy sessions. He threw a tray in the dining room. Pt has history of Schizoaffective, benign lipomatous, DM II, Pacemaker, benign prostatic hyperplasia. Pt cooperative with admission process. Assessment What has happened this shift: Patient was asleep at change of shift and RN awoke patient to give him his medication. Patient was pleasant and cooperative. Patient denies suicidal ideation. Patient denies hearing voices "today". Patient says he is not depressed and is doing fine. Patient does not appear to have good insight into his situation. Patient was seen walking the halls holding onto the rail. Patient eventually sat on the floor because he was tired. Lico Frey PA sat on the floor with the patient and evaluated him. Patient mostly isolates. S/I, H/I: Denies A/VH: Denies Sleep: Took several naps today ADL's: Needs prompting Group attendance: No Were meds taken: yes Any med S/E: None noted or reported. Mental Status Exam Appearance: Disheveled hair. Looks unkempt. Pt. wearing green unit scrubs. Eye contact: Good Behavior: Cooperative, Isolates Speech: Soft spoken, Poverty of Speech Mood: Pleasant Affect: Flat Thought process: Somewhat Disorganized Thought Content: Difficult to ascertain Cognition: A&Ox4 Insight: poor Judgment: poor Interventions PRN's used: none Therapeutic interventions: Provided 1:1 assessment, therapeutic communication, active listening, medication administration/education/monitoring, encouraged shower and clean clothing, behavior monitoring and intervention as needed; provided encouragement and positive reinforcement, maintained Q15 minute safety checks. Restraints/seclusion/emergency medication: N/A Justification of Continued Inpatient Treatment: Pt. requires interruption of current crisis, medication adjustments, and a safe and supportive environment. Patient is conserved with [facility] awaiting placement.
[2021-01-11 20:00] VITALS: BP 96/51
[2021-01-11] MEDS: hydrocortisone 1% cream 28gm TP SCH (20:11)
[2021-01-11] MEDS: ketoconazole 2% cream 15gm TP SCH (20:11)
[2021-01-11] MEDS: atorvastatin 20mg tablet PO SCH (20:11)
[2021-01-11] MEDS: tamsulosin 0.4mg capsule PO SCH (20:11)
--- NOTE | 2021-01-12 03:18 | NUR ---
Nursing Progress Note: Tarik Client on involuntary status for GD. Report received from nurse, Kimberley RIOS with use of SBAR. Why they are here: Pt admitted to [place] for Behavioral health from [facility] on LPS conservatorship. Pt is here for replacement. Pt had some sort of agitation at [facility]. He knocked a can of soda off a table. Pt not attending group therapy sessions. He threw a tray in the dining room. Pt has history of Schizoaffective, benign lipomatous, DM II, Pacemaker, benign prostatic hyperplasia. Pt cooperative with admission process. Assessment What has happened this shift: Patient was resting on his bed at change of shift. Pt calm and cooperative with care. Stated he had a good day and was doing alright. Pt denied all MH symptoms and took all HS medication without issues. Pt up for snacks and then retired to bed shortly after. S/I, H/I: Denies A/VH: Denies Sleep: ADL's: Needs prompting Group attendance: No Were meds taken: yes Any med S/E: None noted or reported. Mental Status Exam Appearance: Disheveled hair. Looks unkempt. Pt. wearing green unit scrubs. Eye contact: Good Behavior: Cooperative, Isolates Speech: Soft spoken, Poverty of Speech Mood: Pleasant Affect: Flat Thought process: Somewhat Disorganized Thought Content: Difficult to ascertain Cognition: A&Ox4 Insight: poor Judgment: poor Interventions PRN's used: none Therapeutic interventions: Provided 1:1 assessment, therapeutic communication, active listening, medication administration/education/monitoring, encouraged shower and clean clothing, behavior monitoring and intervention as needed; provided encouragement and positive reinforcement, maintained Q15 minute safety checks. Restraints/seclusion/emergency medication: N/A Justification of Continued Inpatient Treatment: Pt. requires interruption of current crisis, medication adjustments, and a safe and supportive environment. Patient is conserved with [facility] awaiting placement.
[2021-01-12 08:00] VITALS: BP 95/53
[2021-01-12] MEDS: multivitamins, therapeutics tablet PO SCH (08:05)
[2021-01-12] MEDS: trihexyphenidyl HCL 5 MG tablet PO SCH ×2 (08:05→20:15)
[2021-01-12] MEDS: thiamine 100mg tablet PO SCH (08:05)
[2021-01-12] MEDS: folic acid 0.4mg tablet PO SCH (08:05)
[2021-01-12] MEDS: aspirin 81mg, enteric-coated 1 TAB TABLET.DR PO SCH (08:05)
[2021-01-12] MEDS: divalproex 250mg tablet, delayed-release PO SCH ×2 (08:06→20:15)
[2021-01-12] MEDS: metFORMIN 500mg tablet PO SCH ×2 (08:06→17:13)
[2021-01-12] MEDS: busPIRone 5mg tablet PO SCH ×2 (08:06→20:15)
[2021-01-12] MEDS: risperiDONE 2mg tablet PO SCH ×2 (08:06→20:15)
[2021-01-12] MEDS: cholecalciferol (vitamin D3) 1,000 unit (25mcg) tablet PO SCH (08:06)
--- NOTE | 2021-01-12 16:47 | NUR ---
Nursing Progress Note Tarik Client on involuntary status for GD. Report received from nurse, Mehnaz Fritz RN with use of SBAR. Why they are here: Pt admitted to [place] for Behavioral health from [facility] on LPS conservatorship. Pt is here for replacement. Pt had some sort of agitation at [facility]. He knocked a can of soda off a table. Pt not attending group therapy sessions. He threw a tray in the dining room. Pt has history of Schizoaffective, benign lipomatous, DM II, Pacemaker, benign prostatic hyperplasia. Pt cooperative with admission process. Assessment What has happened this shift: Received Pt in bed sleeping without distress at the beginning of the shift. Pt woke and was cooperative with vitals and returned to sleep. He got up for breakfast and took AM meds w/o issue. Pt isolated to bed and napped most of morning. After lunch he was talking to himself in an angry tone and sounded like he was talking to another person. Pt overall cooperative and moderately cautious/guarded today. [facility], and was taken with others. S/I, H/I: Denies A/VH: Denies Sleep: Napped in AM ADL's: Needs prompting Group attendance: No Were meds taken: Yes Any med S/E: None noted or reported. Mental Status Exam Appearance: Disheveled hair. Looks unkempt. Pt. wearing green unit scrubs. In own clothes in afternoon+ Eye contact: Good Behavior: Cooperative, Isolates Speech: Soft spoken, Poverty of Speech Mood: Pleasant Affect: Flat Thought process: Somewhat Disorganized Thought Content: Getting needs met Cognition: A&Ox4 Insight: poor Judgment: poor Interventions PRN's used: none Therapeutic interventions: Provided 1:1 assessment, therapeutic communication, active listening, medication administration/education/monitoring, encouraged shower and clean clothing, behavior monitoring and intervention as needed; provided encouragement and positive reinforcement, maintained Q15 minute safety checks. Restraints/seclusion/emergency medication: N/A Justification of Continued Inpatient Treatment: Pt. requires interruption of current crisis, medication adjustments, and a safe and supportive environment. Patient is conserved with [facility] awaiting placement.
[2021-01-12 20:00] VITALS: BP 89/48
[2021-01-12] MEDS: tamsulosin 0.4mg capsule PO SCH (20:15)
[2021-01-12] MEDS: atorvastatin 20mg tablet PO SCH (20:17)
[2021-01-12] MEDS: hydrocortisone 1% cream 28gm TP SCH (20:20)
[2021-01-12] MEDS: ketoconazole 2% cream 15gm TP SCH (20:21)
--- NOTE | 2021-01-13 00:18 | NUR ---
Nursing Progress Note Tarik Client on involuntary status for GD. Report received from nurse, Talha RN with use of SBAR. Why they are here: Pt admitted to [place] for Behavioral health from [facility] on LPS conservatorship. Pt is here for replacement. Pt had some sort of agitation at [facility]. He knocked a can of soda off a table. Pt not attending group therapy sessions. He threw a tray in the dining room. Pt has history of Schizoaffective, benign lipomatous, DM II, Pacemaker, benign prostatic hyperplasia. Pt cooperative with admission process. Assessment What has happened this shift: Received Pt lying in bed resting at change of shift. Pt friendly and cooperative with care. Denies MH symptoms and states he is so-so with slight depression. He stated that he was homeless in for a while before ending up here in [place] where being homeless is really tough. He expressed wanting to be in a locked facility because he would be safer there. He states he isnt violent nor does he act out. Pt declined snacks, took all medications and retired to bed. S/I, H/I: Denies A/VH: Denies Sleep: ADL's: Needs prompting Group attendance: No Were meds taken: Yes Any med S/E: None noted or reported. Mental Status Exam Appearance: Disheveled hair. Looks unkempt. Pt. wearing green unit scrubs. Eye contact: Good Behavior: Cooperative, Isolates Speech: Soft spoken, Poverty of Speech Mood: Pleasant Affect: Flat Thought process: Somewhat Disorganized Thought Content: Getting needs met Cognition: A&Ox4 Insight: poor Judgment: poor Interventions PRN's used: none Therapeutic interventions: Provided 1:1 assessment, therapeutic communication, active listening, medication administration/education/monitoring, encouraged shower and clean clothing, behavior monitoring and intervention as needed; provided encouragement and positive reinforcement, maintained Q15 minute safety checks. Restraints/seclusion/emergency medication: N/A Justification of Continued Inpatient Treatment: Pt. requires interruption of current crisis, medication adjustments, and a safe and supportive environment. Patient is conserved with [facility] awaiting placement.
[2021-01-13] MEDS: divalproex 250mg tablet, delayed-release PO SCH ×2 (07:31→20:53)
[2021-01-13] MEDS: trihexyphenidyl HCL 5 MG tablet PO SCH ×2 (07:31→20:53)
[2021-01-13] MEDS: metFORMIN 500mg tablet PO SCH ×2 (07:32→17:18)
[2021-01-13] MEDS: folic acid 0.4mg tablet PO SCH (07:32)
[2021-01-13] MEDS: risperiDONE 2mg tablet PO SCH ×2 (07:32→20:53)
[2021-01-13] MEDS: multivitamins, therapeutics tablet PO SCH (07:32)
[2021-01-13] MEDS: aspirin 81mg, enteric-coated 1 TAB TABLET.DR PO SCH (07:32)
[2021-01-13] MEDS: busPIRone 5mg tablet PO SCH ×2 (07:32→20:52)
[2021-01-13] MEDS: thiamine 100mg tablet PO SCH (07:32)
[2021-01-13] MEDS: cholecalciferol (vitamin D3) 1,000 unit (25mcg) tablet PO SCH (07:33)
[2021-01-13 08:00] VITALS: BP 102/66
--- NOTE | 2021-01-13 11:37 | NUR ---
Patient in recreational room watching TV.
--- NOTE | 2021-01-13 12:45 | NUR ---
Reassessment: Pt continues w/ adequate PO intake, mostly 100% of meals on CCHO/Heart Healthy diet meeting needs. Pt compliant w/ meds. LBM 01/10. No new nutrition intervention implemented at this time, will continue to monitor. Rec: 1. Continue carb controlled/heart healthy diet as tolerated 2. routine bowel care 3. daily accuchecks; Glu 199mg/dl 01/02 w/ hx T2DM on metformin 4. weekly wts Addendum: 01/13/21 at [address] Amended: Links added.
--- NOTE | 2021-01-13 14:07 | NUR ---
Nursing Progress Note: Tarik Client on involuntary status for GD. Report received from nurse, GABRIEL De La Cruz with use of SBAR. Why they are here: Pt admitted to [place] for Behavioral health from [facility] on LPS conservatorship. Pt is here for placement. Pt had some sort of agitation at [facility]. He knocked a can of soda off a table. Pt not attending group therapy sessions. He threw a tray in the dining room. Pt has history of Schizoaffective, benign lipomatous, DM II, Pacemaker, benign prostatic hyperplasia. Pt cooperative with admission process. Assessment What has happened this shift: Assumed care of patient. Patient sleeping in bed. Easily awaken to voice. Patient pleasant and cooperative and stated he had a good night and slept well. Patient up and out of bed today in recreation room watching tv with other patient's. Patient participated snacks and consuming meals in dining room with others. Patient sat by window in room looking outside. No s/s of apparent acute distress. All meds taken. S/I, H/I: Denies A/VH: Denies Sleep: ADL's: Needs prompting Group attendance: No. No group on weekends. Were meds taken: yes Any med S/E: None noted or reported. Mental Status Exam Appearance: Disheveled hair. Looks unkempt. Pt. wearing green unit scrubs. Eye contact: Good Behavior: Cooperative, up and ambulating. Sitting in rec room to watch football. Speech: Soft spoken, Poverty of Speech Mood: Pleasant Affect: Flat Thought process: Somewhat Disorganized Thought Content: Difficult to ascertain Cognition: A&Ox4 Insight: poor Judgment: poor Interventions PRN's used: none Therapeutic interventions: Provided 1:1 assessment, therapeutic communication, active listening, medication administration/education/monitoring, encouraged shower and clean clothing, behavior monitoring and intervention as needed; provided encouragement and positive reinforcement, maintained Q15 minute safety checks. Restraints/seclusion/emergency medication: N/A Justification of Continued Inpatient Treatment: Pt. requires interruption of current crisis, medication adjustments, and a safe and supportive environment. Patient is conserved with [facility] awaiting placement.
[2021-01-13 20:04] VITALS: BP 104/54
[2021-01-13] MEDS: ketoconazole 2% cream 15gm TP SCH (20:52)
[2021-01-13] MEDS: hydrocortisone 1% cream 28gm TP SCH (20:52)
[2021-01-13] MEDS: atorvastatin 20mg tablet PO SCH (20:53)
[2021-01-13] MEDS: tamsulosin 0.4mg capsule PO SCH (20:53)
--- NOTE | 2021-01-14 01:14 | NUR ---
Nursing Progress Note: Client on involuntary status for GD. Report received from nurse, GABRIEL Chu with use of SBAR. Why they are here: Pt admitted to [place] for Behavioral health from [facility] on LPS conservatorship. Pt is here for placement. Pt had some sort of agitation at [facility]. He knocked a can of soda off a table. Pt not attending group therapy sessions. He threw a tray in the dining room. Pt has history of Schizoaffective, benign lipomatous, DM II, Pacemaker, benign prostatic hyperplasia. Pt cooperative with admission process. Assessment What has happened this shift: Pt ambulated in je[place], slow shuffling gait, flat affect. Pt speech is slow and soft but understandable. No s/s of apparent acute distress. Pt pleasant and cooperative. All meds taken. S/I, H/I: Denies A/VH: Denies Sleep: Asleep at this time ADL's: Needs prompting Group attendance: NA Were meds taken: yes Any med S/E: None noted or reported. Mental Status Exam Appearance: Disheveled hair. Looks unkempt. Pt. wearing green unit scrubs. Eye contact: Good Behavior: Cooperative, up and ambulating. Speech: Soft spoken, Poverty of Speech Mood: Pleasant Affect: Flat Thought process: Somewhat Disorganized Thought Content: Difficult to ascertain Cognition: A&Ox4 Insight: poor Judgment: poor Interventions PRN's used: none Therapeutic interventions: Provided 1:1 assessment, therapeutic communication, active listening, medication administration/education/monitoring, encouraged shower and clean clothing, behavior monitoring and intervention as needed; provided encouragement and positive reinforcement, maintained Q15 minute safety checks. Restraints/seclusion/emergency medication: N/A Justification of Continued Inpatient Treatment: Pt. requires interruption of current crisis, medication adjustments, and a safe and supportive environment. Patient is conserved with [facility] awaiting placement.
[2021-01-14] MEDS: metFORMIN 500mg tablet PO SCH ×2 (07:44→17:52)
[2021-01-14] MEDS: busPIRone 5mg tablet PO SCH ×2 (07:44→20:16)
[2021-01-14] MEDS: risperiDONE 2mg tablet PO SCH ×2 (07:44→20:16)
[2021-01-14] MEDS: cholecalciferol (vitamin D3) 1,000 unit (25mcg) tablet PO SCH (07:44)
[2021-01-14] MEDS: aspirin 81mg, enteric-coated 1 TAB TABLET.DR PO SCH (07:44)
[2021-01-14] MEDS: folic acid 0.4mg tablet PO SCH (07:45)
[2021-01-14] MEDS: multivitamins, therapeutics tablet PO SCH (07:45)
[2021-01-14] MEDS: divalproex 250mg tablet, delayed-release PO SCH ×2 (07:45→20:16)
[2021-01-14] MEDS: thiamine 100mg tablet PO SCH (07:45)
[2021-01-14 08:06] VITALS: BP 97/60
[2021-01-14] MEDS: trihexyphenidyl HCL 5 MG tablet PO SCH ×2 (08:22→20:16)
--- NOTE | 2021-01-14 15:31 | NUR ---
Pt. attended group today. Todays group was about the difference between Growth Mindset vs. Fixed Mindset. We learned about the differences and then discussed what aspect of developing a growth mindset they wanted to work on. Pt. was in a pleasant mood, he sat and listened to what was going on in the group but did not want to share his thoughts with the group. His demeanor was calm and compliant. SHAHANA DormanW
--- NOTE | 2021-01-14 16:34 | NUR ---
Nursing Progress Note: Client on involuntary status for GD. Report received from nurse, GABRIEL Priest with use of SBAR. Why they are here: Pt admitted to [place] for Behavioral health from [facility] on LPS conservatorship. Pt is here for placement. Pt had some sort of agitation at [facility]. He knocked a can of soda off a table. Pt not attending group therapy sessions. He threw a tray in the dining room. Pt has history of Schizoaffective, benign lipomatous, DM II, Pacemaker, benign prostatic hyperplasia. Pt cooperative with admission process. Assessment What has happened this shift: Patient was asleep at change of shift and awoken for breakfast. Patient is pleasant. Patient denies depression. Patient was curious if we heard anything about where patient is going. RN advised patient that we haven't heard anything yet. Patient denies SI/HI and denies A/V hallucinations. Patient shuffles around the unit usually using the handrails. Patient is social with his peers but also spends time alone in his room. S/I, H/I: Denies A/VH: Denies Sleep:Naps during the day. ADL's: Needs prompting Group attendance: Yes Were meds taken: Yes Any med S/E: None noted or reported. Mental Status Exam Appearance: Messy hair and wearing green scrubs Eye contact: Good Behavior: Pleasant and cooperative Speech: Soft spoken Mood: Pleasant Affect: Flat Thought process: Somewhat Disorganized Thought Content: Difficult to ascertain Cognition: A&Ox4 Insight: poor Judgment: poor Interventions PRN's used: none Therapeutic interventions: Provided 1:1 assessment, therapeutic communication, active listening, medication administration/education/monitoring, encouraged shower and clean clothing, behavior monitoring and intervention as needed; provided encouragement and positive reinforcement, maintained Q15 minute safety checks. Restraints/seclusion/emergency medication: N/A Justification of Continued Inpatient Treatment: Pt. requires interruption of current crisis, medication adjustments, and a safe and supportive environment. Patient is conserved with [facility] awaiting placement.
[2021-01-14] MEDS: atorvastatin 20mg tablet PO SCH (20:16)
[2021-01-14] MEDS: tamsulosin 0.4mg capsule PO SCH (20:16)
[2021-01-14 20:37] VITALS: BP 96/54
[2021-01-14] MEDS: hydrocortisone 1% cream 28gm TP SCH (21:02)
[2021-01-14] MEDS: ketoconazole 2% cream 15gm TP SCH (21:02)
--- NOTE | 2021-01-15 01:55 | NUR ---
Nursing Progress Note: Client on involuntary status for GD. Report received from nurse, GABRIEL Phelps with use of SBAR. Why they are here: Pt admitted to [place] for Behavioral health from [facility] on LPS conservatorship. Pt is here for placement. Pt had some sort of agitation at [facility]. He knocked a can of soda off a table. Pt not attending group therapy sessions. He threw a tray in the dining room. Pt has history of Schizoaffective, benign lipomatous, DM II, Pacemaker, benign prostatic hyperplasia. Pt cooperative with admission process. Assessment What has happened this shift: The patient was seen in his room for 1:1. He reports that he's doing ok and wonders where he "will be housed." Assured him he will know when there is a destination. He denies SI/HI, and AV/H. He made no delusional statements. Patient shuffles down to group room for snacks and HS medications before slowly returning to his room. ' S/I, H/I: Denies A/VH: Denies Sleep: See sleep assessments ADL's: Needs prompting Group attendance: NA Were meds taken: yes Any med S/E: None noted or reported. Mental Status Exam Appearance: Disheveled hair. Looks unkempt, bad teeth. Pt. wearing green unit scrubs. Eye contact: Good Behavior: Cooperative, up and ambulating, quiet. Speech: Soft spoken, Poverty of Speech Mood: Pleasant Affect: Flat Thought process: Somewhat Disorganized Thought Content: Difficult to ascertain Cognition: A&Ox4 Insight: poor Judgment: poor Interventions PRN's used: none Therapeutic interventions: Provided 1:1 assessment, therapeutic communication, active listening, medication administration/education/monitoring, encouraged shower and clean clothing, behavior monitoring and intervention as needed; provided encouragement and positive reinforcement, maintained Q15 minute safety checks. Restraints/seclusion/emergency medication: N/A Justification of Continued Inpatient Treatment: Pt. requires interruption of current crisis, medication adjustments, and a safe and supportive environment. Patient is conserved with [facility] awaiting placement.
[2021-01-15] MEDS: folic acid 0.4mg tablet PO SCH (07:38)
[2021-01-15] MEDS: trihexyphenidyl HCL 5 MG tablet PO SCH ×2 (07:38→20:20)
[2021-01-15] MEDS: aspirin 81mg, enteric-coated 1 TAB TABLET.DR PO SCH (07:38)
[2021-01-15] MEDS: multivitamins, therapeutics tablet PO SCH (07:38)
[2021-01-15] MEDS: thiamine 100mg tablet PO SCH (07:39)
[2021-01-15] MEDS: metFORMIN 500mg tablet PO SCH ×2 (07:39→17:36)
[2021-01-15] MEDS: cholecalciferol (vitamin D3) 1,000 unit (25mcg) tablet PO SCH (07:39)
[2021-01-15] MEDS: busPIRone 5mg tablet PO SCH ×2 (07:39→20:20)
[2021-01-15] MEDS: risperiDONE 2mg tablet PO SCH ×2 (07:39→20:20)
[2021-01-15] MEDS: divalproex 250mg tablet, delayed-release PO SCH ×2 (07:39→20:20)
[2021-01-15 08:00] VITALS: BP 105/66
--- NOTE | 2021-01-15 14:24 | NUR ---
Nursing Progress Note: Client on involuntary status for GD. Report received from nurse, GABRIEL Priest with use of SBAR. Why they are here: Pt admitted to [place] for Behavioral health from [facility] on LPS conservatorship. Pt is here for placement. Pt had some sort of agitation at [facility]. He knocked a can of soda off a table. Pt not attending group therapy sessions. He threw a tray in the dining room. Pt has history of Schizoaffective, benign lipomatous, DM II, Pacemaker, benign prostatic hyperplasia. Pt cooperative with admission process. Assessment What has happened this shift: Patient was asleep at change of shift and awoken for medications and then breakfast. Patient is pleasant. Patient again denies depression. Patient denies SI/HI and denies A/V hallucinations. Patient's roommate is leaving and patient again wants to know if he is going anywhere soon. RN advises patient that she has not heard anything yet. Patient shuffles around the unit usually using the handrails. Patient is social with his peers but also spends time alone in his room. Patient sleeps or he sits at the window and enjoys the view. S/I, H/I: Denies A/VH: Denies Sleep:Naps during the day. ADL's: Needs prompting Group attendance: Yes Were meds taken: Yes Any med S/E: None noted or reported. Mental Status Exam Appearance: Messy hair and wearing green scrubs Eye contact: Good Behavior: Pleasant and cooperative Speech: Soft spoken Mood: Pleasant Affect: Flat Thought process: Somewhat Disorganized Thought Content: Wanting to know where he is going. Cognition: A&Ox4 Insight: poor Judgment: poor Interventions PRN's used: none Therapeutic interventions: Provided 1:1 assessment, therapeutic communication, active listening, medication administration/education/monitoring, encouraged shower and clean clothing, behavior monitoring and intervention as needed; provided encouragement and positive reinforcement, maintained Q15 minute safety checks. Restraints/seclusion/emergency medication: N/A Justification of Continued Inpatient Treatment: Pt. requires interruption of current crisis, medication adjustments, and a safe and supportive environment. Patient is conserved with [facility] awaiting placement.
--- NOTE | 2021-01-15 14:54 | NUR ---
Pt. attended group today. The topic today was Preventing a Mental Health Relapse by identifying the triggers, signs and symptoms of an upcoming episode/event so that Pts. can learn to apply coping skills before they get to a bad place with their symptoms. Pt engaged in the group today by taking a part in the written activity and then sharing with the group what he wrote down. He reported that he doesn't have much of a support system or any friends due to his being locked up in facilities most of his life. He appeared to want to develop these types of relationships in the future. His thought process and thought content was WNL. Kori Mandujano LCSW
[2021-01-15 20:00] VITALS: BP_SYST 110; BP_SYST 114; BP_DIAS 71; BP_DIAS 78
[2021-01-15] MEDS: atorvastatin 20mg tablet PO SCH (20:20)
[2021-01-15] MEDS: tamsulosin 0.4mg capsule PO SCH (20:20)
[2021-01-15] MEDS: ketoconazole 2% cream 15gm TP SCH (20:50)
[2021-01-15] MEDS: hydrocortisone 1% cream 28gm TP SCH (20:50)
--- NOTE | 2021-01-16 01:25 | NUR ---
Nursing Progress Note: Client on involuntary status for GD. Report received from GABRIEL Phelps with use of SBAR. Why they are here: Pt admitted to [place] for Behavioral health from [facility] on LPS conservatorship. Pt is here for placement. Pt had some sort of agitation at [facility]. He knocked a can of soda off a table. Pt not attending group therapy sessions. He threw a tray in the dining room. Pt has history of Schizoaffective, benign lipomatous, DM II, Pacemaker, benign prostatic hyperplasia. Pt cooperative with admission process. Assessment What has happened this shift: The patient has been provided a FWW today. He is seen ambulating the hallway with confidence, and moving much quicker. The shuffling gait has been minimized and he can feel safer moving about. He continues to be pleasant, cooperative, and compliant with his medications. There are no behavioral problems. The patient spent most of the evening sitting in the community room. He continues to deny all MH symptoms. S/I, H/I: Denies A/VH: Denies Sleep: See sleep assessments ADL's: Needs prompting Group attendance: NA Were meds taken: yes Any med S/E: None noted or reported. Mental Status Exam Appearance: Disheveled hair. Looks unkempt, bad teeth. Pt. wearing green unit scrubs. Eye contact: Good Behavior: Cooperative, up and ambulating, quiet. Speech: Soft spoken, Poverty of Speech Mood: Pleasant Affect: Flat Thought process: Somewhat Disorganized Thought Content: Difficult to ascertain Cognition: A&Ox4 Insight: poor Judgment: poor Interventions PRN's used: none Therapeutic interventions: Provided 1:1 assessment, therapeutic communication, active listening, medication administration/education/monitoring, encouraged shower and clean clothing, behavior monitoring and intervention as needed; provided encouragement and positive reinforcement, maintained Q15 minute safety checks. Restraints/seclusion/emergency medication: N/A Justification of Continued Inpatient Treatment: Pt. requires interruption of current crisis, medication adjustments, and a safe and supportive environment. Patient is conserved with [facility] awaiting placement.
[2021-01-16] MEDS: divalproex 250mg tablet, delayed-release PO SCH ×2 (07:35→19:58)
[2021-01-16] MEDS: aspirin 81mg, enteric-coated 1 TAB TABLET.DR PO SCH (07:35)
[2021-01-16] MEDS: thiamine 100mg tablet PO SCH (07:35)
[2021-01-16] MEDS: trihexyphenidyl HCL 5 MG tablet PO SCH ×2 (07:35→19:59)
[2021-01-16] MEDS: metFORMIN 500mg tablet PO SCH ×2 (07:36→17:44)
[2021-01-16] MEDS: multivitamins, therapeutics tablet PO SCH (07:36)
[2021-01-16] MEDS: risperiDONE 2mg tablet PO SCH ×2 (07:36→19:58)
[2021-01-16] MEDS: folic acid 0.4mg tablet PO SCH (07:36)
[2021-01-16] MEDS: busPIRone 5mg tablet PO SCH ×2 (07:36→19:58)
[2021-01-16] MEDS: cholecalciferol (vitamin D3) 1,000 unit (25mcg) tablet PO SCH (07:36)
[2021-01-16 07:46] VITALS: BP 83/53
--- NOTE | 2021-01-16 11:08 | NUR ---
Pt. attended group today. Today we talked about how to Self-Nurture ourselves followed up by doing a collage/visualization page about what they wrote down about places, people and situations that are nurturing. Pt. was quiet today in the group but appeared to be listening intently to what this Property Accountant said and what others were saying. He engaged in the writing part of the activity but did not do a collage. He was able to share things that he finds nurturing like showers and baths. He was alert and oriented X 4. His thought content and thought process appeared to be WNL but hard to observe since he spoke minimally. Kori Mandujano, PRIVATE TUTOR
--- NOTE | 2021-01-16 14:00 | NUR ---
Patient entered into the group room and activity 40 minutes into the session. Patient was able to follow the rules and completed both exercises. Patient made full use of the paper while drawing. He journaled: "I like outside. It is Fresh and Fun. I will overcome bad thoughts. I can be.... I want to." Patient remained for the entire session. He was a good listener, however did not interact much with his peers. Rhona Degroot MA, [facility] #[id number] Art Therapist Addendum: 01/17/21 at 1352 by Rhona Degroot SS Amended: Links added.
--- NOTE | 2021-01-16 14:13 | NUR ---
Nursing Progress Note: Client on involuntary status for GD. Report received from nurse, GABRIEL Donahue with use of SBAR. Why they are here: Pt admitted to [place] for Behavioral health from [facility] on LPS conservatorship. Pt is here for placement. Pt had some sort of agitation at [facility]. He knocked a can of soda off a table. Pt not attending group therapy sessions. He threw a tray in the dining room. Pt has history of Schizoaffective, benign lipomatous, DM II, Pacemaker, benign prostatic hyperplasia. Pt cooperative with admission process. Assessment What has happened this shift: Pt's BP before getting up and walking around this morning was on the low side at 83/53. Pt c/o some mild dizziness. Encouraged pt to drink lots of fluids today. Pt did drink water from his pitcher and this nurse refilled it for him at intervals. Pt denies depression, anxiety SI/HI/AH/VH. Pt asks if placement has been found for him yet. Pt states that he wants to go somewhere he can smoke cigarettes. Pt thinks he'll call his public guardian after afternoon group to reiterate his desire for placement in a smoking facility. S/I, H/I: Pt denies. A/VH: Pt denies. Sleep: Pt slept 7.25 hours last night per noc shift report, pt takes short naps throughout the day. ADL's: Independent with prompting, ambulates ad renny with FWW, FWW has improved his gait stability and speed substantially, pt shuffled along using tiny steps quite slowly before. Group attendance: Yes Were meds taken: Yes Any med S/E: Pt reported some dizziness this morning. Mental Status Exam Appearance: Older gentleman with longish white hair bald on top and glasses dressed in green unit scrubs and a clayton jacket. Eye contact: Good Behavior: Pleasant, cooperative. Speech: Clear, soft, normal rate and rhythm. Mood: Good. Affect: Flat Thought process: Linear Thought Content: Wants to be placed somewhere he can smoke. Cognition: A&Ox4 Insight: Fair Judgment: Fair Interventions PRN's used: none Therapeutic interventions: 1:1 assessment, therapeutic conversation, active listening, medication administration/education/monitoring, encouragement of autonomy in ADLs, encouragement to attend groups, fall prevention, provided encouragement and positive reinforcement, maintained Q15 minute safety checks. Restraints/seclusion/emergency medication: N/A Justification of Continued Inpatient Treatment: Pt required crisis interruption and medication adjustment and monitoring in a safe and supportive environment until stable. Pt is at baseline. Patient is conserved with [facility] awaiting placement.
[2021-01-16 19:20] VITALS: BP 111/77
[2021-01-16] MEDS: atorvastatin 20mg tablet PO SCH (19:58)
[2021-01-16] MEDS: tamsulosin 0.4mg capsule PO SCH (19:59)
[2021-01-16] MEDS: hydrocortisone 1% cream 28gm TP SCH (19:59)
[2021-01-16] MEDS: ketoconazole 2% cream 15gm TP SCH (19:59)
--- NOTE | 2021-01-16 22:22 | NUR ---
Nursing Progress Note: Legal hold: LPS Report received from Tequila RIOS Why they are here: Pt admitted to [place] for Behavioral health from [facility] on LPS conservatorship. Pt is here for placement. Pt had some sort of agitation at [facility]. He knocked a can of soda off a table. Pt not attending group therapy sessions. He threw a tray in the dining room. Pt has history of Schizoaffective, benign lipomatous, DM II, Pacemaker, benign prostatic hyperplasia. Pt cooperative with admission process. Assessment What has happened this shift: The patient was isolative to his bed but did get up briefly for the evening snack. He was very pleasant and cooperative when approached for the evening assessment. He did appear like he had not showered and his hair was greasy but he stated that he intended to shower in the morning and that he felt too tired to shower this evening. He described his mood as "stable" Psychotic symptoms were denied. He denies thoughts to harm himself or others. When asked about medication side effects he stated that he noticed that last evening and this morning he had some dizziness when he stood up. Vital signs laying HR 71 and BP 107/73, sitting HR 72 and BP 111/66, standing HR 79 and BP 87/55. stopper maker made aware. He reportedly is at his baseline and is pending transfer to an IMD once an appropriate placement can be found. S/I, H/I:[] A/VH: [] Sleep:[] ADL's:[] Group attendance:[] Were meds taken:[] Any med S/E[] Mental Status Exam Appearance:[] Eye contact:[] Behavior:[] Speech:[] Mood:[] Affect:[] Thought process:[] Thought Content:[] Cognition:[] Insight:[] Judgment:[] Interventions PRN's used:[] Therapeutic interventions:[] Restraints/seclusion/emergency medication:[] Justification of Continued Inpatient Treatment:[]
[2021-01-17] MEDS: metFORMIN 500mg tablet PO SCH ×2 (06:58→17:18)
[2021-01-17 07:32] VITALS: BP 96/48
[2021-01-17] MEDS: folic acid 0.4mg tablet PO SCH (07:59)
[2021-01-17] MEDS: trihexyphenidyl HCL 5 MG tablet PO SCH ×2 (07:59→20:35)
[2021-01-17] MEDS: multivitamins, therapeutics tablet PO SCH (07:59)
[2021-01-17] MEDS: divalproex 250mg tablet, delayed-release PO SCH ×2 (08:00→20:35)
[2021-01-17] MEDS: thiamine 100mg tablet PO SCH (08:00)
[2021-01-17] MEDS: risperiDONE 2mg tablet PO SCH ×2 (08:00→20:35)
[2021-01-17] MEDS: busPIRone 5mg tablet PO SCH ×2 (08:00→20:34)
[2021-01-17] MEDS: cholecalciferol (vitamin D3) 1,000 unit (25mcg) tablet PO SCH (08:00)
[2021-01-17] MEDS: aspirin 81mg, enteric-coated 1 TAB TABLET.DR PO SCH (08:00)
--- NOTE | 2021-01-17 15:58 | NUR ---
Nursing Progress Note: Patient is LPS Conserved Report received from charge nurse, GABRIEL Donahue with use of SBAR. Why they are here: Pt admitted to [place] for Behavioral health from [facility] on LPS conservatorship. Pt is here for placement. Pt had some sort of agitation at [facility]. He knocked a can of soda off a table. Pt not attending group therapy sessions. He threw a tray in the dining room. Pt has history of Schizoaffective, benign lipomatous, DM II, Pacemaker, benign prostatic hyperplasia. Assessment What has happened this shift: Pt continues to C/O some mild dizziness, which he addressed with VIANEY Barfield. He reports that he doesnt have any issues with the other medications The Risperdal and Depakote work. Denies AH/VH SI/HI. Reports that his mood is good, and shows some brightening in his affect. Pt attends to his ADLs independently with some prompting. Encouraged patient to drink water, and brought him his pitcher. Needs encouragement to hydrate, as he cant carry his pitcher with him when he uses his walker. S/I, H/I: Denies A/VH: Denies Sleep: Pt slept 7.75 hours last night ADL's: Independent with prompting, showered today Group attendance: yes Were meds taken: yes Any med S/E: Pt continues to report some dizziness Mental Status Exam Appearance: Older gentleman with longish white hair bald on top and glasses dressed in green unit scrubs, uses a FWW Eye contact: Good Behavior: pleasant and cooperative Speech: Clear, soft, normal rate and rhythm. Stutters at times Mood: No complaints Affect: Constricted with some brightening Thought process: linear and goal-directed Thought Content: placement in IMD; wants to go somewhere he can smoke Cognition: A&Ox4 Insight: Fair Judgment: Fair Interventions PRN's used: none Therapeutic interventions: 1:1 assessment, therapeutic conversation, active listening, medication administration/education/monitoring, encouragement of autonomy in ADLs, encouragement to attend groups, fall prevention, provided encouragement and positive reinforcement, maintained Q15 minute safety checks. Restraints/seclusion/emergency medication: N/A Justification of Continued Inpatient Treatment: Pt required crisis interruption and medication adjustment and monitoring in a safe and supportive environment until stable. Pt is at baseline. Patient is conserved with [place] awaiting placement.
[2021-01-17] MEDS: atorvastatin 20mg tablet PO SCH (20:34)
[2021-01-17] MEDS: tamsulosin 0.4mg capsule PO SCH (20:35)
[2021-01-17] MEDS: hydrocortisone 1% cream 28gm TP SCH (20:43)
[2021-01-17] MEDS: ketoconazole 2% cream 15gm TP SCH (20:43)
--- NOTE | 2021-01-18 03:20 | NUR ---
Nursing Progress Note: Client on involuntary status for GD. Report received from GABRIEL Mandel with use of SBAR. Why they are here: Pt admitted to [place] for Behavioral health from [facility] on LPS conservatorship. Pt is here for placement. Pt had some sort of agitation at [facility]. He knocked a can of soda off a table. Pt not attending group therapy sessions. He threw a tray in the dining room. Pt has history of Schizoaffective, benign lipomatous, DM II, Pacemaker, benign prostatic hyperplasia. Pt cooperative with admission process. Assessment What has happened this shift: Patient spent entire shift in his room. Patient went back and forth between sitting in chair in room mumbling at the window and laying in bed. Patient didn't socialize with anyone. Patient took all medications and went back to bed. S/I, H/I: Denies A/VH: Denies Sleep: See sleep assessments ADL's: Needs prompting Group attendance: NA Were meds taken: yes Any med S/E: None noted or reported. Mental Status Exam Appearance: Disheveled hair. Looks unkempt Pt wearing green unit scrubs. Eye contact: Good Behavior: Cooperative, up and ambulating, quiet. Speech: Soft spoken, Poverty of Speech Mood: Pleasant Affect: Flat Thought process: Somewhat Disorganized Thought Content: Difficult to ascertain Cognition: A&Ox4 Insight: poor Judgment: poor Interventions PRN's used: none Therapeutic interventions: Provided 1:1 assessment, therapeutic communication, active listening, medication administration/education/monitoring, encouraged shower and clean clothing, behavior monitoring and intervention as needed; provided encouragement and positive reinforcement, maintained Q15 minute safety checks. Restraints/seclusion/emergency medication: N/A Justification of Continued Inpatient Treatment: Pt. requires interruption of current crisis, medication adjustments, and a safe and supportive environment. Patient is conserved with [facility] awaiting placement.
[2021-01-18] MEDS: metFORMIN 500mg tablet PO SCH ×2 (07:46→17:38)
[2021-01-18] MEDS: trihexyphenidyl HCL 5 MG tablet PO SCH ×2 (07:46→20:23)
[2021-01-18] MEDS: cholecalciferol (vitamin D3) 1,000 unit (25mcg) tablet PO SCH (07:47)
[2021-01-18] MEDS: thiamine 100mg tablet PO SCH (07:47)
[2021-01-18] MEDS: multivitamins, therapeutics tablet PO SCH (07:47)
[2021-01-18] MEDS: aspirin 81mg, enteric-coated 1 TAB TABLET.DR PO SCH (07:47)
[2021-01-18] MEDS: folic acid 0.4mg tablet PO SCH (07:47)
[2021-01-18] MEDS: risperiDONE 2mg tablet PO SCH ×2 (07:47→20:23)
[2021-01-18] MEDS: busPIRone 5mg tablet PO SCH ×2 (07:47→20:23)
[2021-01-18] MEDS: divalproex 250mg tablet, delayed-release PO SCH ×2 (07:47→20:23)
[2021-01-18 07:50] VITALS: BP 95/54
--- NOTE | 2021-01-18 15:32 | NUR ---
Nursing Progress Note: Client on involuntary status for GD. Report received from nurse, Mehnaz Zuniga RN with use of SBAR. Why they are here: Pt admitted to [place] for Behavioral health from [facility] on LPS conservatorship. Pt is here for placement. Pt had some sort of agitation at [facility]. He knocked a can of soda off a table. Pt not attending group therapy sessions. He threw a tray in the dining room. Pt has history of Schizoaffective, benign lipomatous, DM II, Pacemaker, benign prostatic hyperplasia. Pt cooperative with admission process. Assessment What has happened this shift: Pt was up for breakfast and cooperative with medications. Pt ambulates safely with a steady gait using FWW. Pt denied depression, anxiety, SI/HI/AH/VH. Pt stated, "I just want to move on...I need a cigarette" then laughed. Pt reported decreased dizziness today. Pt has been focusing on making sure he drinks more water daily. S/I, H/I: Pt denies. A/VH: Pt denies. Sleep: Pt slept 5.75 hours last night per noc shift report, pt takes short naps throughout the day. ADL's: Independent with prompting, ambulates ad renny with FWW, FWW has improved his gait stability and speed substantially, pt shuffled along using tiny steps quite slowly before. Group attendance: No Were meds taken: Yes Any med S/E: Pt reports dizziness has decreased. Mental Status Exam Appearance: Older gentleman with longish white hair bald on top dressed in green unit scrubs and a clayton jacket. Eye contact: Good Behavior: Pleasant, cooperative. Speech: Clear, soft, normal rate and rhythm. Mood: Good. Affect: Flat with brightening. Thought content: He wants to move on and is looking forward to being able to smoke again. Cognition: A&Ox4 Insight: Fair Judgment: Fair Interventions PRN's used: none Therapeutic interventions: 1:1 assessment, therapeutic conversation, active listening, medication administration/education/monitoring, encouragement of autonomy in ADLs, encouragement to attend groups, fall prevention, provided encouragement and positive reinforcement, maintained Q15 minute safety checks. Restraints/seclusion/emergency medication: N/A Justification of Continued Inpatient Treatment: Pt required crisis interruption and medication adjustment and monitoring in a safe and supportive environment until stable. Pt is at baseline. Patient is conserved with [facility] awaiting placement.
[2021-01-18] MEDS: hydrocortisone 1% cream 28gm TP SCH (20:24)
[2021-01-18] MEDS: ketoconazole 2% cream 15gm TP SCH (20:24)
[2021-01-18] MEDS: atorvastatin 20mg tablet PO SCH (20:28)
[2021-01-18 20:47] VITALS: BP 133/76
--- NOTE | 2021-01-18 21:58 | NUR ---
Nursing Progress Note: Client on involuntary status for GD. Report received from GABRIEL Mandel with use of SBAR. Why they are here: Pt admitted to [place] for Behavioral health from [facility] on LPS conservatorship. Pt is here for placement. Pt had some sort of agitation at [facility]. He knocked a can of soda off a table. Pt not attending group therapy sessions. He threw a tray in the dining room. Pt has history of Schizoaffective, benign lipomatous, DM II, Pacemaker, benign prostatic hyperplasia. Pt cooperative with admission process. Assessment What has happened this shift: Assumed care at shift change. Upon assessment, pt is isolating in room, laying in bed under the covers. Is cooperative when questioned but gives one word answers, minimal speech. Pt was up for evening snack but returned to bed directly afterwards. S/I, H/I: Denies A/VH: Denies Sleep: Will tally at 0500 ADL's: Independent Group attendance: NA no groups during NOC shift Were meds taken: Yes, pt. is medication compliant Any med S/E: none noted or reported Mental Status Exam Appearance: Clean but disheveled, wrapped in blanket. Eye contact: Fair Behavior: Pleasant and cooperative Speech: Clear, soft, normal rate and rhythm. Mood: All right Affect: Flat Thought content: Im okay Cognition: A&Ox4 Insight: Fair Judgment: Fair Interventions PRN's used: none Therapeutic interventions: 1:1 assessment, therapeutic conversation, active listening, medication administration/education/monitoring, encouragement of autonomy in ADLs, encouragement to attend groups, fall prevention, provided encouragement and positive reinforcement, maintained Q15 minute safety checks. Restraints/seclusion/emergency medication: N/A Justification of Continued Inpatient Treatment: Pt required crisis interruption and medication adjustment and monitoring in a safe and supportive environment until stable. Pt is at baseline. Patient is conserved with [facility] awaiting placement. Addendum: 10/09/21 at 0645 by Ze Lopez RN THIS COMMUNITY [employer]DRAIS[employer] AGREES WITH THE ABOVE ASSESSMENT AND CHARTING BY THE BSN TENTER FRAME BACK TENDER.
[2021-01-19] MEDS: folic acid 0.4mg tablet PO SCH (08:00)
[2021-01-19 08:44] VITALS: BP 103/67
[2021-01-19] MEDS: cholecalciferol (vitamin D3) 1,000 unit (25mcg) tablet PO SCH (09:01)
[2021-01-19] MEDS: trihexyphenidyl HCL 5 MG tablet PO SCH ×2 (09:02→20:20)
[2021-01-19] MEDS: divalproex 250mg tablet, delayed-release PO SCH ×2 (09:02→20:23)
[2021-01-19] MEDS: aspirin 81mg, enteric-coated 1 TAB TABLET.DR PO SCH (09:02)
[2021-01-19] MEDS: thiamine 100mg tablet PO SCH (09:03)
[2021-01-19] MEDS: risperiDONE 2mg tablet PO SCH ×2 (09:03→20:20)
[2021-01-19] MEDS: multivitamins, therapeutics tablet PO SCH (09:03)
[2021-01-19] MEDS: busPIRone 5mg tablet PO SCH ×2 (09:03→20:20)
[2021-01-19] MEDS: metFORMIN 500mg tablet PO SCH ×2 (09:16→09:33)
--- NOTE | 2021-01-19 16:51 | NUR ---
Nursing Progress Note: Client on involuntary status for GD. Report received from nurse, Pamela RN with use of SBAR. Why they are here: Pt admitted to [place] for Behavioral health from [facility] on LPS conservatorship. Pt is here for placement. Pt had some sort of agitation at [facility]. He knocked a can of soda off a table. Pt not attending group therapy sessions. He threw a tray in the dining room. Pt has history of Schizoaffective, benign lipomatous, DM II, Pacemaker, benign prostatic hyperplasia. Pt cooperative with admission process. Assessment What has happened this shift: Pt up for breakfast. He returned to bed after breakfast and stayed there until lunch. Pt is cooperative with medications. Encouraged pt to drink water. Pt shares he is looking forward to leaving here and "I'm just bored and want to get out of here." S/I, H/I: Pt denies. A/VH: Pt denies. Sleep: Naps during the day ADL's: Ambulates with FWW; independent Group attendance: No Were meds taken: Yes Any med S/E: Pt reports, "not as dizzy." Mental Status Exam Appearance: Older gentleman with longish white hair bald on top dressed in green unit scrubs Eye contact: Good Behavior: Pleasant, cooperative. Speech: Clear, soft, normal rate and rhythm. Mood: Good. Affect: Flat with brightening. Thought content: He wants to move on and is looking forward to being able to smoke again. Cognition: A&Ox4 Insight: Fair Judgment: Fair Interventions PRN's used: none Therapeutic interventions: Provided 1:1 assessment with therapeutic communication and active listening, medication administration/education/monitoring, encouragement of autonomy in ADLs, fall prevention, maintained Q15 minute safety checks. Restraints/seclusion/emergency medication: N/A Justification of Continued Inpatient Treatment: Pt required crisis interruption and medication adjustment and monitoring in a safe and supportive environment until stable. Pt is at baseline. Patient is conserved with [facility] awaiting placement.
[2021-01-19 19:19] VITALS: BP 98/58
[2021-01-19] MEDS: ketoconazole 2% cream 15gm TP SCH (20:20)
[2021-01-19] MEDS: hydrocortisone 1% cream 28gm TP SCH (20:20)
[2021-01-19] MEDS: atorvastatin 20mg tablet PO SCH (20:21)
--- NOTE | 2021-01-19 23:47 | NUR ---
Nursing Progress Note: Client on involuntary status for GD. Report received from nurse, GABRIEL Palencia with use of SBAR. Why they are here: Pt admitted to [place] for Behavioral health from [facility] on LPS conservatorship. Pt is here for placement. Pt had some sort of agitation at [facility]. He knocked a can of soda off a table. Pt not attending group therapy sessions. He threw a tray in the dining room. Pt has history of Schizoaffective, benign lipomatous, DM II, Pacemaker, benign prostatic hyperplasia. Pt cooperative with admission process. Assessment What has happened this shift: Assumed care from [facility] at 2200 hrs. Patient is sleeping now. Per Talha RN this patient has been quiet and cooperative. Patient has been encouraged to consume fluids, the patient was reported out of his room earlier, he shuffles when he walks with a slow gait. Patient denied H/I, S/I, or any recent hallucinations. S/I, H/I: Pt denies. A/VH: Pt denies. Sleep: Will tally at 0500 hours. ADL's: Uses walker for ambulation. Group attendance: None on night monitor. Were meds taken: Yes, medication compliant. Any med S/E: None noted or reported. Mental Status Exam Appearance: Well groomed, wearing unit atire. Eye contact: Direct. Behavior: Pleasant, cooperative. Speech: Clear, soft, normal rate and rhythm. Mood: Good.. Affect: Flat. Thought content: [place] to smoke. Cognition: A&Ox4. Insight: Fair. Judgment: Fair. Interventions PRN's used: None Therapeutic interventions: Provided 1:1 assessment with therapeutic communication and active listening, medication administration/education/monitoring, encouragement of autonomy in ADLs, fall prevention, maintained Q15 minute safety checks. Restraints/seclusion/emergency medication: N/A Justification of Continued Inpatient Treatment: Pt required crisis interruption and medication adjustment and monitoring in a safe and supportive environment until stable. Pt is at baseline. Patient is conserved with [facility] awaiting placement.
[2021-01-20 07:52] VITALS: BP 108/60
[2021-01-20] MEDS: divalproex 250mg tablet, delayed-release PO SCH ×2 (08:27→20:15)
[2021-01-20] MEDS: folic acid 0.4mg tablet PO SCH (08:27)
[2021-01-20] MEDS: risperiDONE 2mg tablet PO SCH ×2 (08:27→20:15)
[2021-01-20] MEDS: multivitamins, therapeutics tablet PO SCH (08:27)
[2021-01-20] MEDS: trihexyphenidyl HCL 5 MG tablet PO SCH ×2 (08:27→20:14)
[2021-01-20] MEDS: aspirin 81mg, enteric-coated 1 TAB TABLET.DR PO SCH (08:27)
[2021-01-20] MEDS: cholecalciferol (vitamin D3) 1,000 unit (25mcg) tablet PO SCH (08:27)
[2021-01-20] MEDS: busPIRone 5mg tablet PO SCH ×2 (08:27→20:15)
[2021-01-20] MEDS: thiamine 100mg tablet PO SCH (08:27)
[2021-01-20] MEDS: metFORMIN 500mg tablet PO SCH ×2 (08:28→17:34)
--- NOTE | 2021-01-20 13:47 | NUR ---
Reassessment: Pt continues w/ adequate PO intake, mostly 100% of meals on CCHO/Heart Healthy diet meeting needs. Pt compliant w/ meds. LBM 01/19. No new nutrition intervention implemented at this time, will continue to monitor. Rec: 1. Continue carb controlled/heart healthy diet as tolerated 2. routine bowel care 3. daily accuchecks; Glu 199mg/dl 01/02 w/ hx T2DM on metformin 4. weekly wts Addendum: 01/20/21 at [address] Amended: Links added.
--- NOTE | 2021-01-20 17:31 | NUR ---
Nursing Progress Note: Client on involuntary status for GD. Report received from nurse, GABRIEL Santiago with use of SBAR. Why they are here: Pt admitted to [place] for Behavioral health from [facility] on LPS conservatorship. Pt is here for placement. Pt had some sort of agitation at [facility]. He knocked a can of soda off a table. Pt not attending group therapy sessions. He threw a tray in the dining room. Pt has history of Schizoaffective, benign lipomatous, DM II, Pacemaker, benign prostatic hyperplasia. Pt cooperative with admission process. Assessment What has happened this shift: RN received pt. asleep in bed at start of shift. Pt. awake for breakfast and took all medications. Pt. needs to be reminded to use his walker. Pt. continues to have shuffling gate. Pt. went back to sleep in bed after breakfast. 1:1 done at bedside, pt. reports he is doing well and continues to ask questions about which provider will be able to get him placed at a board and care. Neuro consult done with tele-health neurologist, Dr. Badillo, who observed pt. ambulating with his assessment. RN awaiting Dr. Lipscomb recommendations. Pt. observed watching TV with peers in Rec Room and laughing. Pt. shaved. S/I, H/I: Pt denies. A/VH: Pt denies. Sleep: Pt slept 8hrs hours last night per noc shift report, pt. napped most of the AM. ADL's: Independent with prompting, ambulates ad ernny with FWW, FWW has improved his gait stability and speed substantially, pt shuffled along using tiny steps quite slowly before. Group attendance: NA Were meds taken: Yes Any med S/E: None observed/reported. Mental Status Exam Appearance: Older gentleman with longish white, greasy hair. Dressed in green unit scrubs and a clayton jacket. Eye contact: Good Behavior: Pleasant, cooperative. Speech: WNL Mood: Euthymic Affect: Blunted Thought content: Wants to be placed at a board and care. Cognition: A&Ox4 Insight: Fair Judgment: Fair Interventions PRN's used: none Therapeutic interventions: 1:1 assessment, therapeutic conversation, active listening, medication administration/education/monitoring, encouragement of autonomy in ADLs, encouragement to attend groups, fall prevention, provided encouragement and positive reinforcement, maintained Q15 minute safety checks. Restraints/seclusion/emergency medication: N/A Justification of Continued Inpatient Treatment: Pt required crisis interruption and medication adjustment and monitoring in a safe and supportive environment until stable. Pt is at baseline. Patient is conserved with [facility] awaiting placement.
[2021-01-20 20:11] VITALS: BP 106/64
[2021-01-20] MEDS: atorvastatin 20mg tablet PO SCH (20:15)
[2021-01-20] MEDS: hydrocortisone 1% cream 28gm TP SCH (20:16)
[2021-01-20] MEDS: ketoconazole 2% cream 15gm TP SCH (20:19)
--- NOTE | 2021-01-21 00:52 | NUR ---
Nursing Progress Note: Client on involuntary status for GD. Report received from nurse, GABREIL Mandel with use of SBAR. Why they are here: Pt admitted to [place] for Behavioral health from [facility] on LPS conservatorship. Pt is here for placement. Pt had some sort of agitation at [facility]. He knocked a can of soda off a table. Pt not attending group therapy sessions. He threw a tray in the dining room. Pt has history of Schizoaffective, benign lipomatous, DM II, Pacemaker, benign prostatic hyperplasia. Pt cooperative with admission process. Assessment What has happened this shift: Patient was in bed at change of shift. Pt stated that he had been up earlier and is ready to take a nap befor snack . Pt did not get up for snack and needed to be awakened for meds. Pt did get up an hour or so latter and asked for a Milk then returned to bed. S/I, H/I: Pt denies. A/VH: Pt denies. Sleep: See sleep assessment.. ADL's: Independent with prompting, ambulates ad renny with FWW, FWW has improved his gait stability and speed substantially, pt shuffled along using tiny steps quite slowly before. Group attendance: NA Were meds taken: Yes Any med S/E: None observed/reported. Mental Status Exam Appearance: Older gentleman with longish white, greasy hair. Dressed in green unit scrubs and a clayton jacket. Eye contact: Good Behavior: Pleasant, cooperative. Speech: WNL Mood: Euthymic Affect: Blunted Thought content: Wants to be placed at a board and care. Cognition: A&Ox4 Insight: Fair Judgment: Fair Interventions PRN's used: none Therapeutic interventions: 1:1 assessment, therapeutic conversation, active listening, medication administration/education/monitoring, encouragement of autonomy in ADLs, encouragement to attend groups, fall prevention, provided encouragement and positive reinforcement, maintained Q15 minute safety checks. Restraints/seclusion/emergency medication: N/A Justification of Continued Inpatient Treatment: Pt required crisis interruption and medication adjustment and monitoring in a safe and supportive environment until stable. Pt is at baseline. Patient is conserved with [facility] awaiting placement.
[2021-01-21] MEDS: metFORMIN 500mg tablet PO SCH ×2 (07:00→17:42)
[2021-01-21 07:50] VITALS: BP 98/54
[2021-01-21] MEDS: folic acid 0.4mg tablet PO SCH (08:07)
[2021-01-21] MEDS: cholecalciferol (vitamin D3) 1,000 unit (25mcg) tablet PO SCH (08:07)
[2021-01-21] MEDS: busPIRone 5mg tablet PO SCH ×2 (08:07→20:23)
[2021-01-21] MEDS: multivitamins, therapeutics tablet PO SCH (08:07)
[2021-01-21] MEDS: risperiDONE 2mg tablet PO SCH ×2 (08:07→20:21)
[2021-01-21] MEDS: trihexyphenidyl HCL 5 MG tablet PO SCH ×2 (08:07→20:21)
[2021-01-21] MEDS: divalproex 250mg tablet, delayed-release PO SCH ×2 (08:07→20:22)
[2021-01-21] MEDS: thiamine 100mg tablet PO SCH (08:08)
[2021-01-21] MEDS: aspirin 81mg, enteric-coated 1 TAB TABLET.DR PO SCH (08:08)
--- NOTE | 2021-01-21 12:50 | NUR ---
Pt. attended group today. We talked about how we all look at the world differently due to our core beliefs. These core beliefs then inform thoughts and behaviors. Each pt. identified one negative core belief and then wrote out three truths that contradict their negative beliefs to work on thinking differently. Pt engaged well in the group. He participate in the discussion appropriately and the written/coloring part of the activity. He was in a good mood with a restricted affect. He was able to share that he believed he was stupid since he was a young child. We came up with a few positive cognitions such as, "I am capable" and "I am good enough". He also wrote some others down on his paper that he did not chose to share. His demeanor was calm, pleasant and compliant. Kori Mandujano LCSW
--- NOTE | 2021-01-21 12:56 | NUR ---
Placement Presenting Issues: Pt's @ baseline functioning, d/c is pending suitable placement as pt is conserved and requires a higher level of care. Interventions: Clinician had t/c w/[facility]/TAD's office, per t/c, pt's been referred to [facility] and placement packet was sent there waiting for the admission coordinator to review. Plan: Clinician will continue to monitor & engage [facility] in placement services to facilitate d/c. Nancie Gamez LCSW Addendum: 01/21/21 at 1259 by Nancie LALA Amended: Links added.
--- NOTE | 2021-01-21 17:25 | NUR ---
Nursing Progress Note: Client on involuntary status for GD. Report received from GABRIEL Hampton with use of SBAR. Why they are here: Pt admitted to [place] for Behavioral health from [facility] on LPS conservatorship. Pt is here for placement. Pt had some sort of agitation at [facility]. He knocked a can of soda off a table. Pt not attending group therapy sessions. He threw a tray in the dining room. Pt has history of Schizoaffective, benign lipomatous, DM II, Pacemaker, benign prostatic hyperplasia. Pt cooperative with admission process. Assessment What has happened this shift: RN received pt. asleep in bed at start of shift. Pt. awake for breakfast and took all medications. Pt. is socially withdrawn and isolates to his room most of the day. Pt. using his walker to ambulate. Pt. attended group. 1:1 done at bedside. Pt. reports he is well, giving minimal information during interview. Pt. observed in the Rec Room in the afternoon watching TV with peers. S/I, H/I: Pt denies. A/VH: Pt denies. Sleep: Pt slept 7.75 hrs hours last night per noc shift report, pt. napped most of the AM. ADL's: Independent with prompting, ambulates ad renny with FWW, FWW has improved his gait stability and speed substantially, pt shuffled along using tiny steps quite slowly before. Group attendance: Yes Were meds taken: Yes Any med S/E: Denies Mental Status Exam Appearance: Older gentleman with longish white, greasy hair. Dressed in green unit scrubs and a clayton jacket. Eye contact: Good Behavior: Pleasant, cooperative. Speech: WNL Mood: Euthymic Affect: Blunted Thought content: Circumstantial Cognition: A&Ox4 Insight: Fair Judgment: Fair Interventions PRN's used: none Therapeutic interventions: 1:1 assessment, therapeutic conversation, active listening, medication administration/education/monitoring, encouragement of autonomy in ADLs, encouragement to attend groups, fall prevention, provided encouragement and positive reinforcement, maintained Q15 minute safety checks. Restraints/seclusion/emergency medication: N/A Justification of Continued Inpatient Treatment: Pt required crisis interruption and medication adjustment and monitoring in a safe and supportive environment until stable. Pt is at baseline. Patient is conserved with [facility] awaiting placement.
[2021-01-21] MEDS: atorvastatin 20mg tablet PO SCH (20:21)
[2021-01-21] MEDS: ketoconazole 2% cream 15gm TP SCH (20:30)
[2021-01-21] MEDS: hydrocortisone 1% cream 28gm TP SCH (20:30)
[2021-01-21 20:36] VITALS: BP 108/60
--- NOTE | 2021-01-22 01:01 | NUR ---
Nursing Progress Note: Client on involuntary status for GD. Report received from nurse, GABRIEL Mandel with use of SBAR. Why they are here: Pt admitted to [place] for Behavioral health from [facility] on LPS conservatorship. Pt is here for placement. Pt had some sort of agitation at [facility]. He knocked a can of soda off a table. Pt not attending group therapy sessions. He threw a tray in the dining room. Pt has history of Schizoaffective, benign lipomatous, DM II, Pacemaker, benign prostatic hyperplasia. Pt cooperative with admission process. Assessment What has happened this shift: Patient was in bed at change of shift. Pt did not get up for snack and needed to be awakened for meds. Pt did get up an hour or so latter and asked for a Milk then returned to bed. S/I, H/I: Pt denies. A/VH: Pt denies. Sleep: See sleep assessment.. ADL's: Independent with prompting, ambulates ad renny with FWW, FWW has improved his gait stability and speed substantially, pt shuffled along using tiny steps quite slowly before. Group attendance: NA Were meds taken: Yes Any med S/E: None observed/reported. Mental Status Exam Appearance: Older gentleman with longish white, greasy hair. Dressed in green unit scrubs and a clayton jacket. Eye contact: Good Behavior: Pleasant, cooperative. Speech: WNL Mood: Euthymic Affect: Blunted Thought content: Wants to be placed at a board and care. Cognition: A&Ox4 Insight: Fair Judgment: Fair Interventions PRN's used: none Therapeutic interventions: 1:1 assessment, therapeutic conversation, active listening, medication administration/education/monitoring, encouragement of autonomy in ADLs, encouragement to attend groups, fall prevention, provided encouragement and positive reinforcement, maintained Q15 minute safety checks. Restraints/seclusion/emergency medication: N/A Justification of Continued Inpatient Treatment: Pt required crisis interruption and medication adjustment and monitoring in a safe and supportive environment until stable. Pt is at baseline. Patient is conserved with [facility] awaiting placement.
[2021-01-22 08:00] VITALS: BP 114/66
[2021-01-22] MEDS: aspirin 81mg, enteric-coated 1 TAB TABLET.DR PO SCH (08:16)
[2021-01-22] MEDS: amantadine 100 MG capsule PO SCH ×2 (08:16→20:07)
[2021-01-22] MEDS: cholecalciferol (vitamin D3) 1,000 unit (25mcg) tablet PO SCH (08:16)
[2021-01-22] MEDS: divalproex 250mg tablet, delayed-release PO SCH ×2 (08:16→20:07)
[2021-01-22] MEDS: risperiDONE 2mg tablet PO SCH ×2 (08:16→20:07)
[2021-01-22] MEDS: multivitamins, therapeutics tablet PO SCH (08:16)
[2021-01-22] MEDS: trihexyphenidyl HCL 5 MG tablet PO SCH ×2 (08:16→20:07)
[2021-01-22] MEDS: thiamine 100mg tablet PO SCH (08:16)
[2021-01-22] MEDS: folic acid 0.4mg tablet PO SCH (08:16)
[2021-01-22] MEDS: metFORMIN 500mg tablet PO SCH ×2 (08:17→16:32)
[2021-01-22] MEDS: busPIRone 5mg tablet PO SCH ×2 (08:17→20:07)
--- NOTE | 2021-01-22 14:48 | NUR ---
Nursing Progress Note: Client on involuntary status for GD. Report received from nurse, GABRIEL Donahue with use of SBAR. Why they are here: Pt admitted to [place] for Behavioral health from [facility] on LPS conservatorship. Pt is here for placement. Pt had some sort of agitation at [facility]. He knocked a can of soda off a table. Pt not attending group therapy sessions. He threw a tray in the dining room. Pt has history of Schizoaffective, benign lipomatous, DM II, Pacemaker, benign prostatic hyperplasia. Pt cooperative with admission process. Assessment What has happened this shift: Patient isolated to his room all day long, using a FWW patient shuffles to and from his room. Tarik affect is brighter as far as his ADL and taking care of his self although he is still not wanting to shower. Patient is prompt when meals and snack are called and his verbal responses are much quicker than last week. 1:1 assessment done at bedside, no complaints. Tarik started new medication today for his shuffle. S/I, H/I: Pt denies. A/VH: Pt denies. Sleep: short naps throughout the day. ADL's: Independent with prompting, ambulates ad renny with FWW, FWW has improved his gait stability and speed substantially, pt shuffled along using tiny steps quite slowly before. Group attendance: No Were meds taken: Yes Any med S/E: Mental Status Exam Appearance: Older gentleman with longish white hair bald on top dressed in green unit scrubs Eye contact: Good Behavior: Pleasant, cooperative. Speech: Clear and soft Mood: Good. Affect: Flat Thought content: He wants to move on and is looking forward to being able to smoke again. Cognition: A&Ox4 Insight: Fair Judgment: Fair Interventions PRN's used: none Therapeutic interventions: 1:1 assessment, therapeutic conversation, active listening, medication administration/education/monitoring, encouragement of autonomy in ADLs, encouragement to attend groups, fall prevention, provided encouragement and positive reinforcement, maintained Q15 minute safety checks. Restraints/seclusion/emergency medication: N/A Justification of Continued Inpatient Treatment: Patient is conserved with [facility] awaiting placement.
[2021-01-22 19:00] VITALS: BP 108/65
[2021-01-22] MEDS: atorvastatin 20mg tablet PO SCH (20:07)
[2021-01-22] MEDS: hydrocortisone 1% cream 28gm TP SCH (21:23)
[2021-01-22] MEDS: ketoconazole 2% cream 15gm TP SCH (21:24)
--- NOTE | 2021-01-23 01:35 | NUR ---
Nursing Progress Note: Legal hold: [facility] Client on involuntary status for GD. Report received from GABRIEL Mandel with use of SBAR. Why they are here: Pt admitted to [place] for Behavioral health from [facility] on [facility] conservatorship. Pt is here for placement. Pt had some sort of agitation at [facility]. He knocked a can of soda off a table. Pt not attending group therapy sessions. He threw a tray in the dining room. Pt has history of Schizoaffective, benign lipomatous, DM II, Pacemaker, benign prostatic hyperplasia. Pt cooperative with admission process. Assessment What has happened this shift: Patient was in bed at change of shift. He did get up and shuffled along to the community room for snack time. He was given his HS meds before returning to his bed. S/I, H/I: Pt denies. A/VH: Pt denies. Sleep: See sleep assessment.. ADL's: Independent with prompting, ambulates ad renny with FWW. FWW has improved his gait stability and speed substantially, pt shuffled along using tiny steps quite slowly before. Group attendance: NA Were meds taken: Yes Any med S/E: None observed/reported. Mental Status Exam Appearance: Older gentleman with longish white, greasy hair. Dressed in green unit scrubs and a clayton jacket. Eye contact: Good Behavior: Pleasant, cooperative. Speech: WNL Mood: Euthymic Affect: Blunted Thought content: Wants to be placed at a board and care. Cognition: A&Ox4 Insight: Fair Judgment: Fair Interventions PRN's used: none Therapeutic interventions: 1:1 assessment, therapeutic conversation, active listening, medication administration/education/monitoring, encouragement of autonomy in ADLs, encouragement to attend groups, fall prevention, provided encouragement and positive reinforcement, maintained Q15 minute safety checks. Restraints/seclusion/emergency medication: N/A Justification of Continued Inpatient Treatment: Pt required crisis interruption and medication adjustment and monitoring in a safe and supportive environment until stable. Pt is at baseline. Patient is conserved with [facility] awaiting placement.
[2021-01-23 08:00] VITALS: BP 90/49
[2021-01-23] MEDS: divalproex 250mg tablet, delayed-release PO SCH ×2 (08:36→20:09)
[2021-01-23] MEDS: aspirin 81mg, enteric-coated 1 TAB TABLET.DR PO SCH (08:36)
[2021-01-23] MEDS: trihexyphenidyl HCL 5 MG tablet PO SCH ×2 (08:36→20:07)
[2021-01-23] MEDS: busPIRone 5mg tablet PO SCH ×2 (08:36→20:08)
[2021-01-23] MEDS: cholecalciferol (vitamin D3) 1,000 unit (25mcg) tablet PO SCH (08:36)
[2021-01-23] MEDS: multivitamins, therapeutics tablet PO SCH (08:36)
[2021-01-23] MEDS: amantadine 100 MG capsule PO SCH ×2 (08:37→20:08)
[2021-01-23] MEDS: folic acid 0.4mg tablet PO SCH (08:37)
[2021-01-23] MEDS: metFORMIN 500mg tablet PO SCH ×2 (08:37→17:38)
[2021-01-23] MEDS: risperiDONE 2mg tablet PO SCH ×2 (08:37→20:10)
[2021-01-23] MEDS: thiamine 100mg tablet PO SCH (08:37)
--- NOTE | 2021-01-23 17:44 | NUR ---
Nursing Progress Note: Tarik Fosterieg Legal Hold: [facility] Client on involuntary status for GD. Report received from nurse, GABRIEL Donahue with use of SBAR. Why they are here: Pt admitted to [place] for Behavioral health from [facility] on LPS conservatorship. Pt is here for placement. Pt had some sort of agitation at [facility]. He knocked a can of soda off a table. Pt not attending group therapy sessions. He threw a tray in the dining room. Pt has history of Schizoaffective, benign lipomatous, DM II, Pacemaker, benign prostatic hyperplasia. Pt cooperative with admission process. Assessment What has happened this shift: Patient observed sleeping in bed at change of shift. He was awoken to join in the community room with peers for breakfast. He requires prompting and reminders to eat and drink fluids throughout the day. He uses a FWW and is observed shuffling very slowly to and from his room. He retreated back to his room after breakfast, noted lying in bed. 1:1 assessment completed, lungs CTA. He is compliant with all medications. He endorsed to this instructional writer that he slept alright last night and is doing fine. Patient is noted to be polite, pleasant, and cooperative with care. He was noted self-isolating to his room the majority of the day aside from meal times. He did not participate in group therapy today despite encouragement. He denies SI/HI, AH or VH. Does not appear to be responding to internal stimuli. Patient was encouraged to take a shower today and be more independent of ADLs. He showered and was dressed in clean clothing with clean linen applied to his bed. He joined in the community room for meal times with peers. S/I, H/I: Pt denies. A/VH: Pt denies. Sleep: Patient slept 6.75 hours last night per NOC shift. Napped intermittently throughout the day. ADL's: Independent with prompting, ambulates ad renny with FWW, FWW has improved his gait stability and speed substantially. Group attendance: No Were meds taken: Yes Any med S/E: Mental Status Exam Appearance: Clean, took a shower on this shift. Elderly male with a scruffy bowen espinoza, poor dental hygiene noted, missing teeth, wearing green unit scrubs Eye contact: Good Behavior: Pleasant, cooperative. Speech: Clear and soft Mood: Good. Affect: Flat Thought content: Meeting needs. Cognition: A&Ox4 Insight: Fair Judgment: Fair Interventions PRN's used: None Therapeutic interventions: 1:1 assessment, therapeutic conversation, active listening, medication administration/education/monitoring, encouragement of autonomy in ADLs, encouragement to attend groups, fall prevention, provided encouragement and positive reinforcement, maintained Q15 minute safety checks. Restraints/seclusion/emergency medication: N/A Justification of Continued Inpatient Treatment: Patient is conserved with [facility] awaiting placement. Per VIANEY Barfield, No change in medications. A packet has been sent to [facility].
[2021-01-23 19:13] VITALS: BP 102/55
[2021-01-23] MEDS: atorvastatin 20mg tablet PO SCH (20:10)
[2021-01-23] MEDS: hydrocortisone 1% cream 28gm TP SCH (20:14)
[2021-01-23] MEDS: ketoconazole 2% cream 15gm TP SCH (21:00)
--- NOTE | 2021-01-24 04:30 | NUR ---
Nursing Progress Note: Legal hold: [facility] Client on involuntary status for GD. Report received from all day shift nurses, RN with use of SBAR. Why they are here: Pt admitted to [place] for Behavioral health from [facility] on [facility] conservatorship. Pt is here for placement. Pt had some sort of agitation at [facility]. He knocked a can of soda off a table. Pt not attending group therapy sessions. He threw a tray in the dining room. Pt has history of Schizoaffective, benign lipomatous, DM II, Pacemaker, benign prostatic hyperplasia. Pt cooperative with admission process. Assessment What has happened this shift: Patient spent the majority of the shift in bed except for getting up for snack time and taking scheduled medications. Patient ambulated much better with walker.Patient slept with no difficulty. S/I, H/I: Pt denies. A/VH: Pt denies. Sleep: See sleep assessment.. ADL's: Independent with prompting, ambulates ad renny with FWW. FWW has improved his gait stability and speed substantially, pt shuffled along using tiny steps quite slowly before. Group attendance: NA Were meds taken: Yes Any med S/E: None observed/reported. Mental Status Exam Appearance: Older gentleman with longish white, greasy hair. Dressed in green unit scrubs. Eye contact: Good Behavior: Pleasant, cooperative. Speech: WNL Mood: Euthymic Affect: Blunted Thought content: Wants to be placed at a board and care. Cognition: A&Ox4 Insight: Fair Judgment: Fair Interventions PRN's used: none Therapeutic interventions: 1:1 assessment, therapeutic conversation, active listening, medication administration/education/monitoring, encouragement of autonomy in ADLs, encouragement to attend groups, fall prevention, provided encouragement and positive reinforcement, maintained Q15 minute safety checks. Restraints/seclusion/emergency medication: N/A Justification of Continued Inpatient Treatment: Pt required crisis interruption and medication adjustment and monitoring in a safe and supportive environment until stable. Pt is at baseline. Patient is conserved with [facility] awaiting placement.
[2021-01-24] MEDS: amantadine 100 MG capsule PO SCH ×2 (07:23→20:24)
[2021-01-24] MEDS: multivitamins, therapeutics tablet PO SCH (07:23)
[2021-01-24] MEDS: thiamine 100mg tablet PO SCH (07:23)
[2021-01-24] MEDS: folic acid 0.4mg tablet PO SCH (07:23)
[2021-01-24] MEDS: trihexyphenidyl HCL 5 MG tablet PO SCH ×2 (07:23→20:24)
[2021-01-24] MEDS: aspirin 81mg, enteric-coated 1 TAB TABLET.DR PO SCH (07:23)
[2021-01-24] MEDS: metFORMIN 500mg tablet PO SCH ×2 (07:24→17:16)
[2021-01-24] MEDS: divalproex 250mg tablet, delayed-release PO SCH ×2 (07:24→20:22)
[2021-01-24] MEDS: risperiDONE 2mg tablet PO SCH ×2 (07:24→20:22)
[2021-01-24] MEDS: cholecalciferol (vitamin D3) 1,000 unit (25mcg) tablet PO SCH (07:24)
[2021-01-24] MEDS: busPIRone 5mg tablet PO SCH ×2 (07:24→20:23)
[2021-01-24 08:52] VITALS: BP 95/60
--- NOTE | 2021-01-24 17:20 | NUR ---
Nursing Progress Note: Legal Hold: [facility] Client on involuntary status for GD. Report received from nurse, GABRIEL Donahue with use of SBAR. Why they are here: Pt admitted to [place] for Behavioral health from [facility] on [facility] conservatorship. Pt is here for placement. Pt had some sort of agitation at [facility]. He knocked a can of soda off a table. Pt not attending group therapy sessions. He threw a tray in the dining room. Pt has history of Schizoaffective, benign lipomatous, DM II, Pacemaker, benign prostatic hyperplasia. Pt cooperative with admission process. Assessment What has happened this shift: Patient resting quietly in bed at the start of the shift. Eats meals in the community room and interacts appropriately with staff and peers. Ambulates with walker and appears steady although he shuffles and walks slowly. Denies any dizziness at this time. Cooperative with 1:1 and medications. Isolates in his room and appears fatigued. Does not engage in conversation and sometimes has difficulty finding words. Answers closed ended questions. In the afternoon patient making delusional statements with mumbled speech, Ill deal with that, and that nigger upstairs. S/I, H/I: Denies A/VH: Denies Sleep: 7.5 hours per NOC. Sleeps until breakfast and naps frequently throughout the day. ADL's: Independent, FWW has improved his gait stability and speed substantially. Group attendance: No Were meds taken: Yes Any med S/E: None observed or reported Mental Status Exam Appearance: Elderly male with a scruffy bowen espinoza, long hair, poor dental hygiene noted, missing teeth, wearing green unit scrubs. Eye contact: Good Behavior: Cooperative, isolative Speech: Scant, soft Mood: Good. Affect: Blunted Thought process: Delusional Thought content: Meeting needs, poverty of thought Cognition: A&Ox4 Insight: Fair Judgment: Fair Interventions PRN's used: None Therapeutic interventions: 1:1 assessment, therapeutic conversation, active listening, medication administration/education/monitoring, encouragement of autonomy in ADLs, encouragement to attend groups, fall prevention, provided encouragement and positive reinforcement, maintained Q15 minute safety checks. Restraints/seclusion/emergency medication: N/A Justification of Continued Inpatient Treatment: Patient is conserved with [facility] awaiting placement. Per VIANEY Barfield, No change in medications. A packet has been sent to [facility].
[2021-01-24 19:17] VITALS: BP 109/57
[2021-01-24] MEDS: atorvastatin 20mg tablet PO SCH (20:23)
[2021-01-24] MEDS: ketoconazole 2% cream 15gm TP SCH (20:27)
[2021-01-24] MEDS: hydrocortisone 1% cream 28gm TP SCH (20:27)
--- NOTE | 2021-01-25 04:28 | NUR ---
Nursing Progress Note: Legal hold: [facility] Client on involuntary status for GD. Report received from GABRIEL Phelps with use of SBAR. Why they are here: Pt admitted to [place] for Behavioral health from [facility] on [facility] conservatorship. Pt is here for placement. Pt had some sort of agitation at [facility]. He knocked a can of soda off a table. Pt not attending group therapy sessions. He threw a tray in the dining room. Pt has history of Schizoaffective, benign lipomatous, DM II, Pacemaker, benign prostatic hyperplasia. Pt cooperative with admission process. Assessment What has happened this shift: Patient spent the majority of the shift in bed except for getting up for scheduled medications and snack time. Patient spent a short time socializing with other patients before returning to bed. Patient slept with no difficulty. S/I, H/I: Pt denies. A/VH: Pt denies. Sleep: See sleep assessment.. ADL's: Independent with prompting, ambulates ad renny with FWW. FWW has improved his gait stability and speed substantially, pt shuffled along using tiny steps quite slowly before. Group attendance: NA Were meds taken: Yes Any med S/E: None observed/reported. Mental Status Exam Appearance: Older gentleman with longish white hair. Dressed in green unit scrubs. Eye contact: Good Behavior: Pleasant, cooperative. Speech: WNL Mood: Euthymic Affect: Blunted Thought content: Wants to be placed at a board and care. Cognition: A&Ox4 Insight: Fair Judgment: Fair Interventions PRN's used: none Therapeutic interventions: 1:1 assessment, therapeutic conversation, active listening, medication administration/education/monitoring, encouragement of autonomy in ADLs, encouragement to attend groups, fall prevention, provided encouragement and positive reinforcement, maintained Q15 minute safety checks. Restraints/seclusion/emergency medication: N/A Justification of Continued Inpatient Treatment: Pt required crisis interruption and medication adjustment and monitoring in a safe and supportive environment until stable. Pt is at baseline. Patient is conserved with [facility] awaiting placement.
--- NOTE | 2021-01-25 07:36 | NUR ---
PLACEMENT UPDATE Packet is in Q at [facility]. [facility] staff reached out to [facility] to see if they could send packet to any other [facility] or [facility] facilities. [facility] denied request at this time, asked [facility] staff to hold off and wait for [facility]. [facility] staff has sent multiple emails asking for an update on the status of this clients placement packet; awaiting response. MANJU Webb
[2021-01-25] MEDS: risperiDONE 2mg tablet PO SCH ×2 (07:58→20:25)
[2021-01-25] MEDS: trihexyphenidyl HCL 5 MG tablet PO SCH ×2 (07:58→20:27)
[2021-01-25] MEDS: metFORMIN 500mg tablet PO SCH ×2 (07:58→17:42)
[2021-01-25] MEDS: amantadine 100 MG capsule PO SCH ×2 (07:58→20:26)
[2021-01-25] MEDS: aspirin 81mg, enteric-coated 1 TAB TABLET.DR PO SCH (07:58)
[2021-01-25] MEDS: busPIRone 5mg tablet PO SCH ×2 (07:58→20:26)
[2021-01-25] MEDS: thiamine 100mg tablet PO SCH (07:59)
[2021-01-25] MEDS: cholecalciferol (vitamin D3) 1,000 unit (25mcg) tablet PO SCH (07:59)
[2021-01-25] MEDS: multivitamins, therapeutics tablet PO SCH (07:59)
[2021-01-25] MEDS: folic acid 0.4mg tablet PO SCH (07:59)
[2021-01-25 08:00] VITALS: BP 93/65
[2021-01-25] MEDS: divalproex 250mg tablet, delayed-release PO SCH ×2 (08:00→20:25)
--- NOTE | 2021-01-25 17:17 | NUR ---
Nursing Progress Note: Client on involuntary status for GD. Report received from Mehnaz Fritz RN with use of SBAR. Why they are here: Pt admitted to [place] for Behavioral health from [facility] on LPS conservatorship. Pt is here for placement. Pt had some sort of agitation at [facility]. He knocked a can of soda off a table. Pt not attending group therapy sessions. He threw a tray in the dining room. Pt has history of Schizoaffective, benign lipomatous, DM II, Pacemaker, benign prostatic hyperplasia. Pt cooperative with admission process. Assessment What has happened this shift: RN received pt. asleep in bed at start of shift. Pt. awoke for breakfast and took all medications. Pt. is socially withdrawn and isolates to his room most of the day. Pt. using his walker to ambulate. Pt. attended group. 1:1 done at bedside. Pt. reports he is well, giving minimal information during interview. Pt. observed in the Rec Room in the afternoon watching TV with peers. S/I, H/I: Pt denies. A/VH: Pt denies. Sleep: Pt slept 7.25 hrs hours last night per noc shift report, pt. napped most of the AM. ADL's: Independent with prompting, ambulates ad renny with FWW, FWW has improved his gait stability and speed substantially, pt shuffled along using tiny steps quite slowly before. Group attendance: Yes Were meds taken: Yes Any med S/E: Denies Mental Status Exam Appearance: Older gentleman with longish white, greasy hair. Dressed in green unit scrubs and a clayton jacket. Eye contact: Good Behavior: Pleasant, cooperative. Speech: WNL Mood: Euthymic Affect: Blunted Thought content: Circumstantial Cognition: A&Ox4 Insight: Fair Judgment: Fair Interventions PRN's used: none Therapeutic interventions: 1:1 assessment, therapeutic conversation, active listening, medication administration/education/monitoring, encouragement of autonomy in ADLs, encouragement to attend groups, fall prevention, provided encouragement and positive reinforcement, maintained Q15 minute safety checks. Restraints/seclusion/emergency medication: N/A Justification of Continued Inpatient Treatment: Pt required crisis interruption and medication adjustment and monitoring in a safe and supportive environment until stable. Pt is at baseline. Patient is conserved with [facility] awaiting placement.
[2021-01-25 19:14] VITALS: BP 103/56
[2021-01-25] MEDS: atorvastatin 20mg tablet PO SCH (20:25)
[2021-01-25] MEDS: ketoconazole 2% cream 15gm TP SCH (20:29)
[2021-01-25] MEDS: hydrocortisone 1% cream 28gm TP SCH (20:29)
--- NOTE | 2021-01-26 03:06 | NUR ---
Nursing Progress Note: Legal hold: [facility] Client on involuntary status for GD. Report received from GABRIEL Phelps with use of SBAR. Why they are here: Pt admitted to [place] for Behavioral health from [facility] on [facility] conservatorship. Pt is here for placement. Pt had some sort of agitation at [facility]. He knocked a can of soda off a table. Pt not attending group therapy sessions. He threw a tray in the dining room. Pt has history of Schizoaffective, benign lipomatous, DM II, Pacemaker, benign prostatic hyperplasia. Pt cooperative with admission process. Assessment What has happened this shift: Patient was found socializing in tv room. Patient participated in snack time before returning back to bed. Patient took all scheduled medications. Patient slept with no difficulty. S/I, H/I: Pt denies. A/VH: Pt denies. Sleep: See sleep assessment.. ADL's: Independent with prompting, ambulates ad ernny with FWW. FWW has improved his gait stability and speed substantially, pt shuffled along using tiny steps quite slowly before. Group attendance: NA Were meds taken: Yes Any med S/E: None observed/reported. Mental Status Exam Appearance: Older gentleman with longish white hair. Dressed in green unit scrubs. Eye contact: Good Behavior: Pleasant, cooperative. Speech: WNL Mood: Euthymic Affect: Blunted Thought content: Wants to be placed at a board and care. Cognition: A&Ox4 Insight: Fair Judgment: Fair Interventions PRN's used: none Therapeutic interventions: 1:1 assessment, therapeutic conversation, active listening, medication administration/education/monitoring, encouragement of autonomy in ADLs, encouragement to attend groups, fall prevention, provided encouragement and positive reinforcement, maintained Q15 minute safety checks. Restraints/seclusion/emergency medication: N/A Justification of Continued Inpatient Treatment: Pt required crisis interruption and medication adjustment and monitoring in a safe and supportive environment until stable. Pt is at baseline. Patient is conserved with [facility] awaiting placement.
[2021-01-26] MEDS: metFORMIN 500mg tablet PO SCH ×2 (07:00→17:55)
[2021-01-26] MEDS: risperiDONE 2mg tablet PO SCH ×2 (08:13→20:15)
[2021-01-26] MEDS: divalproex 250mg tablet, delayed-release PO SCH ×2 (08:13→20:15)
[2021-01-26] MEDS: folic acid 0.4mg tablet PO SCH (08:13)
[2021-01-26] MEDS: multivitamins, therapeutics tablet PO SCH (08:13)
[2021-01-26] MEDS: busPIRone 5mg tablet PO SCH ×2 (08:13→20:16)
[2021-01-26] MEDS: amantadine 100 MG capsule PO SCH ×2 (08:14→20:15)
[2021-01-26] MEDS: trihexyphenidyl HCL 5 MG tablet PO SCH ×2 (08:14→20:14)
[2021-01-26] MEDS: cholecalciferol (vitamin D3) 1,000 unit (25mcg) tablet PO SCH (08:14)
[2021-01-26] MEDS: thiamine 100mg tablet PO SCH (08:14)
[2021-01-26] MEDS: aspirin 81mg, enteric-coated 1 TAB TABLET.DR PO SCH (08:14)
[2021-01-26 08:57] VITALS: BP 96/63
--- NOTE | 2021-01-26 16:12 | NUR ---
Nursing Progress Note: Client on involuntary status for GD. Report received from GABRIEL Santiago with use of SBAR. Why they are here: Pt admitted to [place] for Behavioral health from [facility] on LPS conservatorship. Pt is here for placement. Pt had some sort of agitation at [facility]. He knocked a can of soda off a table. Pt not attending group therapy sessions. He threw a tray in the dining room. Pt has history of Schizoaffective, benign lipomatous, DM II, Pacemaker, benign prostatic hyperplasia. Pt cooperative with admission process. Assessment What has happened this shift: RN received pt. asleep in bed at start of shift. Pt. awoke for breakfast and took all medications. Pt. is socially withdrawn and isolates to his room most of the day. Pt. using his walker to ambulate. Pt. attended group. 1:1 done at bedside. Pt. reports he is well, giving minimal information during interview. Pt. observed in the Rec Room in the afternoon watching TV with peers. S/I, H/I: Pt denies. A/VH: Pt denies. Sleep: pt. napped most of the AM and intermittently in the afternoon. ADL's: Independent with prompting, ambulates ad renny with FWW, FWW has improved his gait stability and speed substantially, pt shuffled along using tiny steps quite slowly before. Group attendance: Yes Were meds taken: Yes Any med S/E: Denies Mental Status Exam Appearance: Older gentleman with longish white, greasy hair. Dressed in green unit scrubs and a clayton jacket. Eye contact: Good Behavior: Pleasant, cooperative. Speech: WNL Mood: Euthymic Affect: Blunted Thought content: Circumstantial Cognition: A&Ox4 Insight: Fair Judgment: Fair Interventions PRN's used: none Therapeutic interventions: 1:1 assessment, therapeutic conversation, active listening, medication administration/education/monitoring, encouragement of autonomy in ADLs, encouragement to attend groups, fall prevention, provided encouragement and positive reinforcement, maintained Q15 minute safety checks. Restraints/seclusion/emergency medication: N/A Justification of Continued Inpatient Treatment: Pt required crisis interruption and medication adjustment and monitoring in a safe and supportive environment until stable. Pt is at baseline. Patient is conserved with [facility] awaiting placement.
[2021-01-26 19:24] VITALS: BP 98/46
[2021-01-26] MEDS: atorvastatin 20mg tablet PO SCH (20:15)
[2021-01-26] MEDS: ketoconazole 2% cream 15gm TP SCH (20:17)
[2021-01-26] MEDS: hydrocortisone 1% cream 28gm TP SCH (20:17)
--- NOTE | 2021-01-27 00:06 | NUR ---
Nursing Progress Note: Client on involuntary status for GD. Report received from GABRIEL Phelps with use of SBAR. Why they are here: Pt admitted to [place] for Behavioral health from [facility] on LPS conservatorship. Pt is here for placement. Pt had some sort of agitation at [facility]. He knocked a can of soda off a table. Pt not attending group therapy sessions. He threw a tray in the dining room. Pt has history of Schizoaffective, benign lipomatous, DM II, Pacemaker, benign prostatic hyperplasia. Pt cooperative with admission process. Assessment What has happened this shift: Patient was in his room napping at shift change. He got and went to the rec room and watched tv with some peers. He was med compliant then returned to his room and went to sleep. S/I, H/I: Pt denies. A/VH: Pt denies. Sleep: See sleep assessment. ADL's: Independent with prompting, ambulates ad renny with FWW, FWW has improved his gait stability and speed substantially, pt shuffled along using tiny steps quite slowly before. Group attendance: Yes Were meds taken: Yes Any med S/E: Denies Mental Status Exam Appearance: Older gentleman with longish white, greasy hair. Dressed in green unit scrubs and a clayton jacket. Eye contact: Good Behavior: Pleasant, cooperative. Speech: WNL Mood: Euthymic Affect: Blunted Thought content: Circumstantial Cognition: A&Ox4 Insight: Fair Judgment: Fair Interventions PRN's used: none Therapeutic interventions: 1:1 assessment, therapeutic conversation, active listening, medication administration/education/monitoring, encouragement of autonomy in ADLs, encouragement to attend groups, fall prevention, provided encouragement and positive reinforcement, maintained Q15 minute safety checks. Restraints/seclusion/emergency medication: N/A Justification of Continued Inpatient Treatment: Pt required crisis interruption and medication adjustment and monitoring in a safe and supportive environment until stable. Pt is at baseline. Patient is conserved with [facility] awaiting placement.
[2021-01-27 07:00] VITALS: BP 90/55
[2021-01-27] MEDS: risperiDONE 2mg tablet PO SCH ×2 (08:31→20:27)
[2021-01-27] MEDS: amantadine 100 MG capsule PO SCH ×2 (08:31→20:28)
[2021-01-27] MEDS: cholecalciferol (vitamin D3) 1,000 unit (25mcg) tablet PO SCH (08:31)
[2021-01-27] MEDS: aspirin 81mg, enteric-coated 1 TAB TABLET.DR PO SCH (08:31)
[2021-01-27] MEDS: busPIRone 5mg tablet PO SCH ×2 (08:31→20:27)
[2021-01-27] MEDS: metFORMIN 500mg tablet PO SCH ×2 (08:32→17:34)
[2021-01-27] MEDS: thiamine 100mg tablet PO SCH (08:32)
[2021-01-27] MEDS: folic acid 0.4mg tablet PO SCH (08:32)
[2021-01-27] MEDS: trihexyphenidyl HCL 5 MG tablet PO SCH ×2 (08:32→20:26)
[2021-01-27] MEDS: multivitamins, therapeutics tablet PO SCH (08:32)
[2021-01-27] MEDS: divalproex 250mg tablet, delayed-release PO SCH ×2 (08:33→20:27)
--- NOTE | 2021-01-27 16:51 | NUR ---
Nursing Progress Note: [place] Client on involuntary status for GD. Report received from JHON Montanez with use of SBAR. Why they are here: Pt admitted to [place] for Behavioral health from [facility] on LPS conservatorship. Pt is here for placement. Pt had some sort of agitation at [facility]. He knocked a can of soda off a table. Pt not attending group therapy sessions. He threw a tray in the dining room. Pt has history of Schizoaffective, benign lipomatous, DM II, Pacemaker, benign prostatic hyperplasia. Pt cooperative with admission process. Assessment What has happened this shift: Received patient sleeping at shift change, no distress noted. Pt was awoken to attend breakfast then returned to bed. Pt was compliant with care and medications. Pt spent most of his morning in bed sleeping. Pt denies all mental health symptoms. Pt eats all meals and snacks in community room. Reports LBM 2 days ago states If I dont have one tomorrow I will take something. S/I, H/I: Pt denies both. A/VH: Pt denies both. Sleep: 7.25 hours per sleep assessment. ADL's: Independent with prompting, ambulates ad renny with FWW, FWW has improved his gait stability and speed substantially, pt shuffled along using tiny steps quite slowly before. Group attendance: No scheduled group today. Were meds taken: Yes, without issue. Any med S/E: Denies none observed. Mental Status Exam Appearance: Older gentleman with longish white, greasy hair. Dressed in green unit scrubs and a clayton jacket. Eye contact: Good Behavior: Pleasant, cooperative. Speech: WNL Mood: Euthymic Affect: Blunted Thought content: Circumstantial Cognition: A&Ox4 Insight: Fair Judgment: Fair Interventions PRN's used: None Therapeutic interventions: 1:1 assessment, therapeutic conversation, active listening, medication administration/education/monitoring, encouragement of autonomy in ADLs, encouragement to attend groups, fall prevention, provided encouragement and positive reinforcement, maintained Q15 minute safety checks. Restraints/seclusion/emergency medication: N/A Justification of Continued Inpatient Treatment: Pt required crisis interruption and medication adjustment and monitoring in a safe and supportive environment until stable. Pt is at baseline. Patient is conserved with [facility] awaiting placement. Addendum: 01/27/21 at 1736 by Radha Cavazos RN sayra Morales.
[2021-01-27 19:55] VITALS: BP 107/67
[2021-01-27] MEDS: hydrocortisone 1% cream 28gm TP SCH (20:28)
[2021-01-27] MEDS: ketoconazole 2% cream 15gm TP SCH (20:28)
[2021-01-27] MEDS: atorvastatin 20mg tablet PO SCH (20:28)
--- NOTE | 2021-01-28 00:11 | NUR ---
Nursing Progress Note: [place] Client on involuntary status for GD. Report received from GABRIEL Phelps with use of SBAR. Why they are here: Pt admitted to [place] for Behavioral health from [facility] on LPS conservatorship. Pt is here for placement. Pt had some sort of agitation at [facility]. He knocked a can of soda off a table. Pt not attending group therapy sessions. He threw a tray in the dining room. Pt has history of Schizoaffective, benign lipomatous, DM II, Pacemaker, benign prostatic hyperplasia. Pt cooperative with admission process. Assessment What has happened this shift: Received was up in group room watching tv at shift change, no distress noted. Pt left group room and ambulated back to his room after snack where Meds were given and went to sleep. S/I, H/I: Pt denies both. A/VH: Pt denies both. Sleep: See sleep assessment. ADL's: Independent with prompting, ambulates ad renny with FWW, FWW has improved his gait stability and speed substantially, pt shuffled along using tiny steps quite slowly before. Group attendance: No scheduled group today. Were meds taken: Yes, without issue. Any med S/E: Denies none observed. Mental Status Exam Appearance: Older gentleman with longish white, greasy hair. Dressed in green unit scrubs and a clayton jacket. Eye contact: Good Behavior: Pleasant, cooperative. Speech: WNL Mood: Euthymic Affect: Blunted Thought content: Circumstantial Cognition: A&Ox4 Insight: Fair Judgment: Fair Interventions PRN's used: None Therapeutic interventions: 1:1 assessment, therapeutic conversation, active listening, medication administration/education/monitoring, encouragement of autonomy in ADLs, encouragement to attend groups, fall prevention, provided encouragement and positive reinforcement, maintained Q15 minute safety checks. Restraints/seclusion/emergency medication: N/A Justification of Continued Inpatient Treatment: Pt required crisis interruption and medication adjustment and monitoring in a safe and supportive environment until stable. Pt is at baseline. Patient is conserved with [facility] awaiting placement.
[2021-01-28] MEDS: metFORMIN 500mg tablet PO SCH ×2 (07:00→17:33)
[2021-01-28 07:07] VITALS: BP 95/58
[2021-01-28] MEDS: busPIRone 5mg tablet PO SCH ×2 (08:28→20:40)
[2021-01-28] MEDS: multivitamins, therapeutics tablet PO SCH (08:29)
[2021-01-28] MEDS: risperiDONE 2mg tablet PO SCH ×2 (08:29→20:41)
[2021-01-28] MEDS: folic acid 0.4mg tablet PO SCH (08:29)
[2021-01-28] MEDS: aspirin 81mg, enteric-coated 1 TAB TABLET.DR PO SCH (08:29)
[2021-01-28] MEDS: amantadine 100 MG capsule PO SCH ×2 (08:30→20:41)
[2021-01-28] MEDS: cholecalciferol (vitamin D3) 1,000 unit (25mcg) tablet PO SCH (08:30)
[2021-01-28] MEDS: thiamine 100mg tablet PO SCH (08:31)
[2021-01-28] MEDS: trihexyphenidyl HCL 5 MG tablet PO SCH ×2 (08:31→20:41)
[2021-01-28] MEDS: divalproex 250mg tablet, delayed-release PO SCH ×2 (08:31→20:40)
--- NOTE | 2021-01-28 15:33 | NUR ---
Reassessment: Pt continues w/ adequate PO intake, mostly 100% of meals on CCHO/Heart Healthy diet meeting needs. Pt compliant w/ meds. LBM 01/25. No new nutrition intervention implemented at this time, will continue to monitor. Rec: 1. Continue carb controlled/heart healthy diet as tolerated 2. routine bowel care 3. daily accuchecks; Glu 199mg/dl 01/02 w/ hx T2DM on metformin 4. weekly wts Addendum: 01/28/21 at [address] Amended: Links added.
--- NOTE | 2021-01-28 16:54 | NUR ---
Nursing Progress Note: SARABJIT Client on involuntary status for GD. Report received from NICK Hampton with use of SBAR. Why they are here: Pt admitted to [place] for Behavioral health from [facility] on LPS conservatorship. Pt is here for placement. Pt had some sort of agitation at [facility]. He knocked a can of soda off a table. Pt not attending group therapy sessions. He threw a tray in the dining room. Pt has history of Schizoaffective, benign lipomatous, DM II, Pacemaker, benign prostatic hyperplasia. Pt cooperative with admission process. Assessment What has happened this shift: Received patient sleeping at shift change, no distress noted. Pt arouses to name. Pt was awoken to attend breakfast. Pt shuffles his way to the community to eat then returns to his room to sleep. Pt tells health underwriter Im just tired. When do I get out of here. Pt doesnt engage in conversation, but is polite. Pt compliant with care and medications. No delusional remarks. Pt denies all MH symptoms. S/I, H/I: Pt denies both. A/VH: Pt denies both. Sleep: 8.25 per sleep assessment. Short intermitted naps today. ADL's: Independent with prompting, ambulates ad renny with FWW, FWW has improved his gait stability and speed substantially, pt shuffled along using tiny steps quite slowly before. Group attendance: Declined. Were meds taken: Yes, without issue. Any med S/E: Mental Status Exam Appearance: Older gentleman with longish white hair bald on top dressed in green unit scrubs Eye contact: Good Behavior: Pleasant, cooperative. Speech: Clear and soft Mood: Good. Affect: Flat Thought content: Wants to go home. Cognition: A&Ox4 Insight: Fair Judgment: Fair Interventions PRN's used: None Therapeutic interventions: 1:1 assessment, therapeutic conversation, active listening, medication administration/education/monitoring, encouragement of autonomy in ADLs, encouragement to attend groups, fall prevention, provided encouragement and positive reinforcement, maintained Q15 minute safety checks. Restraints/seclusion/emergency medication: N/A Justification of Continued Inpatient Treatment: Patient is conserved with [facility] awaiting placement.
[2021-01-28 20:00] VITALS: BP 111/73
[2021-01-28] MEDS: atorvastatin 20mg tablet PO SCH (20:41)
[2021-01-28] MEDS: ketoconazole 2% cream 15gm TP SCH (20:41)
[2021-01-28] MEDS: hydrocortisone 1% cream 28gm TP SCH (20:42)
--- NOTE | 2021-01-29 00:54 | NUR ---
Nursing Progress Note: SARABJIT Client on involuntary status for GD. Report received from NICK Phelps with use of SBAR. Why they are here: Pt admitted to [place] for Behavioral health from [facility] on LPS conservatorship. Pt is here for placement. Pt had some sort of agitation at [facility]. He knocked a can of soda off a table. Pt not attending group therapy sessions. He threw a tray in the dining room. Pt has history of Schizoaffective, benign lipomatous, DM II, Pacemaker, benign prostatic hyperplasia. Pt cooperative with admission process. Assessment What has happened this shift: Patient was in bed at the start of the shift. He stayed in his room was med compliant. S/I, H/I: Pt denies both. A/VH: Pt denies both. Sleep: See sleep assessment. ADL's: Independent with prompting, ambulates ad renny with FWW, FWW has improved his gait stability and speed substantially, pt shuffled along using tiny steps quite slowly before. Group attendance: Declined. Were meds taken: Yes, without issue. Any med S/E: Mental Status Exam Appearance: Older gentleman with longish white hair bald on top dressed in green unit scrubs Eye contact: Good Behavior: Pleasant, cooperative. Speech: Clear and soft Mood: Good. Affect: Flat Thought content: Wants to go home. Cognition: A&Ox4 Insight: Fair Judgment: Fair Interventions PRN's used: None Therapeutic interventions: 1:1 assessment, therapeutic conversation, active listening, medication administration/education/monitoring, encouragement of autonomy in ADLs, encouragement to attend groups, fall prevention, provided encouragement and positive reinforcement, maintained Q15 minute safety checks. Restraints/seclusion/emergency medication: N/A Justification of Continued Inpatient Treatment: Patient is conserved with [facility] awaiting placement.
[2021-01-29 07:00] VITALS: BP 95/56
[2021-01-29] MEDS: risperiDONE 2mg tablet PO SCH ×2 (07:36→20:19)
[2021-01-29] MEDS: cholecalciferol (vitamin D3) 1,000 unit (25mcg) tablet PO SCH (07:36)
[2021-01-29] MEDS: multivitamins, therapeutics tablet PO SCH (07:37)
[2021-01-29] MEDS: thiamine 100mg tablet PO SCH (07:37)
[2021-01-29] MEDS: folic acid 0.4mg tablet PO SCH (07:37)
[2021-01-29] MEDS: busPIRone 5mg tablet PO SCH ×2 (07:37→20:20)
[2021-01-29] MEDS: trihexyphenidyl HCL 5 MG tablet PO SCH ×2 (07:37→20:20)
[2021-01-29] MEDS: metFORMIN 500mg tablet PO SCH ×2 (07:37→17:45)
[2021-01-29] MEDS: amantadine 100 MG capsule PO SCH ×2 (07:37→20:21)
[2021-01-29] MEDS: divalproex 250mg tablet, delayed-release PO SCH ×2 (07:37→20:20)
[2021-01-29] MEDS: aspirin 81mg, enteric-coated 1 TAB TABLET.DR PO SCH (07:37)
--- NOTE | 2021-01-29 16:05 | NUR ---
Nursing Progress Note: SARABJIT Client on involuntary status for GD. Report received from NICK Donahue with use of SBAR. Why they are here: Pt admitted to [place] for Behavioral health from [facility] on LPS conservatorship. Pt is here for placement. Pt had some sort of agitation at [facility]. He knocked a can of soda off a table. Pt not attending group therapy sessions. He threw a tray in the dining room. Pt has history of Schizoaffective, benign lipomatous, DM II, pacemaker, benign prostatic hyperplasia. Pt cooperative with admission process. Assessment What has happened this shift: Received patient sleeping at shift change, no distress noted. Pt woke in a pleasant, bright mood, sat in rec room watching T.V before breakfast. Pt focused on discharge asking again when do I leave. Pt was compliant with medication and care. Pt continues with his shuffle gait. No behaviors or delusional remarks noted. S/I, H/I: Pt denies both. A/VH: Pt denies both. Sleep: 7.5 per sleep assessment. Short intermitted naps today. ADL's: Independent with prompting, ambulates ad renny with FWW, FWW has improved his gait stability and speed substantially, pt shuffled along using tiny steps quite slowly before. Group attendance: Declined. Were meds taken: Yes, without issue. Any med S/E: Shuffle gait r/t to medications (?) Mental Status Exam Appearance: Older gentleman with longish white hair bald on top dressed in green unit scrubs. Disheveled, but clean. Pt showered yesterday. Eye contact: Good Behavior: Pleasant, cooperative. Isolates to self/room. Speech: Mumbled at times, soft, minimal. Mood: Euthymic Affect: Blunted. Thought content: Wants to go home. Cognition: A&Ox4 Insight: Fair Judgment: Fair Interventions PRN's used: None Therapeutic interventions: 1:1 assessment, therapeutic conversation, active listening, medication administration/education/monitoring, encouragement of autonomy in ADLs, encouragement to attend groups, fall prevention, provided encouragement and positive reinforcement, maintained Q15 minute safety checks. Restraints/seclusion/emergency medication: N/A Justification of Continued Inpatient Treatment: Patient is conserved with [facility] awaiting placement.
--- NOTE | 2021-01-29 17:37 | NUR ---
Group Art Tx Continued: Patient entered the group room later into the session. Patient was quiet, choosing to sit in the back of the room, remaining as an observer to the group process. *Please refer to the [facility] Case Notes for entire overview. Rhona Degroot MA, MAIL ROOM #[id number] [facility], Art Therapist Addendum: 01/29/21 at 1738 by Rohna Degroot SS Amended: Links added.
[2021-01-29 20:00] VITALS: BP 118/74
[2021-01-29] MEDS: atorvastatin 20mg tablet PO SCH (20:21)
[2021-01-29] MEDS: ketoconazole 2% cream 15gm TP SCH (21:00)
[2021-01-29] MEDS: hydrocortisone 1% cream 28gm TP SCH (21:00)
--- NOTE | 2021-01-30 00:34 | NUR ---
Nursing Progress Note: SARABJIT Client on involuntary status for GD. Report received from NICK Phelps with use of SBAR. Why they are here: Pt admitted to [place] for Behavioral health from [facility] on LPS conservatorship. Pt is here for placement. Pt had some sort of agitation at [facility]. He knocked a can of soda off a table. Pt not attending group therapy sessions. He threw a tray in the dining room. Pt has history of Schizoaffective, benign lipomatous, DM II, pacemaker, benign prostatic hyperplasia. Pt cooperative with admission process. Assessment What has happened this shift: Received patient sleeping at shift change, no distress noted. Pt woke and ambulated to the rec room and watched tv with some peers. Pt states the he feels a little better today more so than in previous days. S/I, H/I: Pt denies both. A/VH: Pt denies both. Sleep: See sleep assessment. ADL's: Independent with prompting, ambulates ad renny with FWW, FWW has improved his gait stability and speed substantially, pt shuffled along using tiny steps quite slowly before. Group attendance: Declined. Were meds taken: Yes, without issue. Any med S/E: Shuffle gait r/t to medications (?) Mental Status Exam Appearance: Older gentleman with longish white hair bald on top dressed in green unit scrubs. Disheveled, but clean. Pt showered yesterday. Eye contact: Good Behavior: Pleasant, cooperative. Isolates to self/room. Speech: Mumbled at times, soft, minimal. Mood: Euthymic Affect: Blunted. Thought content: Wants to go home. Cognition: A&Ox4 Insight: Fair Judgment: Fair Interventions PRN's used: None Therapeutic interventions: 1:1 assessment, therapeutic conversation, active listening, medication administration/education/monitoring, encouragement of autonomy in ADLs, encouragement to attend groups, fall prevention, provided encouragement and positive reinforcement, maintained Q15 minute safety checks. Restraints/seclusion/emergency medication: N/A Justification of Continued Inpatient Treatment: Patient is conserved with [facility] awaiting placement.
[2021-01-30 07:00] VITALS: BP 93/54
[2021-01-30] MEDS: multivitamins, therapeutics tablet PO SCH (08:02)
[2021-01-30] MEDS: busPIRone 5mg tablet PO SCH ×2 (08:02→20:13)
[2021-01-30] MEDS: folic acid 0.4mg tablet PO SCH (08:02)
[2021-01-30] MEDS: amantadine 100 MG capsule PO SCH ×2 (08:02→20:14)
[2021-01-30] MEDS: aspirin 81mg, enteric-coated 1 TAB TABLET.DR PO SCH (08:02)
[2021-01-30] MEDS: metFORMIN 500mg tablet PO SCH ×2 (08:02→17:38)
[2021-01-30] MEDS: divalproex 250mg tablet, delayed-release PO SCH ×2 (08:02→20:16)
[2021-01-30] MEDS: cholecalciferol (vitamin D3) 1,000 unit (25mcg) tablet PO SCH (08:02)
[2021-01-30] MEDS: risperiDONE 2mg tablet PO SCH ×2 (08:02→20:13)
[2021-01-30] MEDS: trihexyphenidyl HCL 5 MG tablet PO SCH ×2 (08:03→20:14)
[2021-01-30] MEDS: thiamine 100mg tablet PO SCH (08:04)
--- NOTE | 2021-01-30 17:56 | NUR ---
Nursing Progress Note: SARABJIT Client on involuntary status for GD. Report received from NICK Donahue with use of SBAR. Why they are here: Pt admitted to [place] for Behavioral health from [facility] on LPS conservatorship. Pt is here for placement. Pt had some sort of agitation at [facility]. He knocked a can of soda off a table. Pt not attending group therapy sessions. He threw a tray in the dining room. Pt has history of Schizoaffective, benign lipomatous, DM II, pacemaker, benign prostatic hyperplasia. Pt cooperative with admission process. Assessment What has happened this shift: Received patient sleeping at shift change, no distress noted. Pt woke in a pleasant, bright mood, sat in the chair in his room looking out the window. Pt was more visible on unit occasionally asking about his discharge. No behaviors or delusional remarks noted. Pt attended the afternoon group. S/I, H/I: Pt denies both. A/VH: Pt denies both. Sleep: 8.25 per sleep assessment. Short intermitted naps today. ADL's: Independent with prompting, ambulates ad renny with FWW, FWW has improved his gait stability and speed substantially, pt shuffled along using tiny steps quite slowly before. Group attendance: PM group. Were meds taken: Yes, without issue. Any med S/E: Shuffle gait r/t to medications (?) Mental Status Exam Appearance: Older gentleman with longish white hair bald on top dressed in green unit scrubs. Disheveled, but clean. Pt showered yesterday. Eye contact: Good Behavior: Pleasant, cooperative. visible on unit today. Speech: Mumbled at times, soft, minimal. Mood: Euthymic Affect: Blunted. Thought content: Wants to go home. Cognition: A&Ox4 Insight: Fair Judgment: Fair Interventions PRN's used: None Therapeutic interventions: 1:1 assessment, therapeutic conversation, active listening, medication administration/education/monitoring, encouragement of autonomy in ADLs, encouragement to attend groups, fall prevention, provided encouragement and positive reinforcement, maintained Q15 minute safety checks. Restraints/seclusion/emergency medication: N/A Justification of Continued Inpatient Treatment: Patient is conserved with [facility] awaiting placement.
[2021-01-30 19:22] VITALS: BP 105/64
[2021-01-30] MEDS: atorvastatin 20mg tablet PO SCH (20:14)
[2021-01-30] MEDS: ketoconazole 2% cream 15gm TP SCH (20:17)
[2021-01-30] MEDS: hydrocortisone 1% cream 28gm TP SCH (20:17)
--- NOTE | 2021-01-31 04:12 | NUR ---
Nursing Progress Note: Client on involuntary status for GD. Report received from GABRIEL Phelps with use of SBAR. Why they are here: Pt admitted to [place] for Behavioral health from [facility] on LPS conservatorship. Pt is here for placement. Pt had some sort of agitation at [facility]. He knocked a can of soda off a table. Pt not attending group therapy sessions. He threw a tray in the dining room. Pt has history of Schizoaffective, benign lipomatous, DM II, Pacemaker, benign prostatic hyperplasia. Pt cooperative with admission process. Assessment What has happened this shift: Patient spent the majority of the shift in bed. Patient did get up and watch tv in the sitting room for a bit and participate in snack time. Patient returned to room and went back to bed. Patient took all scheduled medications without issue. S/I, H/I: Pt denies both. A/VH: Pt denies both. Sleep: See sleep assessment. ADL's: Independent with prompting, ambulates ad renny with FWW, FWW has improved his gait stability and speed substantially, pt shuffled along using tiny steps quite slowly before. Group attendance: Declined. Were meds taken: Yes, without issue. Any med S/E: Mental Status Exam Appearance: Older gentleman with longish white hair bald on top dressed in green unit scrubs Eye contact: Good Behavior: Pleasant, cooperative. Speech: Clear and soft Mood: Good. Affect: Flat Thought content: Wants to go home. Cognition: A&Ox4 Insight: Fair Judgment: Fair Interventions PRN's used: None Therapeutic interventions: 1:1 assessment, therapeutic conversation, active listening, medication administration/education/monitoring, encouragement of autonomy in ADLs, encouragement to attend groups, fall prevention, provided encouragement and positive reinforcement, maintained Q15 minute safety checks. Restraints/seclusion/emergency medication: N/A Justification of Continued Inpatient Treatment: Patient is conserved with [facility] awaiting placement.
[2021-01-31 07:45] VITALS: BP 102/64
[2021-01-31] MEDS: risperiDONE 2mg tablet PO SCH ×2 (08:33→20:56)
[2021-01-31] MEDS: cholecalciferol (vitamin D3) 1,000 unit (25mcg) tablet PO SCH (08:33)
[2021-01-31] MEDS: divalproex 250mg tablet, delayed-release PO SCH ×2 (08:33→20:57)
[2021-01-31] MEDS: busPIRone 5mg tablet PO SCH ×2 (08:33→20:55)
[2021-01-31] MEDS: amantadine 100 MG capsule PO SCH ×2 (08:33→20:55)
[2021-01-31] MEDS: folic acid 0.4mg tablet PO SCH (08:33)
[2021-01-31] MEDS: aspirin 81mg, enteric-coated 1 TAB TABLET.DR PO SCH (08:34)
[2021-01-31] MEDS: thiamine 100mg tablet PO SCH (08:34)
[2021-01-31] MEDS: trihexyphenidyl HCL 5 MG tablet PO SCH ×2 (08:34→20:56)
[2021-01-31] MEDS: multivitamins, therapeutics tablet PO SCH (08:34)
[2021-01-31] MEDS: metFORMIN 500mg tablet PO SCH ×2 (08:37→17:39)
--- NOTE | 2021-01-31 14:17 | NUR ---
We talked about Boundaries, the different kinds and how to communicate our boundaries to others. Each pt. did a written activity to help them identify a person/situation they struggle to set boundaries in. Pt. roscoe was calm and compliant. He appeared to be in a good mood. He declined sharing any thoughts today but he did stay for the entirety of the group and listened to what this [employer] and his peers were talking about. Kori Mandujano, [employer] SHIFT LEAD
--- NOTE | 2021-01-31 17:28 | NUR ---
Nursing Progress Note: Tarik Carmen Client on involuntary status for GD Report received from GABRIEL Donahue with use of SBAR. Why they are here: Pt admitted to [place] for Behavioral health from [facility] on LPS conservatorship. Pt is here for placement. Pt had some sort of agitation at [facility]. He knocked a can of soda off a table. Pt not attending group therapy sessions. He threw a tray in the dining room. Pt has history of Schizoaffective, benign lipomatous, DM II, pacemaker, benign prostatic hyperplasia. Pt cooperative with admission process. Assessment What has happened this shift: Patient observed sleeping in bed at change of shift. He was awoken to join in the community room with peers for breakfast. He uses a FWW and is noted to have not much shuffling gait as he had seen before. He was observed sitting in the community room with peers socializing later in the morning. 1:1 assessment completed, lungs CTA. He is compliant with all medications. Patient is noted to be polite, pleasant, and cooperative with care. He was noted sleeping in his room periodically throughout the day. He participated in group therapy today and was noted interacting appropriately with peers. He denies SI/HI, AH or VH. Does not appear to be responding to internal stimuli. He joined in the community room for meal times with peers. S/I, H/I: Pt denies both. A/VH: Pt denies both. Sleep: Pt slept 3.5 hours last night per sleep assessment. Short intermittent naps today. ADL's: Independent with prompting, ambulates ad renny with FWW Group attendance: Yes Were meds taken: Yes Any med S/E: None noted or reported Mental Status Exam Appearance: Older gentleman with longish white hair bald on top dressed in green unit scrubs. Disheveled, but clean. Eye contact: Good Behavior: Pleasant, cooperative, active on the unit Speech: Mumbled at times, soft, minimal. Mood: Euthymic Affect: Blunted Thought content: Meeting needs Cognition: A&O x4 Insight: Fair Judgment: Fair Interventions PRN's used: None Therapeutic interventions: 1:1 assessment, therapeutic conversation, active listening, medication administration/education/monitoring, encouragement of autonomy in ADLs, encouragement to attend groups, fall prevention, provided encouragement and positive reinforcement, maintained Q15 minute safety checks. Restraints/seclusion/emergency medication: N/A Justification of Continued Inpatient Treatment: Patient is conserved with [facility] awaiting placement.
[2021-01-31 20:06] VITALS: BP 119/65
[2021-01-31] MEDS: atorvastatin 20mg tablet PO SCH (20:57)
[2021-01-31] MEDS: ketoconazole 2% cream 15gm TP SCH (21:09)
[2021-01-31] MEDS: hydrocortisone 1% cream 28gm TP SCH (21:09)
--- NOTE | 2021-01-31 23:26 | NUR ---
Nursing Progress Note: Client on involuntary status for GD. Report received from GABRIEL Phelps with use of SBAR. Why they are here: Pt admitted to [place] for Behavioral health from [facility] on LPS conservatorship. Pt is here for placement. Pt had some sort of agitation at [facility]. He knocked a can of soda off a table. Pt not attending group therapy sessions. He threw a tray in the dining room. Pt has history of Schizoaffective, benign lipomatous, DM II, Pacemaker, benign prostatic hyperplasia. Pt cooperative with admission process. Assessment What has happened this shift: Patient was found in sitting room watching tv with other patients. Patient socialized and played cards with other patients. Patient participated in snack time before going back to bed. Patient took all scheduled medications with no issues. S/I, H/I: Pt denies both. A/VH: Pt denies both. Sleep: See sleep assessment. ADL's: Independent with prompting, ambulates ad renny with FWW, FWW has improved his gait stability and speed substantially, pt shuffled along using tiny steps quite slowly before. Group attendance: Declined. Were meds taken: Yes, without issue. Any med S/E: Mental Status Exam Appearance: Older gentleman with longish white hair bald on top dressed in green unit scrubs Eye contact: Good Behavior: Pleasant, cooperative. Speech: Clear and soft Mood: Good. Affect: Flat Thought content: Wants to go home. Cognition: A&Ox4 Insight: Fair Judgment: Fair Interventions PRN's used: None Therapeutic interventions: 1:1 assessment, therapeutic conversation, active listening, medication administration/education/monitoring, encouragement of autonomy in ADLs, encouragement to attend groups, fall prevention, provided encouragement and positive reinforcement, maintained Q15 minute safety checks. Restraints/seclusion/emergency medication: N/A Justification of Continued Inpatient Treatment: Patient is conserved with [facility] awaiting placement.
[2021-02-01 08:00] VITALS: BP 89/52
[2021-02-01] MEDS: aspirin 81mg, enteric-coated 1 TAB TABLET.DR PO SCH (08:23)
[2021-02-01] MEDS: thiamine 100mg tablet PO SCH (08:23)
[2021-02-01] MEDS: folic acid 0.4mg tablet PO SCH (08:23)
[2021-02-01] MEDS: risperiDONE 2mg tablet PO SCH ×2 (08:23→20:49)
[2021-02-01] MEDS: multivitamins, therapeutics tablet PO SCH (08:23)
[2021-02-01] MEDS: trihexyphenidyl HCL 5 MG tablet PO SCH ×2 (08:23→20:47)
[2021-02-01] MEDS: divalproex 250mg tablet, delayed-release PO SCH ×2 (08:24→20:49)
[2021-02-01] MEDS: amantadine 100 MG capsule PO SCH ×2 (08:24→20:47)
[2021-02-01] MEDS: busPIRone 5mg tablet PO SCH ×2 (08:24→20:47)
[2021-02-01] MEDS: cholecalciferol (vitamin D3) 1,000 unit (25mcg) tablet PO SCH (08:24)
[2021-02-01] MEDS: metFORMIN 500mg tablet PO SCH ×2 (08:26→17:56)
--- NOTE | 2021-02-01 16:38 | NUR ---
Nursing Progress Note Client on involuntary status for GD Report received from GABRIEL Santiago with use of SBAR. Why they are here: Pt admitted to [place] for Behavioral health from [facility] on LPS conservatorship. Pt is here for placement. Pt had some sort of agitation at [facility]. He knocked a can of soda off a table. Pt not attending group therapy sessions. He threw a tray in the dining room. Pt has history of Schizoaffective, benign lipomatous, DM II, pacemaker, benign prostatic hyperplasia. Pt cooperative with admission process. Assessment What has happened this shift: Patient observed sleeping at the start of the shift. He is up for meals and snacks. He continues to use a FWW. His gait has improved. He stayed in bed most of this shift. He is polite and cooperative. S/I, H/I: Pt denies A/VH: Pt denies Sleep: Napped on and off today ADL's: Independent requires encouragement Group attendance: Yes Were meds taken: Yes Any med S/E: None noted or reported Mental Status Exam Appearance: Older gentleman dressed in green unit scrubs. Eye contact: Good Behavior: Pleasant, cooperative Speech: Mumbled at times, soft, minimal. Mood: Euthymic Affect: Blunted Thought content: Meeting needs Cognition: A&O x4 Insight: Fair Judgment: Fair Interventions PRN's used: None Therapeutic interventions: Provided 1:1 assessment with therapeutic communication and active listening, medication administration/education/monitoring, encouragement ADLs, encouragement to attend groups, fall prevention, maintained Q15 minute safety checks. Restraints/seclusion/emergency medication: N/A Justification of Continued Inpatient Treatment: Patient is conserved with [facility] awaiting placement.
[2021-02-01 19:35] VITALS: BP 116/74
[2021-02-01] MEDS: atorvastatin 20mg tablet PO SCH (20:49)
[2021-02-01] MEDS: hydrocortisone 1% cream 28gm TP SCH (20:50)
[2021-02-01] MEDS: ketoconazole 2% cream 15gm TP SCH (20:50)
--- NOTE | 2021-02-02 02:06 | NUR ---
Nursing Progress Note: Client on involuntary status for GD. Report received from GABRIEL Phelps with use of SBAR. Why they are here: Pt admitted to [place] for Behavioral health from [facility] on LPS conservatorship. Pt is here for placement. Pt had some sort of agitation at [facility]. He knocked a can of soda off a table. Pt not attending group therapy sessions. He threw a tray in the dining room. Pt has history of Schizoaffective, benign lipomatous, DM II, Pacemaker, benign prostatic hyperplasia. Pt cooperative with admission process. Assessment What has happened this shift: Patient was pleasant and socialized with staff and other patients. Patient participated in snack time and too all scheduled medications. Patient did two laps around before going to bed. Patient slept with no difficulty. S/I, H/I: Pt denies both. A/VH: Pt denies both. Sleep: See sleep assessment. ADL's: Independent with prompting, ambulates ad renny with FWW, FWW has improved his gait stability and speed substantially, pt shuffled along using tiny steps quite slowly before. Group attendance: Declined. Were meds taken: Yes, without issue. Any med S/E: Mental Status Exam Appearance: Older gentleman with longish white hair bald on top dressed in green unit scrubs Eye contact: Good Behavior: Pleasant, cooperative. Speech: Clear and soft Mood: Good. Affect: Flat Thought content: Wants to go home. Cognition: A&Ox4 Insight: Fair Judgment: Fair Interventions PRN's used: None Therapeutic interventions: 1:1 assessment, therapeutic conversation, active listening, medication administration/education/monitoring, encouragement of autonomy in ADLs, encouragement to attend groups, fall prevention, provided encouragement and positive reinforcement, maintained Q15 minute safety checks. Restraints/seclusion/emergency medication: N/A Justification of Continued Inpatient Treatment: Patient is conserved with [facility] awaiting placement.
[2021-02-02] MEDS: trihexyphenidyl HCL 5 MG tablet PO SCH ×2 (08:13→19:24)
[2021-02-02] MEDS: thiamine 100mg tablet PO SCH (08:13)
[2021-02-02] MEDS: cholecalciferol (vitamin D3) 1,000 unit (25mcg) tablet PO SCH (08:13)
[2021-02-02] MEDS: aspirin 81mg, enteric-coated 1 TAB TABLET.DR PO SCH (08:13)
[2021-02-02] MEDS: divalproex 250mg tablet, delayed-release PO SCH ×2 (08:14→19:24)
[2021-02-02] MEDS: folic acid 0.4mg tablet PO SCH (08:14)
[2021-02-02] MEDS: amantadine 100 MG capsule PO SCH ×2 (08:14→19:24)
[2021-02-02] MEDS: risperiDONE 2mg tablet PO SCH ×2 (08:14→19:24)
[2021-02-02] MEDS: busPIRone 5mg tablet PO SCH ×2 (08:14→19:25)
[2021-02-02] MEDS: multivitamins, therapeutics tablet PO SCH (08:14)
[2021-02-02] MEDS: metFORMIN 500mg tablet PO SCH ×3 (08:20→17:42)
[2021-02-02 08:36] VITALS: BP 119/61
--- NOTE | 2021-02-02 16:14 | NUR ---
Nursing Progress Note Client on involuntary status for GD Report received from GABRIEL Phelps with use of SBAR. Why they are here: Pt admitted to [place] for Behavioral health from [facility] on LPS conservatorship. Pt is here for placement. Pt had some sort of agitation at [facility]. He knocked a can of soda off a table. Pt not attending group therapy sessions. He threw a tray in the dining room. Pt has history of Schizoaffective, benign lipomatous, DM II, pacemaker, benign prostatic hyperplasia. Pt cooperative with admission process. Assessment What has happened this shift: Patient observed sleeping at the start of the shift. He is up for meals and snacks. He continues to use a FWW. His gait has improved. He is polite and cooperative. He was seen in the later afternoon sitting outside his room against the wall drinking a cup of coffee. he was observed prior to lunch watching a movie in the main community room. S/I, H/I: Pt denies A/VH: Pt denies Sleep: Pt rest on and off during the day ADL's: Independent requires encouragement Group attendance: N/A Were Meds taken: Yes Any med S/E: None noted or reported Mental Status Exam Appearance: Older gentleman dressed in green unit scrubs. Eye contact: Good Behavior: Pleasant, cooperative Speech: Mumbles making it difficult to understand him at times. Mood: Euthymic Affect: Congruent with mood Thought content: Would like to move to a trailer on his own Cognition: A&O x4 Insight: Fair Judgment: Fair Interventions PRN's used: None Therapeutic interventions: Provided 1:1 assessment with therapeutic communication and active listening, medication administration/education/monitoring, encouragement ADLs, encouragement to attend groups, fall prevention, maintained Q15 minute safety checks. Restraints/seclusion/emergency medication: N/A Justification of Continued Inpatient Treatment: Patient is conserved with [facility] awaiting placement.
[2021-02-02 19:41] VITALS: BP 109/69
[2021-02-02] MEDS: atorvastatin 20mg tablet PO SCH (21:02)
[2021-02-02] MEDS: hydrocortisone 1% cream 28gm TP SCH (21:02)
[2021-02-02] MEDS: ketoconazole 2% cream 15gm TP SCH (21:02)
--- NOTE | 2021-02-03 00:48 | NUR ---
Nursing Progress Note: Client on involuntary status for GD. Report received from GABRIEL Phelps with use of SBAR. Why they are here: Pt admitted to [place] for Behavioral health from [facility] on LPS conservatorship. Pt is here for placement. Pt had some sort of agitation at [facility]. He knocked a can of soda off a table. Pt not attending group therapy sessions. He threw a tray in the dining room. Pt has history of Schizoaffective, benign lipomatous, DM II, Pacemaker, benign prostatic hyperplasia. Pt cooperative with admission process. Assessment What has happened this shift: Pt was in bed at shift change but awoke for assessment. Pt denied having any concerns or needs. Pt mostly isolated after that but was out for snack and med pass. Pt accepted hs meds without issue and went to bed. S/I, H/I: Pt denies both. A/VH: Pt denies both. Sleep: See sleep assessment. ADL's: needs prompting Group attendance: n/a Were meds taken: Yes, without issue. Any med S/E: Mental Status Exam Appearance: wnl Eye contact: Good Behavior: Pleasant, cooperative. Speech: Clear and soft Mood: Good. Affect: Flat Thought content: bored Cognition: A&Ox4 Insight: Fair Judgment: Fair Interventions PRN's used: None Therapeutic interventions: 1:1 assessment, therapeutic conversation, active listening, medication administration/education/monitoring, encouragement of autonomy in ADLs, encouragement to attend groups, fall prevention, provided encouragement and positive reinforcement, maintained Q15 minute safety checks. Restraints/seclusion/emergency medication: N/A Justification of Continued Inpatient Treatment: Patient is conserved with [facility] awaiting placement.
[2021-02-03] MEDS: busPIRone 5mg tablet PO SCH ×2 (07:17→20:00)
[2021-02-03] MEDS: cholecalciferol (vitamin D3) 1,000 unit (25mcg) tablet PO SCH (07:17)
[2021-02-03] MEDS: thiamine 100mg tablet PO SCH (07:18)
[2021-02-03] MEDS: amantadine 100 MG capsule PO SCH ×2 (07:18→20:00)
[2021-02-03] MEDS: folic acid 0.4mg tablet PO SCH (07:18)
[2021-02-03] MEDS: aspirin 81mg, enteric-coated 1 TAB TABLET.DR PO SCH (07:18)
[2021-02-03] MEDS: risperiDONE 2mg tablet PO SCH ×2 (07:18→20:00)
[2021-02-03] MEDS: divalproex 250mg tablet, delayed-release PO SCH ×2 (07:19→20:00)
[2021-02-03] MEDS: multivitamins, therapeutics tablet PO SCH (07:19)
[2021-02-03] MEDS: trihexyphenidyl HCL 5 MG tablet PO SCH ×2 (07:20→20:02)
[2021-02-03 07:58] VITALS: BP 94/66
--- NOTE | 2021-02-03 12:19 | NUR ---
Nursing Progress Note: Client on involuntary status for GD. Report received from GABRIEL Phelps with use of SBAR. Why they are here: Pt admitted to [place] for Behavioral health from [facility] on LPS conservatorship. Pt is here for placement. Pt had some sort of agitation at [facility]. He knocked a can of soda off a table. Pt not attending group therapy sessions. He threw a tray in the dining room. Pt has history of Schizoaffective, benign lipomatous, DM II, Pacemaker, benign prostatic hyperplasia. Pt cooperative with admission process. Assessment What has happened this shift: Pt was up early and spent time watching tv before going back to bed. Pt mostly isolated to his room but will come out when he needs something. Pt is cooperative for assessments and denies having any concerns. Pt accepted meds without issue. S/I, H/I: Pt denies both. A/VH: Pt denies both. Sleep: See sleep assessment. ADL's: needs prompting Group attendance: n/a Were meds taken: Yes, without issue. Any med S/E: Mental Status Exam Appearance: wnl Eye contact: Good Behavior: Pleasant, cooperative. Speech: Clear and soft Mood: Good. Affect: Flat Thought content: bored Cognition: A&Ox4 Insight: Fair Judgment: Fair Interventions PRN's used: None Therapeutic interventions: 1:1 assessment, therapeutic conversation, active listening, medication administration/education/monitoring, encouragement of autonomy in ADLs, encouragement to attend groups, fall prevention, provided encouragement and positive reinforcement, maintained Q15 minute safety checks. Restraints/seclusion/emergency medication: N/A Justification of Continued Inpatient Treatment: Patient is conserved with [facility] awaiting placement.
--- NOTE | 2021-02-03 13:42 | NUR ---
Reassessment: Pt continues w/ adequate PO intake, mostly 100% of meals on CCHO/Heart Healthy diet meeting needs. Pt compliant w/ meds. LBM 02/01. No new nutrition intervention implemented at this time, will continue to monitor. Rec: 1. Continue carb controlled/heart healthy diet as tolerated 2. routine bowel care 3. daily accuchecks; Glu 199mg/dl 01/02 w/ hx T2DM on metformin 4. weekly wts Addendum: 02/03/21 at [address] Amended: Links added.
[2021-02-03] MEDS: metFORMIN 500mg tablet PO SCH (16:42)
[2021-02-03 19:18] VITALS: BP 115/65
[2021-02-03] MEDS: atorvastatin 20mg tablet PO SCH (20:00)
[2021-02-03] MEDS: hydrocortisone 1% cream 28gm TP SCH (20:03)
[2021-02-03] MEDS: ketoconazole 2% cream 15gm TP SCH (20:03)
--- NOTE | 2021-02-04 00:29 | NUR ---
Nursing Progress Note: Client on involuntary status for GD. Report received from GABRIEL Palencia with use of SBAR. Why they are here: Pt admitted to [place] for Behavioral health from [facility] on LPS conservatorship. Pt is here for placement. Pt had some sort of agitation at [facility]. He knocked a can of soda off a table. Pt not attending group therapy sessions. He threw a tray in the dining room. Pt has history of Schizoaffective, benign lipomatous, DM II, Pacemaker, benign prostatic hyperplasia. Pt cooperative with admission process. Assessment What has happened this shift: Patient laying in bed awake at the beginning of shift. Pleasant and cooperative with care; compliant with medication. Denies SI, HI, A/VH; does not appear to be responding to IS and no delusional thought content expressed this shift. Patient joking with entry writer, observed walking the unit and participated in HS snack prior to bed; observed sleeping and does not appear to be having difficulty. S/I, H/I: Denies A/VH: Denies Sleep: Refer to sleep assessment ADL's: Requires prompting Group attendance: NA Were meds taken: Yes Any med S/E: None observed or reported Mental Status Exam Appearance: Neat, clean and appropriately dressed in green unit attire Eye contact: Good Behavior: Pleasant and cooperative Speech: Clear, soft, minimal Mood: Euthymic Affect: Congruent to mood Thought process: Linear Thought content: Meeting needs Cognition: A&Ox4 Insight: Fair Judgment: Fair Interventions PRN's used: None Therapeutic interventions: 1:1 assessment, therapeutic conversation, active listening, medication administration/education/monitoring, encouragement of autonomy in ADLs, encouragement to attend groups, fall prevention, provided encouragement and positive reinforcement, maintained Q15 minute safety checks. Restraints/seclusion/emergency medication: NA Justification of Continued Inpatient Treatment: Patient is conserved with [facility] awaiting placement.
[2021-02-04 07:36] VITALS: BP 100/60
[2021-02-04] MEDS: amantadine 100 MG capsule PO SCH ×2 (07:57→19:20)
[2021-02-04] MEDS: busPIRone 5mg tablet PO SCH ×2 (07:57→19:19)
[2021-02-04] MEDS: divalproex 250mg tablet, delayed-release PO SCH ×2 (07:58→19:19)
[2021-02-04] MEDS: trihexyphenidyl HCL 5 MG tablet PO SCH ×2 (07:58→19:20)
[2021-02-04] MEDS: thiamine 100mg tablet PO SCH (07:58)
[2021-02-04] MEDS: multivitamins, therapeutics tablet PO SCH (07:58)
[2021-02-04] MEDS: folic acid 0.4mg tablet PO SCH (07:58)
[2021-02-04] MEDS: aspirin 81mg, enteric-coated 1 TAB TABLET.DR PO SCH (07:58)
[2021-02-04] MEDS: risperiDONE 2mg tablet PO SCH ×2 (07:58→19:19)
[2021-02-04] MEDS: metFORMIN 500mg tablet PO SCH ×2 (07:58→17:08)
[2021-02-04] MEDS: cholecalciferol (vitamin D3) 1,000 unit (25mcg) tablet PO SCH (07:58)
--- NOTE | 2021-02-04 13:35 | NUR ---
Pt attended group today. Today we talked about the definition of resiliency, the ways to build resiliency and how to bounce back. They took a change resiliency test to see how they are able to manage change and discussed coping skills to help while navigating change. Pt. came into to the group half way through the group. He sat quietly. He decline sharing any of his thoughts and did not take the test. He just sat and listened to what others were saying. He was pleasant in his mood. He seemed to enjoy being in the group but did not add much to it. Kori Mandujano, WARDROBE SPECIALIST
--- NOTE | 2021-02-04 15:47 | NUR ---
Nursing Progress Note: SARABJIT Client on involuntary status for GD. Report received from NICK Hampton with use of SBAR. Why they are here: Pt admitted to [place] for Behavioral health from [facility] on LPS conservatorship. Pt is here for placement. Pt had some sort of agitation at [facility]. He knocked a can of soda off a table. Pt not attending group therapy sessions. He threw a tray in the dining room. Pt has history of Schizoaffective, benign lipomatous, DM II, Pacemaker, benign prostatic hyperplasia. Pt cooperative with admission process. Assessment What has happened this shift: Received patient sleeping at shift change, respirations even and unlabored. Pt woke shortly before breakfast and sat in community room. Pt continues to be pleasant, cooperative with care and medications. Pt talks about discharge stating I just want out of this place. I want to smoke. Not much to do here. Pts gait has improved, continues to use FWW, pt strides as opposed to shuffle. S/I, H/I: Pt denies both. A/VH: Pt denies both. Sleep: 7.0 hours per sleep assessment. No naps today. ADL's: Independent. Pt showered today. Group attendance: Yes Were meds taken: Yes, without issue. Any med S/E: None reported or observed. Mental Status Exam Appearance: Neat, clean. Dressed in green unit scrubs and a derby hat. Eye contact: Good Behavior: Cooperative, visible on the unit. Watches T.V. Speech: Soft, mumbles at times, Mood: Good. Affect: Constricted with some brightening. Thought content: Nothing to do here. Cognition: A&Ox4 Insight: Fair Judgment: Fair Interventions PRN's used: None Therapeutic interventions: 1:1 assessment, therapeutic conversation, active listening, medication administration/education/monitoring, encouragement of autonomy in ADLs, encouragement to attend groups, fall prevention, provided encouragement and positive reinforcement, maintained Q15 minute safety checks. Restraints/seclusion/emergency medication: N/A Justification of Continued Inpatient Treatment: Patient is conserved. Pt is at baseline, awaiting placement.
[2021-02-04] MEDS: atorvastatin 20mg tablet PO SCH (20:04)
[2021-02-04 20:07] VITALS: BP 116/76
[2021-02-04] MEDS: ketoconazole 2% cream 15gm TP SCH (20:41)
[2021-02-04] MEDS: hydrocortisone 1% cream 28gm TP SCH (20:41)
--- NOTE | 2021-02-05 00:17 | NUR ---
Nursing Progress Note: Client on involuntary status for GD. Report received from GABRIEL Palencia with use of SBAR. Why they are here: Pt admitted to [place] for Behavioral health from [facility] on LPS conservatorship. Pt is here for placement. Pt had some sort of agitation at [facility]. He knocked a can of soda off a table. Pt not attending group therapy sessions. He threw a tray in the dining room. Pt has history of Schizoaffective, benign lipomatous, DM II, Pacemaker, benign prostatic hyperplasia. Pt cooperative with admission process. Assessment What has happened this shift: Pt had a good evening, spent some time hanging out in the halls and watching tv in the group room. Pt denies having any concerns or needs and denies all mh symptoms. Pt continues to walk with a slow shuffling gait. All hs meds taken without issue. S/I, H/I: Pt denies both. A/VH: Pt denies both. Sleep: See sleep assessment. ADL's: needs prompting Group attendance: n/a Were meds taken: Yes, without issue. Any med S/E: Mental Status Exam Appearance: wnl Eye contact: Good Behavior: Pleasant, cooperative. Speech: Clear and soft Mood: Good. Affect: Flat Thought content: bored Cognition: A&Ox4 Insight: Fair Judgment: Fair Interventions PRN's used: None Therapeutic interventions: 1:1 assessment, therapeutic conversation, active listening, medication administration/education/monitoring, encouragement of autonomy in ADLs, encouragement to attend groups, fall prevention, provided encouragement and positive reinforcement, maintained Q15 minute safety checks. Restraints/seclusion/emergency medication: N/A Justification of Continued Inpatient Treatment: Patient is conserved with [facility] awaiting placement.
[2021-02-05] MEDS: thiamine 100mg tablet PO SCH (07:52)
[2021-02-05] MEDS: aspirin 81mg, enteric-coated 1 TAB TABLET.DR PO SCH (07:52)
[2021-02-05] MEDS: amantadine 100 MG capsule PO SCH ×2 (07:52→20:08)
[2021-02-05] MEDS: trihexyphenidyl HCL 5 MG tablet PO SCH ×2 (07:52→20:08)
[2021-02-05] MEDS: cholecalciferol (vitamin D3) 1,000 unit (25mcg) tablet PO SCH (07:52)
[2021-02-05] MEDS: metFORMIN 500mg tablet PO SCH ×2 (07:53→17:47)
[2021-02-05] MEDS: risperiDONE 2mg tablet PO SCH ×2 (07:53→20:08)
[2021-02-05] MEDS: folic acid 0.4mg tablet PO SCH (07:53)
[2021-02-05] MEDS: divalproex 250mg tablet, delayed-release PO SCH ×2 (07:53→20:08)
[2021-02-05] MEDS: multivitamins, therapeutics tablet PO SCH (07:53)
[2021-02-05] MEDS: busPIRone 5mg tablet PO SCH ×2 (07:53→20:08)
[2021-02-05 08:08] VITALS: BP 98/67
--- NOTE | 2021-02-05 13:33 | NUR ---
Nursing Progress Note: Client on involuntary status for GD, LPS conserved. Report received from nurse, GABRIEL Donahue with use of SBAR. Why they are here: Pt admitted to [place] for Behavioral health from [facility] on LPS conservatorship. Pt is here for placement. Pt had some sort of agitation at [facility]. He knocked a can of soda off a table. Pt not attending group therapy sessions. He threw a tray in the dining room. Pt has history of Schizoaffective, benign lipomatous, DM II, Pacemaker, benign prostatic hyperplasia. Pt cooperative with admission process. Assessment What has happened this shift: Pt was up before breakfast and cooperative with medications. Pt denies depression, anxiety, SI/HI/AH/VH. Pt ambulates with a shuffling gait using FWW. Sometimes pt takes small, slow steps and other times he walks at a good, fast pace. Pt is quiet though present in the milieu. S/I, H/I: Pt denies. A/VH: Pt denies. Sleep: Pt slept 8 hours last night per noc shift report, pt takes short naps throughout the day. ADL's: Independent with prompting, ambulates ad renny with FWW. Group attendance: Not today. Were meds taken: Yes Any med S/E: None noted or reported. Mental Status Exam Appearance: Older gentleman with longish white hair bald on top dressed in clean, green unit scrubs. Eye contact: Good Behavior: Pleasant, cooperative. Speech: Clear, soft, normal rate and rhythm. Mood: Good. Affect: Flat Thought process: Linear Thought Content: Waiting for discharge. Cognition: A&Ox4 Insight: Fair Judgment: Fair Interventions PRN's used: none Therapeutic interventions: 1:1 assessment, therapeutic conversation, active listening, medication administration/education/monitoring, encouragement of autonomy in ADLs, encouragement to attend groups, fall prevention, provided encouragement and positive reinforcement, maintained Q15 minute safety checks. Restraints/seclusion/emergency medication: N/A Justification of Continued Inpatient Treatment: Pt required crisis interruption and medication adjustment and monitoring in a safe and supportive environment until stable. Pt is at baseline. Patient is conserved with [facility] awaiting placement, pt has been accepted at [place] pending an available bed.
[2021-02-05] MEDS: atorvastatin 20mg tablet PO SCH (20:09)
[2021-02-05] MEDS: ketoconazole 2% cream 15gm TP SCH (20:14)
[2021-02-05] MEDS: hydrocortisone 1% cream 28gm TP SCH (20:14)
[2021-02-05 20:22] VITALS: BP 127/78
--- NOTE | 2021-02-06 01:36 | NUR ---
Nursing Progress Note: Client on involuntary status for GD. Report received from GABRIEL Velasquez with use of SBAR. Why they are here: Pt admitted to [place] for Behavioral health from [facility] on LPS conservatorship. Pt is here for placement. Pt had some sort of agitation at [facility]. He knocked a can of soda off a table. Pt not attending group therapy sessions. He threw a tray in the dining room. Pt has history of Schizoaffective, benign lipomatous, DM II, Pacemaker, benign prostatic hyperplasia. Pt cooperative with admission process. Assessment What has happened this shift: The patient spent the evening watching TV in the group room. He reports that he's doing "fine," and has no needs or wants. He denies all MH symptoms, including Depression and Anxiety. His ambulation has shown improvement with decreased shuffling. Patient continues to be cooperative and patient as he waits for new placement. S/I, H/I: Denies. A/VH: Denies. Sleep: See sleep assessment. ADL's: Needs prompting Group attendance: n/a Were meds taken: Yes. Any med S/E: None reported or observed. Mental Status Exam Appearance: Elderly patient with full espinoza in green scrubs and ever present news-boy cap. Eye contact: Good Behavior: Pleasant, cooperative. Speech: Clear and soft Mood: Good. Affect: Restricted Thought content: bored Cognition: A&Ox4 Insight: Fair Judgment: Fair Interventions PRN's used: None Therapeutic interventions: 1:1 assessment, therapeutic conversation, active listening, medication administration/education/monitoring, encouragement of autonomy in ADLs, encouragement to attend groups, fall prevention, provided encouragement and positive reinforcement, maintained Q15 minute safety checks. Restraints/seclusion/emergency medication: N/A Justification of Continued Inpatient Treatment: Patient is conserved with [facility] awaiting placement.
[2021-02-06] MEDS: thiamine 100mg tablet PO SCH (07:41)
[2021-02-06] MEDS: cholecalciferol (vitamin D3) 1,000 unit (25mcg) tablet PO SCH (07:41)
[2021-02-06] MEDS: risperiDONE 2mg tablet PO SCH ×2 (07:42→20:31)
[2021-02-06] MEDS: trihexyphenidyl HCL 5 MG tablet PO SCH ×2 (07:42→20:32)
[2021-02-06] MEDS: divalproex 250mg tablet, delayed-release PO SCH ×2 (07:42→20:31)
[2021-02-06] MEDS: amantadine 100 MG capsule PO SCH ×2 (07:42→20:31)
[2021-02-06] MEDS: folic acid 0.4mg tablet PO SCH (07:42)
[2021-02-06] MEDS: aspirin 81mg, enteric-coated 1 TAB TABLET.DR PO SCH (07:42)
[2021-02-06] MEDS: metFORMIN 500mg tablet PO SCH ×2 (07:42→17:18)
[2021-02-06] MEDS: multivitamins, therapeutics tablet PO SCH (07:42)
[2021-02-06] MEDS: busPIRone 5mg tablet PO SCH ×2 (07:43→20:32)
[2021-02-06 08:00] VITALS: BP 115/72
--- NOTE | 2021-02-06 18:17 | NUR ---
Nursing Progress Note: Legal hold: [facility] Client on involuntary status for GD Report received from GABRIEL Donahue with use of SBAR. Why they are here: Pt admitted to [place] for Behavioral health from [facility] on [facility] conservatorship. Pt is here for placement. Pt had some sort of agitation at [facility]. He knocked a can of soda off a table. Pt not attending group therapy sessions. He threw a tray in the dining room. Pt has history of Schizoaffective, benign lipomatous, DM II, Pacemaker, benign prostatic hyperplasia. Pt cooperative with admission process. Assessment What has happened this shift: Patient resting quietly in bed at the start of the shift. Eats meals in community room and interacts appropriately with staff and peers. Cooperative with medications and 1:1 assessment. Isolates in his room but will come out when prompted. Answers closed ended questions. Appears disorganized and has a hard time finding words during longer conversation. S/I, H/I: Denies. A/VH: Denies. Sleep: 8.5 hours per NOC ADL's: Independent with FWW Group attendance: Yes Were meds taken: Yes Any med S/E: None observed or reported. Mental Status Exam Appearance: Older gentleman with long white hair, bald on top dressed in clean green unit scrubs. Eye contact: Good Behavior: Pleasant, cooperative. Speech: Clear, soft, normal rate and rhythm, stutters at times. Mood: Good. Affect: Blunted Thought process: Linear Thought Content: Waiting for discharge. Cognition: A&Ox4 Insight: Fair Judgment: Fair Interventions PRN's used: none Therapeutic interventions: 1:1 assessment, therapeutic conversation, active listening, medication administration/education/monitoring, encouragement of autonomy in ADLs, encouragement to attend groups, fall prevention, provided encouragement and positive reinforcement, maintained Q15 minute safety checks. Restraints/seclusion/emergency medication: N/A Justification of Continued Inpatient Treatment: Pt required crisis interruption and medication adjustment and monitoring in a safe and supportive environment until stable. Pt is at baseline. Patient is conserved with [facility] awaiting placement, pt has been accepted at [place] pending an available bed.
[2021-02-06 19:48] VITALS: BP 120/79
[2021-02-06] MEDS: atorvastatin 20mg tablet PO SCH (20:31)
[2021-02-06] MEDS: ketoconazole 2% cream 15gm TP SCH (21:00)
[2021-02-06] MEDS: hydrocortisone 1% cream 28gm TP SCH (21:00)
--- NOTE | 2021-02-07 04:01 | NUR ---
Nursing Progress Note: Client on involuntary status for GD. Report received from GABRIEL Velasquez with use of SBAR. Why they are here: Pt admitted to [place] for Behavioral health from [facility] on LPS conservatorship. Pt is here for placement. Pt had some sort of agitation at [facility]. He knocked a can of soda off a table. Pt not attending group therapy sessions. He threw a tray in the dining room. Pt has history of Schizoaffective, benign lipomatous, DM II, Pacemaker, benign prostatic hyperplasia. Pt cooperative with admission process. Assessment What has happened this shift: Patient laying in bed awake at the beginning of shift. Pleasant and cooperative with care; compliant with medication. Denies SI, HI, A/VH; does not appear to be responding to IS and no delusional thought content expressed this shift. Patient asleep by 2029 and remained asleep without signs of distress. S/I, H/I: Denies A/VH: Denies Sleep: Refer to sleep assessment ADL's: Requires prompting Group attendance: NA Were meds taken: Yes Any med S/E: None observed or reported Mental Status Exam Appearance: Neat, clean and appropriately dressed in green unit attire Eye contact: Good Behavior: Pleasant and cooperative Speech: Clear, soft, minimal Mood: Euthymic Affect: Congruent to mood Thought process: Linear Thought content: Meeting needs Cognition: A&Ox4 Insight: Fair Judgment: Fair Interventions PRN's used: None Therapeutic interventions: 1:1 assessment, therapeutic conversation, active listening, medication administration/education/monitoring, encouragement of autonomy in ADLs, encouragement to attend groups, fall prevention, provided encouragement and positive reinforcement, maintained Q15 minute safety checks. Restraints/seclusion/emergency medication: NA Justification of Continued Inpatient Treatment: Patient is conserved with [facility] awaiting placement.
[2021-02-07] MEDS: cholecalciferol (vitamin D3) 1,000 unit (25mcg) tablet PO SCH (07:22)
[2021-02-07] MEDS: divalproex 250mg tablet, delayed-release PO SCH ×2 (07:22→20:19)
[2021-02-07] MEDS: risperiDONE 2mg tablet PO SCH ×2 (07:22→20:19)
[2021-02-07] MEDS: multivitamins, therapeutics tablet PO SCH (07:22)
[2021-02-07] MEDS: amantadine 100 MG capsule PO SCH ×2 (07:22→20:18)
[2021-02-07] MEDS: metFORMIN 500mg tablet PO SCH ×2 (07:22→17:33)
[2021-02-07] MEDS: folic acid 0.4mg tablet PO SCH (07:22)
[2021-02-07] MEDS: thiamine 100mg tablet PO SCH (07:23)
[2021-02-07] MEDS: trihexyphenidyl HCL 5 MG tablet PO SCH ×2 (07:23→20:18)
[2021-02-07] MEDS: busPIRone 5mg tablet PO SCH ×2 (07:23→20:18)
[2021-02-07] MEDS: aspirin 81mg, enteric-coated 1 TAB TABLET.DR PO SCH (07:23)
[2021-02-07 08:00] VITALS: BP 113/74
--- NOTE | 2021-02-07 11:16 | NUR ---
Placement Presenting Issues: Pt's #2 on waitlist for a bed @ [facility], [facility] requesting notes, labs & PPD results to facilitate placement services for pt. Interventions: Clinician sent notes & current meds to [facility]. Requested for a PPD & labs these will be sent next Thursday. Plan: Clinician will continue to engage [facility] in placement & d/c services for pt. Nancie Gamez LCSW Addendum: 02/07/21 at 1127 by Nancie Gamez SS Amended: Links added.
[2021-02-07] MEDS ORDERED: tuberculin, purif. prot. deriv. 5 units/0.1ml ID ONE (13:35)
--- NOTE | 2021-02-07 14:40 | NUR ---
Nursing Progress Note: Client on involuntary status for GD, LPS conserved. Report received from nurse, GABRIEL Donahue with use of SBAR. Why they are here: Pt admitted to [place] for Behavioral health from [facility] on LPS conservatorship. Pt is here for placement. Pt had some sort of agitation at [facility]. He knocked a can of soda off a table. Pt not attending group therapy sessions. He threw a tray in the dining room. Pt has history of Schizoaffective, benign lipomatous, DM II, Pacemaker, benign prostatic hyperplasia. Pt cooperative with admission process. Assessment What has happened this shift: Pt was up in the rec room watching TV before breakfast. Pt was pleasant and cooperative with his medications. Pt attended group. Administered a PPD in pt's right forearm. Pt is #2 on the [place] waiting list. Pt ambulated steadily with FWW. Pt denied depression, anxiety, SI/HI/AH/VH. S/I, H/I: Pt denies. A/VH: Pt denies. Sleep: Pt slept 8.75 hours last night per noc shift report. ADL's: Independent with prompting, ambulates ad renny with FWW. Group attendance: Yes Were meds taken: Yes Any med S/E: None noted or reported. Mental Status Exam Appearance: Older gentleman with longish white hair bald on top dressed in green scrub pants, a clayton sweater and a clayton cap. Eye contact: Good Behavior: Pleasant, cooperative. Speech: Clear, soft, normal rate and rhythm. Mood: Good. Affect: Flat Thought process: Linear Thought Content: Waiting for discharge. Cognition: A&Ox4 Insight: Fair Judgment: Fair Interventions PRN's used: none Therapeutic interventions: 1:1 assessment, therapeutic conversation, active listening, medication administration/education/monitoring, encouragement of autonomy in ADLs, encouragement to attend groups, fall prevention, provided encouragement and positive reinforcement, maintained Q15 minute safety checks. Restraints/seclusion/emergency medication: N/A Justification of Continued Inpatient Treatment: Pt required crisis interruption and medication adjustment and monitoring in a safe and supportive environment until stable. Pt is at baseline. Patient is conserved with [facility] awaiting placement, pt has been accepted at [place] and is #2 on the wait list.
[2021-02-07 19:49] VITALS: BP 129/72
[2021-02-07] MEDS: atorvastatin 20mg tablet PO SCH (20:19)
[2021-02-07] MEDS: ketoconazole 2% cream 15gm TP SCH (20:22)
[2021-02-07] MEDS: hydrocortisone 1% cream 28gm TP SCH (20:22)
[2021-02-07 20:23] LABS: BASOPHILS # (AUTO) 0.1 X10'3 (0-0.2); BASOPHILS % (AUTO) 0.8 % (0-1); EOSINOPHILS # (AUTO) 0.3 X10'3 (0-0.9); EOSINOPHILS % (AUTO) 3.7 % (0-6); HEMOGLOBIN 13.7 g/dl (14.0-17.9); LYMPHOCYTES # (AUTO) 2.8 X10'3 (1.1-4.8); LYMPHOCYTES % (AUTO) 33.2 % (21-51); MEAN CORPUSCULAR HEMOGLOBIN 32.4 PG (27.0-31.0); MEAN CORPUSCULAR HGB CONC 35.1 g/dL (33.0-36.5); MEAN CORPUSCULAR VOLUME 92.5 FL (78-98); MEAN PLATELET VOLUME 8.9 FL (7.4-10.4); MONOCYTES # (AUTO) 0.8 X10'3 (0-0.9); MONOCYTES % (AUTO) 9.3 % (2-12); NEUTROPHILS # (AUTO) 4.5 X10'3 (1.8-7.7); PLATELET COUNT 191 X10'3 (140-440); RED BLOOD COUNT 4.21 X10'6 (4.70-6.10); RED CELL DISTRIBUTION WIDTH 12.2 % (11.5-14.5); WHITE BLOOD COUNT 8.4 X10'3 (4.5-11.0)
[2021-02-07 20:32] LABS: ALANINE AMINOTRANSFERASE 26 U/L (12-78); ALBUMIN/GLOBULIN RATIO 0.9 (1.1-1.5); ALKALINE PHOSPHATASE 55 IU/L (46-116); ANION GAP 8 (8-16); ASPARTATE AMINO TRANSFERASE 13 U/L (10-37); BILIRUBIN,TOTAL 0.2 MG/DL (0.1-1.0); BLOOD UREA NITROGEN 13 MG/DL (7-18); BUN/CREATININE RATIO 17.6 (5.4-32.0); CALCIUM 8.5 MG/DL (8.5-10.1); CHLORIDE 99 MMOL/L (99-107); CREATININE 0.74 MG/DL (0.60-1.10); GLUCOSE 104 MG/DL (70-104); POTASSIUM 4.1 MMOL/L (3.5-5.1); SODIUM 133 MMOL/L (135-145); TOTAL CARBON DIOXIDE 26.4 MMOL/L (24-32); TOTAL PROTEIN 6.5 G/DL (6.4-8.2); eGFR > 90 ML/MIN
[2021-02-07 21:32] LABS: VALPROATE 52 UG/ML (50-100)
--- NOTE | 2021-02-08 01:23 | NUR ---
Nursing Progress Note: Legal hold: LPS Client on involuntary status for GD, LPS conserved. Report received from nurseLenin RN with use of SBAR. Why they are here: Pt admitted to [place] for Behavioral health from [facility] on LPS conservatorship. Pt is here for placement. Pt had some sort of agitation at [facility]. He knocked a can of soda off a table. Pt not attending group therapy sessions. He threw a tray in the dining room. Pt has history of Schizoaffective, benign lipomatous, DM II, Pacemaker, benign prostatic hyperplasia. Pt cooperative with admission process. Assessment What has happened this shift: Patient laying in bed at the beginning of shift. Pleasant and cooperative with care; compliant with medication. Patient denies SI, HI, A/VH; does not appear to be responding to IS and no delusional thought content expressed. Patient remained in bed this shift; observed sleeping and does not appear to be having difficulty. S/I, H/I: Denies A/VH: Denies Sleep: Refer to sleep assessment ADL's: Independent with prompting, ambulates ad renny with FWW. Group attendance: NA Were meds taken: Yes Any med S/E: None observed or reported Mental Status Exam Appearance: Neat and appropriately dressed for the unit Eye contact: Good Behavior: Pleasant and cooperative, isolative Speech: Clear, soft, normal rate and rhythm. Mood: Fatigued Affect: Congruent to mood Thought process: Linear Thought Content: Meeting needs Cognition: A&Ox4 Insight: Fair Judgment: Fair Interventions PRN's used: NA Therapeutic interventions: 1:1 assessment, therapeutic conversation, active listening, medication administration/education/monitoring, encouragement of autonomy in ADLs, encouragement to attend groups, fall prevention, provided encouragement and positive reinforcement, maintained Q15 minute safety checks. Restraints/seclusion/emergency medication: NA Justification of Continued Inpatient Treatment: Pt required crisis interruption and medication adjustment and monitoring in a safe and supportive environment until stable. Pt is at baseline. Patient is conserved with [facility] awaiting placement, pt has been accepted at [place] and is #2 on the wait list.
[2021-02-08] MEDS: thiamine 100mg tablet PO SCH (07:42)
[2021-02-08] MEDS: cholecalciferol (vitamin D3) 1,000 unit (25mcg) tablet PO SCH (07:42)
[2021-02-08] MEDS: metFORMIN 500mg tablet PO SCH ×2 (07:42→17:40)
[2021-02-08] MEDS: aspirin 81mg, enteric-coated 1 TAB TABLET.DR PO SCH (07:42)
[2021-02-08] MEDS: folic acid 0.4mg tablet PO SCH (07:42)
[2021-02-08] MEDS: amantadine 100 MG capsule PO SCH ×2 (07:42→20:25)
[2021-02-08] MEDS: trihexyphenidyl HCL 5 MG tablet PO SCH ×2 (07:42→20:25)
[2021-02-08] MEDS: risperiDONE 2mg tablet PO SCH ×2 (07:43→20:25)
[2021-02-08] MEDS: divalproex 250mg tablet, delayed-release PO SCH ×2 (07:43→20:25)
[2021-02-08] MEDS: multivitamins, therapeutics tablet PO SCH (07:43)
[2021-02-08] MEDS: busPIRone 5mg tablet PO SCH ×2 (07:43→20:25)
[2021-02-08 07:51] VITALS: BP 118/73
--- NOTE | 2021-02-08 16:33 | NUR ---
Nursing Progress Note: Legal hold: [facility] Client on involuntary status for GD Report received from GABRIEL De La Cruz with use of SBAR. Why they are here: Pt admitted to [place] for Behavioral health from [facility] on [facility] conservatorship. Pt is here for placement. Pt had some sort of agitation at [facility]. He knocked a can of soda off a table. Pt not attending group therapy sessions. He threw a tray in the dining room. Pt has history of Schizoaffective, benign lipomatous, DM II, Pacemaker, benign prostatic hyperplasia. Pt cooperative with admission process. Assessment What has happened this shift: Patient resting quietly in bed at the start of the shift. Awake prior to breakfast and meets with practitioner. Sits in rec room while drinking his coffee. Pleasant and friendly with conversation although his speech is stuttered at times. Ambulates independently using FWW and steps are shuffled and hesitant. Cooperative with medications and 1:1 assessment. Naps off and on throughout the day. In the afternoon patient spends time in the rec room and community room calmly socializing with peers and watching TV. S/I, H/I: Denies. A/VH: Denies. Sleep: 7.75 hours per NOC ADL's: Independent with FWW Group attendance: Yes Were meds taken: Yes Any med S/E: None observed or reported. Mental Status Exam Appearance: Older gentleman with long white hair, bald on top dressed in clean green unit scrubs. Eye contact: Good Behavior: Pleasant, cooperative. Speech: Clear, soft, stutters at times Mood: Great. Affect: Blunted Thought process: Generally linear, disorganized at times. Thought Content: Waiting for discharge. Makes friendly conversation. Cognition: A&Ox4 Insight: Fair Judgment: Fair Interventions PRN's used: None Therapeutic interventions: 1:1 assessment, therapeutic conversation, active listening, medication administration/education/monitoring, encouragement of autonomy in ADLs, encouragement to attend groups, fall prevention, provided encouragement and positive reinforcement, maintained Q15 minute safety checks. Restraints/seclusion/emergency medication: N/A Justification of Continued Inpatient Treatment: Pt required crisis interruption and medication adjustment and monitoring in a safe and supportive environment until stable. Pt is at baseline. Patient is conserved with [facility] awaiting placement, pt has been accepted at [place] pending an available bed.
[2021-02-08 19:36] VITALS: BP 110/70
[2021-02-08] MEDS: atorvastatin 20mg tablet PO SCH (20:25)
[2021-02-08] MEDS: ketoconazole 2% cream 15gm TP SCH (20:28)
[2021-02-08] MEDS: hydrocortisone 1% cream 28gm TP SCH (20:28)
--- NOTE | 2021-02-09 00:21 | NUR ---
Nursing Progress Note: Legal hold: LPS Client on involuntary status for GD, LPS conserved. Report received from nurse, GABRIEL Phelps with use of SBAR. Why they are here: Pt admitted to [place] for Behavioral health from [facility] on LPS conservatorship. Pt is here for placement. Pt had some sort of agitation at [facility]. He knocked a can of soda off a table. Pt not attending group therapy sessions. He threw a tray in the dining room. Pt has history of Schizoaffective, benign lipomatous, DM II, Pacemaker, benign prostatic hyperplasia. Pt cooperative with admission process. Assessment What has happened this shift: Patient sitting in the recreation room, watching out the window, at the beginning of shift. Pleasant and cooperative with care; compliant with medication. Denies SI, HI, A/VH; does not appear to be responding to IS and no delusional thought content expressed. Patient participated in HS snack prior to bed; observed sleeping and does not appear to be having difficulty. S/I, H/I: Denies A/VH: Denies Sleep: Refer to sleep assessment ADL's: Independent with prompting, ambulates ad renny with FWW. Group attendance: NA Were meds taken: Yes Any med S/E: None observed or reported Mental Status Exam Appearance: Neat and appropriately dressed for the unit Eye contact: Good Behavior: Pleasant and cooperative, isolative Speech: Clear, soft, normal rate and rhythm. Mood: Euthymic Affect: Congruent to mood Thought process: Linear Thought Content: Meeting needs Cognition: A&Ox4 Insight: Fair Judgment: Fair Interventions PRN's used: NA Therapeutic interventions: 1:1 assessment, therapeutic conversation, active listening, medication administration/education/monitoring, encouragement of autonomy in ADLs, encouragement to attend groups, fall prevention, provided encouragement and positive reinforcement, maintained Q15 minute safety checks. Restraints/seclusion/emergency medication: NA Justification of Continued Inpatient Treatment: Pt required crisis interruption and medication adjustment and monitoring in a safe and supportive environment until stable. Pt is at baseline. Patient is conserved with [facility] awaiting placement, pt has been accepted at [place] and is #2 on the wait list.
[2021-02-09] MEDS: amantadine 100 MG capsule PO SCH ×2 (08:04→20:11)
[2021-02-09] MEDS: trihexyphenidyl HCL 5 MG tablet PO SCH ×2 (08:05→20:11)
[2021-02-09] MEDS: busPIRone 5mg tablet PO SCH ×2 (08:05→20:12)
[2021-02-09] MEDS: thiamine 100mg tablet PO SCH (08:05)
[2021-02-09] MEDS: risperiDONE 2mg tablet PO SCH ×2 (08:05→20:12)
[2021-02-09] MEDS: metFORMIN 500mg tablet PO SCH ×2 (08:05→17:33)
[2021-02-09] MEDS: cholecalciferol (vitamin D3) 1,000 unit (25mcg) tablet PO SCH (08:05)
[2021-02-09] MEDS: multivitamins, therapeutics tablet PO SCH (08:05)
[2021-02-09] MEDS: folic acid 0.4mg tablet PO SCH (08:05)
[2021-02-09] MEDS: aspirin 81mg, enteric-coated 1 TAB TABLET.DR PO SCH (08:05)
[2021-02-09] MEDS: divalproex 250mg tablet, delayed-release PO SCH ×2 (08:05→20:12)
[2021-02-09 08:15] VITALS: BP 99/52
--- NOTE | 2021-02-09 17:13 | NUR ---
Nursing Progress Note: Legal hold: [facility] Client on involuntary status for GD Report received from GABRIEL De La Cruz with use of SBAR. Why they are here: Pt admitted to [place] for Behavioral health from [facility] on [facility] conservatorship. Pt is here for placement. Pt had some sort of agitation at [facility]. He knocked a can of soda off a table. Pt not attending group therapy sessions. He threw a tray in the dining room. Pt has history of Schizoaffective, benign lipomatous, DM II, Pacemaker, benign prostatic hyperplasia. Pt cooperative with admission process. Assessment What has happened this shift: Patient resting quietly in bed at the start of the shift. Eats meals in community room and interacts appropriately with staff and peers. Pleasant and calm. Cooperative with medications and 1:1 assessment. Engages in conversation but stutters at times. Takes short naps throughout the day. Watches TV in rec room. Ambulates independently with walker. S/I, H/I: Denies. A/VH: Denies. Sleep: 8 hours per NOC ADL's: Independent with FWW Group attendance: N/A Were meds taken: Yes Any med S/E: None observed or reported. Mental Status Exam Appearance: Older man with long white hair, bald on top dressed in clean green unit scrubs. Eye contact: Good Behavior: Pleasant, cooperative. Speech: Clear, soft, stutters at times Mood: Good. Affect: Congruent with mood Thought process: Generally linear, disorganized at times. Thought Content: Meeting needs, excited for upcoming discharge to [place] and asks what it is like there. Cognition: A&Ox4 Insight: Fair Judgment: Fair Interventions PRN's used: None Therapeutic interventions: 1:1 assessment, therapeutic conversation, active listening, medication administration/education/monitoring, encouragement of autonomy in ADLs, encouragement to attend groups, fall prevention, provided encouragement and positive reinforcement, maintained Q15 minute safety checks. Restraints/seclusion/emergency medication: N/A Justification of Continued Inpatient Treatment: Pt required crisis interruption and medication adjustment and monitoring in a safe and supportive environment until stable. Pt is at baseline. Patient is conserved with [facility] awaiting placement, pt has been accepted at [place] pending an available bed.
[2021-02-09 20:00] VITALS: BP 96/61
[2021-02-09] MEDS: atorvastatin 20mg tablet PO SCH (20:12)
[2021-02-09] MEDS: ketoconazole 2% cream 15gm TP SCH (20:14)
[2021-02-09] MEDS: hydrocortisone 1% cream 28gm TP SCH (20:14)
--- NOTE | 2021-02-10 05:21 | NUR ---
Nursing Progress Note: Legal hold: [facility] Client on involuntary status for GD Report received from GABRIEL Phelps with use of SBAR. Why they are here: Pt admitted to [place] for Behavioral health from [facility] on [facility] conservatorship. Pt is here for placement. Pt had some sort of agitation at [facility]. He knocked a can of soda off a table. Pt not attending group therapy sessions. He threw a tray in the dining room. Pt has history of Schizoaffective, benign lipomatous, DM II, Pacemaker, benign prostatic hyperplasia. Pt cooperative with admission process. Assessment What has happened this shift: Patient eating dinner in community room at the start of the shift. Interacts appropriately with staff and peers. Socializes in common areas until he goes to bed. Cooperative with medications and 1:1 assessment. Ambulates independently with walker but gait is shuffled and hesitant. Sleeping quietly in bed at this time. S/I, H/I: Denies. A/VH: Denies. Sleep: See sleep assessment ADL's: Independent with FWW Group attendance: N/A Were meds taken: Yes Any med S/E: None observed or reported. Mental Status Exam Appearance: Older man with long white hair, bald on top dressed in clean green unit scrubs. Eye contact: Good Behavior: Pleasant, calm, cooperative. Speech: Clear, soft, stutters Mood: Good. Affect: Congruent with mood Thought process: Disorganized at times. Thought Content: Meeting needs. Cognition: A&Ox4 Insight: Fair Judgment: Fair Interventions PRN's used: None Therapeutic interventions: 1:1 assessment, therapeutic conversation, active listening, medication administration/education/monitoring, encouragement of autonomy in ADLs, encouragement to attend groups, fall prevention, provided encouragement and positive reinforcement, maintained Q15 minute safety checks. Restraints/seclusion/emergency medication: N/A Justification of Continued Inpatient Treatment: Pt required crisis interruption and medication adjustment and monitoring in a safe and supportive environment until stable. Pt is at baseline. Patient is conserved with [facility] awaiting placement, pt has been accepted at [place] pending an available bed.
[2021-02-10 07:27] VITALS: BP 109/65
[2021-02-10] MEDS: aspirin 81mg, enteric-coated 1 TAB TABLET.DR PO SCH (07:49)
[2021-02-10] MEDS: metFORMIN 500mg tablet PO SCH ×2 (07:49→17:13)
[2021-02-10] MEDS: amantadine 100 MG capsule PO SCH ×2 (07:49→20:22)
[2021-02-10] MEDS: multivitamins, therapeutics tablet PO SCH (07:49)
[2021-02-10] MEDS: divalproex 250mg tablet, delayed-release PO SCH ×2 (07:49→20:23)
[2021-02-10] MEDS: cholecalciferol (vitamin D3) 1,000 unit (25mcg) tablet PO SCH (07:49)
[2021-02-10] MEDS: folic acid 0.4mg tablet PO SCH (07:49)
[2021-02-10] MEDS: risperiDONE 2mg tablet PO SCH ×2 (07:49→20:22)
[2021-02-10] MEDS: busPIRone 5mg tablet PO SCH ×2 (07:50→20:21)
[2021-02-10] MEDS: trihexyphenidyl HCL 5 MG tablet PO SCH ×2 (07:50→20:22)
[2021-02-10] MEDS: thiamine 100mg tablet PO SCH (07:50)
--- NOTE | 2021-02-10 15:23 | NUR ---
Nursing Progress Note: Legal hold: [facility] Client on involuntary status for GD Report received from GABRIEL Martinez with use of SBAR. Why they are here: Pt admitted to [place] for Behavioral health from [facility] on [facility] conservatorship. Pt is here for placement. Pt had some sort of agitation at [facility]. He knocked a can of soda off a table. Pt not attending group therapy sessions. He threw a tray in the dining room. Pt has history of Schizoaffective, benign lipomatous, DM II, Pacemaker, benign prostatic hyperplasia. Pt cooperative with admission process. Assessment What has happened this shift: Pt was awake at change of shift in rec room. Pt shuffling around with his walker on the unit. Pt is compliant with his medications. Denies any needs. PT is awaiting placement. Pt is #2 on a wait list. Pt spends most of the day in his room waiting for meals and snacks. S/I, H/I: Denies. A/VH: Denies. Sleep: See sleep assessment ADL's: Independent with FWW Group attendance: N/A Were meds taken: Yes Any med S/E: None observed or reported. Mental Status Exam Appearance: Older man with long white hair, bald on top dressed in clean green unit scrubs. Eye contact: Good Behavior: Pleasant, calm, cooperative. Speech: Clear, soft, stutters Mood: Good. Affect: Congruent with mood Thought process: Disorganized at times. Thought Content: Meeting needs. Cognition: A&Ox4 Insight: Fair Judgment: Fair Interventions PRN's used: None Therapeutic interventions: 1:1 assessment, therapeutic conversation, active listening, medication administration/education/monitoring, encouragement of autonomy in ADLs, encouragement to attend groups, fall prevention, provided encouragement and positive reinforcement, maintained Q15 minute safety checks. Restraints/seclusion/emergency medication: N/A Justification of Continued Inpatient Treatment: Pt required crisis interruption and medication adjustment and monitoring in a safe and supportive environment until stable. Pt is at baseline. Patient is conserved with [facility] awaiting placement, pt has been accepted at [place] pending an available bed.
[2021-02-10 19:04] VITALS: BP 98/62
[2021-02-10] MEDS: atorvastatin 20mg tablet PO SCH (20:22)
[2021-02-10] MEDS: ketoconazole 2% cream 15gm TP SCH (20:27)
[2021-02-10] MEDS: hydrocortisone 1% cream 28gm TP SCH (20:27)
--- NOTE | 2021-02-11 00:08 | NUR ---
Nursing Progress Note: Legal hold: [facility] Client on involuntary status for GD Report received from GABRIEL Palencia with use of SBAR. Why they are here: Pt admitted to [place] for Behavioral health from [facility] on [facility] conservatorship. Pt is here for placement. Pt had some sort of agitation at [facility]. He knocked a can of soda off a table. Pt not attending group therapy sessions. He threw a tray in the dining room. Pt has history of Schizoaffective, benign lipomatous, DM II, Pacemaker, benign prostatic hyperplasia. Pt cooperative with admission process. Assessment What has happened this shift: Pt was awake at change of shift in rec room watching tv with some peers. He was calm and cooperative ate snack in the rec room and was med compliant. S/I, H/I: Denies. A/VH: Denies. Sleep: See sleep assessment ADL's: Independent with FWW Group attendance: N/A Were meds taken: Yes Any med S/E: None observed or reported. Mental Status Exam Appearance: Older man with long white hair, bald on top dressed in clean green unit scrubs. Eye contact: Good Behavior: Pleasant, calm, cooperative. Speech: Clear, soft, stutters Mood: Good. Affect: Congruent with mood Thought process: Disorganized at times. Thought Content: Meeting needs. Cognition: A&Ox4 Insight: Fair Judgment: Fair Interventions PRN's used: None Therapeutic interventions: 1:1 assessment, therapeutic conversation, active listening, medication administration/education/monitoring, encouragement of autonomy in ADLs, encouragement to attend groups, fall prevention, provided encouragement and positive reinforcement, maintained Q15 minute safety checks. Restraints/seclusion/emergency medication: N/A Justification of Continued Inpatient Treatment: Pt required crisis interruption and medication adjustment and monitoring in a safe and supportive environment until stable. Pt is at baseline. Patient is conserved with [facility] awaiting placement, pt has been accepted at [place] pending an available bed.
[2021-02-11 07:23] VITALS: BP 105/71
[2021-02-11] MEDS: risperiDONE 2mg tablet PO SCH ×2 (07:38→20:11)
[2021-02-11] MEDS: divalproex 250mg tablet, delayed-release PO SCH ×2 (07:38→20:11)
[2021-02-11] MEDS: trihexyphenidyl HCL 5 MG tablet PO SCH ×2 (07:38→20:10)
[2021-02-11] MEDS: aspirin 81mg, enteric-coated 1 TAB TABLET.DR PO SCH (07:38)
[2021-02-11] MEDS: cholecalciferol (vitamin D3) 1,000 unit (25mcg) tablet PO SCH (07:38)
[2021-02-11] MEDS: metFORMIN 500mg tablet PO SCH ×2 (07:38→17:31)
[2021-02-11] MEDS: folic acid 0.4mg tablet PO SCH (07:38)
[2021-02-11] MEDS: thiamine 100mg tablet PO SCH (07:38)
[2021-02-11] MEDS: amantadine 100 MG capsule PO SCH ×2 (07:39→20:10)
[2021-02-11] MEDS: multivitamins, therapeutics tablet PO SCH (07:39)
[2021-02-11] MEDS: busPIRone 5mg tablet PO SCH ×2 (07:39→20:12)
--- NOTE | 2021-02-11 07:48 | NUR ---
Placement Pt's #2 on waitlist for admission @ [place], [facility] requesting PPD results to facilitate placement services. Clinician sent PPD result via encrypted e-mail to [facility]. Nancie Gamez LCSW Addendum: 02/11/21 at 0804 by Nancie Gamez SS Amended: Links added.
--- NOTE | 2021-02-11 08:54 | NUR ---
Placement Received update from [facility] re pt's placement, per update, pt's #1 on [facility]'s waitlist, PG confirmed that pt's already received COVID vaccine, PPD results were sent to [facility] this morning. Clinician will continue to monitor and engage [facility] in placement & cdp activities. Nancie Gamez LCSW Addendum: 02/11/21 at 0856 by Nancie Gamez SS Amended: Links added.
--- NOTE | 2021-02-11 13:33 | NUR ---
Nursing Progress Note: SARABJIT Legal hold: [facility] Client on involuntary status for GD Report received from NICK Hampton with use of SBAR. Why they are here: Pt admitted to [place] for Behavioral health from [facility] on [facility] conservatorship. Pt is here for placement. Pt had some sort of agitation at [facility]. He knocked a can of soda off a table. Pt not attending group therapy sessions. He threw a tray in the dining room. Pt has history of Schizoaffective, benign lipomatous, DM II, Pacemaker, benign prostatic hyperplasia. Pt cooperative with admission process. Assessment What has happened this shift: Received patient awake sitting in the recreation room watching T.V. Pt is pleasant upon greeting. Pt is at baseline and has been accepted at [facility]. Pt is visible on unit throughout the day, is out for all meals and snacks. No behaviors to report. Pt continues with his shuffle gait, but appears steady. Pt looking forward to going to [facility] so I can smoke. S/I, H/I: Denies both. A/VH: Denies both. Sleep: 8.0 hours per sleep assessment. No naps today. ADL's: Independent with FWW. Gait has improved. Group attendance: No scheduled group today. Were meds taken: Yes, without hesitation. Any med S/E: None observed or reported. Mental Status Exam Appearance: Older man with long white hair, bald on top dressed in green unit scrubs, wearing a derby hat. Slightly disheveled. Eye contact: Good Behavior: Cooperative, pleasant, sits in common areas watching T.V or in his room. Speech: Clear, soft, some latent responses. Mood: Euthymic Affect: Constricted with brightening. Thought process: Disorganized at times. Thought Content: Meeting needs. Cognition: A&Ox4 Insight: Fair Judgment: Fair Interventions PRN's used: None Therapeutic interventions: 1:1 assessment, therapeutic conversation, active listening, medication administration/education/monitoring, encouragement of autonomy in ADLs, encouragement to attend groups, fall prevention, provided encouragement and positive reinforcement, maintained Q15 minute safety checks. Restraints/seclusion/emergency medication: N/A Justification of Continued Inpatient Treatment: Pt is conserved and at baseline. Pt has been accepted at [facility] pending an available bed. Pt is #1 at this time. [facility] has received all pertinent documents for placement.
--- NOTE | 2021-02-11 13:53 | NUR ---
Reassessment: Pt continues w/ adequate PO intake, mostly 100% of meals on CCHO/Heart Healthy diet meeting needs. Pt compliant w/ meds. LBM 02/09. No new nutrition intervention implemented at this time, will continue to monitor. Rec: 1. Continue carb controlled/heart healthy diet as tolerated 2. routine bowel care 3. daily accuchecks; Glu 199mg/dl 01/02 w/ hx T2DM on metformin 4. weekly wts Addendum: 02/11/21 at [address] Amended: Links added.
[2021-02-11] MEDS: atorvastatin 20mg tablet PO SCH (20:10)
[2021-02-11 20:11] VITALS: BP 128/75
[2021-02-11] MEDS: hydrocortisone 1% cream 28gm TP SCH (20:14)
[2021-02-11] MEDS: ketoconazole 2% cream 15gm TP SCH (20:14)
--- NOTE | 2021-02-12 | NUR ---
Nursing Progress Note: SARABJIT Legal hold: [facility] Client on involuntary status for GD Report received from NICK Phelps with use of SBAR. Why they are here: Pt admitted to [place] for Behavioral health from [facility] on [facility] conservatorship. Pt is here for placement. Pt had some sort of agitation at [facility]. He knocked a can of soda off a table. Pt not attending group therapy sessions. He threw a tray in the dining room. Pt has history of Schizoaffective, benign lipomatous, DM II, Pacemaker, benign prostatic hyperplasia. Pt cooperative with admission process. Assessment What has happened this shift: Patient was up in rec room watching tv with some peers at shift change. Pt ate snack in group room and was med compliant. Pt looking forward to going to [place] so I can smoke. S/I, H/I: Denies both. A/VH: Denies both. Sleep: See sleep assessment. ADL's: Independent with FWW. Gait has improved. Group attendance: No scheduled group today. Were meds taken: Yes, without hesitation. Any med S/E: None observed or reported. Mental Status Exam Appearance: Older man with long white hair, bald on top dressed in green unit scrubs, wearing a derby hat. Slightly disheveled. Eye contact: Good Behavior: Cooperative, pleasant, sits in common areas watching T.V or in his room. Speech: Clear, soft, some latent responses. Mood: Euthymic Affect: Constricted with brightening. Thought process: Disorganized at times. Thought Content: Meeting needs. Cognition: A&Ox4 Insight: Fair Judgment: Fair Interventions PRN's used: None Therapeutic interventions: 1:1 assessment, therapeutic conversation, active listening, medication administration/education/monitoring, encouragement of autonomy in ADLs, encouragement to attend groups, fall prevention, provided encouragement and positive reinforcement, maintained Q15 minute safety checks. Restraints/seclusion/emergency medication: N/A Justification of Continued Inpatient Treatment: Pt is conserved and at baseline. Pt has been accepted at [facility] pending an available bed. Pt is #1 at this time. [facility] has received all pertinent documents for placement.
[2021-02-12] MEDS: aspirin 81mg, enteric-coated 1 TAB TABLET.DR PO SCH (07:35)
[2021-02-12] MEDS: metFORMIN 500mg tablet PO SCH ×2 (07:35→17:44)
[2021-02-12] MEDS: risperiDONE 2mg tablet PO SCH ×2 (07:35→20:14)
[2021-02-12] MEDS: multivitamins, therapeutics tablet PO SCH (07:36)
[2021-02-12] MEDS: busPIRone 5mg tablet PO SCH ×2 (07:36→20:12)
[2021-02-12] MEDS: folic acid 0.4mg tablet PO SCH (07:36)
[2021-02-12] MEDS: divalproex 250mg tablet, delayed-release PO SCH ×2 (07:36→20:13)
[2021-02-12] MEDS: amantadine 100 MG capsule PO SCH ×2 (07:37→20:14)
[2021-02-12] MEDS: thiamine 100mg tablet PO SCH (07:37)
[2021-02-12] MEDS: cholecalciferol (vitamin D3) 1,000 unit (25mcg) tablet PO SCH (07:37)
[2021-02-12] MEDS: trihexyphenidyl HCL 5 MG tablet PO SCH ×2 (07:37→20:12)
[2021-02-12 07:46] VITALS: BP 130/64
--- NOTE | 2021-02-12 13:30 | NUR ---
Pt. attended group today. Todays group was about the difference between Growth Mindset vs. Fixed Mindset. We learned about the differences and then discussed what aspect of developing a growth mindset they wanted to work on. Pt. stayed pretty quiet during the group listening to this Apple Checker and his peers. His demeanor was calm, compliant and pleasant to work with. This Apple Checker engaged him during the written activity as he was not writing down what he wanted to let go of and what he wanted to hold onto in the process of growing his growth mindset. He was able to share with this Apple Checker and then the group that he was letting of of all the overwhelming thoughts and anger that he struggles with at times. He reported that he wanted to hold onto the positive thoughts, his belief in himself that he can be whatever he wants to be. It was observed by this Clinician that at time his thought content did contain some possible delusional thoughts and he appeared a bit confused and required lots of explanation of what we were doing. Kori Mandujano LCSW
--- NOTE | 2021-02-12 15:03 | NUR ---
Placement Received confirmation of admit date for pt to transition to [facility]; [facility] informed clinician that [facility] is looking to admit pt on 02/15, pt will need a COVID send out test & 30-days meds. Clinician notified attending physician & care team. Nancie Gamez LCSW Addendum: 02/12/21 at 1505 by Nancie Gamez SS Amended: Links added.
--- NOTE | 2021-02-12 16:11 | NUR ---
Nursing Progress Note: SARABJIT Legal hold: [facility] Client on involuntary status for GD Report received from NICK Donahue with use of SBAR. Why they are here: [facility] from [facility] on [facility] conservatorship. Pt is here for placement. Pt had some sort of agitation at [facility]. He knocked a can of soda off a table. Pt not attending group therapy sessions. He threw a tray in the dining room. Pt has history of Schizoaffective, benign lipomatous, DM II, Pacemaker, benign prostatic hyperplasia. Pt cooperative with admission process. Assessment What has happened this shift: Received patient awake lying in his bed at shift change. Pt greeted card writer hand asking When do I get discharged? Pt was pleasant throughout the day. Pt was complaint with medication and care. Pt continues to be visible on unit shuffling back and forth to his room. No behaviors to report. Obtained Covid swab this afternoon. [facility] is looking to admit pt on 02/15. S/I, H/I: Denies both. A/VH: Denies both. Sleep: 6.75 hours per sleep assessment. No naps today. ADL's: Independent with FWW. Gait has improved. Group attendance: Afternoon group. Were meds taken: Yes, without hesitation. Any med S/E: None observed or reported. Mental Status Exam Appearance: Older man with long white hair, bald on top dressed in green unit scrubs, wearing a derby hat. Slightly disheveled. Eye contact: Good Behavior: Cooperative, pleasant, sits in common areas watching T.V or in his room. Speech: Clear, soft, some latent responses. Mood: Euthymic Affect: Constricted with brightening. Thought process: Disorganized at times. Thought Content: Discharge. Cognition: A&Ox4 Insight: Fair Judgment: Fair Interventions PRN's used: None Therapeutic interventions: 1:1 assessment, therapeutic conversation, active listening, medication administration/education/monitoring, encouragement of autonomy in ADLs, encouragement to attend groups, fall prevention, provided encouragement and positive reinforcement, maintained Q15 minute safety checks. Restraints/seclusion/emergency medication: N/A Justification of Continued Inpatient Treatment: Pt is conserved and at baseline. Pt has been accepted at [facility] pending an available bed. Pt is #1 at this time. [facility] has received all pertinent documents for placement.
--- NOTE | 2021-02-12 17:46 | NUR ---
Group Art Therapy, Continued: Patient entered into the group session a few minutes late, however,and was able to follow and complete the exercise. His drawing was reflective of of a positive thought process however, during the group sharing, he became upset with this therapist (uncertain what the trigger was). Patients limited ability to write and fully express his thoughts and feelings may have been the cause of his frustration. *Please refer to the [facility] Case Notes for entire overview. Rhona Degroot MA, [employer] SAMPLE BEVELER #[id number] [facility], Art Therapist Addendum: 02/12/21 at 1748 by Rhona LALA Amended: Links added.
[2021-02-12] MEDS: atorvastatin 20mg tablet PO SCH (20:14)
[2021-02-12] MEDS: ketoconazole 2% cream 15gm TP SCH (20:15)
[2021-02-12] MEDS: hydrocortisone 1% cream 28gm TP SCH (20:15)
[2021-02-12 20:16] VITALS: BP 101/59
--- NOTE | 2021-02-13 00:37 | NUR ---
Nursing Progress Note: SARABJIT Legal hold: [facility] Client on involuntary status for GD Report received from NICK Phelps with use of SBAR. Why they are here: Pt admitted to [place] for Behavioral health from [facility] on [facility] conservatorship. Pt is here for placement. Pt had some sort of agitation at [facility]. He knocked a can of soda off a table. Pt not attending group therapy sessions. He threw a tray in the dining room. Pt has history of Schizoaffective, benign lipomatous, DM II, Pacemaker, benign prostatic hyperplasia. Pt cooperative with admission process. Assessment What has happened this shift: Pt was up and watching tv in the rec roomwith peers. Pt is ambulating better each day. He is looking foreword to being d/c soon . He ate snack in group room and was med compliant. S/I, H/I: Denies both. A/VH: Denies both. Sleep: See sleep assessment. ADL's: Independent with FWW. Gait has improved. Group attendance: Afternoon group. Were meds taken: Yes, without hesitation. Any med S/E: None observed or reported. Mental Status Exam Appearance: Older man with long white hair, bald on top dressed in green unit scrubs, wearing a derby hat. Slightly disheveled. Eye contact: Good Behavior: Cooperative, pleasant, sits in common areas watching T.V or in his room. Speech: Clear, soft, some latent responses. Mood: Euthymic Affect: Constricted with brightening. Thought process: Disorganized at times. Thought Content: Discharge. Cognition: A&Ox4 Insight: Fair Judgment: Fair Interventions PRN's used: None Therapeutic interventions: 1:1 assessment, therapeutic conversation, active listening, medication administration/education/monitoring, encouragement of autonomy in ADLs, encouragement to attend groups, fall prevention, provided encouragement and positive reinforcement, maintained Q15 minute safety checks. Restraints/seclusion/emergency medication: N/A Justification of Continued Inpatient Treatment: Pt is conserved and at baseline. Pt has been accepted at [facility] pending an available bed. Pt is #1 at this time. [facility] has received all pertinent documents for placement.
[2021-02-13] MEDS: folic acid 0.4mg tablet PO SCH (07:33)
[2021-02-13] MEDS: metFORMIN 500mg tablet PO SCH ×2 (07:33→17:21)
[2021-02-13] MEDS: multivitamins, therapeutics tablet PO SCH (07:33)
[2021-02-13] MEDS: aspirin 81mg, enteric-coated 1 TAB TABLET.DR PO SCH (07:33)
[2021-02-13] MEDS: thiamine 100mg tablet PO SCH (07:33)
[2021-02-13] MEDS: risperiDONE 2mg tablet PO SCH ×2 (07:34→20:18)
[2021-02-13] MEDS: amantadine 100 MG capsule PO SCH ×2 (07:34→20:18)
[2021-02-13] MEDS: cholecalciferol (vitamin D3) 1,000 unit (25mcg) tablet PO SCH (07:34)
[2021-02-13] MEDS: divalproex 250mg tablet, delayed-release PO SCH ×2 (07:34→20:18)
[2021-02-13] MEDS: busPIRone 5mg tablet PO SCH ×2 (07:34→20:19)
[2021-02-13 08:06] VITALS: BP 99/59
[2021-02-13] MEDS: trihexyphenidyl HCL 5 MG tablet PO SCH ×2 (08:22→20:18)
--- NOTE | 2021-02-13 16:10 | NUR ---
Nursing Progress Note: SARABJIT Legal hold: LPS Client on involuntary status for GD Report received from NICK Donahue with use of SBAR. Why they are here: Pt admitted to [facility] for [facility] health from [facility] on [facility] conservatorship. Pt is here for placement. Pt had some sort of agitation at [facility]. He knocked a can of soda off a table. Pt not attending group therapy sessions. He threw a tray in the dining room. Pt has history of Schizoaffective, benign lipomatous, DM II, Pacemaker, benign prostatic hyperplasia. Pt cooperative with admission process. Assessment What has happened this shift: Received patient awake lying in his bed at shift change. Pt is at baseline and awaiting discharge sometime this week. Pt was focused on discharge, keeping to himself today. Noted watching T.V or lying on his bed. Pt continues to be pleasant throughout the day. Pt was complaint with medication and care. Reports sleeping well. Pt attended outside patio time this afternoon. S/I, H/I: Denies both. A/VH: Denies both. Sleep: 7.75 hours per sleep assessment. Lays on bed talking to self or resting. ADL's: Independent with FWW. Noted pt not using FWW, gait slow and steady. Group attendance: Were meds taken: Yes, without hesitation. Any med S/E: None observed or reported. Mental Status Exam Appearance: Older man with long white hair, bald on top dressed in green unit scrubs, wearing a derby hat. Slightly disheveled. Eye contact: Good Behavior: Cooperative, pleasant, sits in common areas watching T.V or in his room. Speech: Clear, soft, some latent responses. Mood: Euthymic Affect: Constricted with brightening. Thought process: Disorganized at times. Thought Content: Discharge. Cognition: A&Ox4 Insight: Fair Judgment: Fair Interventions PRN's used: None Therapeutic interventions: 1:1 assessment, therapeutic conversation, active listening, medication administration/education/monitoring, encouragement of autonomy in ADLs, encouragement to attend groups, fall prevention, provided encouragement and positive reinforcement, maintained Q15 minute safety checks. Restraints/seclusion/emergency medication: N/A Justification of Continued Inpatient Treatment: Pt is conserved and at baseline. Pt has been accepted at [facility] pending an available bed. Pt is #1 at this time. Pankaj Carrington has received all pertinent documents for placement.
[2021-02-13 20:00] VITALS: BP 109/67
[2021-02-13] MEDS: atorvastatin 20mg tablet PO SCH (20:18)
--- NOTE | 2021-02-14 01:50 | NUR ---
Nursing Progress Note: SARABJIT Legal hold: LPS Client on involuntary status for GD Report received from NICK Phelps with use of SBAR. Why they are here: Pt admitted to [facility] for [facility] health from [facility] on LPS conservatorship. Pt is here for placement. Pt had some sort of agitation at [facility]. He knocked a can of soda off a table. Pt not attending group therapy sessions. He threw a tray in the dining room. Pt has history of Schizoaffective, benign lipomatous, DM II, Pacemaker, benign prostatic hyperplasia. Pt cooperative with admission process. Assessment What has happened this shift: Received patient awake watching TV with peers in the rec room. Pt calm and cooperative with care. States he is doing fine. Pt up for snacks and med compliant. Pt went to bed shortly after snacks. S/I, H/I: Denies both. A/VH: Denies both. Sleep: ADL's: Independent with FWW. Noted pt not using FWW, gait slow and steady. Group attendance: Were meds taken: Yes, without hesitation. Any med S/E: None observed or reported. Mental Status Exam Appearance: Older man with long white hair, bald on top dressed in green unit scrubs, wearing a derby hat. Slightly disheveled. Eye contact: Good Behavior: Cooperative, pleasant, sits in common areas watching T.V or in his room. Speech: Clear, soft, some latent responses. Mood: Euthymic Affect: Constricted with brightening. Thought process: Disorganized at times. Thought Content: Discharge. Cognition: A&Ox4 Insight: Fair Judgment: Fair Interventions PRN's used: None Therapeutic interventions: 1:1 assessment, therapeutic conversation, active listening, medication administration/education/monitoring, encouragement of autonomy in ADLs, encouragement to attend groups, fall prevention, provided encouragement and positive reinforcement, maintained Q15 minute safety checks. Restraints/seclusion/emergency medication: N/A Justification of Continued Inpatient Treatment: Pt is conserved and at baseline. Pt has been accepted at [facility] pending an available bed. Pt is #1 at this time. [facility] has received all pertinent documents for placement.
[2021-02-14 07:34] VITALS: BP 104/70
[2021-02-14] MEDS: divalproex 250mg tablet, delayed-release PO SCH ×2 (07:37→20:15)
[2021-02-14] MEDS: busPIRone 5mg tablet PO SCH ×2 (07:37→20:15)
[2021-02-14] MEDS: multivitamins, therapeutics tablet PO SCH (07:37)
[2021-02-14] MEDS: thiamine 100mg tablet PO SCH (07:37)
[2021-02-14] MEDS: trihexyphenidyl HCL 5 MG tablet PO SCH ×2 (07:37→20:15)
[2021-02-14] MEDS: aspirin 81mg, enteric-coated 1 TAB TABLET.DR PO SCH (07:37)
[2021-02-14] MEDS: amantadine 100 MG capsule PO SCH ×2 (07:37→20:15)
[2021-02-14] MEDS: metFORMIN 500mg tablet PO SCH ×2 (07:38→17:40)
[2021-02-14] MEDS: risperiDONE 2mg tablet PO SCH ×2 (07:38→20:15)
[2021-02-14] MEDS: folic acid 0.4mg tablet PO SCH (07:38)
[2021-02-14] MEDS: cholecalciferol (vitamin D3) 1,000 unit (25mcg) tablet PO SCH (07:38)
--- NOTE | 2021-02-14 15:42 | NUR ---
Nursing Progress Note: Client on involuntary status for GD, LPS conserved. Report received from nurse, GABRILE Donahue with use of SBAR. Why they are here: Pt admitted to [facility] for [facility]al health from [facility] on LPS conservatorship. Pt is here for placement. Pt had some sort of agitation at [facility]. He knocked a can of soda off a table. Pt not attending group therapy sessions. He threw a tray in the dining room. Pt has history of Schizoaffective, benign lipomatous, DM II, Pacemaker, benign prostatic hyperplasia. Pt cooperative with admission process. Assessment What has happened this shift: Pt was up before breakfast. Pt was cooperative with his medications. Pt ambulates steadily at varying speeds with FWW. Pt denies depression, anxiety, SI/HI/AH/VH. Pt wanders in and out of groups. Per report this morning the plan is for pt to discharge tomorrow. Pt's public guardian Christian called to say pt will be picked up early tomorrow morning to be transferred to [facility] with the goal to be there by lunchtime however, there is no discharge order, no meds have been delivered, and SW has left for the day. Discussed with charge master specialist who will call public guardian. S/I, H/I: Pt denies. A/VH: Pt denies. Sleep: Pt slept 8 hours last night per noc shift report. ADL's: Independent with prompting, ambulates ad renny with FWW. Group attendance: Yes Were meds taken: Yes Any med S/E: None noted or reported. Mental Status Exam Appearance: Older gentleman with longish white hair bald on top dressed in green scrubs. Eye contact: Good Behavior: Pleasant, cooperative. Speech: Clear, soft, normal rate and rhythm. Mood: Good. Affect: Flat Thought process: Linear Thought Content: Waiting for discharge. Cognition: A&Ox4 Insight: Fair Judgment: Fair Interventions PRN's used: none Therapeutic interventions: 1:1 assessment, therapeutic conversation, active listening, medication administration/education/monitoring, encouragement of autonomy in ADLs, encouragement to attend groups, fall prevention, provided encouragement and positive reinforcement, maintained Q15 minute safety checks. Restraints/seclusion/emergency medication: N/A Justification of Continued Inpatient Treatment: Pt required crisis interruption and medication adjustment and monitoring in a safe and supportive environment until stable. Pt is at baseline. Patient is conserved with [facility] awaiting placement, pt has been accepted at [facility] and discharge is pending.
--- NOTE | 2021-02-14 17:39 | NUR ---
Patient attended the group art therapy, entering the session 20 minutes unto group. He was able to catch up, understand and complete all the activities however did not choose to read, have his writing read or shared in greater depth during the group process. He did not interact with his peers. His thought content remains simple, somewhat impoverished, yet appears to holds meaning for him. *Please refer to the [facility] Case Notes for entire overview. Rhona Degroot MA, [facility] #[id number] [facility], Art Therapist Addendum: 02/14/21 at 1741 by Rhona LALA Amended: Links added.
--- NOTE | 2021-02-14 17:42 | NUR ---
DISCHARGE: VIANEY Barfield contacted JAYMIE Canada, charge histotechnologist contacted public guardian Christian. Plan is still to discharge the pt to [facility] tomorrow morning with a picking machine operator time of 0845. The claim administrator at [facility] is arranging to have meds ordered and delivered down there tomorrow. VIANEY Barfield contacted Dr Liao to request discharge orders be put in tonight.
--- NOTE | 2021-02-14 18:10 | NUR ---
Group Art Tx Continued: Patient attended the group art therapy, entering the session 20 minutes unto group. He was able to understand and complete all the activities however did not choose to read, have his writing read or shared in greater depth during the group process. He did not interact with his peers. *Please refer to the [facility] Case Notes for entire overview. Rhona Degroot MA, [employer] [facility] #[id number] [facility], Art Therapist Addendum: 02/14/21 at 1811 by Rhona Degroot SS Amended: Links added.
--- NOTE | 2021-02-14 18:14 | NUR ---
VIANEY Barfield reports that Dr Liao got back to him. Dr Liao will put in discharge order and complete discharge summary.
[2021-02-14 19:00] VITALS: BP 116/69
[2021-02-14] MEDS: atorvastatin 20mg tablet PO SCH (20:15)
[2021-02-14] MEDS ORDERED: MULT-25 PO (22:25)
[2021-02-14] MEDS ORDERED: thiamine tablet PO (22:25)
[2021-02-14] MEDS ORDERED: BUSP10TA10 PO (22:25)
[2021-02-14] MEDS ORDERED: CHOL100046 PO (22:25)
[2021-02-14] MEDS ORDERED: FOLI0.4T14 PO (22:25)
[2021-02-14] MEDS ORDERED: TRIH5TAB3 PO (22:25)
[2021-02-14] MEDS ORDERED: METF-1203 PO (22:25)
[2021-02-14] MEDS ORDERED: ASPI-1071 PO (22:25)
[2021-02-14] MEDS ORDERED: RISP4TAB73 PO (22:25)
[2021-02-14] MEDS ORDERED: AMA100C PO (22:25)
[2021-02-14] MEDS ORDERED: DIVA500T9 PO (22:25)
[2021-02-14] MEDS ORDERED: ATOR20TA66 PO (22:25)
--- NOTE | 2021-02-15 01:35 | NUR ---
Nursing Progress Note: kaylyn Client on involuntary status for GD, LPS conserved. Report received from nurse, Ron RN with use of SBAR. Why they are here: Pt admitted to [facility] for [facility]al health from [facility] on LPS conservatorship. Pt is here for placement. Pt had some sort of agitation at [facility]. He knocked a can of soda off a table. Pt not attending group therapy sessions. He threw a tray in the dining room. Pt has history of Schizoaffective, benign lipomatous, DM II, Pacemaker, benign prostatic hyperplasia. Pt cooperative with admission process. Assessment What has happened this shift: Pt was up before breakfast. Pt in community room watching TV with peers. Pt was cooperative with his medications. Pt ambulates steadily at varying speeds with FWW. Pt did not want to talk and told this RN to leave after medication administration. S/I, H/I: Pt denies. A/VH: Pt denies. Sleep: ADL's: Independent with prompting, ambulates ad renny with FWW. Group attendance: Were meds taken: Yes Any med S/E: None noted or reported. Mental Status Exam Appearance: Older gentleman with longish white hair bald on top dressed in green scrubs. Eye contact: Good Behavior: Pleasant, cooperative. Speech: Clear, soft, normal rate and rhythm. Mood: Good. Affect: Flat Thought process: Linear Thought Content: Waiting for discharge. Cognition: A&Ox4 Insight: Fair Judgment: Fair Interventions PRN's used: none Therapeutic interventions: 1:1 assessment, therapeutic conversation, active listening, medication administration/education/monitoring, encouragement of autonomy in ADLs, encouragement to attend groups, fall prevention, provided encouragement and positive reinforcement, maintained Q15 minute safety checks. Restraints/seclusion/emergency medication: N/A Justification of Continued Inpatient Treatment: Pt required crisis interruption and medication adjustment and monitoring in a safe and supportive environment until stable. Pt is at baseline. Patient is conserved with [facility] awaiting placement, pt has been accepted at [facility] and discharge is pending.
[2021-02-15] MEDS: amantadine 100 MG capsule PO SCH (07:28)
[2021-02-15] MEDS: cholecalciferol (vitamin D3) 1,000 unit (25mcg) tablet PO SCH (07:28)
[2021-02-15] MEDS: folic acid 0.4mg tablet PO SCH (07:29)
[2021-02-15] MEDS: trihexyphenidyl HCL 5 MG tablet PO SCH (07:29)
[2021-02-15] MEDS: busPIRone 5mg tablet PO SCH (07:29)
[2021-02-15] MEDS: divalproex 250mg tablet, delayed-release PO SCH (07:29)
[2021-02-15] MEDS: risperiDONE 2mg tablet PO SCH (07:29)
[2021-02-15] MEDS: metFORMIN 500mg tablet PO SCH (07:29)
[2021-02-15] MEDS: thiamine 100mg tablet PO SCH (07:29)
[2021-02-15] MEDS: multivitamins, therapeutics tablet PO SCH (07:29)
[2021-02-15] MEDS: aspirin 81mg, enteric-coated 1 TAB TABLET.DR PO SCH (07:29)
[2021-02-15 07:37] VITALS: BP 89/49
--- NOTE | 2021-02-15 10:29 | NUR ---
Discharge Note: Patient discharging to [facility]. Patient is agreeable and states he feels good about his discharge plan. Paperwork sent to public guardian. Escorted off the unit by staff at 09:05 and picked up by [facility] truck driver salesperson with all of his belongings and medications. Leaves with the following discharge plan: Follow-Up: Patient has been scheduled/referred to the following providers for post-hospital discharge and aftercare treatment. Psychiatrist: You will be scheduled to see a psychiatrist at [facility]. Primary Care Provider: You will be seen by a provider arranged by [facility]. Discharge Address: [address] [address] Transportation: [facility] Public Guardian's truck driver salesperson Patient given community crisis services information and National suicide hotline handout. Please call [phone] for your second outpatient smoking cessation appointment. Resources for education regarding mental illness: [address] [phone] For urgent mental health crisis needs please contact Mobile Crisis Outreach Team Thursday through Thursday 8:30a to 5:00pm. [facility] Crisis Outreach Team [address] [place] [phone]
== END 2021-02-15 09:05 | disposition home or self-care (01) | DRG 885 ==
LOC: UNDOADMIN 22:15 → ADULT MH 22:15
PROVIDERS: ADMIT Psychiatry & Neurology Psychiatry; ATTEND Psychiatry & Neurology Psychiatry
DX: F25.0 Schizoaffective disorder, bipolar type (principal); E78.5 Hyperlipidemia, unspecified; F17.210 Nicotine dependence, cigarettes, uncomplicated; E11.9 Type 2 diabetes mellitus without complications; N40.0 Benign prostatic hyperplasia without lower urinary tract symptoms; Z95.0 Presence of cardiac pacemaker; Y90.9 Presence of alcohol in blood, level not specified; E55.9 Vitamin D deficiency, unspecified; L30.9 Dermatitis, unspecified; F10.20 Alcohol dependence, uncomplicated; I95.9 Hypotension, unspecified; R25.8 Other abnormal involuntary movements; R26.89 Other abnormalities of gait and mobility; Z20.822 Contact with and (suspected) exposure to COVID-19
CPT/HCPCS: 36415; 80053; 80061; 80164; 83036; 85025; 87081; 87635